=== PATIENT | female | born 2005 | race Caucasian/White ===

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

== ENCOUNTER → 2024-06-02 18:25 | Outpatient (CLI) | payer OTHER, SELFPAY ==
--- NOTE | ~2024-06-02 | XR_ITS ---
EXAMINATION: XR lumbar spine 2-3V DATE: 06/02/2024 19:03 INDICATION: Chronic bilateral low back pain. TECHNIQUE: 2 views of lumbar spine were obtained. COMPARISON: None. FINDINGS: Alignment is normal. Vertebral body heights and intervertebral disc heights are normal. The facet joints are normal. IMPRESSION: 1. Normal lumbar spine. Reviewed, dictated and finalized at location A. IMPRESSION: 1. Normal lumbar spine.
--- NOTE | ~2024-06-02 | XR_ITS ---
EXAMINATION: XR thoracic spine 3V DATE: 06/02/2024 19:02 INDICATION: Chronic mid back pain. TECHNIQUE: 3 views of thoracic spine were obtained. COMPARISON: None. FINDINGS: There is a 9 degrees levocurvature of cervicothoracic spine. Vertebral body heights and int ervertebral disc heights are normal. IMPRESSION: 1. Cervicothoracic levocurvature. Reviewed, dictated and finalized at location A.
--- NOTE | ~2024-06-02 | XR_ITS ---
EXAMINATION: [id number] DATE: 06/02/2024 19:01 INDICATION: Chronic bilateral neck pain. TECHNIQUE: 4 views of cervical spine were obtained. COMPARISON: None. FINDINGS: There is 9 degrees levocurvature of cervicothoracic spine. Vertebral body heights and inter vertebral disc heights are normal. The facet joints are normal. No central canal stenosis or preverte bral soft tissue swelling. There are surgical clips in the neck. IMPRESSION: 1. Cervicothoracic levocurvature. Reviewed, dictated and finalized at location A.
== END ==
PROVIDERS: PCP Emergency Medicine; Visit Provider Emergency Medicine
DX: M54.2 Cervicalgia (principal); M54.6 Pain in thoracic spine; M54.50 Low back pain, unspecified
CPT/HCPCS: 72040; 72072; 72100

== ENCOUNTER 2024-09-11 23:45 | Emergency (ER) | payer OTHER, SELFPAY ==
--- NOTE | ~2024-09-11 | CT_ITS ---
CT ANGIOGRAM NECK AND HEAD History: Headache, family history of AVM. Technique: Axial noncontrast imaging of the brain was performed. Serial spiral axial images through t he head and neck were then obtained during arterial phase IV injection of 100 cc of Omnipaque 350. 3- D postprocessing and MIP images were then reconstructed on the remote workstation. Dose reduction danya hnique was used on this scan by utilizing automated exposure control and iterative reconstruction danya hnique. The dose-length product (DLP) was 1510.98 mGy-cm. CTA neck findings: Bilateral vertebral arteries are patent. Bilateral common carotid, internal carot id, and external carotid arteries are patent. No large vessel occlusion or stenosis. No aneurysm. The proximal right internal carotid artery demonstrates 0% stenosis relative to the normal distal artery lumen diameter. The proximal left internal carotid artery demonstrates 0% stenosis relative to the n ormal distal artery lumen diameter. CTA head findings: Distal vertebral arteries, basilar artery, and posterior cerebral arteries are pat ent. Distal internal carotid arteries, middle cerebral arteries, and anterior cerebral arteries are p atent. No large vessel occlusion or stenosis. No aneurysm. Axial noncontrast images of brain is unremarkable. No acute infarct, intracranial hemorrhage or mass lesion identified. Beltran-white differentiation preserved. No mass effect or midline shift. Ventricles and subarachnoid spaces are normal. Paranasal sinuses and mastoid air cells are clear. Calvarium inta ct. Impression: No significant abnormality seen. Reviewed, dictated and finalized at [facility]. BINDING FITTER AND REPAIRER Impression: No significant abnormality seen.
--- NOTE | ~2024-09-11 | XR_ITS ---
Portable chest x-ray Comparison: 02/11/2023 Clinical History: Seizure Findings: Lungs are clear, without focal consolidation or pleural effusion. Cardiomediastinal silho uette is stable. Bones and soft tissues are unremarkable. Impression: Normal chest. Reviewed, dictated and finalized at [facility]. TIC EXTRUSION OPERATOR Impression: Normal chest.
[2024-09-11 23:50] VITALS: BP 128/88; PULSE 92; PULSE 98; RESP 13; TEMP 36.9; O2SAT 100
--- NOTE | 2024-09-12 00:22 | ECG_ITS ---
Test Date: 2024-09-12 00:53:08 Measurements Intervals [place] Rate: 85 P: 37 MI: 123 QRS: 82 QRSD: 73 T: 54 QT: 376 QTc: 447 Interpretive Statements SINUS RHYTHM NONSPECIFIC T-WAVE ABNORMALITY No previous ECG available for comparison Electronically Signed On 09-12-2024 08:47:11 CHEMISTRY TEACHER by Javier Ledesma M.D.
[2024-09-12] MEDS: SODIUM CHLORIDE 0.9% IV 1,000 ML 999 ML IV CONT (00:41)
[2024-09-12 00:58] LABS: Glucose Point of Care 90 mg/dl (65-105)
[2024-09-12 01:01] LABS: Acetaminophen < 10 ug/mL (10-30); Ethanol < 10 mg/dL (<10); Salicylate < 1.0 mg/dL (2-20)
[2024-09-12 01:02] LABS: Alanine Aminotransferase 17 U/L (6-35); Albumin Level 4.3 g/dL (3.5-5.1); Alkaline Phosphatase 89 U/L (38-126); Anion Gap 7 mmol/L (4-12); Aspartate Amino Transferase 26 U/L (14-36); Basophils Percent Auto 0.6 % (0.2-1.2); Bilirubin,Total 0.3 mg/dL (0.2-1.3); Blood Urea Nitrogen 8 mg/dL (7-17); Calcium 6.8 mg/dL (8.4-10.2); Carbon Dioxide 26 mmol/L (22-30); Chloride 105 mmol/L (98-107); Eosinophils Percent Auto 0.4 % (0-4.4); Estimated CRCL calculation 113 ml/min; Estimated Glomerular Filt Rate > 60; Glucose 107 mg/dL (65-110); Hematocrit 35.5 % (37.0-47.0); Hemoglobin 10.9 g/dL (12.0-15.0); INR 1.1; Immature Granulocyte Absolute 0.03 K/mm3 (0.00-0.031); Immature Granulocyte Percent A 0.4 % (0-0.5); Lymphocytes Absolute Auto 2.82 K/mm3 (0.9-3.2); Mean Corpuscular HGB Conc 30.7 g/dl (32-36); Mean Corpuscular Hemoglobin 22.8 pg (26-34); Mean Corpuscular Volume 74.3 fl (80-100); Mean Platelet Volume 11.4 fl (7.4-10.4); Monocytes Absolute Auto 0.8 K/mm3 (0.1-0.6); Monocytes Percent Auto 10.7 % (2.6-8.5); Neutrophils Absolute Auto 3.5 K/mm3 (1.3-6.7); Neutrophils Percent Auto 48.9 % (45.5-73.1); Platelet Count Result 278 k/mm3 (150-375); Potassium 3.2 mmol/L (3.4-5.0); Prothrombin Time 14.6 Seconds (11.1-14.7); Red Blood Count 4.78 M/mm3 (4.2-5.4); Sodium 138 mmol/L (137-145); White Blood Count 7.2 K/mm3 (4.5-10.0)
[2024-09-12 01:03] LABS: Partial Thromboplastin Time 29.6 Seconds (22.3-36.8)
[2024-09-12 01:05] VITALS: BP 125/82; PULSE 89; RESP 13; O2SAT 100
[2024-09-12 01:13] LABS: Anisocytosis 1+; Hypochromasia 1+; Ovalocytes 1+; Platelet Estimate Adequate (Adequate); Schistocytes None Seen; Troponin I < 0.012 ng/mL (0.000-0.034)
--- NOTE | 2024-09-12 01:22 | ED.AMS ---
HPI - Altered Mental Status General Chief Complaint: Altered Mental Status Stated Complaint: AMS Time Seen by Provider: 09/12/24 00:22 History of Present Illness HPI narrative: 19-year-old female with a past medical history of thyroid cancer status post total thyroidectomy and a family history of cerebral aneurysms presenting to the emergency department today with a chief complaint of shaking in the bilateral extremities and potential seizure-like activity. Patient states that she has a history of anxiety that has been worsening over last few days secondary to new work. She states that she has not been taking her calcium or thyroid medications these last few weeks as she has been too busy at work and forgetting to pick them up at the pharmacy. She does some mild headache but denies any vision changes, nausea, vomiting, chest pain, shortness a breath, fever, chills. Denies any falls or injuries. States that her shaking activity was witnessed by the mom but she was able ambulate to the car and they drove herself here to the emergency department. Sounds like there was no actual or suspected syncopal event or loss of consciousness. Patient denies any substance use. Related Data Home Medications ?Medication ?Instructions ?Recorded ?Confirmed ?Last Taken ?Type levothyroxine 100 mcg tablet 100 mcg PO 01/20/24 01/20/24 Unknown History liothyronine 25 mcg tablet 25 mcg PO 01/20/24 01/20/24 Unknown History Allergies Allergy/AdvReac Type Severity Reaction Status Date / Time No Known Allergies Allergy Verified 01/20/24 14:23 Review of Systems Review of Systems: As reviewed above in HPI [facility] Past Medical History Medical History Anxiety Depression Encounter for surveillance of implantable subdermal contraceptive Thyroid cancer Iron deficiency anemia Bloating Anemia Surgical History Surgical History History of appendectomy H/O thyroidectomy Family History Family History Grandparent COPD (chronic obstructive pulmonary disease) Social History Social History Smoking status: Never smoker Alcohol intake: never Substance use: current Substance use type: marijuana Do You Feel Safe in your Home?: Yes Lack of Transportation: No Lack of Food: Never True Current Housing: I Have Housing Concerned About Future Housing: No Difficulty Paying Gas/Electric Bills: No Difficulty Paying for Meds: Decline to Answer Currently Unemployed: YES Education: Decline to Answer Difficulty w/ Childcare or Family Care: No Living arrangements: with family Occupation/Education: unemployed Gender identity (if verbalized by the patient): Female Spiritual care concerns: No Exam Narrative: GENERAL: [Well-appearing, well-nourished, and in no acute distress.] HEAD: [Normocephalic, atraumatic.] EYES: [PERRLA and EOMI.] ENT: Nares clear, no rhinorrhea or epistaxis. Mucous membranes moist. NECK: Supple. CHEST: [Clear to auscultation. No respiratory distress.] HEART: [Regular rate and rhythm]. No murmur heard. [Normal peripheral pulses.] ABDOMEN: [Soft, nondistended], [nontender], [No rigidity or guarding] EXTREMITIES: Normal range of motion. [No edema.] SKIN: Warm, dry, no rash. NEURO: [No focal deficits]. Alert and oriented [x3.] Fine tremor noted in bilateral upper extremities that is extinguished with intention PSYCH: Anxious appearing Course Vital Signs Vital signs: Vital Signs Temperature 36.9 C 09/11/24 23:50 Pulse Rate 98 09/11/24 23:50 Respiratory Rate 13 09/11/24 23:50 Blood Pressure 128/88 09/11/24 23:50 Pulse Oximetry 100 09/11/24 23:50 Oxygen Delivery Room Air 09/11/24 23:50 Temperature 36.9 C 09/11/24 23:50 Pulse Rate 77 09/12/24 03:53 Respiratory Rate 16 09/12/24 05:27 Blood Pressure 123/71 09/12/24 03:53 Pulse Oximetry 100 09/12/24 03:53 Oxygen Delivery Room Air 09/11/24 23:50 MDM - Altered Mental Status MDM Narrative Medical decision making narrative: 19-year-old female with complex history including thyroid cancer status post thyroidectomy, history of family secondary to ruptured cerebral AVM. Today she presents to the emergency room with chief complaint of shaking activity bilateral upper extremities and some transient mental status changes that she is concerned could be related to a seizure. She has no history of epilepsy or seizures but states that she is concerned about them. She has not been taking her thyroid medication or her calcium medication these last few weeks secondary to stressors at work and forgetting to take her meds or get them filled at the pharmacy. She has a mild headache but otherwise appears well not any acute distress. She is slightly anxious and does have a fine tremor in her arms. No focal findings on her neurological assessment otherwise. Normal symmetric pulses throughout, reassuring vitals without any significant blood pressure elevations, no tachycardia fever hypoxia or tachypnea. Clear breath sounds throughout. Chronic care glucose was normal at 90. Given patient's complex history and family history of cerebral aneurysms I believe a thorough desiccation is warranted at this time. Suspicion is low for true seizure activity given the lack of any postictal state or any true loss of consciousness but will evaluate for any electrolyte derangements, hypocalcemia, thyroid levels, CBC, CMP, EKG, drug screen, CT and CT angiography of the head neck to assess for any kind of aneurysms given the strong family history. No significant leukocytosis or anemia worse than baseline. coags within normal limits. Electrolytes show a calcium of 6.8 in line with her previous low calcium levels and consistent with her patient's story that she has not been taking her calcium supplementation. TSH of 49.4 also indicative of her thyroid dysfunction. She has not been taking her thyroid medications recently either. She was given a dose of 2 g of calcium gluconate and 50 units of levothyroxine which is half her dose p.o. other workup shows negative troponin, negative CTA and CT head imaging without any aneurysms dissections or intracranial pathology. Patient was re-evaluated frequently and had stable vital signs here, no seizure activity witnessed in the emergency department she was re-evaluated multiple times over several hours. Clinically stable without any a concerning features of her hypocalcemia or thyroid dysfunction. Patient's family was present at bedside and they are comfortable with patient's discharge at this time with close outpatient follow-up with her celebrity chef entrepreneur media personality. Encouraged him to get the prescriptions of her medications filled at her pharmacy so she can remain back on her normal medication dosages and if she has any worsening or new concerns she can always get repeat evaluation here in the emergency department. Patient is stable for discharge home at this time. Medical Records Attestation: I reviewed the patient's medical records. Lab Data Attestation: I reviewed the patient's lab results. 09/12/24 00:42 09/12/24 00:42 Labs: Lab Results 09/12/24 09/12/24 09/12/24 Range/Units 00:42 00:55 01:31 WBC 7.2 (4.5-10.0) K/mm3 RBC 4.78 (4.2-5.4) M/mm3 Hgb 10.9 L (12.0-15.0) g/dL Hct 35.5 L (37.0-47.0) % MCV 74.3 L (80-100) fl MCH 22.8 L (26-34) pg MCHC 30.7 L (32-36) g/dl RDW 16.0 H (11.5-14.5) % Plt Count 278 D (150-375) k/mm3 MPV 11.4 H (7.4-10.4) fl Immature Gran % (Auto) 0.4 (0-0.5) % Neut % (Auto) 48.9 (45.5-73.1) % Lymph % (Auto) 39.0 (18.3-44.2) % [place] % (Auto) 10.7 H (2.6-8.5) % Eos % (Auto) 0.4 (0-4.4) % Baso % (Auto) 0.6 (0.2-1.2) % Lymph # (Auto) 2.82 (0.9-3.2) K/mm3 [place] # (Auto) 0.8 H (0.1-0.6) K/mm3 Eos # (Auto) 0.0 (0-0.3) K/mm3 Baso # (Auto) 0.0 (0.0-0.1) K/mm3 Abs Immat Gran (auto) 0.03 (0.00-0.031) K/mm3 Absolute Neuts (auto) 3.5 (1.3-6.7) K/mm3 Absolute Nucleated RBC 0.000 (0.0-0.012) K/mm3 Nucleated RBC % 0.0 (0.0-0.2) % Platelet Estimate Adequate (Adequate) Hypochromasia 1+ Anisocytosis 1+ Ovalocytes 1+ Schistocytes None seen PT 14.6 (11.1-14.7) Seconds INR 1.1 APTT 29.6 (22.3-36.8) Seconds Sodium 138 (137-145) mmol/L Potassium 3.2 L (3.4-5.0) mmol/L Chloride 105 (98-107) mmol/L Carbon Dioxide 26 (22-30) mmol/L Anion Gap 7 (4-12) mmol/L BUN 8 (7-17) mg/dL Creatinine 0.50 L (0.7-1.0) mg/dL Estim Creat Clear Calc 113 ml/min Estimated GFR > 60 (59 - ) Glucose 107 (65-110) mg/dL POC Capillary Glucose 90 (65-105) mg/dl Lactic Acid 1.7 (0.7-2.0) mmol/L Calcium 6.8 L (8.4-10.2) mg/dL Total Bilirubin 0.3 (0.2-1.3) mg/dL AST 26 (14-36) U/L ALT 17 (6-35) U/L Alkaline Phosphatase 89 (38-126) U/L Troponin I < 0.012 (0.000-0.034) ng/mL Total Protein 8.0 (6.3-8.2) g/dL Albumin 4.3 (3.5-5.1) g/dL TSH 49.400 H (0.465-4.680) uIU/mL Urine Color Yellow (Yellow) Urine Appearance Clear (Clear) Urine pH 6.5 (5.0-9.0) Ur Specific [place] 1.025 (1.001-1.035) Urine Protein Trace (Negative) mg/dL Urine Glucose (UA) Negative (Negative) mg/dL Urine Ketones Trace H (Negative) mg/dL Ur Blood (Man) Negative (Negative) Urine Nitrate Negative (Negative) Urine Bilirubin Negative (Negative) Urine Urobilinogen 1.0 (<2.0) mg/dL Add Ur Microanalysis Reviewed Leukocyte Esterase Rfl Negative (Negative) ALYSIA/UL Urine RBC 0-2 (0-2) /hpf Urine WBC 0-5 (0-3) /hpf Ur Squamous Epith Cells Occasional (Few) /hpf Urine Bacteria None seen /hpf Urine Casts 6-10 Hyaline Casts Present (None) /lpf Urine Mucus Present /lpf POC Urine HCG, Qual (Negative) Salicylates < 1.0 L (2-20) mg/dL Urine Opiates Screen Negative (Negative) Urine Methadone Screen Negative (Negative) Acetaminophen < 10 L (10-30) ug/mL Ur Barbiturates Screen Negative (Negative) Ur Phencyclidine Scrn Negative (Negative) Ur Amphetamine Screen Negative (Negative) U Benzodiazepines Scrn Negative (Negative) Urine Cocaine Screen Negative (Negative) U Cannabinoids Screen Positive A (Negative) Ethyl Alcohol < 10 (<10) mg/dL 09/12/24 Range/Units 01:34 WBC (4.5-10.0) K/mm3 RBC (4.2-5.4) M/mm3 Hgb (12.0-15.0) g/dL Hct (37.0-47.0) % MCV (80-100) fl MCH (26-34) pg MCHC (32-36) g/dl RDW (11.5-14.5) % Plt Count (150-375) k/mm3 MPV (7.4-10.4) fl Immature Gran % (Auto) (0-0.5) % Neut % (Auto) (45.5-73.1) % Lymph % (Auto) (18.3-44.2) % [place] % (Auto) (2.6-8.5) % Eos % (Auto) (0-4.4) % Baso % (Auto) (0.2-1.2) % Lymph # (Auto) (0.9-3.2) K/mm3 [place] # (Auto) (0.1-0.6) K/mm3 Eos # (Auto) (0-0.3) K/mm3 Baso # (Auto) (0.0-0.1) K/mm3 Abs Immat Gran (auto) (0.00-0.031) K/mm3 Absolute Neuts (auto) (1.3-6.7) K/mm3 Absolute Nucleated RBC (0.0-0.012) K/mm3 Nucleated RBC % (0.0-0.2) % Platelet Estimate (Adequate) Hypochromasia Anisocytosis Ovalocytes Schistocytes PT (11.1-14.7) Seconds INR APTT (22.3-36.8) Seconds Sodium (137-145) mmol/L Potassium (3.4-5.0) mmol/L Chloride (98-107) mmol/L Carbon Dioxide (22-30) mmol/L Anion Gap (4-12) mmol/L BUN (7-17) mg/dL Creatinine (0.7-1.0) mg/dL Estim Creat Clear Calc ml/min Estimated GFR (59 - ) Glucose (65-110) mg/dL POC Capillary Glucose (65-105) mg/dl Lactic Acid (0.7-2.0) mmol/L Calcium (8.4-10.2) mg/dL Total Bilirubin (0.2-1.3) mg/dL AST (14-36) U/L ALT (6-35) U/L Alkaline Phosphatase (38-126) U/L Troponin I (0.000-0.034) ng/mL Total Protein (6.3-8.2) g/dL Albumin (3.5-5.1) g/dL TSH (0.465-4.680) uIU/mL Urine Color (Yellow) Urine Appearance (Clear) Urine pH (5.0-9.0) Ur Specific [place] (1.001-1.035) Urine Protein (Negative) mg/dL Urine Glucose (UA) (Negative) mg/dL Urine Ketones (Negative) mg/dL Ur Blood (Man) (Negative) Urine Nitrate (Negative) Urine Bilirubin (Negative) Urine Urobilinogen (<2.0) mg/dL Add Ur Microanalysis Leukocyte Esterase Rfl (Negative) ALYSIA/UL Urine RBC (0-2) /hpf Urine WBC (0-3) /hpf Ur Squamous Epith Cells (Few) /hpf Urine Bacteria /hpf Urine Casts Hyaline Casts (None) /lpf Urine Mucus /lpf POC Urine HCG, Qual Negative (Negative) Salicylates (2-20) mg/dL Urine Opiates Screen (Negative) Urine Methadone Screen (Negative) Acetaminophen (10-30) ug/mL Ur Barbiturates Screen (Negative) Ur Phencyclidine Scrn (Negative) Ur Amphetamine Screen (Negative) U Benzodiazepines Scrn (Negative) Urine Cocaine Screen (Negative) U Cannabinoids Screen (Negative) Ethyl Alcohol (<10) mg/dL Imaging Data Attestation: I personally reviewed and interpreted this imaging study as follows: My impression: Impressions Head/Neck CTA 09/12/24 06:27 Impression: No significant abnormality seen. Chest X-Ray 09/12/24 06:31 Impression: Normal chest. Discharge Plan Discharge Clinical Impression: Hypocalcemia, Seizure-like activity, History of thyroidectomy, total, History of thyroid cancer Patient Disposition: Home, Self-Care Condition: Stable Instructions: Antibiotic Form Additional Instructions: You have low calcium levels and need to be restarted on your calcium supplementation medications. Your thyroid likely also needs to be adjusted based on your levels here today. Please call your celebrity chef entrepreneur media personality in the morning to schedule a follow-up appointment to restart your medications as appropriate. You did receive supplementation medication here in the emergency department treat both of these and we need to oyster picker her medications at your pharmacy when available. Follow-up with your doctor and return with any new or worsening concerns at any time. Patient Language: Icelandic Prescriptions: No Action levothyroxine 100 mcg tablet 100 mcg PO liothyronine 25 mcg tablet 25 mcg PO Follow-up/Referrals: John Paul Domínguez MD [Primary Care Provider] - Time of Disposition: 05:09
[2024-09-12 01:36] LABS: BEDSIDEPREGUCG Negative (Negative)
[2024-09-12 01:44] LABS: Lactic Acid Reflex 1.7 mmol/L (0.7-2.0)
[2024-09-12 01:52] LABS: Add Urine Microscopic? YES; Appearance Urine Clear (Clear); Bacteria Urine None Seen /hpf; Bilirubin Urine Negative (Negative); Blood Urine Negative (Negative); Color Urine Yellow (Yellow); Glucose Urine UA Negative (Negative); Hyaline Casts Urine Present /lpf; Ketones Urine Trace mg/dL (Negative); Leukocyte Esterase Ur Negative LEU/UL (Negative); Mucus Urine Present /lpf; Need Manual Microscopic Reviewed; Nitrate Urine Negative (Negative); Protein Urine Trace mg/dL (Negative); RBC Urine 0-2 /hpf (0-2); Specific Grav Ur 1.025 (1.001-1.035); Squamous Epithelial Cell Urine Occasional /hpf (Few); WBC Urine 0-5 /hpf (0-3); pH Urine 6.5 (5.0-9.0)
[2024-09-12 01:55] LABS: Amphetamine Screen Urine Negative (Negative); Barbiturate Screen Urine Negative (Negative); Benzodiazepines Screen Urine Negative (Negative); Cannabinoid Screen Urine Positive (Negative); Cocaine Screen Urine Negative (Negative); Methadone Screen Urine Negative (Negative); Opiate Screen Urine Negative (Negative); Phencyclidine Screen Urine Negative (Negative)
[2024-09-12] MEDS: LEVOTHYROXINE SODIUM INJ 100 MCG/5 ML VIAL 50 MCG IV PUSH (02:02)
[2024-09-12] MEDS: CALCIUM GLUC 2,000 MG/NS 100ML 2,000 MG/100 ML BAG 100 MG IVPB (02:02)
[2024-09-12 03:53] VITALS: BP 123/71; PULSE 77; RESP 17; O2SAT 100
[2024-09-12 05:27] VITALS: RESP 16
--- OUTSIDE RECORDS SUMMARY | 2024-09-16 12:07 | XMS_ITS | Encounter Summary ---
Author Organization [facility] Address [facility] [place] [address] [place] [address] Care Team Providers Care Typewriters Functional Tester Name Role Phone John Paul Domínguez MD Primary Care Provider [phone] Reason for Referral * Imaging (Routine) - Closed Specialty Diagnoses / Procedures Referred By Garcia carrillo Referred To Contact RADIOLOGY Diagnoses ORTEGA (dyspnea on exertion) Other Leanne-Danlos syndromes (HHS/HCC) Procedures USE ECHOCARDIOGRAM Ramesh Dowling MD [facility], [address] [place] [address] Phone: tel: fax: Referral ID Status Reason Start Date Expiration Date Visits Re quested Visits Authorized [id number] Closed 06/17/2024 09/15/2024 1 1 Encounter Details Date Type Department Care Team (Late st Contact Info) Description 05/24/2024 Orders Only [facility] [address] [place], [place] [id number] Ramesh Dowling MD [facility], [address] [place] [address] Social History Tobacco Use Types Packs/Day Years Used Date Smoking Tobacco: Never Passive Smoke Exposure: Never Smokeless Tobacco: Never Alcohol Use Standard Drinks/Week Comments Not Currently 0 (1 standard drink = 0.6 oz pur e alcohol) Comments Unknown Sex and Gender Information Value Date Recorded Sex Assigned at Not on file Legal Sex Female 9:01 AM CDT Gender Identity Not on file Sexual Orientation Not on file documented as of this encounter Plan of Treatment Upcoming Encounters Date Type Department Care Team (Late st Contact Info) Description 01/31/2025 12:45 PM CDT Office Visit [facility] [address] [place] [address] Ramesh Dowling MD [facility] [address] [place] [address] documented as of this encounter Results * USE ECHOCARDIOGRAM (06/17/2024 1:27 PM CDT) Anatomical Region Laterality Modality Cardiac Echocardiogram 06/17/2024 1:00 PM CDT Narrative 06/19/2024 9:05 AM CDT ?Echocardiography Report Pat.Name: ??JULIA BACA ? Pat.ID: ?[id number] ? St.Date: ?? 06/17/2024 ? Refer.: ??[id number] ROSARIO Son ? EWDPROV ?EWDPROV Exam Time: 1:00:00 PM ? Study Type:ECHO WITH CARDIAC DOPPLER COMP Height: ?61 in ? Weight: ?132 lb ? BSA: ? 1.58 m2 ?Age: ??2005,18Y ? Sex: ? F ? BP: ?121/71 ? HR: ?90 bpm ?Sonogrphr: Lazara Gilliam RCS ? Pat. Stat.:Outpatient ? Reason for Study:Dyspnea on exertion, Leanne-Danlos Procedures: 2D, M-mode, Doppler, Color Flow, The study quality is technically good. Race: ?W ? ++++++++++++++++++++++++++++++++++++ SUMMARY: ++++++++++++++++++++++++++++++++++++ The left ventricular size is normal. The left ventricular systolic function is normal. Estimated left ventricular ejection fraction is 65-70%. Left ventricular diastolic function is normal. The right ventricular size is normal. Right ventricular systolic function is normal. Mild mitral regurgitation. Mild tricuspid regurgitation. ++++++++++++++++++++++++++++++++++++ FINDINGS: ++++++++++++++++++++++++++++++++++++ LV: ? The left ventricular size is normal. The left ventricular ?systolic function is normal. Estimated left ventricular ?ejection fraction is 65-70%. There is no left ventricular ?hypertrophy. Left ventricular diastolic function is normal. WM: ? Wall motion appears normal in all segments. RV: ? The right ventricular size is normal. Right ventricular ?systolic function is normal. IVS: ?No evidence of ventricular septal defect. LA: ? The left atrial size is normal. The left atrial volume is ?normal ( less than 34 ml/M2). RA: ? Right atrial size is normal. IAS: ?Atrial septum appears intact. ARCELIA: ? No evidence of pericardial effusion. AO: ? Aorta is normal. PA: ? Estimated right atrial pressure of 3 mmHg. SVn: ?Systemic veins are normal. AV: ? The aortic valve is trileaflet. No evidence of aortic valve ?stenosis. No evidence of aortic valve regurgitation. MV: ? Mild mitral regurgitation. No evidence of mitral stenosis. PV: ? Trace pulmonic regurgitation. No evidence of pulmonic valve ?stenosis. TV: ? Mild tricuspid regurgitation. Right ventricular systolic ?pressure is 16 mmHg. No evidence of tricuspid valve ?stenosis. ++++++++++++++++++++++++++++++++++++ MEASUREMENTS: ++++++++++++++++++++++++++++++++++++ ?DOPPLER LVOT ?? LVOTpkPG ? 4 mmHg ?LVOTmnPG ? 2 mmHg LVOTpkVel ? 95.6 cm/s (70-110) LVOT SV ? 52 ml ?? LVOT TVI ?16.7 cm ? AV Forward Flow AV TVI ?21.3 cm ?AV pkPG ?5 mmHg AV pkVel ? 116 cm/s (100-170) Area (TVI) ?2.46 cm2 ??(3-5)* AV mnPG ?3 mmHg ?Area (Clyde) ?2.59 cm2 ??(3- 5)* MV Forward Flow MV DeTm ?161 msec ?MV E/A ? 1.7 ? MVA P1/2t ? 4.68 cm2 ??(4-6) ?MV pkE ?99.6 cm/s (60-130) MV P1/2t ?47 msec (30-60)+ MV pkA ?57.6 cm/s PV Forward Flow PV pkVel ? 107 cm/s (60-90)+* PV AC ?106 msec PV pkPG ?5 mmHg ? TV Regurg Flow TV pkPG ? 13 mmHg ?TV pkVel ? 179 cm/s (30- 70)* TV Forward Flow TV pkE ?76.6 cm/s ? Lat E' ?? Lat e ? 18.8 cm/s ? Lat E/E' ?? Lat E/e ?5.3 ? Med E' ?? Med e ? 14.1 cm/s ? Med E/E' ?? Med E/e ?7.1 ? Aortic Valve ?? Aortic Valve Ar ??1.56 ?Aortic Valve Ve ??0.82 ? PV Antegrade Flow Acceleration Sl ?? 779 cm/s2 ? Right Atrium ?? Max's Disk ? 20 ? Right Ventricle ?? Right Ventricle ??16.2 cm/s ?2D Left Ventricle ?? LVIDd ? 4.42 cm ?? (3.6-5.2) LV ESV ?13.6 ml ?? LVIDs ? 2.54 cm ?? (2.3-3.9) LV ESV ?18.9 ml ?? LngAxd ?7.36 cm ?LVESV BP ?15.9 ml ?? LngAxd ?7.07 cm ?LV EF ? 70.8 % ?? LV EDV ?46.7 ml ?LV EF ? 59.7 % ?? LV EDV ?46.9 ml ?LV EF BP ?66.7 % ?? LVEDV BP ?47.7 ml ?LV SV ? 33 ml ?? LngAxs ?6.01 cm ?LV SV ? 28 ml ?? LngAxs ?6.02 cm ?LV SV BP ?31.8 ml ?? LVPW ?? LVPWd ?0.611 cm ? Ventricular Septum ?? IVSd ? 0.634 cm ? Left Atrium ?? LA a-p ? 2.7 cm ?? (2.8-3.4)* LA VOLBP ?23.9 ml ?? Aorta ?? Ao Rtd ? 2.6 cm ?? (zsc 0.2) Ao Asc ? 2.4 cm ?? (zsc 0.7)+ LVOT ?? LVOT ? 2 cm ?LVOTArea ?3.14 cm2 Ratios ?? IVS LA Biplane LAVol I BP ?15.1 ml/m2 ? RA Single Plane Right Atrium MO ??17.4 mm ? Right Atrium Sy ??13.1 ml ?? Right Atrium Sy ??34.4 mm ? Right Atrium Sy ?? 8.3 ml/m2 Right Atrium Sy ??7.65 cm2 ? Right Ventricle ?? Right Ventricle ??29.2 mm ? Right Ventricle ?26 mm ?? Major [place] ?55.5 mm ?MMODE TA ?? Tricuspid Annul ?22 mm ? <Electronic Signature> 06/19/2024 09:05 AM Ramesh Dowling M.D. Procedure Note Ramesh Dowling MD - 06/19/2024 Echocardiography Report Pat.Name: JULIA BACA Pat.ID: [id number] St.Date: 06/17/2024 Refer.: [id number] ROSARIO Son EWDPROV EWDPROV Exam Time: 1:00:00 PM Study Type:ECHO WITH CARDIAC DOPPLER COMP Height: 61 in Weight: 132 lb BSA: 1.58 m2 Age: 9 2005,18Y Sex: F BP: 121/71 HR: 90 bpm Sonogrphr: Lazara Gilliam Pat. Stat.:Outpatient Reason for Study:Dyspnea on exertion, Leanne-Danlos Procedures: 2D, M-mode, Doppler, Color Flow, The study quality is technically good. Race: W ++++++++++++++++++++++++++++++++++++ SUMMARY: ++++++++++++++++++++++++++++++++++++ The left ventricular size is normal. The left ventricular systolic function is normal. Estimated left ventricular ejection fraction is 65-70%. Left ventricular diastolic function is normal. The right ventricular size is normal. Right ventricular systolic function is normal. Mild mitral regurgitation. Mild tricuspid regurgitation. ++++++++++++++++++++++++++++++++++++ FINDINGS: ++++++++++++++++++++++++++++++++++++ LV: The left ventricular size is normal. The left ventricular systolic function is normal. Estimated left ventricular ejection fraction is 65-70%. There is no left ventricular hypertrophy. Left ventricular diastolic function is normal. WM: Wall motion appears normal in all segments. RV: The right ventricular size is normal. Right ventricular systolic function is normal. IVS: No evidence of ventricular septal defect. LA: The left atrial size is normal. The left atrial volume is normal ( less than 34 ml/M2). RA: Right atrial size is normal. IAS: Atrial septum appears intact. ARCELIA: No evidence of pericardial effusion. AO: Aorta is normal. PA: Estimated right atrial pressure of 3 mmHg. SVn: Systemic veins are normal. AV: The aortic valve is trileaflet. No evidence of aortic valve stenosis. No evidence of aortic valve regurgitation. MV: Mild mitral regurgitation. No evidence of mitral stenosis. PV: Trace pulmonic regurgitation. No evidence of pulmonic valve stenosis. TV: Mild tricuspid regurgitation. Right ventricular systolic pressure is 16 mmHg. No evidence of tricuspid valve stenosis. ++++++++++++++++++++++++++++++++++++ MEASUREMENTS: ++++++++++++++++++++++++++++++++++++ DOPPLER LVOT LVOTpkPG 4 mmHg LVOTmnPG 2 mmHg LVOTpkVel 95.6 cm/s (70-110) LVOT SV 52 ml LVOT TVI 16.7 cm AV Forward Flow AV TVI 21.3 cm AV pkPG 5 mmHg AV pkVel 116 cm/s (100-170) Area (TVI) 2.46 cm2 (3-5)* AV mnPG 3 mmHg Area (Clyde) 2.59 cm2 (3-5)* MV Forward Flow MV DeTm 161 msec MV E/A 1.7 MVA P1/2t 4.68 cm2 (4-6) MV pkE 99.6 cm/s (60-130) MV P1/2t 47 msec (30-60)+ MV pkA 57.6 cm/s PV Forward Flow PV pkVel 107 cm/s (60-90)+* PV AC 106 msec PV pkPG 5 mmHg TV Regurg Flow TV pkPG 13 mmHg TV pkVel 179 cm/s (30-70)* TV Forward Flow TV pkE 76.6 cm/s Lat E' Lat e 18.8 cm/s Lat E/E' Lat E/e 5.3 Med E' Med e 14.1 cm/s Med E/E' Med E/e 7.1 Aortic Valve Aortic Valve Ar 1.56 Aortic Valve Ve 0.82 PV Antegrade Flow Acceleration Sl 779 cm/s2 Right Atrium Max's Disk 20 Right Ventricle Right Ventricle 16.2 cm/s 2D Left Ventricle LVIDd 4.42 cm (3.6-5.2) LV ESV 13.6 ml LVIDs 2.54 cm (2.3-3.9) LV ESV 18.9 ml LngAxd 7.36 cm LVESV BP 15.9 ml LngAxd 7.07 cm LV EF 70.8 % LV EDV 46.7 ml LV EF 59.7 % LV EDV 46.9 ml LV EF BP 66.7 % LVEDV BP 47.7 ml LV SV 33 ml LngAxs 6.01 cm LV SV 28 ml LngAxs 6.02 cm LV SV BP 31.8 ml LVPW LVPWd 0.611 cm Ventricular Septum IVSd 0.634 cm Left Atrium LA a-p 2.7 cm (2.8-3.4)* LA VOLBP 23.9 ml Aorta Ao Rtd 2.6 cm (zsc 0.2) Ao Asc 2.4 cm (zsc 0.7)+ LVOT LVOT 2 cm LVOTArea 3.14 cm2 Ratios IVS LA Biplane LAVol I BP 15.1 ml/m2 RA Single Plane Right Atrium MO 17.4 mm Right Atrium Sy 13.1 ml Right Atrium Sy 34.4 mm Right Atrium Sy 8.3 ml/m2 Right Atrium Sy 7.65 cm2 Right Ventricle Right Ventricle 29.2 mm Right Ventricle 26 mm Major Norwich 55.5 mm MMODE TA Tricuspid Annul 22 mm <Electronic Signature> 06/19/2024 09:05 AM Ramesh Dowling M.D. Ramesh Dowling MD ECHO Final Res ult documented in this encounter Visit Diagnoses Diagnosis ORTEGA (dyspnea on exertion)- Primary Other dyspnea and respiratory abnormality Other Leanne-Danlos syndromes (HHS/HCC) ORTEGA (dyspnea on exertion) Other dyspnea and respiratory abnormality Other Leanne-Danlos syndromes (HHS/HCC) documented in this encounter Care Teams Typewriters Functional Tester Relationship Specialty Start Date End Date John Paul Domínguez MD [address] [place] [address] PCP - General FAMILY PRACTICE 03/08/24 documented as of this encounter
--- OUTSIDE RECORDS SUMMARY | 2024-09-16 12:07 | XMS_ITS | Encounter Summary ---
Author Organization [facility] Address [address] [place] [address]. [place] [address] [place] [address] Care Team Providers Care General Matcher Name Role Phone John Paul Domínguez MD Primary Care Provider [phone] Encounter Details Date Type Department Care Team (Latest Contact Info) Description 08/02/2024 Travel Social History Tobacco Use Types Packs/Day Years [...] Description 01/31/2025 12:45 PM CDT Office Visit [facility] [address] [place] [address] Ramesh Dowling MD [facility], [address] [place] [address] documented as of this encounter Visit Diagnoses Not on filedocumented in this encounter Care Teams General Matcher Relationship Specialty Start Date End Date John Paul Domínguez MD [address] [place] [phone] PCP - General FAMILY PRACTICE 03/08/24 documented as of this encounter
--- OUTSIDE RECORDS SUMMARY | 2024-09-16 12:07 | XMS_ITS | Encounter Summary ---
Author Organization [facility] Address [address] [place] [address]. [place] [address] [place] [address] Care Team Providers Care Administrative Clerk Name Role Phone John Paul Domínguez MD Primary Care Provider [phone] Reason for Visit * Reason Onset Date Comments Results 06/21/2024 Encounter Details Date Type Department Care Team (Late st Contact Info) Description 06/21/2024 Telephone [facility] [address], [address] [place], [place] [id number] Marisabel Myles FNP [address] [facility] [address] [place] [address] Results Social History Tobacco Use Types Packs/Day Years [...] on file documented as of this encounter Progress Notes * Apurva Resendez RN - 06/21/2024 8:35 AM CDT Patient voiced understanding and had no further questions at this time. Apurva GEORGE * Apurva Resendez RN - 06/21/2024 8:34 AM CDT ----- Message from Marisabel Myles sent at 06/21/2024 8:17 AM CDT ----- Please let her know that the squeezing function of her heart is normal andthere is no chamber dilation. There is mild leakage of mitral and tricuspid valves that should not be causing her any issues at this time. Views of aorta appeared normal typically we would repeat an echo in 3 to 5 years to follow the valves. This can be discussed further and ordered at her follow-up with Dr. Dowling that she should keep unless otherwise needed sooner documented in this encounter Plan of Treatment Upcoming Encounters Date Type Department Care Team (Late st Contact Info) Description 01/31/2025 12:45 PM CDT Office Visit [facility] [address] [place], [place] [phone] Ramesh Dowling MD [facility], [address] [place] [address] documented as of this encounter Visit Diagnoses Not on filedocumented in this encounter Care Teams Administrative Clerk Relationship Specialty Start Date End Date John Paul Domínguez MD [address] [place] [phone] PCP - General FAMILY PRACTICE 03/08/24 documented as of this encounter
--- OUTSIDE RECORDS SUMMARY | 2024-09-16 12:07 | XMS_ITS | Encounter Summary ---
Author Organization [facility] Address [address] [place] [address]. [place] [address] [place] [address] Care Team Providers Care Hardboard Factory Worker Name Role Phone John Paul Domínguez MD Primary Care Provider Encounter Details Date Type Department Care Team (Latest Contact Info) Description 05/24/2024 Travel Social History Tobacco Use Types Packs/Day [...] Description 01/31/2025 12:45 PM CDT Office Visit [facility] [address] [place] [address] Ramesh Dowling MD [facility], [address] [place] [address] documented as of this encounter Visit Diagnoses Not on filedocumented in this encounter Care Teams Hardboard Factory Worker Relationship Specialty Start Date End Date John Paul Domínguez MD [address] [place] [phone] PCP - General FAMILY PRACTICE 03/08/24 documented as of this encounter
--- OUTSIDE RECORDS SUMMARY | 2024-09-16 12:07 | XMS_ITS | Clinical Summary ---
Author Organization [facility] Address [facility] [place] [address] [place] [address] Care Team Providers Care Industrial Relations Officer Name Role Phone John Paul Domínguez MD Primary Care Provider [phone] Allergies Active Allergy Reactions Criticality Noted Date Comments Tape Unknown 03/11/2024 Medications vitamin D2, ergocalciferol, (DRISDOL) 1.25 mg capsule Take 1 capsule (1.25 mg total) by mouth once a week. Active levothyroxine (SYNTHROID) 100 MCG tablet Take 1 tablet (100 mcg total) by mouth daily. 01/15/2024 5 Active liothyronine (CYTOMEL) 25 MCG tablet Take 1 tablet (25 mcg total) by mouth daily. 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 She had agreed but has not been starting the medication. I sent the prescription to the pharmacy and she tells me that she will go ahead and started Papillary thyroid carcinoma ([facility]) Overview (05/24/2024): Last Assessment & Plan: Continue monitoring TG level The patient is scheduled for whole-body thyroid scan with radio oncology in March Iron deficiency anemia due to chronic blood loss 07/18/2022 Encounters Date Type Department Care Team Description 08/02/2024 1:15 PM SCHOOL PLANT CONSULTANT Office Visit [facility] [address] [place] [address] Ramesh Dowling MD Hypotension (2mo) 08/02/2024 Travel 06/21/2024 Telephone [facility], [place] [address] [place] [address] Marisabel Myles FNP Results 06/17/2024 12:30 PM CDT - 06/17/2024 11:59 PM CDT Hospital Encounter [facility] [place] [address] Ramesh Dowling MD Discharge Disposition: Home or Self Care (Routine Discharge) 06/17/2024 Travel from Last 3 Months Family History Medical History Relation Comments Leanne-Danlos syndrome Brother No Known Problems Father Leanne-Danlos syndrome Mother Crohns Disease Sister Leanne-Danlos syndrome Sister Ulcerative Colitis Sister Relation Status Comments Brother Father Mother Sister Social History Tobacco Use Types Packs/Day Years Used Date Smoking Tobacco: Never Passive Smoke Exposure: Never Smokeless Tobacco: Never Tobacco Cessation:Counseling Given: Not Answered Alcohol Use Standard Drinks/Week Comments Not Currently 0 (1 standard drink = 0.6 oz pur e alcohol) Comments Unknown Sex and Gender Information Value Date Recorded Sex Assigned at Not on file Legal Sex Female 9:01 AM CDT Gender Identity Not on file Sexual Orientation Not on file Last Filed Vital Signs Vital Sign Reading Time Taken Comments Blood Pressure 110/82 08/02/2024 1:34 PM SCHOOL PLANT CONSULTANT Pulse 114 08/02/2024 1:34 PM SCHOOL PLANT CONSULTANT Temperature - - Respiratory Rate - - Oxygen Saturation 97% 08/02/2024 1:34 PM SCHOOL PLANT CONSULTANT Inhaled Oxygen Concentration - - Weight 63 kg (139 lb) 08/02/2024 1:34 PM SCHOOL PLANT CONSULTANT Height 154.9 cm (5' 1 ) 08/02/2024 1:34 PM SCHOOL PLANT CONSULTANT Body Mass Index 26.26 08/02/2024 1:34 PM SCHOOL PLANT CONSULTANT Plan of Treatment Upcoming Encounters Date Type Department Care Team (Late st Contact Info) Description 01/31/2025 12:45 PM CDT Office Visit [facility] [address] [place] [address] Ramesh Dowling MD [facility] [address] [place] [address] Health Maintenance Due Date Last Done Comments Annual Physical 2007 Pneumococcal Vaccine: Pediatrics (0 to 5 Years) and At-Risk Patients (6 to 64 Years) (1 of 2 - PCV) 2010 05/22/2006, 02/12/2005, 2004, Additional history exists HPV Vaccines (2 - 2-dose series) 12/17/2016 06/19/2016 Hepatitis C 2022 COVID-19 Vaccine ( season) 2024 Influenza Adult (#1) 2024 06/19/2016, 05/27/20 11 DTaP, Tdap and Td Vaccines (7 - Td or Tdap) 05/06/2026 05/06/2016, 05/25/2010, 05/22/2006, Additional history exists Hepatitis B Vaccines Completed 05/22/2006, 2004, 2004, Additional history exists Meningococcal Vaccine Aged Out 05/06/2016 No vikram elías eligible based on patient's age to complete this topic RSV Immunizations Under 20 Months Aged Out No longer eligible based on patient's age to complete this topic Procedures Procedure Name Priority Date/Time Associated Diagnosis Comments USE ECHOCARDIOGRAM Routine 06/17/2024 1: 27 PM CDT ORTEGA (dyspnea on exertion) Other Leanne-Danlos syndromes (HHS/HCC) from Last 3 Months Results * USE ECHOCARDIOGRAM (06/17/2024 1:27 PM CDT) Anatomical Region Laterality Modality Cardiac Echocardiogram 06/17/2024 1:00 PM CDT Narrative 06/19/2024 9:05 AM CDT ?Echocardiography Report Pat.Name: ??JULIA BACA ? Pat.ID: ?[id number] ? St.Date: ?? 06/17/2024 ? Refer.MD: ??[id number] OCHHEATHER ESCAMILLA O ? EWDPROV ?EWDPROV Exam Time: 1:00:00 PM [...] ? Right Ventricle ?26 mm ?? Major Sharon ?55.5 mm ?MMODE TA ?? Tricuspid Annul ?22 mm ? <Electronic Signature> 06/19/2024 09:05 AM Ramesh Dowling M.D. Procedure Note Ramesh Dowling MD - 06/19/2024 Echocardiography Report Pat.Name: JULIA BACA Pat.ID: [id number] .Date: 06/17/2024 Refer.: [id number] ROSARIO Son EWDPROV EWDPROV Exam Time: 1:00:00 PM Study Type:ECHO WITH CARDIAC DOPPLER COMP Height: 61 in Weight: 132 lb BSA: 1.58 m2 Age: 10 2005,18Y Sex: F BP: 121/71 HR: 90 bpm Sonogrphr: Lazara Gilliam. Stat.:Outpatient Reason for Study:Dyspnea on exertion, Leanne-Danlos [...] 29.2 mm Right Ventricle 26 mm Major Sharon 55.5 mm MMODE TA Tricuspid Annul 22 mm <Electronic Signature> 06/19/2024 09:05 AM Ramesh Dowling M.D. us Ramesh Dowling MD ECHO Final Res ult from Last [address] [place] [place] [address] Care Teams Industrial Relations Officer Relationship Specialty Start Date End Date John Paul Domínguez MD [address] [place] [phone] PCP - General FAMILY PRACTICE 03/08/24
--- OUTSIDE RECORDS SUMMARY | 2024-09-16 12:07 | XMS_ITS | Encounter Summary ---
Author Organization [facility] Address [address] [place] [address]. [place] [address] [place] [address] Care Team Providers Care Instrumental Teacher Name Role Phone Emili Charles MD Primary Care Provider Reason for Visit * Reason Comments Hypotension 2mo Encounter Details Date Type Department Care Team (Late st Contact Info) Description 08/02/2024 1:15 PM DRAW PRESS OPERATOR [facility] Visit [facility] [address] [place] [address] Ramesh Dowling MD [facility], [address] [place], [place] [id number] Hypotension (2mo) Social History Tobacco Use Types Packs/Day Years [...] on file documented as of this encounter Last Filed Vital Signs Vital Sign Reading Time Taken Comments Blood Pressure 110/82 08/02/2024 1:34 PM DRAW PRESS OPERATOR Pulse 114 08/02/2024 1:34 PM DRAW PRESS OPERATOR Temperature - - Respiratory Rate - - Oxygen Saturation 97% 08/02/2024 1:34 PM DRAW PRESS OPERATOR Inhaled Oxygen Concentration - - Weight 63 kg (139 lb) 08/02/2024 1:34 PM DRAW PRESS OPERATOR Height 154.9 cm (5' 1 ) 08/02/2024 1:34 PM DRAW PRESS OPERATOR Body Mass Index 26.26 08/02/2024 1:34 PM DRAW PRESS OPERATOR documented in this encounter Progress Notes * Ramesh Dowling MD - 08/02/2024 1:15 PM CST Reason for Visit: Hypotension (2mo) History of Present Illness: Ms. Baca (goes by [employer]) is a 19 year old female with a PMH significant for papillary thyroid carcinoma status post thyroidectomy 12/2022 and radioactive iodine ablation who and marijuana use who presents for a follow up visit. Her 34 year old sister was also diagnosed with Leanne Danlos syndrome and POTS. She and her sister note dizziness with most activities, rapid heart rates with moving around, numbness and tingling in her legs and face. She has imbalance when she walks in the grocery store, gets short of breath easily. She does not wear compression stockings because she has not found the right size, most have been too narrow for her to wear. She has increased her fluid intake. She had 4-5 bottles of water yesterday. She woke up late today,has only had one today. No chest discomfort. No edema, orthopnea or PND. Recommendations and Plan: POTS: Encouraged her to drink more water, goal >60-80 oz/day. She does not like sports drinks because of concerns about sugar. She likes pickle juice. Encouraged her to look into compression stockings with zippers. Echo 06/17/24 with normal biventricular function and mild valve insufficiency. Dyspnea on exertion: ECG 05/24/24 with normal sinus rhythm. Continue POTS management as above. Echo 06/17/24 with normal biventricular function and mild valve insufficiency. 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 Echo 06/17/24 with normal biventricular function and aortic root. Mild mitral and tricuspid regurgitation on echo 06/17/24, can repeat an echo in 3-5 years. Follow up in 6 months. Medications: Current Outpatient Medications: levothyroxine (SYNTHROID) 100 MCG tablet, Take 1 tablet (100 mcg total) by mouth daily., Disp: , Rfl: liothyronine (CYTOMEL) 25 MCG tablet, Take 1 tablet (25 mcg total) by mouth daily., Disp: , Rfl: vitamin D2, ergocalciferol, (DRISDOL) 1.25 mg capsule, Take 1 capsule (1.25 mg total) by mouth oncea week., Disp: , Rfl: Review of patient's allergies indicates: Allergen Reactions Tape Unknown Past Medical History: Diagnosis Date Anemia, unspecified Migraine Mild intermittent asthma, uncomplicated (HHS/HCC) Rheumatoid arthritis, unspecified (CMS/HCC HHS/HCC) Thyroid cancer (CMS/HCC HHS/HCC) Past Surgical History: Procedure Laterality Date APPENDECTOMY 12/2022 THYROIDECTOMY TOTAL/COMPLETE 12/2022 Social History Tobacco Use Smoking status: Never Passive exposure: Never Smokeless tobacco: Never Vaping Use Vaping status: Never Used Substance Use Topics Alcohol use: Not Currently Drug use: Yes Types: Marijuana Family History Problem Relation Name Age of Onset Leanne-Danlos syndrome Mother No Known Problems Father Leanne-Danlos syndrome Sister Ulcerative Colitis Sister Crohns Disease Sister Leanne-Danlos syndrome Brother Family Status Relation Name Status Mother (Not Specified) Father (Not Specified) Sister (Not Specified) Brother (Not Specified) No partnership data on file Review of Systems Constitutional: Negative for recent unintentional weight gain, recent unintentional weight loss andnew or significant fatigue. HENT: Negative for new or significant hearing loss. Eyes: Negative for blurred vision and double vision. Respiratory: Positive for shortness of breath. Negative for cough and snoring. Cardiovascular: See HPI. Positive for palpitations. Negative for chest pain, orthopnea, leg swelling and PND. Gastrointestinal: Negative for heartburn, nausea, blood in stool and melena. Genitourinary: Negative for dysuria. Musculoskeletal: Negative for myalgias and new or worsening joint stiffness/pain. Skin: Negative for rash. Neurological: Positive for dizziness. Negative for tingling/numbness and focal weakness. Endo/Heme/Allergies: Negative for new or significant bruising/bleeding and polydipsia. Psychiatric/Behavioral: Negative for depression and new or significant memory loss. Vitals: 08/02/24 1334 BP: 110/82 Pulse: (!) 114 Weight: 63 kg (139 lb) Height: 1.549 m (5' 1 ) Body mass index is 26.26 kg/m??. Cardiac Exam Rate/Rhythm: Normal rate and regular rhythm. PMI: PMI is not displaced. Pulses: Carotid pulses are 2+ on the right side and 2+ on the left side. Radial pulses are 2+ on the right side and 2+ on the left side. Dorsalis pedis pulses are 2+ on the right side and 2+ on the left side. Posterior tibial pulses are 2+ on the right side and 2+ on the left side. Heart Sounds: Normal heart sounds. Normal S1 sounds. Normal S2 sounds. No gallop present. No S3. NoS4. Murmurs: No murmur present Negative for edema. Physical Exam Constitutional: No distress. Healthy Appearance. HENT: Oropharynx clear. Eyes: Conjunctivae normal. Neck: Neck supple. No JVD. Abdomen: Abdomen soft. Bowel sounds normal. No tenderness. No mass. Pulmonary: Effort normal. Breath sounds normal. No wheezes. Skin: Warm. No rash. No cyanosis. No clubbing. No xanthoma. Musculoskeletal: No kyphosis. Normal ROM. Neurological: Alert. Oriented x 3. Appropriate mood and affect. Normal motor skills. Normal gait. Comments: Echo 06/17/24 SUMMARY: ++++++++++++++++++++++++++++++++++++ The left ventricular size is normal. The left ventricular systolic function is normal. Estimated left ventricular ejection fraction is 65-70%. Left ventricular diastolic function is normal. The right ventricular size is normal. Right ventricular systolic function is normal. Mild mitral regurgitation. Mild tricuspid regurgitation. Diagnoses/Impression: 1. POTS (postural orthostatic tachycardia syndrome) 2. ORTEGA (dyspnea on exertion) 3. Mild mitral regurgitation 4. Mild tricuspid regurgitation Referring Provider: No ref. provider found PCP: EMILI CHARLES MD PRESS OPERATOR documented in this encounter Plan of Treatment Upcoming Encounters Date Type Department Care Team (Late st Contact Info) Description 01/31/2025 12:45 PM CDT Office Visit [facility] [address] [place] [address] Ramesh Dowling MD [facility]., [address] [place], [place] [phone] documented as of this encounter Visit Diagnoses Diagnosis POTS (postural orthostatic tachycardia syndrome)- Primary Tachycardia, unspecified ORTEGA (dyspnea on exertion) Other dyspnea and respiratory abnormality Mild mitral regurgitation Mitral valve disorders Mild tricuspid regurgitation Diseases of tricuspid valve documented in this encounter Care Teams Instrumental Teacher Relationship Specialty Start Date End Date Emili Charles MD [address] [place] [phone] PCP - General FAMILY PRACTICE 03/08/24 documented as of this encounter
--- OUTSIDE RECORDS SUMMARY | 2024-09-16 12:07 | XMS_ITS | Encounter Summary ---
Author Organization [facility] Address [address] [place] [address]. [place] [address] [place] [address] Care Team Providers Care Lead Oxide Mill Tender Name Role Phone Emili Charles MD Primary Care Provider [phone] Reason for Visit * Reason Comments Hypotension consult Encounter Details Date Type Department Care Team (Late st Contact Info) Description 05/24/2024 1:00 PM CDT Office Visit [facility] [address] [place] [address] Ramesh Ponce MD [facility], [address] [place], [place] [id number] Hypotension (consult) Social History Tobacco Use Types Packs/Day Years [...] Sign Reading Time Taken Comments Blood Pressure - - Pulse - - Temperature - - Respiratory Rate - - Oxygen Saturation 99% 05/24/2024 1:24 PM CDT Inhaled Oxygen Concentration - - Weight 60 kg (132 lb 3.2 oz) 05/24/2024 1:24 PM CDT Height 154.9 cm (5' 1 ) 05/24/2024 1:24 PM CDT Body Mass Index 24.98 05/24/2024 1:24 PM CDT documented in this encounter Progress Notes * Ramesh Ponce MD - 05/24/2024 1:00 PM CDT Reason for Visit: Hypotension (consult) History of Present Illness: Ms. Baca (goes by [employer]) is a 18 year old female with a PMH significant for papillary thyroid carcinoma status post thyroidectomy 12/2022 and radioactive iodine ablation who and marijuana use who presents for an initial visit. Her 34 year old sister recently got diagnosed with Leanne Danlos syndrome and POTS a few months ago. She and her sister note dizziness with most activities, rapid heart rates with moving around, numbness and tingling in her legs and face. She has imbalance when she walks in the grocery store, gets short of breath easily. She drinks water and juices (orange and grape), about 4 of the 12-16 oz cups/day. She does not wearcompression stockings because she has not found the right size, most have been too narrow for her to wear. Recommendations and Plan: POTS: In the office today, she is noted to have a 33-34 point increase in pulse with no change in BP upon standing and sitting. Encouraged her to drink more water, goal >60-80 oz/day. She does notlike sports drinks because of concerns about sugar. She likes pickle juice. Encouraged her to look into compression stockings with zippers. Dyspnea on exertion: ECG 05/24/24 with normal sinus rhythm. Check an echo, continue POTS management as above. 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 Check an echo. Follow up in 2 months. Medications: Current Outpatient Medications: levothyroxine (SYNTHROID) 100 MCG tablet, Take 1 tablet (100 mcg total) by mouth daily., Disp: , Rfl: liothyronine (CYTOMEL) 25 MCG tablet, Take 1 tablet (25 mcg total) by mouth daily., Disp: , Rfl: vitamin D2, ergocalciferol, (DRISDOL) 1.25 mg capsule, Take 1 capsule (1.25 mg total) by mouth oncea week., Disp: , Rfl: Not on File Past Medical History: Diagnosis Date Anemia, unspecified Migraine Mild intermittent asthma, uncomplicated (HHS/HCC) Rheumatoid arthritis, unspecified (CMS/HCC [facility]HS/[facility]) Thyroid cancer ([facility]) Past Surgical History: Procedure Laterality Date APPENDECTOMY 12/2022 THYROIDECTOMY TOTAL/COMPLETE 12/2022 Family History Problem Relation Name Age of [...] joint stiffness/pain. Skin: Negative for rash. Neurological: Negative for tingling/numbness and focal weakness. Endo/Heme/Allergies: Negative for new or significant bruising/bleeding and polydipsia. Psychiatric/Behavioral: Negative for depression and new or significant memory loss. Vitals: 05/24/24 1324 05/24/24 1325 05/24/24 1329 BP - Orthostatic: 118/78 126/81 128/87 Patient Position: Lying Orthostatic Sitting Orthostatic Standing Orthostatic BP Location: Left arm Left arm Left arm Pulse - Orthostatic: 89 123 124 Weight: 60 kg (132 lb 3.2 oz) Height: 1.549 m (5' 1 ) Body mass index is 24.98 kg/m??. Cardiac Exam Rate/Rhythm: Normal rate and [...] affect. Normal motor skills. Normal gait. Comments: Diagnoses/Impression: 1. POTS (postural orthostatic tachycardia syndrome) ELECTROCARDIOGRAM 2. ORTEGA (dyspnea on exertion) 3. Other Leanne-Danlos syndromes (HHS/HCC) Referring Provider: No ref. provider found PCP: EMILI CHARLES MD documented in this encounter Plan of Treatment Upcoming Encounters Date Type Department Care Team (Late st Contact Info) Description 01/31/2025 12:45 PM CDT Office Visit [facility] [address] [address] [place] [address] Ramesh Ponce MD [facility], [address] [place] [address] documented as of this encounter Procedures Procedure Name Priority Date/Time Associated Diagnosis Comments ELECTROCARDIOGRAM (NON MIDMARK ACQUIRED) Routine 05/24/2024 1:32 PM CDT POTS (postural orthostatic tachycardia syndrome) documented in this encounter Results * ELECTROCARDIOGRAM (05/24/2024 1:32 PM CDT) 05/24/2024 1:32 PM CDT Narrative [facility] - 06/02/2024 5:55 AM CDT ? [facility] ? [place], [place] ? Test Date: ?2024-05-24 Pat Name: ? JULIA BACA ? Department: ?? 150 ? Room: ? Gender: ? F ?Tax Compliance Agent: ?? AG : ?2005 ? Requested By: RAMESH OCHIENG Order Number: [id number] ?Reading MD: ?? Ramesh Ochieng ? Measurements Intervals ?[place] ? Rate: ? 87 ? P: ?64 [place]: ? 126 ?QRS: ?85 QRSD: ? 68 ? T: ?65 QT: ? 343 ? QTc: ?415 ? Interpretive Statements SINUS RHYTHM No prior ECG for comparison Procedure Note Ramesh Ponce MD - 06/02/2024 [facility] [place] Test Date: 2024-05-24 Pat Name: JULIA BACA Department: 150 Room: Gender: F Tax Compliance Agent: : 2005 Requested By: RAMESH PONCE Order Number: [id number] Reading MD: Ramesh Ponce Measurements Intervals [place] Rate: 87 P: 64 [place]: 126 QRS: 85 QRSD: 68 T: 65 QT: 343 QTc: 415 Interpretive Statements SINUS RHYTHM No prior ECG for comparison us Rmaesh Ponce MD PROCEDURES-ORDERABLE NO C HARGE Final Result Performing Organization Address City/State/[facility] Co de Phone Number ADA PAIGE documented in this encounter Visit Diagnoses Diagnosis POTS (postural orthostatic tachycardia syndrome)- Primary Tachycardia, unspecified ORTEGA (dyspnea on exertion) Other dyspnea and respiratory abnormality Other Leanne-Danlos syndromes (HHS/HCC) documented in this encounter Care Teams Lead Oxide Mill Tender Relationship Specialty Start Date End Date Emili Charles MD [address] [place] [address] PCP - General FAMILY PRACTICE 03/08/24 documented as of this encounter
--- OUTSIDE RECORDS SUMMARY | 2024-09-16 12:07 | XMS_ITS | Encounter Summary ---
Author Organization [facility] Address [facility]. [place], [place] [address] [place] [address] Care Team Providers Care Tile Edger Name Role Phone John Paul Domígnuez MD Primary Care Provider Reason for Referral * Imaging (Routine) - Closed Specialty Diagnoses / Procedures Referred By Garcia carrillo Referred To Contact RADIOLOGY Diagnoses ORTEGA (dyspnea on exertion) Other Leanne-Danlos syndromes (HHS/HCC) Procedures USE ECHOCARDIOGRAM Ramesh Dowling MD [facility], [address] [place] [address] Phone: tel: fax: Referral ID Status Reason Start Date Expiration Date Visits Re quested Visits Authorized [id number] Closed 06/17/2024 09/15/2024 1 1 Reason for Visit * Imaging (Routine) - Closed Specialty Diagnoses / Procedures Referred By Garcia carrillo Referred To Contact RADIOLOGY Diagnoses ORTEGA (dyspnea on exertion) Other Leanne-Danlos syndromes (HHS/HCC) Procedures USE ECHOCARDIOGRAM Ramesh Dowling MD [facility], [address] [place] [address] Phone: tel: fax: Referral ID Status Reason Start Date Expiration Date Visits Re quested Visits Authorized [id number] Closed 06/17/2024 09/15/2024 1 1 Encounter Details Date Type Department Care Team (Late st Contact Info) Description 06/17/2024 12:30 PM CDT - 06/17/2024 11:59 PM CDT Hospital Encounter [facility] Non Invasive Cardiology [facility] [place] [address] Ramesh Dowling MD [facility] [address] [place] [address] Discharge Disposition: Home or Self Care (Routine Discharge) Social History Tobacco Use Types Packs/Day Years [...] on file documented as of this encounter Medications at Time of Discharge levothyroxine (SYNTHROID) 100 MCG tablet Take 1 tablet (100 mcg total) by mouth daily. 01/15/2024 01/14/2025 liothyronine (CYTOMEL) 25 MCG tablet Take 1 tablet (25 mcg total) by mouth daily. 01/15/2024 01/14/2025 vitamin D2, ergocalciferol, (DRISDOL) 1.25 mg capsule Take 1 capsule (1.25 mg total) by mouth once a week. documented as of this encounter Plan of Treatment Upcoming Encounters Date Type Department Care Team (Late st Contact Info) Description 01/31/2025 12:45 PM CDT Office Visit [facility] [address] [place] [address] Ramesh Dowling MD [facility], [address] [place] [address] documented as of this encounter Procedures Procedure Name Priority Date/Time Associated Diagnosis Comments USE ECHOCARDIOGRAM Routine 06/17/2024 1: 27 PM CDT ORTEGA (dyspnea on exertion) Other Leanne-Danlos syndromes (HHS/HCC) documented in this encounter Results * USE ECHOCARDIOGRAM (06/17/2024 1:27 PM CDT) Anatomical Region Laterality Modality Cardiac Echocardiogram 06/17/2024 1:00 PM CDT Narrative 06/19/2024 9:05 AM CDT ?Echocardiography Report Pat.Name: ??JULIA BACA ? Pat.ID: ?[id number] ? St.Date: ?? 06/17/2024 ? Refer.MD: ??[id number] ROSARIO Son ? EWDPROV ?EWDPROV Exam Time: [...] ? Right Ventricle ?26 mm ?? Major Lawton ?55.5 mm ?MMODE TA ?? Tricuspid Annul ?22 mm ? <Electronic Signature> 06/19/2024 09:05 AM Ramesh Dowling M.D. Procedure Note Ramesh Dowling MD - 06/19/2024 Echocardiography Report Pat.Name: JULIA BACA Pat.ID: [id number] .Date: 06/17/2024 Refer.MD: [id number] ROSARIO Son EWDPROV EWDPROV Exam Time: 1:00:00 [...] 29.2 mm Right Ventricle 26 mm Major Lawton 55.5 mm MMODE TA Tricuspid Annul 22 mm <Electronic Signature> 06/19/2024 09:05 AM Ramesh Dowling M.D. us Ramesh Dowling MD ECHO Final Res ult documented in this encounter Visit Diagnoses Diagnosis ORTEGA (dyspnea on exertion) Other dyspnea and respiratory abnormality Other Leanne-Danlos syndromes (HHS/HCC) documented in this encounter Care Teams Tile Edger Relationship Specialty Start Date End Date John Paul Domínguez MD [address] [place] [address] PCP - General FAMILY PRACTICE 03/08/24 documented as of this encounter
--- OUTSIDE RECORDS SUMMARY | 2024-09-16 12:07 | XMS_ITS | Encounter Summary ---
Author Organization [facility] Address [address] [place] [address]. [place] [address] [place] [address] Care Team Providers Care Women Designer Name Role Phone John Paul Domínguez MD Primary Care Provider [phone] Encounter Details Date Type Department Care Team (Latest Contact Info) Description 06/17/2024 Travel Social History Tobacco Use Types Packs/Day [...] Description 01/31/2025 12:45 PM CDT Office Visit [facility] [address] [facility] [address] [place] [address] Ramesh Dowling MD [facility], [address] [place] [address] documented as of this encounter Visit Diagnoses Not on filedocumented in this encounter Care Teams Women Designer Relationship Specialty Start Date End Date John Paul Domínguez MD [address] [place] [phone] PCP - General FAMILY PRACTICE 03/08/24 documented as of this encounter
--- OUTSIDE RECORDS SUMMARY | 2024-09-16 12:07 | XMS_ITS | Encounter Summary ---
Author Organization [facility] Address [address] [place] [address]. [place], [place] [address] [place] [address] Care Team Providers Care Obstetrics Technician Name Role Phone John Paul Domínguez MD Primary Care Provider [phone] Encounter Details Date Type Department Care Team (Late st Contact Info) Description 02/17/2024 Scan [facility], [address] [place] [address] Scanned, Doc Pccl Social History Tobacco Use Types Packs/Day Years Used Date Smoking Tobacco: Never Assessed Comments Unknown Sex and Gender Information Value Date Recorded Sex Assigned at Not on file Legal Sex Female 9:01 AM CDT Gender Identity Not on file Sexual Orientation Not on file documented as of this encounter Plan of Treatment Upcoming Encounters Date Type Department Care Team (Late st Contact Info) Description 01/31/2025 12:45 PM CDT Office Visit [facility] [address] [place], [place] [phone] Ramesh Dowling MD [facility]., [address] [place] [address] documented as of this encounter Visit Diagnoses Not on filedocumented in this encounter Care Teams Obstetrics Technician Relationship Specialty Start Date End Date John Paul Domínguez MD [address] [place] [phone] PCP - General FAMILY PRACTICE 03/08/24 documented as of this encounter
--- OUTSIDE RECORDS SUMMARY | 2024-09-16 12:08 | XMS_ITS | Referral Summary ---
Author Organization [facility] [address] Address [facility] [place] [address] Care Team Providers Care Eligibility Analyst Name Role Phone John Paul Domínguez MD Primary Care Provider [phone] Joseph Freeman MD Unavailable Wade REDDY MD PhD, Doen Vanegas Unavailable Tao Helm MD PhD Unavailable [phone] Encounters Date Type Department Care Team Description 09/14/2024 Telephone [facility] Specialists of [facility] [id number] [place] [phone] Joseph Freeman MD 09/14/2024 1:45 PM TUTORIAL LABORATORY SUPERVISOR Therapy [facility] [address] [place] [address] Samantha Adrian, PT Neck pain (Primary Dx) 09/10/2024 7:45 AM TUTORIAL LABORATORY SUPERVISOR Therapy [facility] [address] [place] [address] Delores Alcazar, PT Neck pain (Primary Dx); Midline back pain, unspecified back location, unspecified chronicity 09/02/2024 Plan of Care Documentation [facility] [address] [place] [address] 09/02/2024 11:00 AM TUTORIAL LABORATORY SUPERVISOR Therapy [facility] [address] [place] [address] Delores Alcazar, PT Neck pain (Primary Dx); Midline back pain, unspecified back location, unspecified chronicity from Last 3 Months Allergies Active Allergy Reactions Criticality Noted Date Comments Adhesive Unknown 03/11/2024 Latex Hives Medium 09/02/2024 Medications liothyronine (CYTOMEL) 25 mcg tablet Take 1 tablet (25 mcg total) by mouth daily 30 tablet 3 01/15/2024 Active levothyroxine (SYNTHROID) 100 mcg tablet Take 1 tablet (100 mcg total) by mouth daily 90 tablet 2 01/15/2024 Active calcium citrate-vitamin D3 500 mg-12.5 mcg (500 unit) tablet,chewable Take 1 tab twice a day with meals. 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 She had agreed but has not been starting the medication. I sent the prescription to the pharmacy and she tells me that she will go ahead and started Assessment & Plan (12/25/2023 5:03 PM CDT): Seems to continue uncontrolled due to compliance Update TFTs I will call the patient and advise on any changes on the levothyroxine I explained at length to Rubi how until we normalize her TSH we can not attribute her fatigue and other symptoms to other conditions other than the uncontrolled hypothyroidism Will consider the use of L T3 in combination with L T4 Assessment & Plan (04/29/2023 1:27 PM CDT): Update TSH, Free T4 Importance of taking the Levothyroxine, on an empty stomach, 1 h apart from food and other meds was emphasized Will adjust dose of LT4 if indicated 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 Cancer Staging:Clinical:Stage I(cT2, cN0a, cM0, Age at diagnosis: < 55 years) - Unsigned Assessment & Plan (01/15/2024 4:44 PM CDT): Continue monitoring TG level The patient is scheduled for whole-body thyroid scan with radio oncology in March Assessment & Plan (12/25/2023 5:04 PM CDT): Update TG level Goal of treatment is to suppressed TSH with normal free T4 Patient follows with radio Oncology in February for whole-body thyroid scan and probably a 2nd round of radioactive iodine ablation Assessment & Plan (04/29/2023 1:27 PM CDT): Update TG TSH goal is around 0.1 Assessment & Plan (02/04/2023 4:44 PM CDT): pT Category: pT2 pN Category: pN0a Patient a low risk recurrence, without clear indication for radioactive iodine treatment Will check thyroglobulin levels Will discuss / referred to radio oncology. B12 deficiency anemia 07/19/2022 Iron deficiency anemia due to chronic blood loss 07/18/2022 Cough 09/05/2011 Resolved Problems Problem Noted Date Diagnosed Date Resolved Date Thyroid nodule 11/26/2022 02/04/2023 Assessment & Plan (11/26/2022 4:32 PM TUTORIAL LABORATORY SUPERVISOR): With Afirma genomic sequencing, positive for RET Luaren oncogene, with a more than 95% risk of malignancy e.g. papillary thyroid carcinoma I had a lengthy discussion with the patient and her mother, about how is very likely that she has papillary thyroid carcinoma in the next to be thyroidectomy. I tried to explain also to them that after thyroidectomy, depending on results, she might need radioactive iodine ablation. Also she will need to continue on thyroid hormone replacement lifetime. This would need to be monitored regular blood thyroid function tests I explained to them also that I will refer him to ENT surgeon, . 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 Immunizations Name Administration Dates Next Due DTaP 05/22/2006, 5,2004,09/13 DTaP / IPV 05/25/2010 HPV, Quadrivalent 06/19/2016 Hep A, Ped Unspecified 02/18/2006 Hep A, Unspecified 03/16/2009 Hep B / HiB 05/22/2006 Hep B, Adolescent or Pediatric 2004,2003,2004 HiB 2004,2004 IPV 02/12/2005,2004,2004 Influenza LAIV (Nasal) 05/27/2011 Influenza, Quadrivalent, Spl it, Preservative Free, Intradermal 06/19/2016 MMR 03/16/2009,02/18/2006 Meningococcal MCV4P (Menactra) 05/06/2016 Pneumococcal Conjugate 7-Valent 05/22/20 06,02/12/2005,2004,09/13 Tdap 05/06/2016 Varicella 03/16/2009,02/18/2006 Social History Tobacco Use Types Packs/Day Years Used Date Smoking Tobacco: Never Passive Smoke Exposure: Never Smokeless Tobacco: Never Tobacco Cessation:Counseling Given: Not Answered Social Connection and Isolation Panel [NHANES] A nswer Date Recorded In a typical week, how many times do you talk on the phone with family, friends, or neighbors? Once a week 04/21/2024 How often do you get togethe r with friends or relatives? Patient declined 04/21/2024 How often do you attend lutheran or advent serv ices? Patient declined 04/21/2024 Do you belong to any clubs o r organizations such as lutheran groups, unions, fraternal or athletic groups, or school groups? Patient declined 04/21/2024 How often do you attend meet ings of the clubs or organizations you belong to? Not asked 04/21/2024 Are you , , di vorced, , never , or living with a partner? Patient declined 04/21/2024 AUDIT-C Answer Date Recorded Q1: How often do you have a drink containing alcohol? Never 01/20/2023 Q2: How many drinks containi ng alcohol do you have on a typical day when you are drinking? Patient does not drink Q3: How often do you have si x or more drinks on one occasion? Never 01/20/2023 Overall Financial Resource Strain (CARDIA) Answe r Date Recorded How hard is it for you to pa y for the very basics like food, housing, medical care, and heating? Somewhat hard 04/21/2024 PHQ-2 Answer Date Recorded Patient Health Questionnaire-2 Score 4 04/21/2024 [facility] Occupat ional Health - Occupational Stress Questionnaire Answer Date Recorded Do you feel stress - tense, restless, nervous, or anxious, or unable to sleep at night because your mind is troubled all the time - these days? Very much 04/21/2024 Exercise Vital Sign Answer Date Recorde d On average, how many days pe r week do you engage in moderate to strenuous exercise (like a brisk walk)? 3 days 04/21/2024 On average, how many minutes do you engage in exercise at this level? 10 min 04/21/2024 Hunger Vital Sign Answer Date Recorded Within the past 12 months, y ou worried that your food would run out before you got the money to buy more. Patient declined Within the past 12 months, t he food you bought just didn't last and you didn't have money to get more. Patient declined PRAPARE - Transportation Answer Date Re corded In the past 12 months, has l ack of transportation kept you from medical appointments or from getting medications? Patient declined 04/21/2024 In the past 12 months, has l ack of transportation kept you from meetings, work, or from getting things needed for daily living? Patient declined 04/21/2024 Housing Stability Vital Sign Answer Sukh e Recorded In the last 12 months, was t here a time when you were not able to pay the mortgage or rent on time? Patient refused 04/21/20 Number of Times Moved in the Last Year Not on fi le 04/21/2024 Homeless in the Last Year Not on file 2023 Personal Safety Answer Date Recorded Have you ever been in or are you currently in a harmful physical or emotional relationship or is someone making you feel afraid or unsafe? Denies 01/20/2023 Comments No Sex and Gender Information Value Date Recorded Sex Assigned at Not on file Legal Sex Female 3:09 AM TUTORIAL LABORATORY SUPERVISOR Gender Identity Not on file Sexual Orientation Not on file Last Filed Vital Signs Vital Sign Reading Time Taken Comments Blood Pressure 119/81 04/21/2024 3:17 PM CDT Pulse 98 04/21/2024 3:17 PM CDT Temperature 36.9 ??C (98.4 ??F) 04/21/2024 3:17 PM CD T Respiratory Rate 16 12/25/2023 3:31 PM CDT Oxygen Saturation 98% 04/21/2024 3:17 PM CDT Inhaled Oxygen Concentration - - Weight 55.8 kg (123 lb) 04/21/2024 3:17 PM CDT Height 152.4 cm (5') 04/21/2024 3:17 PM CDT Body Mass Index 24.02 04/21/2024 3:17 PM CDT Plan of Treatment Not on file Medical Devices Implanted Type Area Systems Integration Analyst Device Identifier Shelf Expiration Date Model / Serial / Lot [facility] Sls-Clip Ligate Triangular Wire Janae Groove Small [employer] Clip Latex Free A0144-6 - [id number] Implanted:Qty: 2 on 01/20/2023 by Jacob Reyna MD at [facility] N/A: Neck [employer] [id number] 03/28/2027 [id number] / / [id number] [employer] Sls-Clip Ligate Triangular Wire Janae Groove Small Chevron Clip Latex Free U9681-0 - [id number] Implanted:Qty: 1 on 01/20/2023 by Jacob Reyna MD at [facility] N/A: Neck [employer] [id number] 03/28/2027 [id number] / [id number] Insurance Member Subscriber Plan / Payer (Ef fective 2019-Present) Name:Rubi Baca Chrisman Relation to Subscriber:Self Name:Rubi Bacaenix Payer ID:[id number] (NAIC) Type:MEDICAID RISK OTHER Address: [place] [id number] [facility] Advance Directives For more information, please contact: [phone] * Full Code (Latest Code Status on File) Date Activated Date Inactivated Comments 01/20/2023 5:49 PM 01/21/2023 8:14 PM Care Teams Eligibility Analyst Relationship Specialty Start Date End Date John Paul Domínguez MD [address] [place] [address] PCP - General Family Medicine 10/16/22 [place] [address] [address] Consulting Physician Endocrinology Diabetes & Metabolism 03/11/24 De[place] Olver[place] [address] [address] Radiation Oncologist Radiation Oncology 03/11/24 Tao Helm [place] PhD [address] [address] Radiation Oncologist Radiation Oncology 03/11/24
--- OUTSIDE RECORDS SUMMARY | 2024-09-16 12:08 | XMS_ITS ---
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 Past Plans No past plan information found. Radiation Treatments * Plan Last Treated On Elapsed Days Fractions Treated Prescribed Fraction Dose Prescribed Total Dose Thyroid 1 02/13/2023 0 1 30 cGy 30 cGy Reference Point Last Treated On Elapsed Days Session Dose Total Dose Thyroid 1 02/13/2023 0 30 cGy 30 cGy Resolved Problems Problem Noted Date Diagnosed Date Resolved Date Thyroid nodule 11/26/2022 02/04/2023 Assessment & Plan (11/26/2022 4:32 PM BALLAST REGULATOR OPERATOR): With Afirma genomic sequencing, positive for RET Lauren oncogene, with a more than 95% risk [...]
--- OUTSIDE RECORDS SUMMARY | 2024-09-16 12:08 | XMS_ITS | Clinical Summary ---
Author Organization [facility] [address] Address [address] [place] [phone] Care Team Providers Care Breast Splitter Name Role Phone John Paul Domínguez MD Primary Care Provider [phone] Joseph Freeman MD Unavailable Wade REDDY MD PhD, Deon Vanegas Unavailable Tao Helm MD PhD Unavailable Allergies Active Allergy Reactions Criticality Noted Date Comments Adhesive Unknown 03/11/2024 Latex Hives Medium 09/02/2024 Medications liothyronine (CYTOMEL) 25 mcg tablet Take 1 tablet (25 mcg total) by mouth daily 30 tablet 3 01/15/2024 5 Active levothyroxine (SYNTHROID) 100 mcg tablet Take 1 tablet (100 mcg total) by mouth daily 90 tablet 2 01/15/2024 5 Active calcium citrate-vitamin D3 500 mg-12.5 mcg [...] uncontrolled, contributing to the hypocalcemia Restart vitamin-D 79516 IU use weekly 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 Assessment [...] mg twice a day Also restart vitamin-D 46191 IU use weekly Assessment & Plan (12/25/2023 [...] 02/04/2023 Assessment & Plan (11/26/2022 4:32 PM CRADLE SLIDE MAKER): With Afirma genomic sequencing, positive for RET [...] and agreed 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 05/0 05/2023 Encounters Date Type Department Care Team Description 09/14/2024 1:45 PM CRADLE SLIDE MAKER Therapy [facility] [address] [place] [address] Samantha Adrian, PT Neck pain (Primary Dx) 09/14/2024 Telephone [facility] Special[facility] of [place] [id number] [phone] Joseph Freeman MD 09/10/2024 7:45 AM CRADLE SLIDE MAKER Therapy [facility] [address] [place] [address] Delores Alcazar, PT Neck pain (Primary Dx); Midline back pain, unspecified back location, unspecified chronicity 09/02/2024 11:00 AM CRADLE SLIDE MAKER Therapy [facility] [address] [place] [address] Delores Alcazar, PT Neck pain (Primary Dx); Midline back pain, unspecified back location, unspecified chronicity 09/02/2024 Plan of Care Documentation [facility] [address] [place] [phone] from Last 3 Months Immunizations Name Administration Dates Next Due DTaP [...] 7-Valent 05/22/20 06,02/12/2005,2004,09/13 Tdap 05/06/2016 Varicella 03/16/2009,02/18/2006 Surgical History Surgery Date Site/Laterality Comments APPENDECTOMY 01/10/2023 THYROID SURGERY 11/2022 Medical History Medical History Date Comments Anemia Iron deficiency anemia Vitamin B12 deficiency Hypothyroidism 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 Patient declined 04/21/2024 Do you belong to any clubs o r organizations such as hoahaoism groups, unions, fraternal or athletic groups, or [...] Recorded Patient Health Questionnaire-2 Score 4 04/21/2024 [facility] of Occupat ional Health - Occupational Stress [...] on file Legal Sex Female 3:09 AM CRADLE SLIDE MAKER Gender Identity Not on file Sexual Orientation Not on file Obstetrics History Last Filed Vital Signs Vital Sign Reading [...] 04/21/2024 3:17 PM CDT Plan of Treatment Health Maintenance Due Date Last Done Comments Hepatitis C Screening 2004 HPV Vaccines (2 - 2-dose series) 12/17/2016 06/19/2016 Meningococcal B Vaccine (1 of 2 - Patient Seeks Protection) 2020 Regular Well Visit/Exam 18-64 2022 Influenza Vaccine (#1) 2024 06/19/2016, 2010 Depression Screening 04/21/2025 04/21/2024 DTaP/Tdap/Td Vaccine (7 - Td or Tdap) 05/06/2026 05/06/2016, 05/25/2010, 05/22/2006, Additional history exists Pneumococcal vaccine <65 Completed 006, 02/12/2005, 2004, Additional history exists Varicella Vaccines Completed 03/16/2009, 02/18/2006 Meningococcal Vaccine Aged Out 05/06/2016 No vikram elías eligible based on patient's age to complete this topic Medical Devices Implanted Type Area Geography Professor Device Identifier Shelf Expiration Date Model / Serial / Lot [employer] Sls-Clip Ligate Triangular Wire Janae Groove Small [employer] Clip Latex Free E8959-6 - [id number] Implanted:Qty: 2 on 01/20/2023 by Jacob Reyna MD at [facility] N/A: Neck [employer] [id number] 03/28/2027 [id number] / / [id number] [employer] Sls-Clip Ligate Triangular Wire Janae Groove Small [employer]ron Clip Latex Free U4750-2 - [id number] Implanted:Qty: 1 on 01/20/2023 by Jacob Reyna MD at [facility] N/A: Neck [employer] [id number] 03/28/2027 S6615-8 / / [id number] Insurance Advance Directives For more information, please contact: [phone] * Full Code (Latest Code Status on File) Date Activated Date Inactivated Comments 01/20/2023 5:49 PM 01/21/2023 8:14 PM Care Teams Breast Splitter Relationship Specialty Start Date End Date John Paul Domínguez MD [address] [place] [address] PCP - General Family Medicine 10/16/22 [place] [address] [address] Consulting Physician Endocrinology Diabetes & Metabolism 03/11/24 Deon Olvera III[place] PhD [address] [address] Radiation Oncologist Radiation Oncology 03/11/24 Tao Helm [place] PhD [address] [address] Radiation Oncologist Radiation Oncology 03/11/24
--- OUTSIDE RECORDS SUMMARY | 2024-09-16 12:08 | XMS_ITS | Encounter Summary ---
Author Organization [facility] Address [address] [place] [address] Care Team Providers Care Digital Media Specialist Name Role Phone John Paul Domínguez MD Primary Care Provider [phone] Joseph Freeman MD Unavailable Wade REDDY MD PhD, Deon Vanegas Unavailable Tao Helm MD PhD Unavailable [phone] Reason for Visit * Reason Comments PT Treatment * Consultation (Routine) - Authorized Specialty Diagnoses / Procedures Referred By Contac t Referred To Contact Physical Therapy Diagnoses Neck pain Midline back pain, unspecified back location, unspecified chronicity John Paul Domínguez MD [address] [place] [address] [place] [address] Phone: tel: fax: [facility] Physical Therapy [address] [place] [address] Phone: tel: fax: Referral ID Status Reason Start Date Expiration Date Visits Requested Visits Authorized [id number] Authorized Evaluate and Treat 08/11/2024 09/10/2025 99 13 Encounter Details Date Type Department Care Team (Late st Contact Info) Description 09/10/2024 7:45 AM RESEARCH LAB ASSISTANT Therapy [facility] Physical Therapy [address] [place] [address] Delores Alcazar, PT Neck pain (Primary Dx); Midline back pain, unspecified back location, unspecified chronicity Social History Tobacco Use Types Packs/Day Years Used Date Smoking Tobacco: Never Passive Smoke Exposure: Never Smokeless Tobacco: Never Social Connection and Isolation Panel [NHANES] A nswer Date Recorded In a typical week, how many times do you talk on the phone with family, friends, or neighbors? Once a week 04/21/2024 How often do you get togethe r with friends or relatives? Patient declined 04/21/2024 How often do you attend amish or restorationist serv ices? Patient declined 04/21/2024 Do you belong to any clubs o r organizations such as amish groups, unions, fraternal or athletic groups, or [...] Recorded Patient Health Questionnaire-2 Score 4 04/21/2024 [facility] of Occupat ional Health - Occupational Stress [...] on file Legal Sex Female 3:09 AM RESEARCH LAB ASSISTANT Gender Identity Not on file Sexual Orientation Not on file documented as of this encounter Progress Notes * Delores Alcazar, PT - 09/10/2024 7:45 AM CST Physical Therapy Visit PT Daily Treatment Note Rubi Baca 2004 Subjective: Pt states she did not sleep well last night due to being cold. She has not had a chanceto do her HEP due to being really busy. Pain: 1-2/10 upper back Objective: Established treatment plan today following evaluation last visit. Treatment Provided: *LATEX AND ADHESIVE ALLERGIES* UBE - retro only @ L2 x 2 min Wall: V-slides facing wall with small lift off x 10 Standing: B scapular retraction with latex free red tband x 15 B shoulder extension to sides with latex free red tband x 15 B shoulder ER with scapular squeeze with latex free red tband x 15 B shoulder horizontal abduction with latex free yellow tband x 10 Prone: B MT and LT strengthening x 10 each B shoulder extension to sides with 2# x 10 B rhomboid row with 2# x 10 Supine: (manual x 10 min) Chin tuck with PT assist x 10 Cervical isometrics - LF R/L, Rotation R/L, and extension x 7 each STM/MFR to B UT and cervical paraspinal muscles Nu-step @ L5 x 5 min HR at end of session: 85 bpm (due to pt stating she has POTS) HEP: (latex free orange tband) Access Code: [email or web address] URL: [email or web address] Date: 09/02/2024 - Supine Cervical Retraction with Towel - 1-2 x daily - 7 x weekly - 1 sets - 5- 10 reps - 3 secondshold - Scapular Retraction with Resistance - 1-2 x daily - 7 x weekly - 1 sets - 10 reps - 1-2 seconds hold - Shoulder extension with resistance - Neutral - 1-2 x daily - 7 x weekly - 1 sets - 10 reps - 1-2 seconds hold - Standing Shoulder Horizontal Abduction with Resistance - 1-2 x daily - 7 x weekly - 1 sets - 10 reps - 1-2 seconds hold Assessment: Pt tolerates treatment well stating her back is weak but she feels better. She will benefit from continued PT to address ongoing goals. Plan: Continue PT as per plan of care progressing as pt tolerates. Start Time: 801 (pt late) End Time: 834 Delores Alcazar PT ARCH LAB ASSISTANT documented in this encounter Plan of Treatment Not on file documented as of this encounter Visit Diagnoses Diagnosis Neck pain- Primary Cervicalgia Midline back pain, unspecified back location, unspecified chronicity documented in this encounter Care Teams Digital Media Specialist Relationship Specialty Start Date End Date John Paul Domínguez MD [address] [place] [address] PCP - General Family Medicine 10/16/22 [place] [address] [address] [place] [address] Consulting Physician Endocrinology Diabetes & Metabolism 03/11/24 Deon Olvera III[place] PhD [address] [address] [facility] [address] [place] [address] Radiation Oncologist Radiation Oncology 03/11/24 [place] [address] [address] [facility] [address] [place] [address] Radiation Oncologist Radiation Oncology 03/11/24 documented as of this encounter
--- OUTSIDE RECORDS SUMMARY | 2024-09-16 12:09 | XMS_ITS | Encounter Summary ---
Author Organization [facility] Healthcare Address [address] [place] [address] Care Team Providers Care Machine Veneer Repairer Name Role Phone John Paul Domínguez MD Primary Care Provider + [phone] Joseph Freeman MD Unavailable Wade REDDY MD PhD, Deon Vanegas Unavailable Tao Helm MD PhD Unavailable [phone] Encounter Details Date Type Department Care Team (Late st Contact Info) Description 09/02/2024 Plan of Care Documentation [facility] Physical Therapy [address] [place] [address] Social History Tobacco Use Types Packs/Day Years [...] declined 04/21/2024 How often do you attend mu-ism or presybeterian serv ices? Patient declined 04/21/2024 Do you belong to any clubs o r organizations such as mu-ism groups, unions, fraternal or athletic groups, or [...] Recorded Patient Health Questionnaire-2 Score 4 04/21/2024 [facility] [place] of Occupat ional Health - Occupational Stress [...] on file Legal Sex Female 3:09 AM APPLICATION ARCHITECT Gender Identity Not on file Sexual Orientation Not on file documented as of this encounter Plan of Treatment Not on file documented as of this encounter Visit Diagnoses Not on filedocumented in this encounter Care Teams Machine Veneer Repairer Relationship Specialty Start Date End Date John Paul Domínguez MD [address] [place] [address] PCP - General Family Medicine 10/16/22 [place] [address] [address] [place] [address] Consulting Physician Endocrinology Diabetes & Metabolism 03/11/24 Deon Olvera III[place] PhD [address] [address] [place] [address] Radiation Oncologist Radiation Oncology 03/11/24 Tao Helm [place] PhD [address] [address] Radiation Oncologist Radiation Oncology 03/11/24 documented as of this encounter
--- OUTSIDE RECORDS SUMMARY | 2024-09-16 12:09 | XMS_ITS | Encounter Summary ---
Author Organization [facility] Healthcare Address [address] [place] [address] Care Team Providers Care Clerk Of Scales Name Role Phone John Paul Domínguez MD Primary Care Provider [phone] Encounter Details Date Type Department Care Team (Late st Contact Info) Description 12/05/2023 Telephone [facility] Advanced Medicine Radiation Oncology [address] [place] [address] Samantha Li RN Social History Tobacco Use Types Packs/Day Years Used Date Smoking Tobacco: Never Smokeless Tobacco: Never AUDIT-C Answer Date Recorded Q1: How often do you have a drink containing alcohol? Never 01/20/2023 Q2: How many drinks containi ng alcohol do you have on a typical day when you are drinking? Patient does not drink Q3: How often do you have si x or more drinks on one occasion? Never 01/20/2023 Personal Safety Answer Date Recorded Have you ever been in or are you currently in a harmful physical or emotional relationship or is someone making you feel afraid or unsafe? 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 Asked for a return call back. L DIE PRINTER documented in this encounter Plan of Treatment Not on file documented as of this encounter Visit Diagnoses Not on filedocumented in this encounter Care Teams Clerk Of Scales Relationship Specialty Start Date End Date John Paul Domínguez MD [address] [place] [address] PCP - General Family Medicine 10/16/22 documented as of this encounter
--- OUTSIDE RECORDS SUMMARY | 2024-09-16 12:09 | XMS_ITS | Encounter Summary ---
Author Organization [facility] Healthcare Address [address] [place] [address] Care Team Providers Care Institutional Aide Name Role Phone John Paul Domínguez MD Primary Care Provider + [phone] Reason for Visit * Reason Onset Date Comments Med Refill 07/16/2023 Encounter Details Date Type Department Care Team (Late st Contact Info) Description 07/16/2023 Telephone [facility] [id number] [place] [phone] [place] Freeman [place] [id number] [place] [address] Med Refill Social History Tobacco Use Types Packs/Day Years [...] on file Legal Sex Female 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 Requestor: Patient [phone] Rx(s): levothyroxine (SYNTHROID) 100 mcg tablet Sig: Take 1 tablet (100 mcg total) by mouth daily Out of Rx(s): yes day rx: Pharmacy/#:[facility] [phone] documented in this encounter Plan of Treatment Not on file documented as of this encounter Visit Diagnoses Not on filedocumented in this encounter Care Teams Institutional Aide Relationship Specialty Start Date End Date John Paul Domínguez MD [address] [place] [address] PCP - General Family Medicine 10/16/22 documented as of this encounter
--- OUTSIDE RECORDS SUMMARY | 2024-09-16 12:09 | XMS_ITS | Encounter Summary ---
Author Organization [facility] Healthcare Address [address] [place] [address] Care Team Providers Care Poker Room Manager Name Role Phone John Paul Domínguez MD Primary Care Provider + [phone] Reason for Visit * Reason Onset Date Comments Appointment 12/09/2023 12/16/23 Encounter Details Date Type Department Care Team (Late st Contact Info) Description 12/09/2023 Telephone [facility] Diabetes and Endocrinology [address] [place] [phone] Cynthia Schilling, [place] [address] [address] Appointment (12/16/23) Social History Tobacco Use Types Packs/Day Years [...] on file 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 Freeman on 12/25/23 at 3:15pm * Telephone Encounter - Joseph Freeman MD - 12/09/2023 5:02 PM CDT Okay to overbook with another thyroid patient * Telephone Encounter - Tess Frazier MA - 12/09/2023 3:11 PM CDT Cynthia will be out of the office in the afternoon on 12/16/23. Pt informed her appt with Cynthia on 12/16/23 at 2pm will need to be rescheduled. Cynthia's next available appt is in March. Pt informed and asked that a message be sent to Dr. Freeman asking if she can be worked in with him. Please advise documented in this encounter Plan of Treatment Not on file documented as of this encounter Visit Diagnoses Not on filedocumented in this encounter Care Teams Poker Room Manager Relationship Specialty Start Date End Date John Paul Domínguez MD [facility] [place] [address] PCP - General Family Medicine 10/16/22 documented as of this encounter
--- OUTSIDE RECORDS SUMMARY | 2024-09-16 12:09 | XMS_ITS | Encounter Summary ---
Author Organization [facility] Healthcare Address [address] [place] [address] Care Team Providers Care Dredge Pumper Name Role Phone John Paul Domínguez MD Primary Care Provider + [phone] Joseph Freeman MD Unavailable Wade REDDY MD PhD, Deon Vanegas Unavailable Tao Helm MD PhD Unavailable [phone] Reason for Visit * Reason Onset Date Comments Test Results 03/15/2024 Encounter Details Date Type Department Care Team (Late st Contact Info) Description 03/15/[address] [facility] Advanced Medicine Radiation Oncology [address] [place] [address] Renetta Ding PA [address] 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 She expressed her understanding of the results and plan. She was encouraged to call our office or reach out via [employer] if she has any questions. 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 The patient received adjuvant radioiodine therapy 02/14/2023, 30 mCi. COMPARISON: Ultrasound 12/23/2022 FINDINGS: A 5.3-mCi diagnostic dose of I-131 sodium iodide was administered orally on 03/09/2023 by the staff of the Division of Nuclear Medicine. Images of the head, neck, trunk, and proximal extremities were obtained 2 days later. There is expected I-131 activity in the salivary glands, stomach, colon, and urinary bladder. Interval decrease in focal uptake is in the midline neck, consistent with residual thyroid tissue within the thyroidectomy bed.. Impression: Interval decrease in persistent focal uptake in the midline neck, consistent with residual radioiodine avid thyroid tissue. No evidence of radioiodine avid distant metastatic disease. Dictated by: Kishore Padilla MD, Ph.D The radiology attending physician has personally reviewed this study, and had reviewed and/or edited this written report and agrees with it. documented in this encounter Plan of Treatment Not on file documented as of this encounter Visit Diagnoses Not on filedocumented in this encounter Care Teams Dredge Pumper Relationship Specialty Start Date End Date John Paul Domínguez MD [address] [place] [address] PCP - General Family Medicine 10/16/22 [place] [address] [address] Consulting Physician Endocrinology Diabetes & Metabolism 03/11/24 Deon Olvera III[place] PhD [address] [address] Radiation Oncologist Radiation Oncology 03/11/24 Tao Helm [place] PhD [address] [address] Radiation Oncologist Radiation Oncology 03/11/24 documented as of this encounter
--- OUTSIDE RECORDS SUMMARY | 2024-09-16 12:09 | XMS_ITS | Encounter Summary ---
Author Organization 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 Gender Identity Not on file Sexual Orientation Not on file documented as of this encounter Plan of Treatment Not on file documented as of this encounter Procedures Procedure Name Priority Date/Time Associated Diagnosis Comments PARATHYROID HORMONE-INTACT Routine 12/22/2023 10:59 AM CDT TSH+FREE T4 Routine 12/22/2023 10:59 AM CDT VITAMIN D 25 HYDROXY Routine 12/22/2023 10:59 AM CDT MAGNESIUM Routine 12/22/2023 10:59 AM CDT FOLATE Routine 12/22/2023 10:59 AM CDT VITAMIN B12 Routine 12/22/2023 10:59 AM CDT RENAL FUNCTION PANEL Routine 12/22/2023 10:59 AM CDT CALCIUM, IONIZED Routine 11/23/2023 10:5 9 AM SOLIDWORKS DESIGNER documented in this encounter Results * Parathyroid Hormone-Intact (12/22/2023 10:59 AM CDT) Blood 12/22/2023 10:5 9 AM CDT Impressions [facility] - 12/28/2023 4:29 PM CDT Result: 23 (16-77) us Historical Provider LAB BLOOD ORDERABLES Edit ed Result - Final [facility] * (ABNORMAL) Renal function panel (12/22/2023 10:59 AM CDT) SCRIBED Calcium 4.4(A) 4.7 - 5.5 mg/dl [facility] SCRIBED Phosphorus 4.5 2.7 - 5.0 mg/dl [facility] SCRIBED Albumin 4.8 3.6 - 5.1 g/dl [facility] SCRIBED Glucose 85 65 - 139 mg/dl [facility] SCRIBED Creatinine 0.47(A) 0.50 - 0.96 mg/dl [facility] SCRIBED Sodium 138 135 - 146 mmol/L [facility] SCRIBED Potassium 4.2 3.8 - 5.1 mmol/L [facility] SCRIBED Chloride 102 98 - 110 mmol/L [facility] SCRIBED Carbon Dioxide 23 20 - 32 mmol/L [facility] SCRIBED eGFR in NonAfrican Cuban 141 >=60 - NA [facility] Blood 12/22/2023 10:5 9 AM CDT Historical Provider MD LAB BLOOD ORDERABLES Edit ed Result - Final [facility] * Magnesium (12/22/2023 10:59 AM CDT) SCRIBED Magnesium 2.1 1.5 - 2.5 mg/dl [facility] Blood 12/22/2023 10:5 9 AM CDT Historical Provider MD LAB BLOOD ORDERABLES Edit ed Result - Final Performing Organization Address City/[facility]/ZIP Co de Phone Number [facility] * TSH+Free T4 (12/22/2023 10:59 AM CDT) Scribed TSH 2.53 0.50 - 4.30 mcU/mL [facility] Blood 12/22/2023 10:5 9 AM CDT Historical Provider MD LAB BLOOD ORDERABLES Edit ed Result - Final Performing Organization Address [facility]/ZIP Co de Phone Number [facility] * Vitamin B12 (12/22/2023 10:59 AM CDT) SCRIBED Vitamin B12 289 200 - 1,100 [facility] Blood 12/22/2023 10:5 9 AM CDT Historical Provider MD LAB BLOOD ORDERABLES Edit ed Result - Final [facility] * Folate (12/22/2023 10:59 AM CDT) SCRIBED Folate 14.2 >5.4 - NA Units [facility] Blood 12/22/2023 10:5 9 AM CDT Historical Provider MD LAB BLOOD ORDERABLES Edit ed Result - Final Performing Organization Address [facility] de Phone Number [facility] * (ABNORMAL) Vitamin D 25 hydroxy (12/22/2023 10:59 AM CDT) SCRIBED 25-OH Vitamin D 18(A) 30 - 100 ng/mL [facility] Blood 12/22/2023 10:5 9 AM CDT Historical Provider MD LAB BLOOD ORDERABLES Edit ed Result - Final Performing Organization Address [facility] de Phone Number [facility] * (ABNORMAL) Calcium, ionized (11/23/2023 10:59 AM SOLIDWORKS DESIGNER) Blood 11/23/2023 10:5 9 AM SOLIDWORKS DESIGNER Impressions [facility] - 12/28/2023 4:29 PM CDT Result: 4.4 (4.7-5.5) Historical Provider MD LAB BLOOD ORDERABLES Edit ed Result - Final Performing Organization Address [facility] de Phone Number [facility] documented in this encounter Visit Diagnoses Not on filedocumented in this encounter Care Teams Business Analyst Project Manager Relationship Specialty Start Date End Date John Paul Domínguez MD [address] [place] [address] PCP - General Family Medicine 10/16/22 documented as of this encounter
--- OUTSIDE RECORDS SUMMARY | 2024-09-16 12:09 | XMS_ITS | Encounter Summary ---
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 I said that the options are to increase the levothyroxine from 100 to 112 mcg daily or to add Cytomel to the levothyroxine Subtle male is another thyroid hormone and she will take 5 mcg twice a day along with the levothyroxine I told the patient to call back and leave a message to let me know what she would like to do. I would recommend adding the Cytomel documented in this encounter Plan of Treatment Not on file documented as of this encounter Visit Diagnoses Not on filedocumented in this encounter Care Teams Hand Rug Braider Relationship Specialty Start Date End Date John Paul Domínguez MD [address] [place] [address] PCP - General Family Medicine 10/16/22 documented as of this encounter
--- OUTSIDE RECORDS SUMMARY | 2024-09-16 12:09 | XMS_ITS | Encounter Summary ---
Author Organization [facility] Healthcare Address [address] [place] [address] Care Team Providers Care Fast Foods Worker Name Role Phone John Paul Domínguez MD Primary Care Provider + [phone] Reason for Visit * Reason Comments Thyroid Problem Encounter Details Date Type Department Care Team (Latest Contact Info) Description 12/25/2023 3:15 PM CDT Office Visit [facility] Medical Group Diabetes and Endocrinology [address] [place] [phone] [place] [address] [facility] [address], [place] [address] Postsurgical hypoparathyroidism (HCC) (Primary Dx); Postsurgical hypothyroidism; Papillary thyroid carcinoma (HCC) Social History Tobacco Use Types Packs/Day Years Used Date Smoking Tobacco: Never Smokeless Tobacco: Never Tobacco Cessation:Counseling Given: Not Answered AUDIT-C Answer Date Recorded Q1: How often [...] on file 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 Gender Identity Not on file Sexual Orientation Not on file documented as of this encounter Last Filed Vital Signs Vital Sign Reading Time Taken Comments Blood Pressure 120/70 12/25/2023 3:31 PM CDT Pulse 79 12/25/2023 3:31 PM CDT Temperature - - Respiratory Rate 16 12/25/2023 3:31 PM CDT Oxygen Saturation - - Inhaled Oxygen Concentration - - Weight 54.2 kg (119 lb 6.4 oz) 12/25/2023 3:31 P M CDT Height 152.4 cm (5') 12/25/2023 3:31 PM CDT Body Mass Index 23.32 12/25/2023 3:31 PM CDT documented in this encounter Patient Instructions * Patient Instructions* Joseph Freeman MD - 12/25/2023 3:15 PM CDT Look at the Levothyroxine documented in this encounter Progress Notes * Joseph Freeman MD - 12/25/2023 3:15 PM CDT Images from the original note were not included. Subjective/Objective Patient ID: Rubi Baca is a 18 y.o. female. HPI Patient comes for postsurgical hypothyroidism follow up . The patient is currently on Levothyroxine, 100 mcg daily S/p total thyroidectomy 01/20/2023 Pathology report as follows: Synoptic Diagnosis: Report name: THYROID GLAND SPECIMEN Procedure: Total thyroidectomy TUMOR Tumor Focality: Unifocal Tumor Characteristics Tumor Site: Left lobe Tumor Size: Greatest Dimension (Centimeters) - 2.5 cm Histologic Type: Papillary carcinoma, classic (usual, conventional) Angioinvasion (vascular invasion): Not identified Lymphatic Invasion: Not identified Extrathyroidal Extension: Not identified Margin Status: Carcinoma present at margin Margin(s) Involved by Carcinoma: Inked thyroid surface, at least 1 mm area with tumor. REGIONAL LYMPH NODES Regional Lymph Node Status: All regional lymph nodes negative for tumor Number of Lymph Nodes Examined: 4 Yovanny Level(s) Examined: Surface lymph nodes from right lobectomy in specimen C. PATHOLOGIC STAGE CLASSIFICATION (pTNM, AJCC 8th Edition) Reporting of pT, pN, and (when applicable) pM categories is based on information available to the pathologist at the time the report is issued. As per the AJCC (Chapter 1, 8th Ed.) it is the managingphysician's responsibility to establish the final pathologic stage based upon all pertinent information, including but potentially not limited to this pathology report. pT Category: pT2 pN Category: pN0a CAP VERSION: Thyroid 4.3.0.0 ACEVES ablation on 02/14/2023 A 30-mCi therapeutic dose of I-131 sodium iodide was administered orally on 02/14/2023 by the staff of the Department of Radiation Oncology. Images of the head, neck, trunk, and proximal extremities were obtained 4 days later. The patient stays , takes the medication regularly, on an empty stomach She says she feels extremely tired , weak, fatigued. Lab Results Component Value Date TSH 53.80 (H) 04/29/2023 TSH 70.30 (H) 03/28/2023 TSH 205.00 (H) 02/04/2023 FREET4 0.83 (L) 04/29/2023 FREET4 0.88 (L) 03/28/2023 FREET4 0.18 (L) 02/04/2023 Lab Results Component Value Date THYROGLB <0.1 04/29/2023 THYROGLB <0.1 02/04/2023 Lab Results Component Value Date THGAB 1.9 (H) 04/29/2023 THGAB 7.9 (H) 02/04/2023 REVIEW OF SYSTEMS Constitutional: Excessive fatigue HENT: Negative for trouble swallowing and voice change. Eyes: Negative for visual disturbance. Respiratory: Negative for apnea, cough and chest tightness. Cardiovascular: Negative for chest pain, palpitations and leg swelling. Gastrointestinal: Negative for constipation, diarrhea a. Endocrine: Negative for cold intolerance, heat intolerance, sweats Musculoskeletal: Negative for myalgias. Psychiatric/Behavioral: Negative for sleep disturbance, anxiety , depression PHYSICAL EXAMS Constitutional: Appearance: She is well-developed. Eyes: Conjunctiva/sclera: Conjunctivae normal. . Neck: Thyroid: No thyromegaly. Trachea: No tracheal deviation. Cardiovascular: Rate and Rhythm: Normal rate and regular rhythm. Musculoskeletal: General: No deformity. Normal range of motion. Cervical back: Normal range of motion and neck supple. Skin: General: Skin is warm. Neurological: Mental Status: She is alert and oriented to person, place, and time. Motor: Motor function is intact. Coordination: Coordination normal. Deep Tendon Reflexes: Reflexes are normal and symmetric. Psychiatric: Behavior: Behavior normal. ASSESSMENT AND PLAN Diagnoses and all orders for this visit: Postsurgical hypoparathyroidism (HCC) (E89.2) (Primary) Assessment & Plan: Should be resolved Update PTH and calcium serum level Orders: - Comprehensive metabolic panel; Future - PTH; Future - Thyroglobulin, tumor marker, serum; Future Postsurgical hypothyroidism (E89.0) Assessment & Plan: Seems to continue uncontrolled due to compliance Update TFTs I will call the patient and advise on any changes on the levothyroxine I explained at length to Rubi how until we normalize her TSH we can not attribute her fatigue and other symptoms to other conditions other than the uncontrolled hypothyroidism Will consider the use of L T3 in combination with L T4 Orders: - TSH; Future - T4, free; Future Papillary thyroid carcinoma (HCC) (C73) Assessment & Plan: Update TG level Goal of treatment is to suppressed TSH with normal free T4 Patient follows with radio Oncology in February for whole-body thyroid scan and probably a 2nd round ofradioactive iodine ablation Joseph Freeman MD documented in this encounter Miscellaneous Notes * Assessment & Plan Note - Joseph Freeman MD - 12/25/2023 5:03 PM CDTAssociated Problem(s): Postsurgical hypoparathyroidism (HCC) Should be resolved Update PTH and calcium serum level * Assessment & Plan Note - Joseph Freeman MD - 12/25/2023 5:03 PM CDTAssociated Problem(s): Papillary thyroid carcinoma (HCC) Update TG level Goal of treatment is to suppressed TSH with normal free T4 Patient follows with radio Oncology in February for whole-body thyroid scan and probably a 2nd round ofradioactive iodine ablation * Assessment & Plan Note - Joseph Freeman MD - 12/25/2023 5:03 PM CDTAssociated Problem(s): Postsurgical hypothyroidism Seems to continue uncontrolled due to compliance Update TFTs I will call the patient and advise on any changes on the levothyroxine I explained at length to Rubi how until we normalize her TSH we can not attribute her fatigue and other symptoms to other conditions other than the uncontrolled hypothyroidism Will consider the use of L T3 in combination with L T4 documented in this encounter Plan of Treatment Not on file documented as of this encounter Results * T4, free (12/25/2023 4:19 PM CDT) Free T4 1.14 0.90 - 1.70 ng/dL Blood 12/25/2023 4:19 PM CDT 12/26/2023 1:53 AM CDT us Joseph Fremean MD LAB BLOOD ORDERABLES Final Resul t [facility] [address] [address] Department [place] [address] * Thyroglobulin, tumor marker, serum (12/25/2023 4:19 PM CDT) Thyroglobulin <0.1 ng/mL [facility] Comment: REFERENCE VALUE Athyrotic <0.1 Intact Thyroid <=33 Anti-thyroglobulin <1.8 <1.8 IUnits/m L [facility] Thyroglobulin interp See Footnote [facility] Comment: Thyroglobulin (Tg) levels must be interpreted in the context of TSH levels, serial Tg measurements and radioiodine ablation status. Tg levels <0.1 ng/mL in athyrotic individuals on suppressive therapy indicate a minimal risk (<1-2%) of clinically detectable recurrent papillary/follicular thyroid cancer. ADDITIONAL INFORMATION PLEASE NOTE: The given cutoff of <1.8 IU/mL is for the detection of potential thyroglobulin antibody (TgAb) interference in thyroglobulin immunoassays. Thyroglobulin flagging is based on athyrotic reference values. A thyroglobulin antibody (TgAb) reference cutoff of <4.0 IU/mL may be more suitable for the evaluation of autoimmune thyroiditis. The thyroglobulin and thyroglobulin antibody testing methods are immunoenzymatic assays manufactured by [employer]. and performed on the SimplificareI 800. Values obtained from different assay methods or kits may be different and cannot be used interchangeably. The results cannot be interpreted as absolute evidence for the presence or absence of malignant disease. Test Performed by: [place] [address] Hydrogenation Operator: Ho Mays M.D. Ph.D.; CLIA# [id number] Blood 12/25/2023 4:19 PM CDT 12/26/2023 1:53 AM CDT us Joseph Freeman MD LAB BLOOD ORDERABLES Final Resul t Performing Organization Address [facility] [place] [address] [place] [address] [place] [facility] * TSH (12/25/2023 4:19 PM CDT) Thyroid Stimulating Hormone 2.99 0.30 - 4.20 mcIUnit/mL Blood 12/25/2023 4:19 PM CDT 12/26/2023 1:53 AM CDT us Joseph Freeman MD LAB BLOOD ORDERABLES Final Resul t Performing Organization Address [facility] [place] [address] [address] [place] [address] * PTH (12/25/2023 4:19 PM CDT) PTH 24 15 - 65 pg/mL [facility] Blood 12/25/2023 4:19 PM CDT 12/26/2023 3:55 AM CDT us Joseph Freeman MD LAB BLOOD ORDERABLES Edited Resu lt - Final [facility] [address] [address] Department [place] [address] * (ABNORMAL) Comprehensive metabolic panel (12/25/2023 4:19 PM CDT) Sodium 138 135 - 145 mmol/L Potassium, pl 4.2 3.3 - 4.9 mmol/L [facility] Chloride 101 97 - 110 mmol/L [facility] CO2 24 22 - 32 mmol/L [facility] Anion gap 13 2 - 15 mmol/L [facility] BUN 9 6 - 25 mg/dL [facility] Creatinine 0.55(L) 0.60 - 1.10 mg/dL [facility] Glucose 85 70 - 199 mg/dL [facility] Comment: Interpretive Data Fasting glucose >/= 126 mg/dl is diagnostic for diabetes. ?? Fasting is defined as no caloric intake for at least 8 hours. Fasting glucose between 100 mg/dl to 125 mg/dl is diagnostic of prediabetes. In a patient with classic symptoms of hyperglycemia or hyperglycemic crisis, a random glucose >/= 200 mg/dl is diagnostic for diabetes. In the absence of unequivocal hyperglycemia, results should be confirmed by repeat testing. The classification and Diagnosis of Diabetes Diabetes Care 2021; 46: S19-S40. Current interpretive data was last revised 2022. Calcium 8.2(L) 8.5 - 10.3 mg/dL [facility] Bilirubin, total 0.2 0.1 - 1.2 mg/dL [facility] Protein, pl 8.0 6.5 - 8.5 g/dL [facility] Albumin 4.2 3.5 - 5.0 g/dL [facility] Alk phos 86 70 - 260 Units/L [facility] ALT 10 7 - 45 Units/L [facility] AST 39 10 - 45 Units/L [facility] Blood 12/25/2023 4:19 PM CDT 12/26/2023 1:53 AM CDT us Joseph Freeman MD LAB BLOOD ORDERABLES Final Resul t [facility] [address] [address] Department [place] [address] documented in this encounter Visit Diagnoses Diagnosis Postsurgical hypoparathyroidism (HCC)- Primary Postsurgical hypothyroidism Papillary thyroid carcinoma (HCC) documented in this encounter Discontinued Medications Medication Sig Discontinue Reason Start Date End Da te calcium carbonate (OS-MATTHEW) 1,250 mg (500 mg elemental) tablet Take 1 tablet (1,250 mg total) by mouth every 8 (eight) hours Other 01/21/2023 12/25/2023 cyanocobalamin (Vitamin B-12) 1,000 mcg tablet Take 1 tablet (1,000 mcg total) by mouth daily Other 11/15/2022 12/25/2023 folic acid (FOLVITE) 1 mg tablet Take 1 tablet (1,000 mcg total) by mouth daily 11/08/2022 12/25/2023 documented as of this encounter Care Teams Fast Foods Worker Relationship Specialty Start Date End Date John Paul Domínguez MD [address] [place] [address] PCP - General Family Medicine 10/16/22 documented as of this encounter
--- OUTSIDE RECORDS SUMMARY | 2024-09-16 12:09 | XMS_ITS | Encounter Summary ---
Author Organization [facility] Healthcare Address [address] [place] [address] Care Team Providers Care Inspector Air Carrier Name Role Phone John Paul Domínguez MD Primary Care Provider [phone] Reason for Referral * Diagnostic Imaging (Routine) - Closed Specialty Diagnoses / Procedures Referred By Contac t Referred To Contact Diagnoses Thyroid cancer (HCC) Procedures NM Thyroid Cancer Mets Whole Body Imaging Deon Olvera III, MD PhD [address] 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 No evidence of radioiodine avid distant metastatic disease. Dictated by: Kishore Padilla MD, Ph.D The radiology attending physician has personally reviewed this study, and had reviewed and/or edited this written report and agrees with it. Electronically signed by: MD Karson Willis 03/11/2024 3:40 PM CDT EXAMINATION: ??WHOLE-BODY I-131 IMAGING DATE OF STUDY: 03/09/2024 ?? HISTORY: ??18-year-old female with papillary thyroid carcinoma status post total thyroidectomy 02/04/2023, positive margins. The patient received adjuvant radioiodine therapy 02/14/2023, 30 mCi. COMPARISON: Ultrasound 12/23/2022 FINDINGS: ??A 5.3-mCi diagnostic dose of I-131 sodium iodide was administered orally on 03/09/2023 by the staff of the Division of Nuclear Medicine. Images of the head, neck, trunk, and proximal extremities were obtained 2 days later. There is expected I-131 activity in the salivary glands, stomach, colon, and urinary bladder. ?? Interval decrease in focal uptake is in the midline neck, consistent with residual thyroid tissue within the thyroidectomy bed.. Procedure Note Kamran Bob MD - 03/11/2024 EXAMINATION: WHOLE-BODY I-131 IMAGING DATE OF STUDY: [...] residual thyroid tissue within the thyroidectomy bed.. IMPRESSION: Interval decrease in persistent focal uptake in the midline neck, consistent with residual radioiodine avid thyroid tissue. No evidence of radioiodine avid distant metastatic disease. Dictated by: Kishore Padilla MD, Ph.D The radiology attending physician has personally reviewed this study, and had reviewed and/or edited this written report and agrees with it. Electronically signed by: Kamran Bob MD Deon Olvera III, MD PhD IMG NM PROCEDU RES Final Result documented in this encounter Visit Diagnoses Diagnosis Thyroid cancer (HCC)- Primary Malignant neoplasm of thyroid gland Thyroid cancer (HCC) Malignant neoplasm of thyroid gland documented in this encounter Care Teams Inspector Air Carrier Relationship Specialty Start Date End Date John Paul Domínguez MD [address] [place] [address] PCP - General Family Medicine 10/16/22 documented as of this encounter
--- OUTSIDE RECORDS SUMMARY | 2024-09-16 12:09 | XMS_ITS | Encounter Summary ---
Author Organization [facility] Healthcare Address [address] [place] [address] Care Team Providers Care Security Solutions Engineer Name Role Phone John Paul Domínguez MD Primary Care Provider + [phone] Joseph Freeman MD Unavailable Wade REDDY MD PhD, Deon Vanegas Unavailable Tao Helm MD PhD Unavailable [phone] Reason for Visit * Reason Comments Follow-up Encounter Details Date Type Department Care Team (Late st Contact Info) Description 03/11/2024 1:00 PM CDT Office Visit [facility] Advanced Medicine Radiation Oncology [address] [facility] [place] [address] Renetta Ding PA [address] 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 Gender Identity Not on file Sexual Orientation Not on file documented as of this encounter Last Filed Vital Signs Vital Sign Reading Time Taken Comments Blood Pressure - - Pulse - - Temperature - - Respiratory Rate - - Oxygen Saturation - - Inhaled Oxygen Concentration - - Weight 57.1 kg (125 lb 12.8 oz) 03/11/2024 1:33 PM CDT Height 152.4 cm (5') 03/11/2024 1:33 PM CDT Body Mass Index 24.57 03/11/2024 1:33 PM CDT documented in this encounter Ordered Prescriptions Prescription Sig Dispense Quantity Refills Last Filled Start Date End Date ergocalciferol (VITAMIN D) 50,000 unit capsule Take 1 capsule (50,000 Units total) by mouth once a week 12 capsule 2 03/11/2024 documented in this encounter Plan of Treatment Not on file documented as of this encounter Results * (ABNORMAL) TSH (03/11/2024 2:32 PM CDT) Thyroid Stimulating Hormone 249.00(H) 0.30 - 4.20 mcIUnit/m L Blood 03/11/2024 2:32 PM CDT 03/11/2024 2:54 PM CDT Renetta MAXWELL LAB BLOOD ORDERABLES Fi nal Result Performing Organization Address City/State/[facility] Co de Phone Number [facility] Department [place] [address] documented in this encounter Visit Diagnoses Diagnosis Papillary thyroid carcinoma (HCC)- Primary Radiotherapy follow-up examination documented in this encounter Discontinued Medications Medication Sig Discontinue Reason Start Date End Da te ergocalciferol (VITAMIN D) 50,000 unit capsule Take 1 capsule (50,000 Units total) by mouth once a week Therapy completed 02/02/2024 03/11/2024 documented as of this encounter Care Teams Security Solutions Engineer Relationship Specialty Start Date End Date John Paul Domínguez MD [address] [place] [address] PCP - General Family Medicine 10/16/22 [place] [address] [address] [facility] [address] [place] [address] Consulting Physician Endocrinology Diabetes & Metabolism 03/11/24 Deon Olver[place] [address] [address] [facility] [address] [place] [address] Radiation Oncologist Radiation Oncology 03/11/24 [place] Hel[place] PhD [address] [address] [facility] [address] [place] [address] Radiation Oncologist Radiation Oncology 03/11/24 documented as of this encounter
--- OUTSIDE RECORDS SUMMARY | 2024-09-16 12:09 | XMS_ITS | Encounter Summary ---
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 180 tablet 2 01/15/2024 levothyroxine (SYNTHROID) 100 mcg tablet Take 1 tablet (100 mcg total) by mouth daily 90 tablet 2 01/15/2024 01/14/2025 liothyronine (CYTOMEL) 25 mcg tablet Take 1 tablet (25 mcg total) by mouth daily 30 tablet 3 01/15/2024 01/14/2025 ergocalciferol (VITAMIN D) 50,000 unit capsule Take 1 capsule (50,000 Units total) by mouth once a week 12 capsule 2 02/02/2024 03/11/2024 documented as of this encounter Discharge Disposition Disposition Code Departure Means Destination Discharge to home or self care documented in this encounter Miscellaneous Notes * Result Encounter Note - Joseph Freeman MD - 03/08/2024 11:59 PM CDT I called the patient. She has resumed her levothyroxine and liothyronine. She said that she is feeling fine documented in this encounter Plan of Treatment Not on file documented as of this encounter Procedures Procedure Name Priority Date/Time Associated Diagnosis Comments TSH Routine 03/08/2024 9:41 AM CDT Postsurgical hypothyroidism T4, FREE Routine 03/08/2024 9:41 AM CDT Postsurgical hypothyroidism documented in this encounter Results * (ABNORMAL) T4, free (03/08/2024 9:41 AM CDT) Free T4 0.16(L) 0.90 - 1.70 ng/dL Blood 03/08/2024 9:41 AM CDT 03/08/2024 3:58 PM CDT Narrative [facility] - 03/08/2024 4:59 PM CDT To be done in 2 months us Joseph Freeman MD LAB BLOOD ORDERABLES Final Resul t [facility] [address] [place] [address] * (ABNORMAL) TSH (03/08/2024 9:41 AM CDT) Thyroid Stimulating Hormone 244.00(H) 0.30 - 4.20 mcIUnit/m L Blood 03/08/2024 9:41 AM CDT 03/08/2024 3:58 PM CDT Narrative [facility] - 03/08/2024 4:59 PM CDT To be done in 2 months us Joseph Freeman MD LAB BLOOD ORDERABLES Final [facility]ul t [facility] [address] [address] Department of Laboratories [place] [id number] documented in this encounter Visit Diagnoses Diagnosis Postsurgical hypothyroidism documented in this encounter Care Teams Drawing Tracer Relationship Specialty Start Date End Date John Paul Domníguez MD [address] [place] [address] PCP - General Family Medicine 10/16/22 documented as of this encounter
--- OUTSIDE RECORDS SUMMARY | 2024-09-16 12:09 | XMS_ITS | Encounter Summary ---
Author Organization [facility] Healthcare Address [address] [place] [address] Care Team Providers Care Cloth Picker Name Role Phone John Paul Domínguez MD Primary Care Provider [phone] Joseph Freeman MD Unavailable Wade REDDY MD PhD, Deon Vanegas Unavailable Tao Helm MD PhD Unavailable [phone] Reason for Visit * Diagnostic Imaging (Routine) - Closed Specialty Diagnoses / Procedures Referred By Contac t Referred To Contact Diagnoses Thyroid cancer (HCC) Procedures NM Thyroid Cancer Mets Whole Body Imaging Deon Olvera III, MD PhD [address] [place], [place] [id number] [place] [address] Phone: tel: fax: [address] [phone] Referral ID Status Reason Start Date Expiration Date Visits Re quested Visits Authorized [id number] Closed 12/11/2023 01/09/2025 2 2 Encounter Details Date Type Department Care Team (Latest Contact Info) Description 03/11/2024 10:00 AM CDT - 03/11/2024 11:59 PM CDT Hospital Encounter [facility] [address] [place] [id number] Discharge Disposition: Discharge to home or self [...] on file 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 180 tablet 2 01/15/2024 ergocalciferol (VITAMIN D) 50,000 unit capsule Take 1 capsule (50,000 Units total) by mouth once a week 12 capsule 2 03/11/2024 levothyroxine (SYNTHROID) 100 mcg tablet Take 1 tablet (100 mcg total) by mouth daily 90 tablet 2 01/15/2024 01/14/2025 liothyronine (CYTOMEL) 25 mcg tablet Take 1 tablet (25 mcg total) by mouth daily 30 tablet 3 01/15/2024 01/14/2025 documented as of this encounter Discharge Disposition Disposition Code Departure Means Destination Discharge to home or self care documented in this encounter Plan of Treatment Not on file documented as of this encounter Procedures Procedure Name Priority Date/Time Associated Diagnosis Comments NM THYROID CANCER METS WHOLE BODY IMAGING Schedule Routine, Read Routine (OP Routine) 03/11/2024 12:06 PM CDT Thyroid cancer (HCC) documented in this encounter Results * NM Thyroid Cancer [...] it. Electronically signed by: Kamran Bob MD Narrative 03/11/2024 3:40 PM CDT EXAMINATION: ??WHOLE-BODY I-131 [...] Result documented in this encounter Visit Diagnoses Not on filedocumented in this encounter Care Teams Cloth Picker Relationship Specialty Start Date End Date John Paul Domínguez MD [address] [place] [address] PCP - General Family Medicine 10/16/22 [place] [id number] [id number] Consulting Physician Endocrinology Diabetes & Metabolism 03/11/24 Deon Olvera III[place] PhD [address] [address] Radiation Oncologist Radiation Oncology 03/11/24 Tao Helm MD PhD [address] [id number] Radiation Oncologist Radiation Oncology 03/11/24 documented as of this encounter
--- OUTSIDE RECORDS SUMMARY | 2024-09-16 12:09 | XMS_ITS | Encounter Summary ---
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
--- OUTSIDE RECORDS SUMMARY | 2024-09-16 12:09 | XMS_ITS | Encounter Summary ---
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 Gender Identity Not on file Sexual Orientation [...] Procedure Name Priority Date/Time Associated Diagnosis Comments HCG, BLOOD, QUANTITATIVE Routine 02/17/2024 7:10 PM CDT Thyroid cancer (HCC) THYROGLOBULIN ANTIBODIES Routine 02/17/2024 3:54 PM CDT Thyroid cancer (HCC) THYROGLOBULIN, TUMOR MARKER, SERUM Routine 02/17/2024 3:54 PM CDT Thyroid cancer (HCC) TSH Routine 02/17/2024 3:54 PM CDT Thyroid cancer (HCC) T4, FREE Routine 02/17/2024 3:54 PM CDT Thyroid cancer (HCC) documented in this encounter Results * hCG, blood, quantitative (02/17/2024 7:10 PM CDT) hCG, quant <0.1 0.0 - 5.0 IUnits/L Comment: Interpretive Data Male: < 5 IU/L Non- premenopausal Female: <5 IU/L The Tariq hCG Beta Quant assay procedure was used. Results from different manufacturers or methods may not be comparable. ??Serial testing should be performed using the same method. Interpretive Data was last revised on 2023 Blood 02/17/2024 7:10 PM CDT 02/17/2024 9:38 PM CDT Deon Olvera III, MD PhD LAB BLOOD ANTONIO TENORIO Final Result Performing Organization Address City/[facility] Co de Phone Number CHRIS NELSON [address] [address] [email or web address] [address] * T4, free (02/17/2024 3:54 PM CDT) Pathologist [facility] Free T4 1.28 0.90 - 1.70 ng/dL Blood 02/17/2024 3:54 PM CDT 02/17/2024 7:10 PM CDT Deon Olvera III, MD PhD LAB BLOOD ANTONIO TENORIO Final Result Performing Organization Address [facility] de Phone Number CHRIS NELSON [address] [address] [facility] [place] [address] * Thyroglobulin antibodies (02/17/2024 3:54 PM CDT) Pathologist [facility] Anti-thyroglobulin <1.8 <4.0 IUnits/mL [facility] Comment: ADDITIONAL INFORMATION PLEASE NOTE: ??The given thyroglobulin antibody (TgAb) reference cutoff of <4.0 IU/mL is for the evaluation of autoimmune thyroiditis. A cutoff of <1.8 IU/mL may be more suitable for the detection of potential thyroglobulin antibody (TgAb) interference in thyroglobulin immunoassays. The thyroglobulin antibody testing method is an immunoenzymatic assay manufactured by [employer] and performed on the [employer] DXI 800. Values obtained from different assay methods or kits may be different and cannot be used interchangeably. The results cannot be interpreted as absolute evidence for the presence or absence of malignant disease. Test Performed by: [address] [address] Repairer Veneer Sheet: Ho Mays M.D. Ph.D.; CLIA# [id number] Blood 02/17/2024 3:54 PM CDT 02/17/2024 7:10 PM CDT Deon Olvera III, MD PhD LAB BLOOD ANTONIO TENORIOJULIO Final Result CHRIS [address] [address] Department [place] [address] [facility] * Thyroglobulin, tumor marker, serum (02/17/2024 3:54 PM CDT) Thyroglobulin <0.1 ng/mL [facility] Comment: REFERENCE VALUE Athyrotic <0.1 Intact Thyroid <=33 Anti-thyroglobulin <1.8 <1.8 IUnits/m L CHRIS Thyroglobulin interp See Footnote CHRIS Comment: Thyroglobulin (Tg) levels must be interpreted [...] testing methods are immunoenzymatic assays manufactured by [employer] and performed on the [employer] DXI 800. Values obtained from different assay methods or kits may be different and cannot be used interchangeably. The results cannot be interpreted as absolute evidence for the presence or absence of malignant disease. Test Performed by: [facility] nanoMR [facility] ePatient[employer]inder [address] [place] [address] Repairer Veneer Sheet: Ho Mays M.D. Ph.D.; CLIA# [id number] Blood 02/17/2024 3:54 PM CDT 02/17/2024 7:10 PM CDT Deon Olvera III, MD PhD LAB BLOOD ORDE RABLES Final Result Performing Organization Address City/[facility]/ZIP Co de Phone Number CHRIS NELSON [address] [address] [place] [address] [place] [facility] Lab * (ABNORMAL) TSH (02/17/2024 3:54 PM CDT) Thyroid Stimulating Hormone 0.11(L) 0.30 - 4.20 mcIUnit/mL Blood 02/17/2024 3:54 PM CDT 02/17/2024 7:10 PM CDT Deon Olvera III, MD PhD LAB BLOOD ORDE RABLES Final Result Performing Organization Address City/[facility] Co de Phone Number CHRIS NELSON [address] [address] [email or web address] [address] documented in this encounter Visit Diagnoses Diagnosis Thyroid cancer (HCC) Malignant neoplasm of thyroid gland documented in this encounter Care Teams Accounting Auditor Relationship Specialty Start Date End Date John Paul Domínguez MD [address] [place] [address] PCP - General Family Medicine 10/16/22 documented as of this encounter
--- OUTSIDE RECORDS SUMMARY | 2024-09-16 12:09 | XMS_ITS | Encounter Summary ---
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
--- OUTSIDE RECORDS SUMMARY | 2024-09-16 12:09 | XMS_ITS | Encounter Summary ---
Author Organization [facility] Address [address] [place] [address] Phone Care Team Providers Care Dental Services Director Name Role Phone John Paul Domínguez MD Primary Care Provider [phone] Joseph Freeman MD Unavailable Wade REDDY MD PhD, Deon Vanegas Unavailable Tao Helm MD PhD Unavailable [phone] Reason for Visit * Consultation (Routine) - Authorized Specialty Diagnoses / Procedures Referred By Garcia carrillo Referred To Contact Rheumatology Diagnoses Raised antibody titer John Paul Domínguez MD [address] [place] [address] Phone: tel: fax: [facility] (All Locations) Referral ID Status Reason Start Date Expiration Date Visits Requested Visits Authorized [id number] Authorized Specialty Services Required 12/29/2023 02/19/2025 12 12 Encounter Details Date Type Department Care Team (Late st Contact Info) Description 04/21/2024 3:00 PM CDT Office Visit [facility] Rheumatology [address] [facility] [address] [place] [id number] Jose Mccoy, RN [address] [facility] [address] [place] [address] STEVE positive (Primary Dx); Raised antibody titer Social History Tobacco Use Types Packs/Day Years [...] declined 04/21/2024 How often do you attend gnosticism or pentecostalism serv ices? 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 Gender Identity Not on file Sexual Orientation Not on file documented as of this encounter Last Filed Vital Signs Vital Sign Reading Time Taken Comments Blood Pressure 119/81 04/21/2024 3:17 PM CDT Pulse 98 04/21/2024 3:17 PM CDT Temperature 36.9 ??C (98.4 ??F) 04/21/2024 3:17 PM CD T Respiratory Rate - - Oxygen Saturation 98% 04/21/2024 3:17 PM CDT Inhaled Oxygen Concentration - - Weight 55.8 kg (123 lb) 04/21/2024 3:17 PM CDT Height 152.4 cm (5') 04/21/2024 3:17 PM CDT Body Mass Index 24.02 04/21/2024 3:17 PM CDT documented in this encounter Patient Instructions * Patient Instructions* Jose Mccoy NP - 04/21/2024 3:00 PM CDT Please complete your blood tests at [facility] at: [address] [place], [place] [address] You will not need to make an appointment. For your hypermobility of joints here are recommendations for patients with hypermobility/EDS: Participate in a physical therapy program for strengthening and stabilization of joints; use prescribed braces, splints, or taping as needed for added stability. Warn massage therapists against deep tissue massage, which may cause muscle damage. Do not push through joint discomfort for sport or work. Soak for 10 minutes in a hot bath in the morning to reduce muscle stiffness and before bed to relaxmuscles and improve sleep. Seek a heated pool for swimming. Minimize running, stair climbing, step aerobics, and stretching yoga to protect hips, knees, and ankles. Take sandra chi or qigong lessons for balance, body control, and posture and to stabilize joints by building supportive muscle. Choose thick, flexibly soled, low-heeled shoes with arch support; tie-up boots give support for unstable ankles. For those with TMJ pain: Do not chew gum, hard rolls, or ice, or bite into hard fruit to help prevent temporomandibular joint (TMJ) pain disorder. Take breaks during dental work to close your mouth, ask for a plastic bite- block, and remind the dentist that your healing may be delayed and bleeding may be greater than expected. For those with concern for POTS: To manage postural orthostatic tachycardia syndrome (POTS), drink sufficient amount of liquids eachday with a bit of salt and arise slowly from bed or chairs. Consider compression knee socks Try to prevent falls and osuna; fractures, wounds, cuts, and bruises may take longer to heal and may scar poorly. General Recommendations: Opioids and local anesthetics tend to be less effective in Leanne-Danlos syndrome. Use side-sleeping, body pillows, and super-dense foam mattress pads to improve restful sleep. Use meditation with deep breathing exercises to help to maintain lung capacity and reduce anxiety associated with painful joints. Note that a positive attitude of prevention can improve global functioning and reduce stress. documented in this encounter Progress Notes * Jose Mccoy NP - 04/21/2024 3:00 PM CDT Images from the original note were not included. HISTORY OF PRESENT ILLNESS: Rubi Baca is a 18 y.o. 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 Joint pain since middle school, neck, shoulder, knee, wrists, fingers, ankles with use. Referred for positive STEVE. Prior workup: STEVE 1:80 Cardiolipin/LAC antibodies negative Reports no swelling, warmth or stiffness in joints in mornings. Reports no photosensitivity, rashes, oral/nasal sores, foamy/frothy urine, no skin tightening, shortness of breath or undue fatigue, atleast none different than she experienced surrounding her thyroid cancer circumstances. Family history of brain anneurysm in father. Review of Systems: (-) Weight Loss, (-) Fatigue, (-) Fever, (-) Hair Loss, (-) Headache, (-) Scalp Tenderness, (-) Jaw Claudication, (-) h/o Scleritis/Episcleritis, (-) h/o Iritis/Uveitis, (- ) Oral/Nasal Ulcers, (-) Epistaxis, (-) Dry Eyes, (-) Dry Mouth, (-) Rash, (-) Photosensitivity, (-), Skin Ulcers, (-) Purpura/Petechiae, (-) Skin Tightening, (-) Pleurisy, (-) Pericarditis/Pericardial effusion, (-) Enthesitis, (-) Dactylitis, (-) Back Pain, (-) Raynaud's, (-) DVT/PE (-) Joint pain, (-) Gross Hematuria, (-) Asthma, (-) Sinusitis, (-) URI, (-) Hemoptysis, (-) Peripheral neuropathy, (-) [place] exposure. ROS per HPI, all other systems negative. OBJECTIVE: Vitals: BP 119/81 Pulse 98 Temp 36.9 ??C (98.4 ??F) (Temporal) Ht 152.4 cm (5') Wt 55.8 kg (123 lb) SpO2 98% BMI 24.02 kg/m?? General: Well developed, sitting, in no acute distress HEENT : Sclera anicteric PERRL, no oral or nasal ulcers, adequate saliva pooling noted in oral cavity CV: RRR, no murmurs appreciated Pulm: CTAB Abdomen: not tender, not distended, +BS Neuro : AOx3, strength 5/5 throughout , no focal deficits Skin : No rashes or lesions Extremities: 2+ peripheral pulses bilaterally, no edema Musculoskeletal exam Shoulders: Inspection reveals no deformities or swellings. Palpation reveals no warmth or tenderness. FROM Elbows: Inspection reveals no visible deformities, swellings, or erythema upon inspection. No warmth or tenderness upon palpation. FROM Wrists/Hands: Inspection and palpation show no, deformities, swelling, erythema or tenderness. FROM. Certified Optician strength is 5/5. Hips: No deformities, warmth, erythema or swellings noted on inspection. Palpation reveals no warmth or tenderness. FROM. Knees/Ankles/Feet: Inspection and palpation show no abnormalities, deformities, or tenderness. FROM. Gait: Normal gait. No difficulty getting up from a seated position. INVESTIGATIONS: Lab Results Component Value Date WBC 6.4 04/29/2023 HGB 13.4 04/29/2023 HCT 42.7 04/29/2023 MCV 90.5 04/29/2023 LABPLAT 191 04/29/2023 Chemistry Lab Results Component Value Date SODIUM 138 12/25/2023 POTASSIUM 4.2 12/25/2023 CHLORIDE 101 12/25/2023 CO2 24 12/25/2023 ANIONGAP 13 12/25/2023 BUNSER 9 12/25/2023 CREATININE 0.55 (L) 12/25/2023 GLUCOSE 85 12/25/2023 CALCIUM 8.2 (L) 12/25/2023 BILITOT 0.2 12/25/2023 ALBUMIN 4.2 12/25/2023 GFRNAA 135 12/25/2023 ALKPHOS 86 12/25/2023 AST 39 12/25/2023 ALT 10 12/25/2023 PHOS 4.6 (H) 01/31/2023 Lab Results Component Value Date TSH 249.00 (H) 03/11/2024 ASSESSMENT AND PLAN: [age] year old female with papillary thyroid carcinoma: pT2N0 PTC s/p total thyroidectomy and adjuvant radioiodine therapy, faint uptake on whole body scan. Presents for evaluation of STEVE 1:80 and nonspecific, chronic intermittent joint pain neck, shoulder, knee, wrists, fingers, ankles (since middle school). No swelling, prolonged stiffness, Raynauds, photosensitivity, oral/nasal sores to suggest RA or lupus. However, given hx of [place] as autoimmune (though TOP low titer of 15) she may still carry predisposition to autoimmunity. Given recent cancer history and radiation treatment, we discussed radiographs are needed to investigate further. She will be in [place] entire next month and will obtain after returning. Today, we will obtain inflammatory arthritis serologies and inflammatory markers. No synovitis on exam. It is possible her pains are related to underlying malignancy or radiation (this can sometimes cause AVN, will have to investigate with radiographs) however she does note some intermittent joint pains that preceded malignancy so I would like to thoroughly rule out any inflammatory component. I will check her RF, CCP, GUCCI (today) and radiographs of hands, wrists, ankles, and feet, (when shereturns) to look for any specific autoantibodies. A positive STEVE reading alone does not indicate an autoimmune disease. The prevalence of ANAs in healthy individuals is about 3 - 15%. The production of these autoantibodies is strongly age-dependent,and even some other conditions or medications can cause a positive STEVE. More importantly, this patient does not appear to have overt symptoms consistent with a systemic connective tissue disease however her atypical presentation, history of autoimmune thyroid, complaintsof joint pain and young age do warrant further workup. Development of a positive STEVE can occasionally precede development of clinical manifestations. Should workup be negative but a change in symptoms or exam develop going forward, I will be happy to reassess. 1. Raised antibody titer 2. Joint Pain 3. Hx of Thyroid cancer Orders Placed This Encounter Procedures XR Hand Bilateral 3 or More Views of Each XR Wrist Bilateral 3 or More Views XR Foot Bilateral 3 or More Views of Each GUCCI ab eval w/reflex CRP (acute phase) Erythrocyte sedimentation rate Cyclic citrul peptide antibody, IgG Rheumatoid factor Follow up after workup. - Impression and recommendations/plan discussed with patient in person; all questions answered. - I reconciled the patient's medication list and prepared and supplied any needed refills. - I have reviewed oncology's note from 03/11/24, 01/15/24 imaging interpretations as well as the pastmedical, surgical family, and social history sections - all of which required 15 minutes, 30 minutes of face to face time with patient and 15 minutes of clinical documentation (total encounter time 60 min. [facility] Division of Rheumatology For patients or family members viewing this note through [employer] programs: Our clinical notes serve as a communication tool between healthcare providers and may contain technical language, terminology and abbreviations that is difficult to interpret without advanced medicaltraining. Any laboratory or imagining findings are carefully considered within the context of the overall rheumatologic clinical presentation. If you have questions, your healthcare team will be happy to assist and provide any necessary clarifications. Cosigned by Kelsey Lyles MD at 06/07/2024 10:54 AM CDT documented in this encounter Plan of Treatment Scheduled Orders Name Type Priority Associated Diagnoses Order Schedule GUCCI ab eval w/reflex Lab Routine STEVE positive Expected: 04/21/2024, Expires: 04/21/2025 CRP (acute phase) Lab Routine STEVE positive Expected: 04/24/2024, Expires: 04/21/2025 Erythrocyte sedimentation rate Lab Routine STEVE positive Expected: 04/21/2024, Expires: 04/21/2025 Cyclic citrul peptide antibody, IgG Lab Routine STEVE positive Expected: 04/21/2024, Expires: 04/21/2025 Rheumatoid factor Lab Routine STEVE positive Expected: 04/21/2024, Expires: 04/21/2025 XR Hand Bilateral 3 or More Views of Each Imaging Schedule Routine, Read Routine (OP Routine) STEVE positive Expected: 06/06/2024, Expires: 06/06/2025 XR Wrist Bilateral 3 or More Views Imaging Schedule Routine, Read Routine (OP Routine) STEVE positive Expected: 06/06/2024, Expires: 06/06/2025 XR Foot Bilateral 3 or More Views of Each Imaging Schedule Routine, Read Routine (OP Routine) STEVE positive Expected: 06/06/2024, Expires: 06/06/2025 documented as of this encounter Visit Diagnoses Diagnosis STEVE positive- Primary Raised antibody titer Other and unspecified nonspecific immunological findings documented in this encounter Orders Outpatient Referral Count Last Ordered Date Fir st Ordered Date AMB REFERRAL TO RHEUMATOLOGY 04/21/2024 documented in this encounter Care Teams Dental Services Director Relationship Specialty Start Date End Date John Paul Domínguez MD [address] [place] [address] PCP - General Family Medicine 10/16/22 [place] [address] [address] Consulting Physician Endocrinology Diabetes & Metabolism 03/11/24 Deon Olvera III, [place] PhD [address] [address] Radiation Oncologist Radiation Oncology 03/11/24 Tao Helm [place] PhD [address] [address] Radiation Oncologist Radiation Oncology 03/11/24 documented as of this encounter
--- OUTSIDE RECORDS SUMMARY | 2024-09-16 12:09 | XMS_ITS | Encounter Summary ---
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
--- OUTSIDE RECORDS SUMMARY | 2024-09-16 12:09 | XMS_ITS | Encounter Summary ---
Author Organization [facility] Healthcare Address [address] [place] [address] Care Team Providers Care Labor Trainer Name Role Phone John Paul Domínguez MD Primary Care Provider [phone] Reason for Visit * Reason Onset Date Comments returned mail 02/25/2024 Encounter Details Date Type Department Care Team (Late st Contact Info) Description 02/25/2024 Telephone [facility] [id number] [place] [phone] [place] [id number] [place] [phone] returned mail Social History Tobacco Use Types Packs/Day Years [...] on file 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 documented in this encounter Plan of Treatment Not on file documented as of this encounter Visit Diagnoses Not on filedocumented in this encounter Care Teams Labor Trainer Relationship Specialty Start Date End Date John Paul Domínguez MD [address] [place] [address] PCP - General Family Medicine 10/16/22 documented as of this encounter
--- OUTSIDE RECORDS SUMMARY | 2024-09-16 12:09 | XMS_ITS | Encounter Summary ---
Author Organization [facility] Healthcare Address [address] [place] [address] Care Team Providers Care Wellness Assistant Name Role Phone John Paul Domínguez MD Primary Care Provider [phone] Encounter Details Date Type Department Care Team (Late st Contact Info) Description 12/25/2023 4:15 PM CDT Lab [facility] Outpatient Lab at [address] [phone] Iron deficiency anemia due to chronic blood loss (Primary Dx); Postsurgical hypoparathyroidism (HCC); Postsurgical hypothyroidism Social History Tobacco Use Types Packs/Day Years [...] on file 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 Gender Identity Not on file Sexual Orientation Not on file documented as of this encounter Plan of Treatment Not on file documented as of this encounter Visit Diagnoses Diagnosis Iron deficiency anemia due to chronic blood loss- Primary Iron deficiency anemia secondary to blood loss (chronic) Postsurgical hypoparathyroidism (HCC) Postsurgical hypothyroidism documented in this encounter Care Teams Wellness Assistant Relationship Specialty Start Date End Date John Paul Domínguez MD [address] [facility] [place] [address] PCP - General Family Medicine 10/16/22 documented as of this encounter
--- OUTSIDE RECORDS SUMMARY | 2024-09-16 12:09 | XMS_ITS | Encounter Summary ---
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 Gender Identity Not on file Sexual Orientation Not on file documented as of this encounter Medications at Time of Discharge levothyroxine (SYNTHROID) 100 mcg tablet Take 1 tablet (100 mcg total) by mouth daily 30 tablet 6 07/17/2023 12/31/2023 documented as of this encounter Discharge Disposition Disposition Code Departure Means Destination Discharge to home or self care documented in this encounter Plan of Treatment Not on file documented as of this encounter Procedures Procedure Name Priority Date/Time Associated Diagnosis Comments EGFR Routine 12/25/2023 4:19 PM CDT Postsurgical hypoparathyroidism (HCC) THYROGLOBULIN, TUMOR MARKER, SERUM Routine 12/25/2023 4:19 PM CDT Postsurgical hypoparathyroidism (HCC) TSH Routine 12/25/2023 4:19 PM CDT Postsurgical hypothyroidism T4, FREE Routine 12/25/2023 4:19 PM CDT Postsurgical hypothyroidism PTH Routine 12/25/2023 4:19 PM CDT Postsurgical hypoparathyroidism (HCC) COMPREHENSIVE METABOLIC PANEL Routine 12/25/2023 4:19 PM CDT Postsurgical hypoparathyroidism (HCC) documented in this encounter Results * eGFR (12/25/2023 4:19 PM CDT) eGFR 135 mL/min/1. 73 m2 Comment: Interpretive Data Reference Interval Normal ?>/= 90 mL/min/1.73m2 Mildly decreased* ? 60 - 89 mL/min/1.73m2 Mildly to moderately decreased ?45 - 59 mL/min/1.73m2 Moderately to severely decreased ??30 - 44 mL/min/1.73m2 Severely decreased ?15 - 29 mL/min/1.73m2 Kidney Failure ?< 15 ??mL/min/1.73m2 *Relative to young adult level Estimated glomerular filtration rate is determined by the 2020 CKD-EPI equation recommended by the National Kidney Foundation (A Unifying Approach to GFR Estimation: Recommendations of the NKF-ASK Task Force on Reassessing the Inclusion of Race in Diagnosing Kidney Disease, JASN 2020). The CKD-EPI equation should not be used for patients with unstable renal function and has not been validated in children and those over 70. Current interpretive data was last reviewed 2021. Blood 12/25/2023 4:19 PM CDT 12/26/2023 1:53 AM CDT us Joseph Freeman MD LAB BLOOD ORDERABLES Final Resul t Performing Organization Address City/[facility]/ZIP Co de Phone Number CHRIS NELSON [address] [place] [address] * T4, free (12/25/2023 4:19 PM CDT) Free T4 1.14 0.90 - 1.70 ng/dL Blood 12/25/2023 4:19 PM CDT 12/26/2023 1:53 AM CDT us Joseph Freeman MD LAB BLOOD ORDERABLES Final Resul t Performing Organization Address [facility] Co de Phone Number CHRIS [address] [place] [address] * Thyroglobulin, tumor marker, serum (12/25/2023 4:19 PM CDT) Thyroglobulin <0.1 ng/mL [facility] Comment: REFERENCE VALUE Athyrotic <0.1 [...] testing methods are immunoenzymatic assays manufactured by [employer]. and performed on the [employer] DXI 800. Values obtained from different assay methods or kits may be different and cannot be used interchangeably. The results cannot be interpreted as absolute evidence for the presence or absence of malignant disease. Test Performed by: [place] [address] Handle Turner: Ho Mays M.D. Ph.D.; CLIA# [id number] Blood 12/25/2023 4:19 PM CDT 12/26/2023 1:53 AM CDT us Joseph Freeman MD LAB BLOOD ORDERABLES Final Resul t Performing Organization Address [facility] Co de Phone Number CHRIS NELSON [phone] Department [place] [address] [facility] * TSH (12/25/2023 4:19 PM CDT) Thyroid Stimulating Hormone 2.99 0.30 - 4.20 mcIUnit/mL Blood 12/25/2023 4:19 PM CDT 12/26/2023 1:53 AM CDT us Joseph Freeman MD LAB BLOOD ORDERABLES Final Resul t Performing Organization Address [facility] Co de Phone Number CHRIS NELSON [phone] [address] Department [place] [address] * PTH (12/25/2023 4:19 PM CDT) PTH 24 15 - 65 pg/mL [facility] Blood 12/25/2023 4:19 PM CDT 12/26/2023 3:55 AM CDT us Joseph Freeman MD LAB BLOOD ORDERABLES Edited Resu lt - Final CHRIS NELSON [address] [address] Department [place] [address] * (ABNORMAL) Comprehensive metabolic panel (12/25/2023 4:19 PM CDT) Sodium 138 135 - 145 mmol/L Potassium, pl 4.2 3.3 - 4.9 mmol/L [facility] Chloride 101 97 - 110 mmol/L [facility] CH CO2 24 22 - 32 mmol/L [facility] CH Anion gap 13 2 - 15 mmol/L [facility] BUN 9 6 - 25 mg/dL [facility] Creatinine 0.55(L) 0.60 - 1.10 mg/dL [facility] Glucose 85 70 - 199 mg/dL [facility] Comment: Interpretive Data Fasting glucose >/= 126 [...] Calcium 8.2(L) 8.5 - 10.3 mg/dL [facility] Bilirubin, total 0.2 0.1 - 1.2 mg/dL [facility] Protein, pl 8.0 6.5 - 8.5 g/dL [facility] Albumin 4.2 3.5 - 5.0 g/dL [facility] CH Alk phos 86 70 - 260 Units/L [facility] CH ALT 10 7 - 45 Units/L [facility] CH AST 39 10 - 45 Units/L [facility] CH Blood 12/25/2023 4:1 9 PM CDT 12/26/2023 1:53 AM CDT us Joseph Freeman MD LAB BLOOD ORDERABLES Final Resul t CHRIS [id number] Department [place] [address] documented in this encounter Visit Diagnoses Diagnosis Postsurgical hypoparathyroidism (HCC) Postsurgical hypothyroidism documented in this encounter Care Teams Ammonia Still Operator Relationship Specialty Start Date End Date John Paul Domínguez MD [address] [place] [address] PCP - General Family Medicine 10/16/22 documented as of this encounter
--- OUTSIDE RECORDS SUMMARY | 2024-09-16 12:09 | XMS_ITS | Encounter Summary ---
Author Organization [facility] Medical Group Address [address] [place] [address] Care Team Providers Care Dental Nurse Name Role Phone John Paul Domínguez MD Primary Care Provider + [phone] Reason for Visit * Reason Onset Date Comments Test Results 05/02/2023 Labs Encounter Details Date Type Department Care Team (Late st Contact Info) Description 05/02/2023 Telephone 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 Dueñas message. Pt voiced understanding * Telephone Encounter - Tess Frazier MA - 05/02/2023 1:05 PM CDT ----- Message from Joseph Freeman MD sent at 05/02/2023 12:58 PM CDT ----- Please let the patient know that her thyroid levels are low. Increase the levothyroxine from 88 to 100 mcg daily. I have sent prescription. Calcium actually is normal documented in this encounter Plan of Treatment Not on file documented as of this encounter Visit Diagnoses Not on filedocumented in this encounter Care Teams Dental Nurse Relationship Specialty Start Date End Date John Paul Domínguez MD [address] [place] [address] PCP - General Family Medicine 10/16/22 documented as of this encounter
--- OUTSIDE RECORDS SUMMARY | 2024-09-16 12:09 | XMS_ITS | Encounter Summary ---
Author Organization [facility] Healthcare Address [address] [place] [address] Care Team Providers Care Pressroom Worker Name Role Phone John Paul Domínguez MD Primary Care Provider + [phone] Reason for Referral * Diagnostic Imaging (Routine) - Closed Specialty Diagnoses / Procedures Referred By Contac t Referred To Contact Diagnoses Thyroid cancer (HCC) Procedures NM Thyroid Cancer [facility] Deon Olvera III, MD PhD [address] [address] Phone: tel: fax: [address] [phone] Referral ID Status Reason Start Date Expiration Date Visits Re quested Visits Authorized [id number] Closed 12/11/2023 01/09/2025 2 2 Reason for Visit * Diagnostic Imaging (Routine) - Closed Specialty Diagnoses / Procedures Referred By Contac t Referred To Contact Diagnoses Thyroid cancer (HCC) Procedures NM Thyroid Cancer [facility] Deon Olvera III, MD PhD [address] [address] Phone: tel: fax: [address] [phone] Referral ID Status Reason Start Date Expiration Date Visits Re quested Visits Authorized [id number] Closed 12/11/2023 01/09/2025 2 2 Encounter Details Date Type Department Care Team (Latest Contact Info) Description 03/09/2024 2:20 PM CDT - 03/09/2024 11:59 PM CDT Hospital Encounter [facility] Radiology [address] [place] [address] Thyroid cancer (HCC) Discharge Disposition: Discharge to [...] on file 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 Gender Identity Not on file Sexual Orientation [...] 03/11/2024 12:06 PM CDT Thyroid cancer (HCC) POCT HCG, URINE Routine 03/09/2024 3:07 PM CDT documented in this encounter Results * NM [...] PhD IMG NM PROCEDU RES Final Result * POCT hCG, urine (03/09/2024 3:07 PM CDT) HCG, ur, POC Negative Negative Lot Number [id number] QC Backgroud Clear Acceptable QC Control Line Acceptable Urine 03/09/2024 3:07 PM CDT Candido Alexandra MD POINT OF CARE TEST ORDERABL ES Final Result documented in this encounter Visit Diagnoses Diagnosis Thyroid cancer (HCC) Malignant neoplasm of thyroid gland documented in this encounter Administered Medications Inactive Administered Medications - up to 3 most recent administrations Medication Order MAR Action Action Date Dose Rate Site i-131 palmira diagnostic capsule 5 millicurie 5 millicurie, oral, Once in imaging, radiopharmaceutical, Starting on Fri03/09/24 at 1502, For 1 dose Given 03/09/2024 3:19 PM CDT 5.3 millicuries documented in this encounter Orders Medications Ordered That Jordan ht Not Have Been Administered Count Last Ordered Date First Ordered Date bisacodyl EC (DULCOLAX EC) tablet 10 mg 1 0 03/09/2024 i-131 palmira diagnostic capsule 5 millicurie 1 03/09/2024 documented in this encounter Care Teams Pressroom Worker Relationship Specialty Start Date End Date John Paul Domínguez MD [address] [place] [address] PCP - General Family Medicine 10/16/22 documented as of this encounter
--- OUTSIDE RECORDS SUMMARY | 2024-09-16 12:09 | XMS_ITS | Encounter Summary ---
Author Organization [facility] Healthcare Address [address] [place] [address] Care Team Providers Care Advanced Manufacturing Associate Name Role Phone John Paul Domínguez MD Primary Care Provider + [phone] Reason for Visit * Reason Onset Date Comments Abnormal Labs 01/14/2024 Encounter Details Date Type Department Care Team (Late st Contact Info) Description 01/14/2024 Telephone [facility] [address] [place] [phone] Joseph Freeman [place] [id number] [place] [address] Abnormal Labs Social History Tobacco Use Types Packs/Day Years [...] on file 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 Domínguez's office and entered in pt's chart. * Telephone Encounter - Tess Frazier MA - 01/14/2024 12:03 PM CDT Romae w/ Kala at Dr. Domínguez's office. She contacted the office requesting an appt for the pt due to arecent elevated calcium level on the pt's labs ordered by Dr. Domínguez. Pt was scheduled w/ Dr. Freeman in the [place] office tomorrow, 01/15/24 at 3:15pm. Kala also requested Dr. Freeman's office notes for the pt. She stated their office has not received any for the pt since she started seeing Dr. Freeman. Dr. Freeman's notes sent. Kala provided with our office fax number. documented in this encounter Plan of Treatment Not on file documented as of this encounter Visit Diagnoses Not on filedocumented in this encounter Care Teams Advanced Manufacturing Associate Relationship Specialty Start Date End Date John Paul Domínguez MD [address] [place] [address] PCP - General Family Medicine 10/16/22 documented as of this encounter
--- OUTSIDE RECORDS SUMMARY | 2024-09-16 12:09 | XMS_ITS | Encounter Summary ---
Author Organization [facility] Healthcare Address [address] [place] [address] Care Team Providers Care Competency Evaluated Nurse Aide Name Role Phone John Paul Domínguez MD Primary Care Provider + [phone] Joseph Freeman MD Unavailable Wade REDDY MD PhD, Deon Vanegas Unavailable Tao Helm MD PhD Unavailable [phone] Encounter Details Date Type Department Care Team (Late st Contact Info) Description 03/11/2024 2:55 PM CDT Lab [facility] Advanced Medicine [facility] Advanced Medicine ([facility]) [address] [place] [phone] Papillary thyroid carcinoma (HCC) Social History Tobacco [...] on file 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 Gender Identity Not on file Sexual Orientation Not on file documented as of this encounter Plan of Treatment Not on file documented as of this encounter Procedures Procedure Name Priority Date/Time Associated Diagnosis Comments REFLEX THYROGLOBULIN, TUMOR MARKER, IA, S Routine 03/11/2024 2:32 PM CDT THYROGLOBULIN REFLEX TO MS OR [place] Routine 03/11/2024 2:32 PM CDT Papillary thyroid carcinoma (HCC) TSH Routine 03/11/2024 2:32 PM CDT Papillary thyroid carcinoma (HCC) documented in this encounter Results * Reflex thyroglobulin, tumor marker, IA, S (03/11/2024 2:32 PM CDT) Thyroglobulin, Tumor Marker <0.1 ng/mL [facility] Comment: REFERENCE VALUE Athyrotic <0.1 Intact Thyroid <=33 Thyroglobulin interp See Footnote [facility] Comment: Thyroglobulin (Tg) levels must be interpreted [...] testing methods are immunoenzymatic assays manufactured by [employer] and performed on the [employer] DXI 800. Values obtained from different assay methods or kits may be different and cannot be used interchangeably. The results cannot be interpreted as absolute evidence for the presence or absence of malignant disease. Test Performed by: [place] [id number] Medical Claims Analyst: Amanda Shanks Ph.D.; CLIA# [id number] Blood 03/11/2024 2:32 PM CDT 03/11/2024 4:03 PM CDT Renetta [facility] LAB BLOOD ORDERABLES Fi nal Result Performing Organization Address [facility] Co de Phone Number [facility] Department [place] [place] [address] [facility] * (ABNORMAL) TSH (03/11/2024 2:32 PM CDT) Thyroid Stimulating Hormone 249.00(H) 0.30 - 4.20 mcIUnit/m L Blood 03/11/2024 2:32 PM CDT 03/11/2024 2:54 PM CDT Ren[facility] LAB BLOOD ORDERABLES Fi nal Result Performing Organization Address [facility] Co de Phone Number [facility] [place] [place] [address] * Thyroglobulin reflex to [place] or IA (03/11/2024 2:32 PM CDT) Anti-thyroglobulin <1.8 <1.8 IUnits/mL [facility] Comment: Thyroglobulin Antibody < 1.8 IU/mL. Thyroglobulin performed by Immunoassay to follow. Test Performed by: [address] [address] Medical Claims Analyst: Amanda Shanks Ph.D.; CLIA# [id number] Blood 03/11/2024 2:32 PM CDT 03/11/2024 4:03 PM CDT Renetta MAXWE[facility] LAB BLOOD ORDERABLES Fi nal Result [facility] Department [place] [address] [facility] documented in this encounter Visit Diagnoses Diagnosis Papillary thyroid carcinoma (HCC) documented in this encounter Care Teams Competency Evaluated Nurse Aide Relationship Specialty Start Date End Date John Paul Domínguez MD [address] [place] [address] PCP - General Family Medicine 10/16/22 [place] [address] [address] Consulting Physician Endocrinology Diabetes & Metabolism 03/11/24 Deon Olver[place] PhD [address] [address] Radiation Oncologist Radiation Oncology 03/11/24 Tao Helm MD PhD [address] [address] Radiation Oncologist Radiation Oncology 03/11/24 documented as of this encounter
--- OUTSIDE RECORDS SUMMARY | 2024-09-16 12:09 | XMS_ITS | Encounter Summary ---
Author Organization [facility] Healthcare Address [address] [place] [address] Care Team Providers Care Chemical Equipment Controller Name Role Phone John Paul Domínguez MD Primary Care Provider + [phone] Joseph Freeman MD Unavailable Wade REDDY MD PhD, Deon Vanegas Unavailable Tao Helm MD PhD Unavailable [phone] Encounter Details Date Type Department Care Team (Late st Contact Info) Description 03/11/2024 Orders Only [facility] Advanced Medicine Radiation Oncology [address] [facility] [place] [address] Kishore Yanez, RN Papillary thyroid carcinoma (HCC) (Primary Dx) Social [...] on file 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 Thyroglobulin performed by Immunoassay to follow. Test Performed by: [facility] [address] [place] [address] Supervisor Instant Potato Processing: Amanda Shanks Ph.D.; CLIA# [id number] Blood 03/11/2024 2:32 PM CDT 03/11/2024 4:03 PM CDT us Renetta [facility] LAB BLOOD ORDERABLES nal Result [facility] One [facility] Department [place] [address] [facility] Lab documented in this encounter Visit Diagnoses Diagnosis Papillary thyroid carcinoma (HCC)- Primary documented in this encounter Care Teams Chemical Equipment Controller Relationship Specialty Start Date End Date John Paul Domínguez MD [address] [place] [address] PCP - General Family Medicine 10/16/22 [place] [address] [address] [place] [address] Consulting Physician Endocrinology Diabetes & Metabolism 03/11/24 Deon Olvera III[place] PhD [address] [address] Radiation Oncologist Radiation Oncology 03/11/24 Tao Helm [place] PhD [address] [address] Radiation Oncologist Radiation Oncology 03/11/24 documented as of this encounter
--- OUTSIDE RECORDS SUMMARY | 2024-09-16 12:09 | XMS_ITS | Encounter Summary ---
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
--- OUTSIDE RECORDS SUMMARY | 2024-09-16 12:09 | XMS_ITS | Encounter Summary ---
Author Organization [facility] Healthcare Address [address] [place] [address] Care Team Providers Care Mill House Supervisor Name Role Phone John Paul Domínguez MD Primary Care Provider + [phone] Reason for Visit * Reason Comments Thyroid Problem Encounter Details Date Type Department Care Team (Latest Contact Info) Description 01/15/2024 3:15 PM CDT Office Visit [facility] Medical Group Diabetes and Endocrinology [address] [place] [phone] [place] [address] [facility] [address], [place] [address] Papillary thyroid carcinoma (HCC) (Primary Dx); Postsurgical hypothyroidism; Postsurgical hypoparathyroidism (HCC); Vitamin D deficiency Social History Tobacco Use Types Packs/Day Years [...] on file 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 Gender Identity Not on file Sexual Orientation Not on file documented as of this encounter Last Filed Vital Signs Vital Sign Reading Time Taken Comments Blood Pressure 110/70 01/15/2024 3:12 PM CDT Pulse 95 01/15/2024 3:12 PM CDT Temperature - - Respiratory Rate - - Oxygen Saturation - - Inhaled Oxygen Concentration - - Weight 55.7 kg (122 lb 14.4 oz) 01/15/2024 3:12 PM CDT Height 152.4 cm (5') 01/15/2024 3:12 PM CDT Body Mass Index 24 01/15/2024 3:12 PM CDT documented in this encounter Patient Instructions * Patient Instructions* Joseph Freeman MD - 01/15/2024 3:15 PM CDT Take Levothyroxine 100 mcg daily Start Cytomel 25 mcg daily , in the morning Take Ergocalciferol, 50,000 international units weekly Take Calcium twice a day documented in this encounter Ordered Prescriptions Prescription Sig Dispense Quantity Refills Last Filled Start Date End Date calcium citrate-vitamin D3 500 mg-12.5 mcg (500 unit) tablet,chewable Take 1 tab twice a day with meals. 180 tablet 2 01/15/2024 levothyroxine (SYNTHROID) 100 mcg tablet Take 1 tablet (100 mcg total) by mouth daily 90 tablet 2 01/15/2024 5 liothyronine (CYTOMEL) 25 mcg tablet Take 1 tablet (25 mcg total) by mouth daily 30 tablet 3 01/15/2024 5 ergocalciferol (VITAMIN D) 50,000 unit capsule Take 1 capsule (50,000 Units total) by mouth once a week 12 capsule 2 01/15/2024 4 documented in this encounter Progress Notes * Joseph Freeman MD - 01/15/2024 3:15 PM CDT Images from the original note were not included. Subjective/Objective Patient ID: Rubi Baca is a 18 y.o. female. HPI Patient comes for surgical hypothyroidism follow up . Papillary thyroid carcinoma, status post thyroidectomy and radioactive iodine ablation. The patient had blood test done by his primary care doctor that showed mildly low serum calcium The patient has been advised on taking calcium vitamin-D but she has not doing it She denies any paresthesia The patient is currently on LT4 replacement therapy with , The patient stays , takes the medication regularly, on an empty stomach Lab Results Component Value Date TSH 2.99 12/25/2023 TSH 53.80 (H) 04/29/2023 TSH 70.30 (H) 03/28/2023 FREET4 1.14 12/25/2023 FREET4 0.83 (L) 04/29/2023 FREET4 0.88 (L) 03/28/2023 ASSESSMENT AND PLAN Diagnoses and all orders for this visit: Papillary thyroid carcinoma (HCC) (C73) (Primary) Assessment & Plan: Continue monitoring TG level The patient is scheduled for whole-body thyroid scan with radio oncology in March Postsurgical hypothyroidism (E89.0) Assessment & Plan: We discussed again the option of adding L T3 especially to see if they help with her symptoms EG tiredness fatigue. She had agreed but has not been starting the medication. I sent the prescription to the pharmacy and she tells me that she will go ahead and started Postsurgical hypoparathyroidism (HCC) (E89.2) Assessment & Plan: Relatively mild, asymptomatic. Emphasized to the patient the need to take calcium and her vitamin-D I advised her and send a prescription for calcium citrate to take 500 mg twice a day Also restart vitamin-D 13107 IU use weekly Vitamin D deficiency (E55.9) Assessment & Plan: Chronic, uncontrolled, contributing to the hypocalcemia Restart vitamin-D 45162 IU use weekly Other orders - liothyronine (CYTOMEL) 25 mcg tablet; Take 1 tablet (25 mcg total) by mouth daily - levothyroxine (SYNTHROID) 100 mcg tablet; Take 1 tablet (100 mcg total) by mouth daily - ergocalciferol (VITAMIN D) 50,000 unit capsule; Take 1 capsule (50,000 Units total) by mouth oncea week - calcium citrate-vitamin D3 500 mg-12.5 mcg (500 unit) tablet,chewable; Take 1 tab twice a day with meals. Joseph Freeman MD documented in this encounter Miscellaneous Notes * Assessment & Plan Note - Joseph Freeman MD - 01/15/2024 4:44 PM CDTAssociated Problem(s): Papillary thyroid carcinoma (HCC) Continue monitoring TG level The patient is scheduled for whole-body thyroid scan with radio oncology in March * Assessment & Plan Note - Joseph Freeman MD - 01/15/2024 4:43 PM CDTAssociated Problem(s): Vitamin D deficiency Chronic, uncontrolled, contributing to the hypocalcemia Restart vitamin-D 21309 IU use weekly * Assessment & Plan Note - Joseph Freeman MD - 01/15/2024 4:43 PM CDTAssociated Problem(s): Postsurgical hypoparathyroidism (HCC) Relatively mild, asymptomatic. Emphasized to the patient the need to take calcium and her vitamin-D I advised her and send a prescription for calcium citrate to take 500 mg twice a day Also restart vitamin-D 82291 IU use weekly * Assessment & Plan Note - Joseph Freeman MD - 01/15/2024 4:42 PM CDTAssociated Problem(s): Postsurgical hypothyroidism We discussed again the option of adding L T3 especially to see if they help with her symptoms EG tiredness fatigue. She had agreed but has not been starting the medication. I sent the prescription to the pharmacy and she tells me that she will go ahead and started documented in this encounter Plan of Treatment Not on file documented as of this encounter Visit Diagnoses Diagnosis Papillary thyroid carcinoma (HCC)- Primary Postsurgical hypothyroidism Postsurgical hypoparathyroidism (HCC) Vitamin D deficiency documented in this encounter Discontinued Medications Medication Sig Discontinue Reason Start Date End Da te liothyronine (CYTOMEL) 25 mcg tablet Take 1 tablet (25 mcg total) by mouth daily Reorder 12/31/2023 01/15/2024 levothyroxine (SYNTHROID) 100 mcg tablet Take 1 tablet (100 mcg total) by mouth daily Reorder 12/31/2023 01/15/2024 ergocalciferol (VITAMIN D) 50,000 unit capsule Reorder 01/13/2024 documented as of this encounter Historical Medications * This list may reflect changes made after this encounter. Medication Sig Dispense Quantity Refills Last Filled Start D ate End Date ergocalciferol (VITAMIN D) 50,000 unit capsule 01/13/2024 01/15/2024 added in this encounter Care Teams Mill House Supervisor Relationship Specialty Start Date End Date John Paul Domínguez MD [address] [place] [address] PCP - General Family Medicine 10/16/22 documented as of this encounter
--- OUTSIDE RECORDS SUMMARY | 2024-09-16 12:09 | XMS_ITS | Encounter Summary ---
Author Organization [facility] Healthcare Address [address] [place] [address] Care Team Providers Care Type Rolling Machine Operator Name Role Phone John Paul Domínguez MD Primary Care Provider + [phone] Reason for Visit * Reason Onset Date Comments PCP Callback Request - Patient 12/25/2023 Encounter Details Date Type Department Care Team (Late st Contact Info) Description 12/25/2023 Telephone [facility] Medical Group Diabetes and Endocrinology [address] [place] [phone] [place] [address] [address] PCP Callback Request - Patient Social History Tobacco Use Types Packs/Day Years [...] on file 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 Check out instruction were to scheduled follow up in 4 months There are no available appts in [place] office till 04/2024 and this would be with CONTRACT PROGRAMMER Patient dose not want to see the CONTRACT PROGRAMMER and dose not want to go to [place] office Your next established patient appt in [place] is 07/20/24 Please advise documented in this encounter Plan of Treatment Not on file documented as of this encounter Visit Diagnoses Not on filedocumented in this encounter Care Teams Type Rolling Machine Operator Relationship Specialty Start Date End Date John Paul Domínguez MD [address] [place] [address] PCP - General Family Medicine 10/16/22 documented as of this encounter
--- OUTSIDE RECORDS SUMMARY | 2024-09-16 12:09 | XMS_ITS | Encounter Summary ---
Author Organization [facility] Healthcare Address [address] [place] [address] Care Team Providers Care Mechanical Adjuster Name Role Phone John Paul Domínguez MD Primary Care Provider + [phone] Encounter Details Date Type Department Care Team (Late st Contact Info) Description 12/11/2023 Orders Only [facility] Advanced Medicine Radiation Oncology [address] 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 Gender Identity Not on file Sexual Orientation Not on file documented as of this encounter Miscellaneous Notes * Addendum Note - Kat Clarke - 12/11/2023 10:30 AM CDTAddended by: KAT CLARKE on: 02/17/2024 03:54 PM Modules accepted: Orders documented in this encounter Plan of Treatment Scheduled Orders Name Type Priority Associated Diagnoses Orde r Schedule Thyroglobulin antibodies Lab Routine Thyroid cancer (HCC) Expected: 03/08/2024, Expires: 12/10/2024 Thyroglobulin, tumor marker, serum Lab Routine Thyroid cancer (HCC) Expected: 03/08/2024, Expires: 12/10/2024 documented as of this encounter Results * hCG, blood, quantitative (02/17/2024 7:10 PM CDT) hCG, quant <0.1 0.0 - 5.0 IUnits/L Comment: Interpretive Data Male: < 5 IU/L Non- premenopausal Female: <5 IU/L The [employer] hCG Beta Quant assay procedure was used. Results from different manufacturers or methods may not be comparable. ??Serial testing should be performed using the same method. Interpretive Data was last revised on 2023 Blood 02/17/2024 7:10 PM CDT 02/17/2024 9:38 PM CDT Deon Olvera III, MD PhD LAB BLOOD ANTONIO TENORIO Final Result Performing Organization Address [facility] Co de Phone Number CHRIS LESLIE [address] [address] [employer] [place] [address] * (ABNORMAL) TSH (02/17/2024 3:54 PM CDT) Pathologist [facility] Thyroid Stimulating Hormone 0.11(L) 0.30 - 4.20 mcIUnit/mL Blood 02/17/2024 3:54 PM CDT 02/17/2024 7:10 PM CDT Deon Olvera III, MD PhD LAB BLOOD ANTONIO TENORIO Final Result Performing Organization Address City/[facility] [place] [address] [address] Department of [employer] [place] [address] * Thyroglobulin, tumor marker, serum (02/17/2024 3:54 PM CDT) Pathologist [facility] Thyroglobulin <0.1 ng/mL [facility] Lab Comment: REFERENCE VALUE Athyrotic <0.1 [...] testing methods are immunoenzymatic assays manufactured by [employer] and performed on the mLED DXI 800. Values obtained from different assay methods or kits may be different and cannot be used interchangeably. The results cannot be interpreted as absolute evidence for the presence or absence of malignant disease. Test Performed by: [facility] [place] [id number] [place] [address] Steaming Cabinet Tender: Ho Mays M.D. Ph.D.; CLIA# [id number] Blood 02/17/2024 3:54 PM CDT 02/17/2024 7:10 PM CDT Deon Olvera III, MD PhD LAB BLOOD [place] [id number] [address] Department [place] [address] [facility] * Thyroglobulin antibodies (02/17/2024 3:54 PM CDT) Anti-thyroglobulin <1.8 <4.0 IUnits/mL [facility] Lab Comment: ADDITIONAL INFORMATION PLEASE NOTE: ??The given thyroglobulin antibody (TgAb) reference cutoff of <4.0 IU/mL is for the evaluation of autoimmune thyroiditis. A cutoff of <1.8 IU/mL may be more suitable for the detection of potential thyroglobulin antibody (TgAb) interference in thyroglobulin immunoassays. The thyroglobulin antibody testing method is an immunoenzymatic assay manufactured by [employer] and performed on the mLED DXI 800. Values obtained from different assay methods or kits may be different and cannot be used interchangeably. The results cannot be interpreted as absolute evidence for the presence or absence of malignant disease. Test Performed by: [place] [address] Steaming Cabinet Tender: Ho Mays M.D. Ph.D.; CLIA# [id number] Blood 02/17/2024 3:54 PM CDT 02/17/2024 7:10 PM CDT Deon Olvera III, MD PhD LAB BLOOD [place] [address] [address] Department [place] [address] [facility] * T4, free (02/17/2024 3:54 PM CDT) Free T4 1.28 0.90 - 1.70 ng/dL Blood 02/17/2024 3:54 PM CDT 02/17/2024 7:10 PM CDT us Deon Olvera III, MD PhD LAB BLOOD ANTONIO TENORIO Final Result CHRIS [address] [address] Department [place] [address] documented in this encounter Visit Diagnoses Diagnosis Thyroid cancer (HCC)- Primary Malignant neoplasm of thyroid gland documented in this encounter Care Teams Mechanical Adjuster Relationship Specialty Start Date End Date John Paul Domínguez MD [facility] [place] [address] PCP - General Family Medicine 10/16/22 documented as of this encounter
--- OUTSIDE RECORDS SUMMARY | 2024-09-16 12:09 | XMS_ITS | Encounter Summary ---
Author Organization [facility] Healthcare Address [address] [place] [address] Care Team Providers Care Field Captain Name Role Phone John Paul Domínguez MD Primary Care Provider [phone] Joseph Freeman MD Unavailable Wade REDDY MD PhD, Deon Vanegas Unavailable Tao Helm MD PhD Unavailable [phone] Reason for Visit * Reason Comments PT Initial Eval * Consultation (Routine) - Authorized Specialty Diagnoses / Procedures Referred By Contac t Referred To Contact Physical Therapy Diagnoses Neck pain Midline back pain, unspecified back location, unspecified chronicity John Paul Domínguez MD [address] [place] [address] [place] [address] Phone: tel: fax: [facility] [address] [place] [address] Phone: tel: fax: Referral ID Status Reason Start Date Expiration Date Visits Requested Visits Authorized [id number] Authorized Evaluate and Treat 08/11/2024 09/10/2025 99 13 Encounter Details Date Type Department Care Team (Late st Contact Info) Description 09/02/2024 11:00 AM DOCUMENTATION BILLING CLERK Therapy [facility] [address] [place] [id number] Delores Alcazar, PT Neck pain (Primary Dx); [...] declined 04/21/2024 How often do you attend yazidi or confucianism serv ices? 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 female John Paul Domínguez MD [address] [place] [address] ICD-10-CM 1. Neck pain M54.2 Ambulatory referral order to Physical Therapy - 2. Midline back pain, unspecified back location, unspecified chronicity M54.89 Ambulatory referral order to Physical Therapy - Subjective: History of Present Condition Description of onset: Pt presents to PT with c/o pain in neck and mid back. She states she has had problems for awhile with the worst pain being the past 4 years. She denies any injury. She states the pain is all over including her neck, shoulders, upper back, mid back, and lower back. She states the pain affects her sleep at times. She c/o weakness and numbness every day but states this is due to other health conditions. Pt completes NDI scoring 52% impairment. 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 ROM: Cervical AROM: Flexion = 55 deg Extension = 52 deg Lateral Flexion R = 52 deg Lateral Flexion L = 42 deg Rotation R = 90 deg Rotation L = 74 deg B UE AROM = normal throughout STRENGTH: B UE'S = 4+/5 - 5/5 throughout with pt c/o popping in her shoulders when holding arms outin front DEEP NECK FLEXORS = 4/5 SCM R = 4/5 SCM L = 4/5 Scapular strength: B Middle trap = 4-/5 B Lower trap = 3-/5 B Rhomboids = 4/5 PALPATION: Pt is moderately tender with palpation to lower C-spine and upper T- spine area. Minimal/moderate muscle tightness noted along upper back muscles. Moderate muscle tightness noted along cervical paraspinals. Hypermobility noted throughout C-spine with PA and lateral glides. SPECIAL TESTS: Cervical Distraction - increases discomfort in neck and upper back Treatment Provided: HEP instruction: (latex free orange tband) Access Code: [email or web address] URL: [email or web address] Date: 09/02/2024 - Supine Cervical Retraction with [...] - 10 reps - 1-2 seconds hold TREATMENT IDEAS: *LATEX AND ADHESIVE ALLERGIES* UBE - retro only Wall: V-slides facing wall with small lift off Standing: B scapular retraction with latex free tband B shoulder extension to sides with latex free tband B shoulder ER with scapular squeeze with latex free tband B shoulder horizontal abduction with latex free tband Prone at corner of mat: B MT and LT strengthening B shoulder extension to sides B rhomboid row Supine: (manual) Chin tuck with PT assist Cervical isometrics - LF R/L, Rotation R/L, and extension Other manual PT - STM to B UT and cervical paraspinal muscles - prn Modalities - prn Assessment/Plan: Pt presents to PT with c/o neck and upper back pain associated with hypermobility in her C-spine and decreased cervical and scapular strength. Assessment Impairments: activity tolerance, abnormal muscle tone, lacks appropriate home exercise program, impaired physical strength, pain with function Assessment details: Pt will benefit from PT to address impairments. Prognosis: good Prognosis details: Pt is pleasant and motivated. Goals STG 1:: (see LTG's) LTG 1:: Pt to be independent and compliant with progressive HEP by D/C. Goal status: New LTG 2:: Pt to improve strength of deep neck flexors and B SCM = 4+/5 for improved cervical stability with all daily activities to decrease pain complaints throughout the day by D/C. Goal status: New LTG 3:: Pt to improve strength of B Middle trap = 4/5, B Lower trap = 3+/5, and B Rhomboids = 4+/5 for improved scapular stability with all daily activities to decrease pain complaints throughout theday by D/C. Goal status: New LTG 4:: Pt to have decreased muscle tightness and tenderness along cervical and upper back regions for decreased c/o pain throughout day by D/C. Goal status: New LTG 5:: Pt to score 40% or less impairment on NDI indicating decreased pain with functional activity level by D/C Goal status: New Plan Start time: 1108 End time: 1149 Therapy options: will be seen for skilled therapy services Planned modality interventions: cryotherapy, ultrasound, interferential current, thermotherapy (hydrocollator packs) (prn) Planned therapy interventions: manual therapy, strengthening, home exercise program, soft tissue mobilization Frequency: 1 x/week (pt requests 1x/week due to her job) Duration in visits: 12 visits Discussed with: patient Delores Alcazar PT In order to comply with payor and regulatory requirements, the plan of care as stated in this letter must be approved by the referring practitioner. Please sign and return to indicate approval of treatment plan. Our fax number is [phone] I certify that the plan of care as stated in this letter is appropriate and medically necessary Elizabteh Lopezwendy Baca, 2005 Physician Signature: Date: Time: MENTATION BILLING CLERK documented in this encounter Plan of Treatment Not on file documented as of this encounter Visit Diagnoses Diagnosis Neck pain- Primary Cervicalgia Midline back pain, unspecified back location, unspecified chronicity documented in this encounter Orders Outpatient Referral Count Last Ordered Date Fir st Ordered Date AMB REFERRAL ORDER TO PHYSICAL THERAPY 1 documented in this encounter Care Teams Field Captain Relationship Specialty Start Date End Date John Paul Domínguez MD [address] [place] [address] PCP - General Family Medicine 10/16/22 [place] [address] [place] [address] Consulting Physician Endocrinology Diabetes & Metabolism 03/11/24 Deon Olver[place] PhD [id number] [address] Radiation Oncologist Radiation Oncology 03/11/24 Tao Helm MD PhD [address] [address] Radiation Oncologist Radiation Oncology 03/11/24 documented as of this encounter
--- OUTSIDE RECORDS SUMMARY | 2024-09-16 12:10 | XMS_ITS | Encounter Summary ---
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
--- OUTSIDE RECORDS SUMMARY | 2024-09-16 12:10 | XMS_ITS | Encounter Summary ---
Author Organization [facility] Healthcare Address [address] [place] [address] Care Team Providers Care Processing Archivist Name Role Phone John Paul Domínguez MD Primary Care Provider [phone] Reason for Visit * Reason Comments Consult * Consultation (Urgent) - Closed Specialty Diagnoses / Procedures Referred By Contac t Referred To Contact Radiation Oncology Diagnoses Papillary thyroid carcinoma ([place]) [place] [address] [facility] [address] [place] [address] Phone: tel: fax: Brunilda Peters MD [address] [facility] [address] [place] [address] Phone: tel: fax: Referral ID Status Reason Start Date Expiration Date V isits Requested Visits Authorized [id number] Closed Specialty Services Required 02/06/2023 03/07/2024 1 1 Encounter Details Date Type Department Care Team (Late st Contact Info) Description 02/13/2023 11:00 AM CDT Consult [facility] Radiation Oncology [address] [facility] [address] Beverly Hdez MD [address] [place] [address] Papillary thyroid carcinoma (HCC) Social History Tobacco [...] on file Legal 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 Gender Identity Not on file Sexual Orientation Not on file documented as of this encounter Last Filed Vital Signs Vital Sign Reading Time Taken Comments Blood Pressure 114/74 02/13/2023 11:34 AM CDT Pulse 88 02/13/2023 11:34 AM CDT Temperature 36.8 ??C (98.2 ??F) 02/13/2023 1 1:34 AM CDT Respiratory Rate - - Oxygen Saturation - - Inhaled Oxygen Concentration - - Weight 52.1 kg (114 lb 14.4 oz) 023 11:34 AM CDT Height 152.4 cm (5') 02/13/2023 11:34 AM CDT Body Mass Index 22.44 02/13/2023 11:34 AM CDT Body Mass Index Percentile 61.53% 02/13 11:34 AM CDT Growth Chart: [facility] (Girls, 2- 20 Years) documented in this encounter Ordered Prescriptions Prescription Sig Dispense Quantity Refills Last Filled Start Date End Date levothyroxine (SYNTHROID) 88 mcg tabletIndications:Pa pillary thyroid carcinoma (HCC) Take 1 tablet (88 mcg total) by mouth daily before breakfast 30 tablet 11 02/13/2023 3 ondansetron ODT (ZOFRAN-ODT) 8 mg disintegrating tabletIndications:Pa pillary thyroid carcinoma (HCC) Take 1 tablet (8 mg total) by mouth every 8 (eight) hours as needed for nausea 20 tablet 02/13/2023 3 documented in this encounter Consult Notes * Mane Plasencia MD PhD - 02/13/2023 11:00 AM CDT PATIENT NAME: Rubi Baca DATE OF : 2005 DATE OF SERVICE: 02/13/23 Radiation Oncology Consult Note IDENTIFYING DATA: Rubi Baca is a 17 y.o. 17-year-old female with newly diagnosed, pathologic T2 N0 papillary thyroid carcinoma status post total thyroidectomy on 02/04/2023 with 2.5 cm tumor, surgicalmargins positive, negative LVSI, negative angio invasion, negative extrathyroidal extension. ONCOLOGIC HISTORY: Patient initially noted a left-sided neck nodule late last year. She underwent thyroid ultrasound and FNA biopsy of 2 dominant left thyroid nodules on 08/30/2022. Molecular analysis of the cytology showed high risk for malignancy. Ultrasound completed 12/23/2022 showed for TR 3 nodules with increased flow within the thyroid suggestive of thyroiditis. She ultimately underwent total thyroidectomy on 01/24/[address] Reyna. Pathology showed papillary thyroid carcinoma (classic type) within the left thyroid lobe measuring 2.5 cm, angioinvasion negative, LVSI negative, ET E negative, margin withcarcinoma present, 0/4 lymph nodes involved, pT2 N0. Most recent labs on 02/04/2023 show undetectable thyroglobulin, TSH 205, thyroglobulin antibody 7.9. SUBJECTIVE: Today, she presents for consultation. She reports feeling overall well and is without overt complaint. She states that she is healed well from surgery. She denies neck mass/nodularity, dysphagia, odynophagia, hoarseness, neck pain. 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 Patient has had an implant. OB History No obstetric history on file. PAST SURGICAL HISTORY Past Surgical History: Procedure Laterality Date APPENDECTOMY 01/10/2023 CURRENT MEDICATIONS Current Outpatient Medications: calcitRIOL (ROCALTROL) 0.5 mcg capsule, Take 1 capsule (0.5 mcg total) by mouth 2 (two) times a day, Disp: , Rfl: calcium carbonate (OS-MATTHEW) 1,250 mg (500 mg elemental) tablet, Take 1 tablet (1,250 mg total) by mouth every 8 (eight) hours, Disp: 90 tablet, Rfl: 0 cyanocobalamin (Vitamin B-12) 1,000 mcg tablet, Take 1 tablet (1,000 mcg total) by mouth daily, Disp: , Rfl: folic acid (FOLVITE) 1 mg tablet, Take 1 tablet (1,000 mcg total) by mouth daily, Disp: , Rfl: levothyroxine (SYNTHROID) 88 mcg tablet, Take 1 tablet (88 mcg total) by mouth daily before breakfast, Disp: 30 tablet, Rfl: 11 liothyronine (CYTOMEL) 5 mcg tablet, Take 2 tablets (10 mcg total) by mouth daily, Disp: 30 tablet,Rfl: 0 ondansetron ODT (ZOFRAN-ODT) 8 mg disintegrating tablet, Take 1 tablet (8 mg total) by mouth every 8 (eight) hours as needed for nausea, Disp: 20 tablet, Rfl: 0 ALLERGIES No Known Allergies SOCIAL HISTORY Social History Tobacco Use Smoking status: Never Smokeless tobacco: Never Substance and Sexual Activity Drug use: Not Currently Sexual activity: None Alcohol Use: Not At Risk (01/20/2023) AUDIT-C Frequency of Alcohol Consumption: Never Average Number of Drinks: Patient does not drink Frequency of Binge Drinking: Never FAMILY HISTORY Family History Problem Relation Age of Onset Vitamin D deficiency Mother Iron deficiency Mother REVIEW OF SYSTEMS: Negative unless stated otherwise above. PHYSICAL EXAMINATION: BP 114/74 (BP Location: Right arm, Patient Position: Sitting) Pulse 88 Temp 36.8 ??C (98.2 ??F) Ht 152.4 cm (5') Wt 52.1 kg (114 lb 14.4 oz) BMI 22.44 kg/m?? Pain Score and Location 02/13/23 1134 PainSc: 0-No pain General: Well-developed, well-nourished in no acute distress. HEENT: NC/AT, PER, no ptosis or conjunctival injection, moist mucous membranes, well healing thyroidectomy incision without erythema or discharge, no neck masses or LAD. Chest: Normal work of breathing, no accessory muscle use Heart: Regular rate and rhythm Abdomen: Soft, non-tender, non-distended Extremities: No cyanosis, clubbing, or edema Neurologic: AOx4; CN II-XII grossly intact, grossly non-focal, moves all extremities spontaneously,station and gait intact Skin: No rashes or bruising. LABORATORY REVIEW: Per HPI PATHOLOGY REVIEW: Per HPI IMAGING REVIEW: We personally reviewed the patient's pertinent imaging and findings are noted abovein the HPI. IMPRESSION: Rubi Baca is a 17 y.o. 17-year-old female with newly diagnosed, pathologic T2 N0 papillary thyroid carcinoma status post total thyroidectomy on 02/04/2023 with 2.5 cm tumor, surgical margins positive, negative LVSI, negative angio invasion, negative extrathyroidal extension. RECOMMENDATIONS: 1. At this time we recommend the patient undergo adjuvant radioactive iodine treatment following their thyroidectomy. We discussed at length the benefit and rationale behind radioactive iodine ablation. We also discussed the precautions the patient should take over the next 48 hours including keeping an arm's length distance from all people and avoiding children and small animals, and the importance of good bathroom hygiene. 2. We discussed the possible acute reactions that may include pain in the salivary glands, loss of taste, dry mouth, tearing of the eyes, sore throat, and hoarseness. Temporary lowering of white blood cell count which may predispose to infection. We also reviewed the possible late reactions which include the possibility of causing cancer in the future and permanent lowering of blood counts. The patient verbalized understanding of all the precautions and possible reactions and wished to proceed.Informed consent was obtained. 3. We will plan to treat the patient with 30 mCi of radioactive iodine. They will have a post treatment scan next week. 4. We will have the patient return for repeat lab work and a withdrawal total body scan, in 1 year or sooner, pending TBS results. We appreciate the opportunity to care for this mutual patient. RAD ONC PAIN PLAN: The patient is not currently having any pain that requires changes in pain management. Mane Plasencia MD, PhD Radiation Oncology Resident 02/13/2023 5:06 PM Cosigned by Beverly Hdez MD at 02/26/2023 12:35 PM CDT Associated attestation - Beverly Hdez MD - 02/26/2023 12:35 PM CDT Rubi Baca was evaluated with the resident, Dr. Plasencia. I personally reviewed the patient's chart and interpreted surgical pathology from 01/20/23. I performed the relevant history and exam, and generated the treatment plan as documented above. I spent a total of 45 minutes on 02/13/2023 which was spent in reviewing outside records and reports, obtaining a history, performing an exam, and counseling the patient regarding her condition, treatment plan and coordination of care.This includes time spent prior to the visit and after the visit in direct care of the patient. This time does not include time spent in any separately reportable serv ices. Beverly Hdez MD 02/13/2023 documented in this encounter Nursing Notes * Courtney Crockett RN - 02/13/2023 11:00 AM CDT Pt here for Consult and ACEVES treatment accompanied by her mom. Pt educated on 48hr isolation precautions and possible side effects. Pt will start Levothyroxine 88mcg tomorrow. She will be followed by Dolores Ferris. Pt will have labs drawn in 6 weeks. Lab req given. Pt will return for Post Therapy Scan on. Pt/mom verb understanding of all info and questions answered. documented in this encounter Plan of Treatment Not on file documented as of this encounter Visit Diagnoses Diagnosis Papillary thyroid carcinoma (HCC) documented in this encounter Orders Outpatient Referral Count Last Ordered Date Fir st Ordered Date AMB REFERRAL TO RADIATION ONCOLOGY 1 2022 documented in this encounter Care Teams Processing Archivist Relationship Specialty Start Date End Date John Paul Domínguez MD [address] [place] [address] PCP - General Family Medicine 10/16/22 documented as of this encounter
--- OUTSIDE RECORDS SUMMARY | 2024-09-16 12:10 | XMS_ITS | Encounter Summary ---
Author Organization 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 I also informedher that Dr. Reyna said her parathyroid hormone is recovering slowly, we are on the right track. Patient agreed and was happy with the news and stated that they will come up to get the lab test done next week. documented in this encounter Plan of Treatment Not on file documented as of this encounter Visit Diagnoses Not on filedocumented in this encounter Care Teams Glass Glazier Relationship Specialty Start Date End Date John Paul Domínguez MD [address] [place] [address] PCP - General Family Medicine 10/16/22 documented as of this encounter
--- OUTSIDE RECORDS SUMMARY | 2024-09-16 12:10 | XMS_ITS | Encounter Summary ---
Author Organization [facility] Address [address] [place] [address] Phone Care Team Providers Care Sawmill Moulder Operator Name Role Phone John Paul Domínguez MD Primary Care Provider [phone] Encounter Details Date Type Department Care Team (Late st Contact Info) Description 02/12/2023 Orders Only [facility]) - [facility] ENT [address] [facility] Medical Office [address] [place] [address] Jacob Reyna MD Papillary thyroid carcinoma (HCC) (Primary Dx) Social [...] on file 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
--- OUTSIDE RECORDS SUMMARY | 2024-09-16 12:10 | XMS_ITS | Encounter Summary ---
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 Female 3:09 AM FLAGMAN Gender Identity Not on file Sexual Orientation Not on file documented as of this encounter Plan of Treatment Not on file documented as of this encounter Procedures Procedure Name Priority Date/Time Associated Diagnosis Comments RAD ONC ARIA SESSION SUMMARY 02/13/2023 2:38 PM CDT documented in this encounter Results * RAD ONC ARIA SESSION SUMMARY (02/13/2023 2:38 PM CDT) Course Name Thyroid 1 ARIA Course Plan Date 02/12/2023 3:54 PM ARIA Elapsed Days 0 ARIA Course Intent Unknown ARIA Treatment Start Date 02/13/2023 ARIA Treatment Site Thyroid 1 ARIA Dose Given To Date (cGy) 30 ARIA Session Dosage Given (cGy) 30 ARIA Plan ID Thyroid 1 ARIA Fractions Treated 1 ARIA Prescribed Dose Per Fraction (cGy) 30 ARIA Prescribed Total Dose (cGy) 30 ARIA 02/13/2023 2:38 PM CDT us Not In File Miscellaneous RADIATION ONCOLOGY ORD ERABLES Final Result ARIA documented in this encounter Visit Diagnoses Not on filedocumented in this encounter Care Teams Emr Specialist Relationship Specialty Start Date End Date John Paul Domínguez MD [address] [place] [address] PCP - General Family Medicine 10/16/22 documented as of this encounter
--- OUTSIDE RECORDS SUMMARY | 2024-09-16 12:10 | XMS_ITS | Encounter Summary ---
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 Gender Identity Not on file Sexual Orientation Not on file documented as of this encounter Medications at Time of Discharge calcium carbonate (OS-MATTHEW) 1,250 mg (500 mg elemental) tablet Take 1 tablet (1,250 mg total) by mouth every 8 (eight) hours 90 tablet 01/21/2023 4 cyanocobalamin (Vitamin B-12) 1,000 mcg tablet Take 1 tablet (1,000 mcg total) by mouth daily 11/15/2022 4 folic acid (FOLVITE) 1 mg tablet Take 1 tablet (1,000 mcg total) by mouth daily 11/08/2022 4 levothyroxine (SYNTHROID) 88 mcg tabletIndication s:Papillary thyroid carcinoma (HCC) Take 1 tablet (88 mcg total) by mouth daily before breakfast 30 tablet 11 02/13/2023 3 documented as of this encounter Discharge Disposition Disposition Code Departure Means Destination Discharge to home or self care documented in this encounter Plan of Treatment Not on file documented as of this encounter Procedures Procedure Name Priority Date/Time Associated Diagnosis Comments THYROGLOBULIN, TUMOR MARKER, SERUM Routine 04/29/2023 2:45 PM CDT Papillary thyroid carcinoma (HCC) EGFR Routine 04/29/2023 10:39 AM CDT Postsurgical hypoparathyroidism (HCC) DIFFERENTIAL AUTO Routine 04/29/2023 10: 39 AM CDT Postsurgical hypoparathyroidism (HCC) IRON PROFILE W/ IBC Routine 04/29/2023 1 0:39 AM CDT Postsurgical hypoparathyroidism (HCC) CBC WITH AUTO DIFFERENTIAL Routine 04/29/2023 10:39 AM CDT Postsurgical hypoparathyroidism (HCC) TSH Routine 04/29/2023 10:39 AM CDT Postsurgical hypothyroidism T4, FREE Routine 04/29/2023 10:39 AM CDT Postsurgical hypothyroidism PTH Routine 04/29/2023 10:39 AM CDT Postsurgical hypoparathyroidism (HCC) FOLATE Routine 04/29/2023 10:39 AM CDT Postsurgical hypoparathyroidism (HCC) VITAMIN B12 Routine 04/29/2023 10:39 AM CDT Postsurgical hypoparathyroidism (HCC) COMPREHENSIVE METABOLIC PANEL Routine 04/29/2023 10:39 AM CDT Postsurgical hypoparathyroidism (HCC) documented in this encounter Results * (ABNORMAL) Thyroglobulin, tumor marker, serum (04/29/2023 2:45 PM CDT) Thyroglobulin <0.1 ng/mL [facility]IS Comment: REFERENCE VALUE Athyrotic <0.1 Intact Thyroid <=33 Anti-thyroglobulin 1.9(H) <1.8 IUnits/m L [facility] Thyroglobulin interp See Footnote [facility]IS Comment: Quantitation of thyroglobulin may be unreliable due to the presence of anti-thyroglobulin antibodies. Thyroglobulin (Tg) levels must be interpreted in [...] testing methods are immunoenzymatic assays manufactured by [employer] and performed on the navabiI 800. Values obtained from different assay methods or kits may be different and cannot be used interchangeably. The results cannot be interpreted as absolute evidence for the presence or absence of malignant disease. Test Performed by: [facility] [address] [place] [address] Stockroom Worker: Ho Mays M.D. Ph.D.; CLIA# [id number] Blood 04/29/2023 2:45 PM CDT 04/29/2023 5:38 PM CDT us Joseph Freeman MD LAB BLOOD ORDERABLES Final Resul t [facility] [address] [place] [address] * eGFR (04/29/2023 10:39 AM CDT) eGFR 137 mL/min/1. 73 m2 [facility] NELSON Comment: Interpretive Data Reference Interval Normal ?>/= [...] interpretive data was last reviewed 2021. Blood 04/29/2023 10:3 9 AM CDT 04/29/2023 6:50 PM CDT us Joseph Freeman MD LAB BLOOD ORDERABLES Final Resul t [facility]IS [address] [place] [address] * Differential, auto (04/29/2023 10:39 AM CDT) Neutrophil abs 3.9 1.7 - 6.5 K/cumm [facility] Imm gran abs 0.0 0.0 - 0.1 K/cumm [facility] Lymphocyte abs 1.8 0.8 - 3.3 K/cumm [facility] Monocyte abs 0.6 0.2 - 0.8 K/cumm [facility] Eosinophil abs 0.1 0.0 - 0.5 K/cumm [facility] Basophil abs 0.0 0.0 - 0.1 K/cumm [facility] Neutrophil pct 60.9 % [facility] Comment: Interpretive Data Percent cell count reference ranges are not reported, since discordance with absolute values may lead to misinterpretation of CBC data. Current Interpretive Data was last revised on 2018. Imm gran pct 0.2 % [facility] Comment: Interpretive Data Percent cell count reference ranges are not reported, since discordance with absolute values may lead to misinterpretation of CBC data. Current Interpretive Data was last revised on 2018. Lymphocyte pct 29.0 % [facility] Comment: Interpretive Data Percent cell count reference ranges are not reported, since discordance with absolute values may lead to misinterpretation of CBC data. Current Interpretive Data was last revised on 2018. Monocyte pct 8.8 % [facility] Comment: Interpretive Data Percent cell count reference ranges are not reported, since discordance with absolute values may lead to misinterpretation of CBC data. Current Interpretive Data was last revised on 2018. Eosinophil pct 0.8 % [facility] Comment: Interpretive Data Percent cell count reference ranges are not reported, since discordance with absolute values may lead to misinterpretation of CBC data. Current Interpretive Data was last revised on 2018. Basophil pct 0.3 % [facility] Comment: Interpretive Data Percent cell count reference ranges are not reported, since discordance with absolute values may lead to misinterpretation of CBC data. Current Interpretive Data was last revised on 2018. Blood 04/29/2023 10:3 9 AM CDT 04/29/2023 6:50 PM CDT Joseph Freeman MD LAB BLOOD ORDERABLES Final Resul t Performing Organization Address City/[facility] Co de Phone Number ANTONYFADIA [address] [place] [address] * (ABNORMAL) TSH (04/29/2023 10:39 AM CDT) Thyroid Stimulating Hormone 53.80(H) 0.30 - 4.20 mcIUnit/mL [facility] Blood 04/29/2023 10:3 9 AM CDT 04/29/2023 6:50 PM CDT Joseph Freeman MD LAB BLOOD ORDERABLES Final Resul t Performing Organization Address [facility] de Phone Number CHRIS [address] [place] [address] * (ABNORMAL) T4, free (04/29/2023 10:39 AM CDT) Free T4 0.83(L) 0.90 - 1.70 ng/dL [facility] Blood 04/29/2023 10:3 9 AM CDT 04/29/2023 6:50 PM CDT Joseph Freeman MD LAB BLOOD ORDERABLES Final Resul t Performing Organization Address [facility] Co de Phone Number ANTONYFADIA [address] [facility] [place] [address] * Comprehensive metabolic panel (04/29/2023 10:39 AM CDT) Sodium 141 135 - 145 mmol/L [facility] Potassium, pl 4.3 3.3 - 4.9 mmol/L [facility] Chloride 103 97 - 110 mmol/L [facility] CO2 24 22 - 32 mmol/L [facility] Anion gap 14 2 - 15 mmol/L [facility] BUN 12 6 - 25 mg/dL [facility] Creatinine 0.54 0.40 - 1.00 mg/dL [facility] Glucose 83 70 - 199 mg/dL [facility] Comment: [...] classification and Diagnosis of Diabetes Diabetes Care 202; 46: S19-S40. Current interpretive data was last revised 2022. Calcium 8.6 8.5 - 10.3 mg/dL [facility] Bilirubin, total 0.3 0.1 - 1.2 mg/dL [facility] Protein, pl 8.1 6.5 - 8.5 g/dL [facility] Albumin 4.7 3.5 - 5.0 g/dL [facility] Alk phos 82 70 - 260 Units/L [facility] ALT 10 7 - 45 Units/L [facility] AST 22 10 - 45 Units/L [facility] Blood 04/29/2023 10:3 9 AM CDT 04/29/2023 6:50 PM CDT Joseph Freeman MD LAB BLOOD ORDERABLES Final Resul t [facility] [address] [place] [address] * PTH (04/29/2023 10:39 AM CDT) PTH 24 15 - 65 pg/mL [facility] Blood 04/29/2023 10:3 9 AM CDT 04/29/2023 6:50 PM CDT Joseph Freeman MD LAB BLOOD ORDERABLES Final Resul t Performing Organization Address City/[facility]/ZIP Co de Phone Number CHRIS [address] [place] [address] * (ABNORMAL) CBC with auto differential (04/29/2023 10:39 AM CDT) WBC 6.4 3.8 - 9.9 K/cumm [facility] Hgb 13.4 11.9 - 15.5 g/dL [facility] Hct 42.7 35.6 - 45.5 % [facility] Plt 191 150 - 400 K/cumm [facility] CH MPV 12.1 9.1 - 12.3 fL [facility] RBC 4.72 3.90 - 5.20 M/cumm [facility] CH MCV 90.5 81.3 - 96.4 fL [facility] CH MCH 28.4 27.1 - 33.3 pg [facility] CH MCHC 31.4(L) 32.3 - 35.7 g/dL [facility] CH RDW CV 13.2 11.1 - 14.9 % [facility] CH RDW SD 43.5 35.7 - 48.1 fL [facility] NRBC abs 0.00 0.00 - 0.01 K/cumm [facility] Blood 04/29/2023 10:3 9 AM CDT 04/29/2023 6:50 PM CDT Joseph Freeman MD LAB BLOOD ORDERABLES Final Resul t Performing Organization Address City/[facility]/ZIP Co de Phone Number CHRIS NELSON [address] [place] [address] * Vitamin B12 (04/29/2023 10:39 AM CDT) Vitamin B12 731 230 - 1,250 pg/mL [facility] Blood 04/29/2023 10:3 9 AM CDT 04/29/2023 6:50 PM CDT Joseph Freeman MD LAB BLOOD ORDERABLES Final Resul t [facility]RIS NELSON [address] [place] [address] * Folate (04/29/2023 10:39 AM CDT) Folic acid 18.3 >=5.0 ng/mL [facility] Comment:Hemolysis present. R esults may be affected. Blood 04/29/2023 10:3 9 AM CDT 04/29/2023 6:50 PM CDT Joseph Freeman MD LAB BLOOD ORDERABLES Final Resul t Performing Organization Address [facility] de Phone Number CHRIS NELSON [address] [place] [address] * (ABNORMAL) Iron profile w/ IBC (04/29/2023 10:39 AM CDT) Iron 57 35 - 145 mcg/dl [facility] TIBC 364 250 - 400 mcg/dL [facility] Transferrin saturation 16(L) 20 - 50 % [facility] Blood 04/29/2023 10:3 9 AM CDT 04/29/2023 6:50 PM CDT us Joseph Freeman MD LAB BLOOD ORDERABLES Final Resul t Performing Organization Address [facility] de Phone Number CHRIS NELSON [address] [place] [address] documented in this encounter Visit Diagnoses Diagnosis Papillary thyroid carcinoma (HCC) Postsurgical hypoparathyroidism (HCC) Postsurgical hypothyroidism documented in this encounter Care Teams Conceptor Relationship Specialty Start Date End Date John Paul Domínguez MD [address] [place] [address] PCP - General Family Medicine 10/16/22 documented as of this encounter
--- OUTSIDE RECORDS SUMMARY | 2024-09-16 12:10 | XMS_ITS | Encounter Summary ---
Author Organization [facility] Healthcare Address [address] [place] [address] Care Team Providers Care Superintendent Colliery Name Role Phone John Paul Domínguez MD Primary Care Provider + [phone] Reason for Referral * Diagnostic Imaging (Routine) - Closed Specialty Diagnoses / Procedures Referred By Contac t Referred To Contact Diagnoses Thyroid cancer (HCC) Procedures NM Thyroid Cancer Mets Whole Body Imaging Mikayla Castellon PA [address] [address] Phone: tel: fax: [address] [phone] Referral ID Status Reason Start Date Expiration Date Visits Re quested Visits Authorized [id number] Closed 02/10/2023 03/11/2024 2 2 Reason for Visit * Diagnostic Imaging (Routine) - Closed Specialty Diagnoses / Procedures Referred By Contac t Referred To Contact Diagnoses Thyroid cancer (HCC) Procedures NM Thyroid Cancer Mets Whole Body Imaging Mikayla Castellon PA [address] [address] Phone: tel: fax: [address] [phone] Referral ID Status Reason Start Date Expiration Date Visits Re quested Visits Authorized [id number] Closed 02/10/2023 03/11/2024 2 2 Encounter Details Date Type Department Care Team (Latest Contact Info) Description 02/18/2023 7:00 AM CDT - 02/18/2023 11:59 PM CDT Hospital Encounter [facility] [address] [place] [address] Thyroid cancer (HCC) Discharge Disposition: Discharge to [...] on file 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 Gender Identity Not on file Sexual Orientation Not on file documented as of this encounter Medications at Time of Discharge calcitRIOL (ROCALTROL) 0.5 mcg capsule Take 1 capsule (0.5 mcg total) by mouth 2 (two) times a day 01/22/2023 3 calcium carbonate (OS-MATTHEW) 1,250 mg (500 mg elemental) tablet Take 1 tablet (1,250 mg total) by mouth every 8 (eight) hours 90 tablet 01/21/2023 4 cyanocobalamin (Vitamin B-12) 1,000 mcg tablet Take 1 tablet (1,000 mcg total) by mouth daily 11/15/2022 4 folic acid (FOLVITE) 1 mg tablet Take 1 tablet (1,000 mcg total) by mouth daily 11/08/2022 4 levothyroxine (SYNTHROID) 88 mcg tabletIndications:Fidel colbert thyroid carcinoma (HCC) Take 1 tablet (88 mcg total) by mouth daily before breakfast 30 tablet 11 02/13/2023 3 liothyronine (CYTOMEL) 5 mcg tablet Take 2 tablets (10 mcg total) by mouth daily 30 tablet 02/06/2023 3 ondansetron ODT (ZOFRAN-ODT) 8 mg disintegrating tabletIndications:Pa pillary thyroid carcinoma (HCC) Take 1 tablet (8 mg total) by mouth every 8 (eight) hours as needed for nausea 20 tablet 02/13/2023 3 documented as of this encounter Discharge Disposition Disposition Code Departure Means Destination Discharge to home or self care documented in this encounter Plan of Treatment Not on file documented as of this encounter Procedures Procedure Name Priority Date/Time Associated Diagnosis Comments NM THYROID CANCER METS WHOLE BODY IMAGING Schedule Routine, Read Routine (OP Routine) 02/18/2023 8:36 AM CDT Thyroid cancer (HCC) documented in this encounter Results * NM Thyroid Cancer Mets Whole Body Imaging (02/18/2023 8:36 AM CDT) Anatomical Region Laterality Modality Head and Neck N/A Nuclear Medicine 02/18/2023 9:42 AM CDT Impressions 02/18/2023 9:45 AM CDT Intense uptake in the neck consistent with residual thyroid tissue. No evidence of distant metastatic disease. Dictated by: Guilherme Aguilar MD The radiology attending physician has personally reviewed this study, and had reviewed and/or edited this written report and agrees with it. Electronically signed by: DO Karson Michael 02/18/2023 9:45 AM CDT EXAMINATION: ??WHOLE-BODY I-131 IMAGING DATE OF STUDY: 02/18/2023 ?? HISTORY: ??17-year-old female with papillary thyroid carcinoma status post total thyroidectomy 02/04/2023, positive margins. The patient received adjuvant radioiodine therapy 02/14/2023, 30 mCi. Post therapy scan. ?? COMPARISON: Ultrasound 12/23/2022 FINDINGS: ??A 30-mCi therapeutic dose of I-131 sodium iodide was administered orally on 02/14/2023 by the staff of the Department of Radiation Oncology. ??Images of the head, neck, trunk, and proximal extremities were obtained 4 days later. There is expected I-131 activity in the salivary glands, stomach, colon, and urinary bladder. Intense uptake is noted in the neck consistent with residual thyroid tissue. Procedure Note Carroll Linares DO - 02/18/2023 EXAMINATION: WHOLE-BODY I-131 IMAGING DATE OF STUDY: 02/18/2023 HISTORY: 17-year-old female with papillary thyroid carcinoma status post total thyroidectomy 02/04/2023, positive margins. The patient received adjuvant radioiodine therapy 02/14/2023, 30 mCi. Post therapy scan. COMPARISON: Ultrasound 12/23/2022 FINDINGS: A 30-mCi therapeutic dose of I-131 sodium iodide was administered orally on 02/14/2023 by the staff of the Department of Radiation Oncology. Images of the head, neck, trunk, and proximal extremities were obtained 4 days later. There is expected I-131 activity in the salivary glands, stomach, colon, and urinary bladder. Intense uptake is noted in the neck consistent with residual thyroid tissue. IMPRESSION: Intense uptake in the neck consistent with residual thyroid tissue. No evidence of distant metastatic disease. Dictated by: Guilherme Aguilar MD The radiology attending physician has personally reviewed this study, and had reviewed and/or edited this written report and agrees with it. Electronically signed by: Carroll Linares DO Mikayla [facility] NM PROCEDURES Final Res ult documented in this encounter Visit Diagnoses Diagnosis Thyroid cancer (HCC) Malignant neoplasm of thyroid gland documented in this encounter Care Teams Superintendent Colliery Relationship Specialty Start Date End Date John Paul Domínguez MD [address] [place] [address] PCP - General Family Medicine 10/16/22 documented as of this encounter
--- OUTSIDE RECORDS SUMMARY | 2024-09-16 12:10 | XMS_ITS | Encounter Summary ---
Author Organization [facility] Address [address] [place] [address] Care Team Providers Care Cage/Vault Supervisor Name Role Phone John Paul Domínguez MD Primary Care Provider + [phone] Reason for Referral * Consultation (Urgent) - Closed Specialty Diagnoses / Procedures Referred By Contac t Referred To Contact Radiation Oncology Diagnoses Papillary thyroid carcinoma ([place]) [place] [address] [facility] [address] [place] [address] Phone: tel: fax: Brunilda Almanzar MD [facility] [address] [place] [address] Phone: tel: fax: Referral ID Status Reason Start Date Expiration Date V isits Requested Visits Authorized [id number] Closed Specialty Services Required 02/06/2023 03/07/2024 1 1 Question Answer Please select the performing region: [facility] [[id number]] Please select the performing department: [facility] [[id number]] Is this referral for Breast Health Multi-Disciplinary Clinic? No To provider: BRUNILDA ALMANZAR [[id number]] # of visits: 1 Does the patient have a diagnosis of a Head and Neck cancer? 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 Gender Identity Not on file Sexual Orientation Not on file documented as of this encounter Ordered Prescriptions Prescription Sig Dispense Quantity Refills Last Filled Start Date End Date liothyronine (CYTOMEL) 5 mcg tablet Take 2 tablets (10 mcg total) by mouth daily 30 tablet 02/06/2023 3 documented in this encounter Plan of Treatment Scheduled Referrals Name Type Priority Associated Diagnoses Order Schedule Ambulatory referral to Radiation Oncology Outpatient Referral Urgent Papillary thyroid carcinoma (HCC) Expected: 02/20/2023 (Approximate), Expires: 02/07/2024 documented as of this encounter Visit Diagnoses Diagnosis Papillary thyroid carcinoma (HCC)- Primary documented in this encounter Care Teams Cage/Vault Supervisor Relationship Specialty Start Date End Date John Paul Domínguez MD [address] [place] [address] PCP - General Family Medicine 10/16/22 documented as of this encounter
--- OUTSIDE RECORDS SUMMARY | 2024-09-16 12:10 | XMS_ITS | Encounter Summary ---
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 73 m2 [facility] NELSON Comment: Interpretive [...] of Race in Diagnosing Kidney Disease, JASN 202). The CKD-EPI equation should not be used for patients with unstable renal function and has not been validated in children and those over 70. Current interpretive data was last reviewed 2021. Blood 02/07/2023 2:44 PM CDT 02/07/2023 3:26 PM CDT us Jacob Reyna MD LAB BLOOD ORDERABLES Final Resu lt [facility] NELSON [address] Department [place] [address] * (ABNORMAL) PTH (02/07/2023 2:44 PM CDT) PTH 10(L) 15 - 65 pg/mL [facility] Blood 02/07/2023 2:44 PM CDT 02/07/2023 2:50 PM CDT Jacob Reyna MD LAB [place]LO[place] [address] [address] Department [place] [address] * Basic metabolic panel (02/07/2023 2:44 PM CDT) Sodium 137 135 - 145 mmol/L [facility] Potassium, pl 4.3 3.3 - 4.9 mmol/L [facility] Chloride 101 97 - 110 mmol/L [facility] CO2 26 22 - 32 mmol/L [facility] Anion gap 10 2 - 15 mmol/L [facility] BUN 18 8 - 25 mg/dL [facility] Creatinine 0.75 0.40 - 1.00 mg/dL [facility] Glucose 87 70 - 199 mg/dL [facility] Comment: [...] interpretive data was last revised 2022. Calcium 9.2 8.5 - 10.3 mg/dL [facility] Blood 02/07/2023 2:44 PM CDT 02/07/2023 2:50 PM CDT Jacob Reyna MD LAB [place] [address] [address] Department [place] [address] documented in this encounter Visit Diagnoses Diagnosis Thyroid nodule Nontoxic uninodular goiter documented in this encounter Care Teams Mexican Food Maker Hand Relationship Specialty Start Date End Date John Paul Domínguez MD [address] [place] [address] PCP - General Family Medicine 10/16/22 documented as of this encounter
--- OUTSIDE RECORDS SUMMARY | 2024-09-16 12:10 | XMS_ITS | Encounter Summary ---
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 Discussed that we would recommend follow-up in 1 year with laboratories and withdrawal scan. Patient expressed understanding and agreement with this plan. NM Thyroid Cancer Mets Whole Body Imaging [...] the neck consistent with residual thyroid tissue. Impression: Intense uptake in the neck consistent with residual thyroid tissue. No evidence of distant metastatic disease. Dictated by: Guilherme Aguilar MD The radiology attending physician has personally reviewed this study, and had reviewed and/or edited this written report and agrees with it. Electronically signed by: DO Mane Michael MD, PhD Radiation Oncology Resident 02/21/2023 11:48 AM documented in this encounter Plan of Treatment Not on file documented as of this encounter Visit Diagnoses Not on filedocumented in this encounter Care Teams Yard Rigger Relationship Specialty Start Date End Date John Paul Domínguez MD [address] [place] [address] PCP - General Family Medicine 10/16/22 documented as of this encounter
--- OUTSIDE RECORDS SUMMARY | 2024-09-16 12:10 | XMS_ITS | Encounter Summary ---
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 No answer. Left voicemail. documented in this encounter Plan of Treatment Not on file documented as of this encounter Visit Diagnoses Not on filedocumented in this encounter Care Teams Hunting Guide Relationship Specialty Start Date End Date John Paul Domínguez MD [address] [place] [address] PCP - General Family Medicine 10/16/22 documented as of this encounter
--- OUTSIDE RECORDS SUMMARY | 2024-09-16 12:10 | XMS_ITS | Encounter Summary ---
Author Organization [facility] Address [address] [place] [address] Phone Care Team Providers Care Systems Operator Name Role Phone John Paul Domínguez MD Primary Care Provider [phone] Reason for Visit * Reason Comments Post-op * Consultation (Routine) - Closed Specialty Diagnoses / Procedures Referred By Garcia carrillo Referred To Contact Otolaryngology Diagnoses Thyroid nodule [place] [id number] [place] [address] [address], [place] [address] Phone: tel: fax: Jacob Reyna MD Referral ID Status Reason Start Date Expiration Date V isits Requested Visits Authorized [id number] Closed Specialty Services Required 11/26/2022 12/26/2023 12 12 Encounter Details Date Type Department Care Team (Late st Contact Info) Description 01/31/2023 11:00 AM CDT Office Visit [facility]) - [facility] ENT [address] [facility] [address] [place] [address] Jacob Reyna MD Papillary thyroid [...] file 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 female who presents for follow up after total thyroidectomyfor papillary thyroid carcinoma last week. Doing well, voice strong. Past Medical History: Diagnosis Date Anemia Hypothyroidism Iron deficiency anemia Vitamin B12 deficiency Patient Active Problem List Diagnosis Cough B12 deficiency anemia Iron deficiency anemia due to chronic blood loss Thyroid nodule Mulugeta's thyroiditis Papillary thyroid carcinoma (HCC) Past Surgical History: Procedure Laterality Date APPENDECTOMY 01/10/2023 Social History Tobacco Use Smoking status: Never Smokeless tobacco: Never Substance and Sexual Activity Drug use: Not Currently Sexual activity: Not on file Alcohol Use: Not At Risk (01/20/2023) AUDIT-C Frequency of Alcohol Consumption: Never Average Number of Drinks: Patient does not drink Frequency of Binge Drinking: Never Family History Problem Relation Age of Onset Vitamin D deficiency Mother Iron deficiency Mother No Known Allergies (Not in a hospital admission) Records Surg path: Synoptic Diagnosis: Report name: THYROID GLAND SPECIMEN [...] pN Category: pN0a CAP VERSION: Thyroid 4.3.0.0 Last PTH 9, Ca 9 Objective Physical Exam: There were no vitals filed for this visit. General: No apparent distress, well-nourished Head and Face: Normocephalic, atraumatic. Skin: No cutaneous lesions of the face or neck. Neck: Soft, flat, well healing scar Cardiovascular: Extremities are warm and well perfused. No cyanosis. Pulmonary: Normal quiet breathing on room air. No respiratory distress, stridor, or wheeze. Neurologic: Alert and oriented, face symmetric Assessment /Plan Assessment and Plan: 17 y.o. 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 Discussed with the patient to hold off on Synthroid until Dr. Freeman discusses postoperative radioactive iodine scanning with the patient. Will recheck BMP and PTH today, adjust Ca regimen accordingly. The note in its entirety has been confirmed by me, the attending physician. Parts of the note were initially recorded by my staff. Jacob Reyna M.D. Revenue Integrity Analyst Department of Otolaryngology-Head and Neck Surgery [facility] phone: E-mail: [email or web address] 01/31/2023 * Joseph Freeman MD - 01/31/2023 11:00 AM CDT Would you please call this pt and schedule her for tomorrow or , ok to overbook with another thyroid pt, documented in this encounter Plan of Treatment Not on file documented as of this encounter Visit Diagnoses Diagnosis Papillary thyroid carcinoma (HCC)- Primary documented in this encounter Care Teams Systems Operator Relationship Specialty Start Date End Date John Paul Domínguez MD [address] [place] [address] PCP - General Family Medicine 10/16/22 documented as of this encounter
--- OUTSIDE RECORDS SUMMARY | 2024-09-16 12:10 | XMS_ITS | Encounter Summary ---
Author Organization [facility] Healthcare Address [address] [place] [address] Care Team Providers Care French Edge Operator Name Role Phone John Paul Domínguez MD Primary Care Provider + [phone] Reason for Visit * Radiation Therapy (Routine) - Closed Specialty Diagnoses / Procedures Referred By Garcia t Referred To Contact Radiation Oncology Diagnoses Papillary thyroid carcinoma (HCC) Beverly Hdez MD [address] [facility] [place] [address] Phone: tel: fax: [facility] Advanced Medicine Radiation Oncology [address] [place] [address] Phone: tel: fax: Referral ID Status Reason Start Date Expiration Date Visits Re quested Visits Authorized [id number] Closed 02/12/2023 03/13/2024 99 99 Encounter Details Date Type Department Care Team (Late st Contact Info) Description 02/13/2023 12:30 PM CDT Treatment [facility] Advanced Medicine Radiation Oncology [facility] [place] [address] Beverly Hdez MD [address] [facility] [place] [address] Social History Tobacco Use Types Packs/Day Years [...] on file 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 Special oral and written instructions were given to the patient regarding minimizing the radiation dose to others. The 30 mCi I-131 was administered to the patient in the I-131 administration room. Isupervised the administration of the I-131. documented in this encounter Plan of Treatment Not on file documented as of this encounter Visit Diagnoses Not on filedocumented in this encounter Care Teams French Edge Operator Relationship Specialty Start Date End Date John Paul Domínguez MD [address] [place] [address] PCP - General Family Medicine 10/16/22 documented as of this encounter
--- OUTSIDE RECORDS SUMMARY | 2024-09-16 12:10 | XMS_ITS | Encounter Summary ---
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 Attempted to call patient at [phone] to discuss. Purpose of call: Review how and when patient is taking her levothyroxine and if patient is taking with calcium supplements. Discuss possibility of increasing levothyroxine to 100 mcg oral per day. Remind patient to follow up with automotive drivability technician at April appointment. Unable to leave voice mail due to mail box being full. Will attempt call at a later time. Sent patient message via My Chart to return my call. 0930: Left voice message for mother Olivia Grimes for patient to call me back. documented in this encounter Plan of Treatment Not on file documented as of this encounter Visit Diagnoses Not on filedocumented in this encounter Care Teams Master Automotive Technician Relationship Specialty Start Date End Date John Paul Domínguez MD [address] [place] [address] PCP - General Family Medicine 10/16/22 documented as of this encounter
--- OUTSIDE RECORDS SUMMARY | 2024-09-16 12:10 | XMS_ITS | Encounter Summary ---
Author Organization [facility] Medical Group Address [address] [place] [address] Care Team Providers Care Condominium Property Manager Name Role Phone John Paul Domínguez MD Primary Care Provider + [phone] Encounter Details Date Type Department Care Team (Late st Contact Info) Description 02/06/2023 Telephone [facility] Medical Group Diabetes and Endocrinology [address] [place] [phone] [place] [address] [facility] [address] [place], [place] [id number] Social History Tobacco Use Types Packs/Day Years [...] on file 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 Gender Identity Not on file Sexual Orientation Not on file documented as of this encounter Miscellaneous Notes * Telephone Encounter - Joseph Freeman MD - 02/06/2023 12:48 PM CDT I called and talked to ifeoma , since the other phones do not work I explained to her , that we need to start the pt on Cytomel , 10 mcg daily, she is being referred to radio oncology in evaluation for APRYL ablation, She voiced very clear undertanding I sent referral to radioncology, via Epic to Dr Rula Peters ; I also sent a message, email and epicchat documented in this encounter Plan of Treatment Not on file documented as of this encounter Visit Diagnoses Not on filedocumented in this encounter Care Teams Condominium Property Manager Relationship Specialty Start Date End Date John Paul Domínguez MD [address] [place] [address] PCP - General Family Medicine 10/16/22 documented as of this encounter
--- OUTSIDE RECORDS SUMMARY | 2024-09-16 12:10 | XMS_ITS | Encounter Summary ---
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 73 m2 [facility] Comment: Interpretive [...] interpretive data was last reviewed 2021. Blood 01/31/2023 11:2 5 AM CDT 01/31/2023 12:05 PM CDT us Jacob Reyna MD LAB BLOOD ORDERABLES Final Resu lt [facility] [address] Department [place] [address] * (ABNORMAL) Renal function panel (01/31/2023 11:25 AM CDT) Sodium 140 135 - 145 mmol/L [facility] Potassium, pl 4.0 3.3 - 4.9 mmol/L [facility] Chloride 101 97 - 110 mmol/L [facility] CO2 27 22 - 32 mmol/L [facility] Anion gap 12 2 - 15 mmol/L [facility] BUN 4(L) 8 - 25 mg/dL [facility] Creatinine 0.60 0.40 - 1.00 mg/dL [facility] Glucose 85 70 - [...] interpretive data was last revised 2022. Calcium 9.0 8.5 - 10.3 mg/dL [facility] Phosphorus, pl 4.6(H) 2.3 - 4.5 mg/dL [facility] Albumin 4.2 3.5 - 5.0 g/dL [facility] Blood (Blood, Venous) 01/31/2023 11:25 AM CDT 01/31/2023 12:05 PM CDT us Jacob Reyna MD LAB BLOOD ORDERABLES Final Resu lt [facility] [address] [place] [address] * (ABNORMAL) PTH (01/31/2023 3:26 AM CDT) PTH 10(L) 15 - 65 pg/mL [facility] Blood 01/31/2023 3:26 AM CDT 01/31/2023 11:29 AM CDT us Jacob Reyna MD LAB BLOOD ORDERABLES Final Resu lt [facility] [address] Department [place] [address] documented in this encounter Visit Diagnoses Diagnosis Papillary thyroid carcinoma (HCC) Thyroid cancer (HCC) Malignant neoplasm of thyroid gland documented in this encounter Care Teams Surgical Oncologist Relationship Specialty Start Date End Date John Paul Domínguez MD [address] [place] [address] PCP - General Family Medicine 10/16/22 documented as of this encounter
--- OUTSIDE RECORDS SUMMARY | 2024-09-16 12:10 | XMS_ITS | Encounter Summary ---
Author Organization [facility] Medical Group Address [address] 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 Gender Identity Not on file Sexual Orientation Not on file documented as of this encounter Plan of Treatment Not on file documented as of this encounter Procedures Procedure Name Priority Date/Time Associated Diagnosis Comments IRON AND TIBC Routine 03/13/2023 10:30 AM CDT CBC WITH AUTO DIFFERENTIAL Routine 03/13/2023 10:30 AM CDT FERRITIN Routine 03/13/2023 10:30 AM CDT COMPREHENSIVE METABOLIC PANEL Routine 03/13/2023 10:30 AM CDT documented in this encounter Results * Iron and TIBC (03/13/2023 10:30 AM CDT) 03/13/2023 10:3 0 AM CDT Impressions EXTERNAL LAB - 03/14/2023 8:07 AM CDT TIBC: 346 (250-450) UIBC: 262 (131-425) Iron, Serum: 84 (27-159) Iron Saturation: 24 (15-55) Historical Provider MD LAB BLOOD ORDERABLES Edit ed Result - Final Performing Organization Address City/[facility] Co de Phone Number EXTERNAL LAB * Ferritin (03/13/2023 10:30 AM CDT) SCRIBED Ferritin 24 15 - 77 ng/mL EXTERNAL LAB Blood 03/13/2023 10:3 0 AM CDT us Historical Provider MD LAB BLOOD ORDERABLES Edit ed Result - Final Performing Organization Address City/[facility]/ZIP Co de Phone Number EXTERNAL LAB * (ABNORMAL) Comprehensive metabolic panel (03/13/2023 10:30 AM CDT) SCRIBED Sodium 139 136 - 145 mmol/L EXTERNAL LAB SCRIBED Potassium 4.2 3.5 - 5.1 mmol/L EXTERNAL LAB SCRIBED Chloride 4.2 3.5 - 5.1 mmol/L EXTERNAL LAB SCRIBED Anion Gap 14.2 7.0 - 15.0 mmol/L EXTERNAL LAB SCRIBED Urea Nitrogen (BUN) 10 7 - 25 mg/dl EXTERNAL LAB SCRIBED Creatinine 0.6 0.6 - 1.2 mg/dl EXTERNAL LAB SCRIBED Glucose 83 70 - 105 mg/dl EXTERNAL LAB SCRIBED Calcium 7.7(A) 8.6 - 10.3 mg/dl EXTERNAL LAB SCRIBED Bilirubin 0.4 0.3 - 1.0 mg/dl EXTERNAL LAB SCRIBED Plasma Protein 7.3 6.4 - 8.9 g/dl EXTERNAL LAB SCRIBED Albumin 4.4 3.5 - 5.7 g/dl EXTERNAL LAB SCRIBED Alkaline Phosphatase 66 34 - 104 Units/L EXTERNAL LAB SCRIBED Alanine Transaminase (ALT) 10 7 - 52 Units/L EXTERNAL LAB SCRIBED Aspartate Transaminase (AST) 14 13 - 39 Units/L EXTERNAL LAB SCRIBED eGFR in NonAfrican [place] 133 >60 - NA EXTERNAL LAB Blood 03/13/2023 10:3 0 AM CDT us Historical Provider LAB BLOOD ORDERABLES Edit ed Result - Final EXTERNAL LAB * (ABNORMAL) CBC with auto differential (03/13/2023 10:30 AM CDT) SCRIBED WBC 5.7 4.0 - 10.0 k/cumm EXTERNAL LAB SCRIBED Hemoglobin 13.0 11.2 - 15.7 g/dL EXTERNAL LAB SCRIBED Hematocrit 39.8 34.1 - 44.9 % EXTERNAL LAB SCRIBED MCH 29.1 25.6 - 32.2 pg EXTERNAL LAB SCRIBED MCHC 32.7 32.2 - 36.5 g/dL EXTERNAL LAB SCRIBED RDW 13.0 11.6 - 14.4 g/dl EXTERNAL LAB SCRIBED Platelets 149(A) 163 - 369 k/cumm EXTERNAL LAB SCRIBED MPV 10.9 9.4 - 12.4 fL EXTERNAL LAB SCRIBED Lymphocytes 33.3 19.0 - 40.0 % EXTERNAL LAB SCRIBED Monocytes 9.6 4.1 - 12.1 % EXTERNAL LAB SCRIBED Neutrophils 55.3 36.0 - 66.0 % EXTERNAL LAB SCRIBED Eosinophils 1.1 0.0 - 3.5 % EXTERNAL LAB SCRIBED Basophils 0.5 0.0 - 1.0 % EXTERNAL LAB SCRIBED Lymphocytes Abs 1.9 0.8 - 4.0 k/cumm EXTERNAL LAB SCRIBED Monocytes Abs 0.6 0.2 - 1.2 k/cumm EXTERNAL LAB SCRIBED Neutrophils Abs 3.2 1.4 - 6.6 k/cumm EXTERNAL LAB SCRIBED Eosinophils Abs 0.1 0.0 - 0.4 k/cumm EXTERNAL LAB SCRIBED Basophils Abs 0.0 0.0 - 0.1 k/cumm EXTERNAL LAB Blood 03/13/2023 10:3 0 AM CDT us Historical Provider LAB BLOOD ORDERABLES Edit ed Result - Final EXTERNAL LAB documented in this encounter Visit Diagnoses Not on filedocumented in this encounter Care Teams Pasting Inspector Relationship Specialty Start Date End Date John Paul Domínguez MD [facility] [place] [address] PCP - General Family Medicine 10/16/22 documented as of this encounter
--- OUTSIDE RECORDS SUMMARY | 2024-09-16 12:10 | XMS_ITS | Encounter Summary ---
Author Organization [facility] Address [address] [place] [address] Phone Care Team Providers Care Lighting Director Name Role Phone John Paul Domínguez MD Primary Care Provider [phone] Encounter Details Date Type Department Care Team (Late st Contact Info) Description 01/31/2023 Orders Only 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
--- OUTSIDE RECORDS SUMMARY | 2024-09-16 12:10 | XMS_ITS | Encounter Summary ---
Author Organization [facility] Address [address] [place] [address] Care Team Providers Care Ship'S Master Name Role Phone John Pual Domínguez MD Primary Care Provider + [phone] Reason for Visit * Reason Comments Hypothyroidism Encounter Details Date Type Department Care Team (Latest Contact Info) Description 04/29/2023 12:30 PM CDT Office Visit [facility] Diabetes and Endocrinology [address] [place] [phone] [place] [address] 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 documented in this encounter Progress Notes * Joseph Freeman MD - 04/29/2023 12:30 PM CDT Subjective/Objective Patient ID: Rubi Baca is a 17 y.o. female. Chief Complaint Hypothyroidism HPI S/p total thyroidectomy 01/20/2023 Pathology report as [...] tissue. No evidence of distant metastatic disease. Component Latest Ref Rng 11/26/2022 02/04/2023 03/28/2023 Free T4 0.90 - 1.70 ng/dL 1.00 0.18 (L) 0.88 (L) Component Latest Ref Rng 11/26/2022 02/04/2023 03/28/2023 TSH 0.30 - 4.20 mcIUnit/mL 24.00 (H) 205.00 (H) 70.30 (H) Currently on Levothyroxine 88 mcg daily, does not skip any day, takes it when she wakes up , [id number] am ; waits 45 min before eating. She is also taking Calcium, 2 tab pm and 2 tab a few hours later. She is complaining if numbness and tingling in her legs, she says she would not able to walk and then it gets better a few min later, also some perioral parestesia, randomly, some times around her hands , and she could not move her finger for a few minutes. Hx of anemia, following up with deputy director of nursing. Review of Systems Constitutional: Negative for activity change and fatigue. HENT: Negative for congestion, hearing loss, trouble swallowing and voice change. Eyes: Negative for redness and visual disturbance. Respiratory: Negative for apnea, cough and chest tightness. Cardiovascular: Negative for chest pain, palpitations and leg swelling. Gastrointestinal: Negative for abdominal distention, abdominal pain, constipation, diarrhea and nausea. Endocrine: Negative for cold intolerance, heat intolerance, polydipsia, polyphagia and polyuria. Genitourinary: Negative for difficulty urinating, frequency and urgency. Musculoskeletal: Negative for arthralgias, back pain, gait problem and neck pain. Skin: Negative for color change. Allergic/Immunologic: Negative for food allergies. Neurological: Positive for numbness. Negative for dizziness, tremors, syncope, weakness, light-headedness and headaches. Hematological: Negative for adenopathy. Psychiatric/Behavioral: Negative for sleep disturbance. The patient is not nervous/anxious. Physical Exam Constitutional: Appearance: She is well-developed. HENT: Head: Normocephalic and atraumatic. Eyes: Conjunctiva/sclera: Conjunctivae normal. Pupils: Pupils are equal, round, and reactive to light. Neck: Trachea: Trachea and phonation normal. Comments: Well healed scar in the surgical area Cardiovascular: Rate and Rhythm: Normal rate and regular rhythm. Heart sounds: Normal heart sounds. No murmur heard. Pulmonary: Effort: Pulmonary effort is normal. Breath sounds: Normal breath sounds. Abdominal: General: There is no distension. Palpations: Abdomen is soft. Musculoskeletal: General: Normal range of motion. Skin: General: Skin is warm. Neurological: Mental Status: She is alert and oriented to person, place, and time. Motor: Motor function is intact. Psychiatric: Behavior: Behavior normal. Assessment/Plan Diagnoses and all orders for this visit: Postsurgical hypothyroidism (E89.0) (Primary) Assessment & Plan: Update TSH, Free T4 Importance of taking the Levothyroxine, on an empty stomach, 1 h apart from food and other meds wasemphasized Will adjust dose of LT4 if indicated Orders: - TSH; Future - T4, free; Future Papillary thyroid carcinoma (HCC) (C73) Assessment & Plan: Update TG TSH goal is around 0.1 Orders: - Thyroglobulin, tumor marker, serum; Future Postsurgical hypoparathyroidism (HCC) (E89.2) Assessment & Plan: Update PTH, serum Ca If hypocalcemia and low TPH, will restart Rocaltrol Orders: - Comprehensive metabolic panel; Future - Vitamin D 25 hydroxy; Future - PTH; Future - CBC with auto differential; Future - Vitamin B12; Future - Folate; Future - Iron profile w/ IBC; Future documented in this encounter Miscellaneous Notes * Assessment & Plan Note - Joseph Freeman MD - 04/29/2023 1:28 PM CDTAssociated Problem(s): Postsurgical hypoparathyroidism (HCC) Update PTH, serum Ca If hypocalcemia and low TPH, will restart Rocaltrol * Assessment & Plan Note - Joseph Freeman MD - 04/29/2023 1:27 PM CDTAssociated Problem(s): Papillary thyroid carcinoma (HCC) Update TG TSH goal is around 0.1 * Assessment & Plan Note - Joseph Freeman MD - 04/29/2023 1:27 PM CDTAssociated Problem(s): Postsurgical hypothyroidism Update TSH, Free T4 Importance of taking the Levothyroxine, on an empty stomach, 1 h apart from food and other meds wasemphasized Will adjust dose of LT4 if indicated documented in this encounter Plan of Treatment Not on file documented as of this encounter Results * (ABNORMAL) Thyroglobulin, tumor [...] testing methods are immunoenzymatic assays manufactured by [employer]. and performed on the [employer] DXI 800. Values obtained from different assay methods or kits may be different and cannot be used interchangeably. The results cannot be interpreted as absolute evidence for the presence or absence of malignant disease. Test Performed by: [place] [id number] Chemical Research Engineer: Ho Mays M.D. Ph.D.; CLIA# [id number] Blood 04/29/2023 2:45 PM CDT 04/29/2023 5:38 PM CDT us Joseph Freeman MD LAB BLOOD ORDERABLES Final Resul t Performing Organization Address City/[facility] Co de Phone Number CHRIS LESLIE [address] [place] [address] * (ABNORMAL) Iron profile w/ IBC (04/29/2023 10:39 AM CDT) Iron 57 35 - 145 mcg/dl [facility] TIBC 364 250 - 400 mcg/dL [facility] Transferrin saturation 16(L) 20 - 50 % [facility] Blood 04/29/2023 10:3 9 AM CDT 04/29/2023 6:50 PM CDT us Joseph Freeman MD LAB BLOOD ORDERABLES Final Resul t Performing Organization Address City/[facility]/ZIP Co de Phone Number CHRIS LESLIE [address] [employer] [place], [place] [id number] * Folate (04/29/2023 10:39 AM CDT) Pathologist [facility] Folic acid 18.3 >=5.0 ng/mL [facility] Comment:Hemolysis present. R esults may be affected. Blood 04/29/2023 10:3 9 AM CDT 04/29/2023 6:50 PM CDT Joseph Freeman MD LAB BLOOD ORDERABLES Final Resul t Performing Organization Address City/[facility] Co de Phone Number CHRIS [address] [address] [employer] [place] [employer] [place] [address] * Vitamin B12 (04/29/2023 10:39 AM CDT) Pathologist [facility] Vitamin B12 731 230 - 1,250 pg/mL [facility] Blood 04/29/2023 10:3 9 AM CDT 04/29/2023 6:50 PM CDT Joseph Freeman MD LAB BLOOD ORDERABLES Final Resul t Performing Organization Address [facility] de Phone Number CHRIS NELSON [address] [address] Department [place] [employer] [address] * (ABNORMAL) CBC with auto differential (04/29/2023 10:39 AM CDT) [facility] WBC 6.4 3.8 - 9.9 K/cumm [facility] Hgb 13.4 11.9 - 15.5 g/dL [facility] Hct 42.7 35.6 - 45.5 % [facility] Plt 191 150 - 400 K/cumm [facility] MPV 12.1 9.1 - 12.3 fL [facility] RBC 4.72 3.90 - 5.20 M/cumm [facility] MCV 90.5 81.3 - 96.4 fL [facility] MCH 28.4 27.1 - 33.3 pg [facility] MCHC 31.4(L) 32.3 - 35.7 g/dL [facility] RDW CV 13.2 11.1 - 14.9 % [facility] RDW SD 43.5 35.7 - 48.1 fL [facility] NRBC abs 0.00 0.00 - 0.01 K/cumm [facility] Blood 04/29/2023 10:3 9 AM CDT 04/29/2023 6:50 PM CDT us Joseph Freeman MD LAB BLOOD ORDERABLES Final Resul t Performing Organization Address [facility] de Phone Number [facility] [address] [address] [facility] [place] [address] * PTH (04/29/2023 10:39 AM CDT) PTH 24 15 - 65 pg/mL [facility] Blood 04/29/2023 10:3 9 AM CDT 04/29/2023 6:50 PM CDT us Joseph Freeman MD LAB BLOOD ORDERABLES Final Resul t Performing Organization Address [facility] Phone Number [facility] [address] [facility] [place] [address] * Comprehensive metabolic panel (04/29/2023 10:39 AM CDT) Sodium 141 135 - 145 mmol/L [facility] Potassium, pl 4.3 3.3 - 4.9 mmol/L [facility] Chloride 103 97 - 110 mmol/L [facility] CO2 24 22 - 32 mmol/L [facility] Anion gap 14 2 - 15 mmol/L [facility] BUN 12 6 - 25 mg/dL [facility] Creatinine 0.54 0.40 - 1.00 mg/dL [facility] Glucose 83 70 - 199 mg/dL [facility] Comment: Interpretive Data Fasting glucose >/= 126 [...] ORDERABLES Final Resul t Performing Organization Address [facility] Co de Phone Number CHRIS LESLIE [address] [address] Department [place] [address] * (ABNORMAL) T4, free (04/29/2023 10:39 AM CDT) Free T4 0.83(L) 0.90 - 1.70 ng/dL [facility] Blood 04/29/2023 10:3 9 AM CDT 04/29/2023 6:50 PM CDT us Joseph Freeman MD LAB BLOOD ORDERABLES Final Resul t Performing Organization Address [facility] de Phone Number CHRIS LESLIE [address] [address] Department [place] [address] * (ABNORMAL) TSH (04/29/2023 10:39 AM CDT) Thyroid Stimulating Hormone 53.80(H) 0.30 - 4.20 mcIUnit/mL [facility] Blood 04/29/2023 10:3 9 AM CDT 04/29/2023 6:50 PM CDT us Joseph Freeman MD LAB BLOOD ORDERABLES Final Resul t Performing Organization Address [facility] Co de Phone Number CHRIS [address] [address] Department [place] [address] documented in this encounter Visit Diagnoses Diagnosis Postsurgical hypothyroidism- Primary Papillary thyroid carcinoma (HCC) Postsurgical hypoparathyroidism (HCC) documented in this encounter Discontinued Medications Medication Sig Discontinue Reason Start Date End Da te liothyronine (CYTOMEL) 5 mcg tablet Take 2 tablets (10 mcg total) by mouth daily Therapy completed 02/06/2023 04/29/2023 ondansetron ODT (ZOFRAN-ODT) 8 mg disintegrating tabletIndications:Papillar y thyroid carcinoma (HCC) Take 1 tablet (8 mg total) by mouth every 8 (eight) hours as needed for nausea Therapy completed 02/13/2023 04/29/2023 calcitRIOL (ROCALTROL) 0.5 mcg capsule Take 1 capsule (0.5 mcg total) by mouth 2 (two) times a day Therapy completed 01/22/2023 04/29/2023 documented as of this encounter Care Teams Ship'S Master Relationship Specialty Start Date End Date John Paul Domínguez MD [address] [place] [address] PCP - General Family Medicine 10/16/22 documented as of this encounter
--- OUTSIDE RECORDS SUMMARY | 2024-09-16 12:10 | XMS_ITS | Encounter Summary ---
Author Organization [facility] Address [address] [place] [address] Care Team Providers Care Control Center Operator Name Role Phone John Paul Domínguez MD Primary Care Provider + [phone] Reason for Visit * Reason Comments Thyroid nodule Encounter Details Date Type Department Care Team (Latest Contact Info) Description 02/04/2023 3:00 PM CDT Office Visit [facility] Diabetes and Endocrinology [address] [place] [phone] [place] [address] [facility] [address], [place] [address] Papillary thyroid carcinoma (HCC) (Primary Dx); Postsurgical hypothyroidism; Postsurgical hypoparathyroidism (HCC) Social History Tobacco Use [...] on file 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 Gender Identity Not on file Sexual Orientation Not on file documented as of this encounter Last Filed Vital Signs Vital Sign Reading Time Taken Comments Blood Pressure 109/76 02/04/2023 3:10 PM CDT Pulse 94 02/04/2023 3:10 PM CDT Temperature - - Respiratory Rate 16 02/04/2023 3:10 PM CDT Oxygen Saturation - - Inhaled Oxygen Concentration - - Weight 51.5 kg (113 lb 8 oz) 02/04/2023 3:10 PM CDT Height 152.4 cm (5') 02/04/2023 3:10 PM CDT Body Mass Index 22.17 02/04/2023 3:10 PM CDT Body Mass Index Percentile 58.73% 02/04/2023 3:1 0 PM CDT Growth Chart: [facility] [place]Girls, 2- 20 Years) documented in this encounter Progress Notes * Joseph Freeman MD - 02/04/2023 3:00 PM CDT Subjective/Objective Patient ID: Rubi Baca is a 17 y.o. female. Chief Complaint Thyroid nodule HPI S/p total thyroidectomy 01/20 Pathology report as follows: Synoptic Diagnosis: Report [...] pN Category: pN0a CAP VERSION: Thyroid 4.3.0.0 The patient has been off of her levothyroxine since before surgery. She was having significant hypocalcemia and needed trip to the emergency room. She is now on calcium supplements, taking 1500 of calcium in the morning and a 1000 in the afternoon. She is also on Rocaltrol 0.25 mcg The patient is feeling fine, without any specific complaints mg twice a day Review of Systems Constitutional: Negative for activity [...] change. Allergic/Immunologic: Negative for food allergies. Neurological: Negative for dizziness, tremors, syncope, weakness, light- headedness and headaches. Hematological: Negative for adenopathy. Psychiatric/Behavioral: Negative for sleep disturbance. The patient is not nervous/anxious. Physical Exam Constitutional: Appearance: She is well-developed. HENT: Head: Normocephalic and atraumatic. Eyes: Conjunctiva/sclera: Conjunctivae normal. Pupils: Pupils are equal, round, and reactive to light. Neck: Thyroid: No thyroid mass. Trachea: Trachea and phonation normal. Comments: Very well-healed surgical scar, with some scab Cardiovascular: Rate and Rhythm: Normal rate and regular rhythm. Heart sounds: Normal heart sounds. No murmur heard. Pulmonary: Effort: Pulmonary effort is normal. Breath sounds: Normal breath sounds. Abdominal: General: There is no distension. Palpations: Abdomen is soft. Musculoskeletal: General: Normal range of motion. Lymphadenopathy: Cervical: No cervical adenopathy. Skin: General: Skin is warm. Neurological: Mental Status: She is alert and oriented to person, place, and time. Motor: Motor function is intact. Psychiatric: Behavior: Behavior normal. Assessment/Plan Diagnoses and all orders for this visit: Papillary thyroid carcinoma (HCC) (C73) (Primary) Assessment & Plan: pT Category: pT2 pN Category: pN0a Patient a low risk recurrence, without clear indication for radioactive iodine treatment Will check thyroglobulin levels Will discuss / referred to radio oncology. Orders: - Thyroglobulin, tumor marker, serum; Future Postsurgical hypothyroidism (E89.0) - T4, free; Future - TSH; Future Postsurgical hypoparathyroidism (HCC) (E89.2) Assessment & Plan: Update PTH and calcium level Will taper down calcium and Rocaltrol as indicate Orders: - PTH; Future - Basic metabolic panel; Future documented in this encounter Miscellaneous Notes * Assessment & Plan Note - Joseph Freeman MD - 02/04/2023 4:41 PM CDTAssociated Problem(s): Postsurgical hypoparathyroidism (HCC) Update PTH and calcium level Will taper down calcium and Rocaltrol as indicate * Assessment & Plan Note - Joseph Freeman MD - 02/04/2023 4:39 PM CDTAssociated Problem(s): Papillary thyroid carcinoma (HCC) pT Category: pT2 pN Category: pN0a Patient a low risk recurrence, without clear indication for radioactive iodine treatment Will check thyroglobulin levels Will discuss / referred to radio oncology. documented in this encounter Plan of Treatment Not on file documented as of this encounter Results * (ABNORMAL) TSH (02/04/2023 4:01 PM CDT) Thyroid Stimulating Hormone 205.00(H) 0.30 - 4.20 mcIUnit/m L [facility] Blood 02/04/2023 4:01 PM CDT 02/04/2023 7:01 PM CDT us Joseph Freemna MD LAB BLOOD ORDERABLES Final Resul t [facility] [address] [facility] [place] [address] * (ABNORMAL) T4, free (02/04/2023 4:01 PM CDT) Free T4 0.18(L) 0.90 - 1.70 ng/dL [facility] Blood 02/04/2023 4:01 PM CDT 02/04/2023 7:01 PM CDT us Joseph Freeman MD LAB BLOOD ORDERABLES Final Resul t Performing Organization Address [facility] de Phone Number [facility] [address] [address] Department [place] [address] * (ABNORMAL) Thyroglobulin, tumor marker, serum (02/04/2023 4:01 PM CDT) Thyroglobulin <0.1 ng/mL [facility] Comment: REFERENCE VALUE Athyrotic <0.1 Intact Thyroid <=33 Anti-thyroglobulin 7.9(H) <1.8 IUnits/m L [facility] Thyroglobulin interp See Footnote [facility] Comment: Quantitation of thyroglobulin may be unreliable due to the presence of anti-thyroglobulin antibodies. Thyroglobulin (Tg) levels must be interpreted in the context of TSH levels, serial Tg measurements and radioiodine ablation status. Tg levels <0.1 ng/mL in athyrotic individuals on suppressive therapy indicate a minimal risk (<1-2%) of clinically detectable recurrent papillary/follicular thyroid cancer. ADDITIONAL INFORMATION PLEASE NOTE: A thyroglobulin antibody (TgAb) reference cutoff of <4.0 IU/mL may be more suitable for the evaluation of autoimmune thyroiditis. Thyroglobulin flagging is based on athyrotic reference values. The thyroglobulin and thyroglobulin antibody testing methods are immunoenzymatic assays manufactured by [employer] and performed on the [employer] DXI 800. Values obtained from different assay methods or kits may be different and cannot be used interchangeably. The results cannot be interpreted as absolute evidence for the presence or absence of malignant disease. Test Performed by: [facility] [address] [place] [address] Finish Mender: Ho Mays M.D. Ph.D.; CLIA# [id number] Blood 02/04/2023 4:01 PM CDT 02/04/2023 7:01 PM CDT us Joseph Freeman MD LAB BLOOD ORDERABLES Final Resul t [facility] [address] [address] Department [place] [address] * (ABNORMAL) Basic metabolic panel (02/04/2023 4:01 PM CDT) Sodium 137 135 - 145 mmol/L [facility] Potassium, pl 4.8 3.3 - 4.9 mmol/L [facility] Chloride 99 97 - 110 mmol/L [facility] CO2 28 22 - 32 mmol/L [facility] Anion gap 10 2 - 15 mmol/L [facility] BUN 5(L) 8 - 25 mg/dL [facility] Creatinine 0.63 0.40 - 1.00 mg/dL [facility] Glucose 84 70 - 199 mg/dL [facility] Comment: Interpretive Data Fasting glucose >/= [...] 8.5 - 10.3 mg/dL [facility] Blood 02/04/2023 4:01 PM CDT 02/04/2023 7:01 PM CDT us Joseph Freeman MD LAB BLOOD ORDERABLES Final Resul t Performing Organization Address City/[facility]/ZIP Co de Phone Number [facility] [address] [address] [place] [address] * (ABNORMAL) PTH (02/04/2023 4:01 PM CDT) PTH 13(L) 15 - 65 pg/mL [facility] Blood 02/04/2023 4:01 PM CDT 02/04/2023 7:01 PM CDT us Joseph Freeman MD LAB BLOOD ORDERABLES Final Resul t Performing Organization Address [facility] de Phone Number CHRIS NELSON [address] [address] [place] [address] documented in this encounter Visit Diagnoses Diagnosis Papillary thyroid carcinoma (HCC)- Primary Postsurgical hypothyroidism Postsurgical hypoparathyroidism (HCC) documented in this encounter Discontinued Medications Medication Sig Discontinue Reason Start Date End Da te calcitRIOL (ROCALTROL) 0.25 mcg capsule Take 1 capsule (0.25 mcg total) by mouth 2 (two) times a day 01/21/2023 02/04/2023 oxyCODONE (ROXICODONE) 5 mg immediate release tabletIndications:Pain Take 1 tablet (5 mg total) by mouth every 4 (four) hours as needed for pain (for pain not controlled by tylenol or ibuprofen) Therapy completed 01/21/2023 02/04/2023 documented as of this encounter Historical Medications * This list may reflect changes made after this encounter. calcitRIOL (ROCALTROL) 0.5 mcg capsule Take 1 capsule (0.5 mcg total) by mouth 2 (two) times a day 01/22/2023 04/29/2023 added in this encounter Care Teams Control Center Operator Relationship Specialty Start Date End Date John Paul Domínguez MD [address] [place] [address] PCP - General Family Medicine 10/16/22 documented as of this encounter
--- OUTSIDE RECORDS SUMMARY | 2024-09-16 12:10 | XMS_ITS | Encounter Summary ---
Author Organization [facility] Address [address] [place] [address] Care Team Providers Care Machining Manager Name Role Phone John Paul Domínguez MD Primary Care Provider + [phone] Encounter Details Date Type Department Care Team (Late st Contact Info) Description 03/28/2023 2:45 PM CDT Lab [facility] Advanced Medicine 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 Gender Identity Not on file Sexual Orientation Not on file documented as of this encounter Plan of Treatment Not on file documented as of this encounter Procedures Procedure Name Priority Date/Time Associated Diagnosis Comments TSH Routine 03/28/2023 2:30 PM CDT T4, FREE Routine 03/28/2023 2:30 PM CDT documented in this encounter Results * (ABNORMAL) T4, free (03/28/2023 2:30 PM CDT) Free T4 0.88(L) 0.90 - 1.70 ng/dL [facility] Blood 03/28/2023 2:30 PM CDT 03/28/2023 2:57 PM CDT Brunilda Peters MD LAB BLOOD ORDERABLES Gifty l Result [facility] [place] [address] * (ABNORMAL) TSH (03/28/2023 2:30 PM CDT) Thyroid Stimulating Hormone 70.30(H) 0.30 - 4.20 mcIUnit/mL [facility] Blood 03/28/2023 2:30 PM CDT 03/28/2023 2:57 PM CDT Brunilda Peters MD LAB BLOOD ORDERABLES Gifty l Result [facility] Department [place] [address] documented in this encounter Visit Diagnoses Not on filedocumented in this encounter Care Teams Machining Manager Relationship Specialty Start Date End Date John Paul Domínguez MD [address] [place] [address] PCP - General Family Medicine 10/16/22 documented as of this encounter
--- OUTSIDE RECORDS SUMMARY | 2024-09-16 12:10 | XMS_ITS | Encounter Summary ---
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 Gender Identity Not on file Sexual Orientation Not on file documented as of this encounter Medications at Time of Discharge calcitRIOL (ROCALTROL) 0.5 mcg capsule Take 1 capsule (0.5 mcg total) by mouth 2 (two) times a day 01/22/2023 04/29/2023 calcium carbonate (OS-MATTHEW) 1,250 mg (500 mg elemental) tablet Take 1 tablet (1,250 mg total) by mouth every 8 (eight) hours 90 tablet 01/21/2023 12/25/2023 cyanocobalamin (Vitamin B-12) 1,000 mcg tablet Take 1 tablet (1,000 mcg total) by mouth daily 11/15/2022 12/25/2023 folic acid (FOLVITE) 1 mg tablet Take 1 tablet (1,000 mcg total) by mouth daily 11/08/2022 12/25/2023 documented as of this encounter Discharge Disposition Disposition Code Departure Means Destination Discharge to home or self care documented in this encounter Plan of Treatment Not on file documented as of this encounter Procedures Procedure Name Priority Date/Time Associated Diagnosis Comments EGFR Routine 02/04/2023 4:01 PM CDT Postsurgical hypoparathyroidism (HCC) THYROGLOBULIN, TUMOR MARKER, SERUM Routine 02/04/2023 4:01 PM CDT Papillary thyroid carcinoma (HCC) TSH Routine 02/04/2023 4:01 PM CDT Postsurgical hypothyroidism T4, FREE Routine 02/04/2023 4:01 PM CDT Postsurgical hypothyroidism PTH Routine 02/04/2023 4:01 PM CDT Postsurgical hypoparathyroidism (HCC) BASIC METABOLIC PANEL Routine 02/04/2023 4:01 PM CDT Postsurgical hypoparathyroidism (HCC) documented in this encounter Results * eGFR (02/04/2023 4:01 PM CDT) eGFR 132 mL/min/1. 73 m2 [facility] Comment: Interpretive [...] interpretive data was last reviewed 2021. Blood 02/04/2023 4:01 PM CDT 02/04/2023 7:01 PM CDT Joseph Freeman MD LAB BLOOD ORDERABLES Final Resul t Performing Organization Address [facility] de Phone Number [facility] [address] [place] [address] * (ABNORMAL) PTH (02/04/2023 4:01 PM CDT) PTH 13(L) 15 - 65 pg/mL [facility] Blood 02/04/2023 4:01 PM CDT 02/04/2023 7:01 PM CDT us Joseph Freeman MD LAB BLOOD ORDERABLES Final Resul t Performing Organization Address [facility] de Phone Number [facility] [address] Department [place] [address] * (ABNORMAL) Basic metabolic panel (02/04/2023 4:01 PM CDT) Sodium 137 135 - 145 mmol/L [facility] Potassium, pl 4.8 3.3 - 4.9 mmol/L [facility] Chloride 99 97 - 110 mmol/L [facility] CO2 28 22 - 32 mmol/L [facility] Anion gap 10 2 - 15 mmol/L [facility] BUN 5(L) 8 - 25 mg/dL [facility] Creatinine 0.63 0.40 - 1.00 mg/dL [facility] Glucose 84 70 - 199 mg/dL [facility] Comment: Interpretive Data Fasting glucose >/= 126 [...] 2022. Calcium 9.2 8.5 - 10.3 mg/dL [facility] Blood 02/04/2023 4:01 PM CDT 02/04/2023 7:01 PM CDT us Joseph Freeman MD LAB BLOOD ORDERABLES Final Resul t [facility] [address] Department [place] [address] * (ABNORMAL) Thyroglobulin, tumor marker, serum (02/04/2023 4:01 PM CDT) Pathologist [facility] Thyroglobulin <0.1 ng/mL [facility] Comment: REFERENCE VALUE Athyrotic <0.1 Intact Thyroid <=33 Anti-thyroglobulin 7.9(H) <1.8 IUnits/m L [facility] Thyroglobulin interp See Footnote [facility] Comment: Quantitation of thyroglobulin may be unreliable [...] testing methods are immunoenzymatic assays manufactured by [employer] and performed on the Cinelan DXI 800. Values obtained from different assay methods or kits may be different and cannot be used interchangeably. The results cannot be interpreted as absolute evidence for the presence or absence of malignant disease. Test Performed by: [place] [address] Electronic Equipment Set Up Operator: Ho Mays M.D. Ph.D.; IA# [id number] Blood 02/04/2023 4:01 PM CDT 02/04/2023 7:01 PM CDT us Joseph Freeman MD LAB BLOOD ORDERABLES Final Resul t [facility] [address] Department [place] [address] * (ABNORMAL) T4, free (02/04/2023 4:01 PM CDT) Free T4 0.18(L) 0.90 - 1.70 ng/dL [facility] Blood 02/04/2023 4:01 PM CDT 02/04/2023 7:01 PM CDT us Joseph Freeman MD LAB BLOOD ORDERABLES Final Resul t Performing Organization Address City/[facility]/ZIP Co de Phone Number [facility] [address] [place] [address] * (ABNORMAL) TSH (02/04/2023 4:01 PM CDT) Thyroid Stimulating Hormone 205.00(H) 0.30 - 4.20 mcIUnit/m L [facility] Blood 02/04/2023 4:01 PM CDT 02/04/2023 7:01 PM CDT us Joseph Freeman MD LAB BLOOD ORDERABLES Final Resul t Performing Organization Address [facility] de Phone Number [facility] [address] [place] [address] documented in this encounter Visit Diagnoses Diagnosis Postsurgical hypothyroidism Papillary thyroid carcinoma (HCC) Postsurgical hypoparathyroidism (HCC) documented in this encounter Care Teams Big Data Solutions Architect Relationship Specialty Start Date End Date John Paul Domínguez MD [address] [place] [address] PCP - General Family Medicine 10/16/22 documented as of this encounter
--- OUTSIDE RECORDS SUMMARY | 2024-09-16 12:10 | XMS_ITS | Encounter Summary ---
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
--- OUTSIDE RECORDS SUMMARY | 2024-09-16 12:10 | XMS_ITS | Encounter Summary ---
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 73 m2 CHRIS [...] interpretive data was last reviewed 2021. Blood 01/24/2023 2:29 PM CDT 01/24/2023 4:38 PM CDT us Jacob Reyna MD LAB BLOOD ORDERABLES Final Resu lt [facility] [address] [place] [address] * (ABNORMAL) PTH (01/24/2023 2:29 PM CDT) PTH 9(L) 15 - 65 pg/mL [facility] Blood 01/24/2023 2:29 PM CDT 01/24/2023 4:38 PM CDT Jacob Reyna MD LAB BLOOD ORDERABLES Final Resu lt [facility] [address] [place] [address] * Basic metabolic panel (01/24/2023 2:29 PM CDT) Sodium 138 135 - 145 mmol/L [facility] Potassium, pl 4.1 3.3 - 4.9 mmol/L [facility] Chloride 99 97 - 110 mmol/L [facility] CO2 27 22 - 32 mmol/L [facility] Anion gap 12 2 - 15 mmol/L [facility] BUN 11 8 - 25 mg/dL [facility] Creatinine 0.54 0.40 - 1.00 mg/dL [facility] Glucose 95 70 - 199 mg/dL [facility] Comment: Interpretive Data Fasting [...] 2022. Calcium 9.0 8.5 - 10.3 mg/dL [facility] Blood 01/24/2023 2:29 PM CDT 01/24/2023 4:38 PM CDT us Jacob Reyna MD LAB BLOOD ORDERABLES Final Resu lt [facility] [address] [place] [place] [address] documented in this encounter Visit Diagnoses Diagnosis Thyroid nodule Nontoxic uninodular goiter documented in this encounter Care Teams Farm Equipment Engine Mechanic Relationship Specialty Start Date End Date John Paul Domínguez MD [address] [place] [address] PCP - General Family Medicine 10/16/22 documented as of this encounter
--- OUTSIDE RECORDS SUMMARY | 2024-09-16 12:10 | XMS_ITS | Encounter Summary ---
Author Organization [facility] Medical Group Address [address] [facility] [address] [place] [address] Care Team Providers Care Straw Hat Brim Cutter Operator Name Role Phone John Paul Domínguez MD Primary Care Provider + [phone] Reason for Visit * Reason Onset Date Comments Appointment Request 02/03/2023 Encounter Details Date Type Department Care Team (Late st Contact Info) Description 02/03/2023 Telephone [facility] [id number] [place] [address] [place] [id number] [place] [address] [address], [place] [address] Appointment Request Social History Tobacco Use Types Packs/Day Years [...] on file 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 Fibre Cement Moulder: Joseph Freeman MD (Physician) Would you please call this pt and schedule her for tomorrow or , ok to overbook with another thyroid pt, CALLED PATIENT LMOM TO RETURN CALL FOR APPOINTMENT documented in this encounter Plan of Treatment Not on file documented as of this encounter Visit Diagnoses Not on filedocumented in this encounter Care Teams Straw Hat Brim Cutter Operator Relationship Specialty Start Date End Date John Paul Domínguez MD [address] [place] [address] PCP - General Family Medicine 10/16/22 documented as of this encounter
--- OUTSIDE RECORDS SUMMARY | 2024-09-16 12:10 | XMS_ITS | Encounter Summary ---
Author Organization [facility] Address [address] [place] [address] Phone Care Team Providers Care Air Traffic Control Supervisor Name Role Phone John Paul Domínguez MD Primary Care Provider + [phone] Encounter Details Date Type Department Care Team (Late st Contact Info) Description 01/31/2023 Orders Only [facility]) - [facility] ENT [address] 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 Reyna wants Rubi to follow up with another lab test in 1 week. documented in this encounter Miscellaneous Notes * Addendum Note - Abby Rose, CLT - 01/31/2023 1:31 PM CDTAddended by: ABBY ROSE on: 02/07/2023 02:44 PM Modules accepted: Orders * Addendum Note - Abby Rose, CLT - 01/31/2023 1:31 PM CDTAddended by: ABBY ROSE on: 02/07/2023 02:44 PM Modules accepted: Orders documented in this encounter Plan of Treatment Not on file documented as of this encounter Results * Basic metabolic panel (02/07/2023 2:44 PM [...] MD LAB BLOOD ORDERABLES Final Resu lt Performing Organization Address City/[facility]/ZIP Co de Phone Number [facility] NELSON [address] [place] [address] * (ABNORMAL) PTH (02/07/2023 2:44 PM CDT) PTH 10(L) 15 - 65 pg/mL [facility] Blood 02/07/2023 2:44 PM CDT 02/07/2023 2:50 PM CDT Jacob Reyna MD LAB BLOOD ORDERABLES Final Resu lt Performing Organization Address [facility] Co de Phone Number [facility] NEL[facility] [address] [facility] [address] documented in this encounter Visit Diagnoses Diagnosis Thyroid nodule- Primary Nontoxic uninodular goiter documented in this encounter Care Teams Air Traffic Control Supervisor Relationship Specialty Start Date End Date John Paul Domínguez MD [address] [place] [address] PCP - General Family Medicine 10/16/22 documented as of this encounter
--- OUTSIDE RECORDS SUMMARY | 2024-09-16 12:10 | XMS_ITS | Encounter Summary ---
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 73 m2 [facility] NELSON [...] interpretive data was last reviewed 2021. Blood 01/27/2023 12:4 2 PM CDT 01/27/2023 5:39 PM CDT us Jacob Reyna MD LAB BLOOD ORDERABLES Final Resu lt [facility] LESLIE [address] Department [place] [address] * (ABNORMAL) PTH (01/27/2023 12:42 PM CDT) PTH 9(L) 15 - 65 pg/mL [facility] Blood 01/27/2023 12:4 2 PM CDT 01/27/2023 5:23 PM CDT Jacob Reyna MD LAB BLOOD ORDERABLES Final Resu lt [facility] [address] [place] [address] * Basic metabolic panel (01/27/2023 12:42 PM CDT) Sodium 137 135 - 145 mmol/L [facility] Potassium, pl 4.1 3.3 - 4.9 mmol/L [facility] Chloride 98 97 - 110 mmol/[facility] CO2 25 22 - 32 mmol/L [facility] Anion gap 14 2 - 15 mmol/L [facility] BUN 15 8 - 25 mg/dL [facility] Creatinine 0.63 0.40 - 1.00 mg/dL [facility] Glucose 105 70 - 199 mg/dL [facility] Comment: Interpretive Data Fasting glucose [...] 2022. Calcium 9.2 8.5 - 10.3 mg/dL [facility] Blood 01/27/2023 12:4 2 PM CDT 01/27/2023 5:23 PM CDT Jacob Reyna MD LAB BLOOD ORDERABLES Final Resu lt [facility] [address] [place] [address] documented in this encounter Visit Diagnoses Diagnosis Thyroid nodule Nontoxic uninodular goiter documented in this encounter Care Teams White Kid Buffer Relationship Specialty Start Date End Date John Paul Domínguez MD [address] [place] [address] PCP - General Family Medicine 10/16/22 documented as of this encounter
--- OUTSIDE RECORDS SUMMARY | 2024-09-16 12:10 | XMS_ITS | Encounter Summary ---
Author Organization [facility] Healthcare Address [address] [place] [address] Care Team Providers Care Assembler Dry Cell And Battery Name Role Phone John Paul Domínguez MD Primary Care Provider + [phone] Reason for Referral * Diagnostic Imaging (Routine) - Closed Specialty Diagnoses / Procedures Referred By Garcia t Referred To Contact Diagnoses Thyroid cancer (HCC) Procedures NM Thyroid Cancer Mets Whole Body Imaging Mikayla Castlelon PA [address] [facility] [address] [place] [address] Phone: tel: fax: [address] [address] Referral ID Status Reason Start Date Expiration Date Visits Re quested Visits Authorized [id number] Closed 02/10/2023 03/11/2024 2 2 Encounter Details Date Type Department Care Team (Late st Contact Info) Description 02/10/2023 Orders Only [facility] Advanced Medicine Radiation Oncology [address] [facility] Advanced Medicine [facility] [place] [address] Mikayla Castellon PA [address] [facility] [address] [place] [address] Thyroid cancer (HCC) (Primary Dx) Social History [...] file 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 Explained need for TSH>30 and CXR. Current TSH >200. Lab/CXR order faxed to [facility]. Pt to have done tomorrow. Explained 48hr isolation precautions and possible side effects. Explained need for post treatment body scan. Pt has issues with plumbing at home regarding double flushing toilet. She will speak with her mom/ friends to find an alternate place to stay. No able to stay with grandmother as 5 people live there. This [place] will attempt to call pt's mother, Olivia Grimes [phone] after 3pm today as mom works nights. Pt verb understanding and questions answered. documented in this encounter [...] of thyroid gland documented in this encounter Orders Lab Orders Without Results Count Last Ordered D ate First Ordered Date HCG, BLOOD, QUANTITATIVE 1 02/10/2023 documented in this encounter Care Teams Assembler Dry Cell And Battery Relationship Specialty Start Date End Date John Paul Domínguez MD [address] [place] [address] PCP - General Family Medicine 10/16/22 documented as of this encounter
--- OUTSIDE RECORDS SUMMARY | 2024-09-16 12:11 | XMS_ITS | Encounter Summary ---
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 She has taken 2 doses of the calcitriol since discharge. She was given IV calcium and symptoms are resolving. I discussed thiswith the attending surgeon. She will get a total of 2mg IV calcium, then her outpt regimen will be changed to 0.5 mcg calcitriol BID and 2500 mg calcium carbonate TID, and she will follow up for a lab draw in apprx 2-3 days. If symptomatic she will need to consume extra calcium PO and return to [facility] ED. documented in this encounter Plan of Treatment Not on file documented as of this encounter Visit Diagnoses Not on filedocumented in this encounter Care Teams Integration Lead Relationship Specialty Start Date End Date John Paul Domínguez MD [address] [address] PCP - General Family Medicine 10/16/22 documented as of this encounter
--- OUTSIDE RECORDS SUMMARY | 2024-09-16 12:11 | XMS_ITS | Encounter Summary ---
Author Organization [facility] Address [address] [facility] [address] [place] [address] Care Team Providers Care Quill Machine Operator Name Role Phone John Paul Domínguez MD Primary Care Provider + [phone] Reason for Visit * Reason Onset Date Comments Follow-up 12/30/2022 Encounter Details Date Type Department Care Team (Late st Contact Info) Description 12/30/2022 [facility]phone [facility] Specialists [facility] [address] [facility] [address], [place] [address] [place] [address] [facility] [place] [place] [address], [place] [address] Follow-up Social History Tobacco Use Types Packs/Day Years Used Date Smoking Tobacco: Never AUDIT-C Answer Date Recorded Frequency of Alcohol Consumption Not on file 11/26/2022 Q2: How many drinks containi ng alcohol do you have on a typical day when you are drinking? 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 Reyna and she is scheduled for surgery. Patient will reschedule after surgery documented in this encounter Plan of Treatment Not on file documented as of this encounter Visit Diagnoses Not on filedocumented in this encounter Care Teams Quill Machine Operator Relationship Specialty Start Date End Date John Paul Domínguez MD [address] [place] [address] PCP - General Family Medicine 10/16/22 documented as of this encounter
--- OUTSIDE RECORDS SUMMARY | 2024-09-16 12:11 | XMS_ITS | Encounter Summary ---
Author Organization [facility] Address [address] [place] [address] Phone Care Team Providers Care Machine Cementer Name Role Phone John Paul Domínguez MD Primary Care Provider Joseph Freeman MD Unavailable Wade REDDY MD PhD, Deon Vanegas Unavailable Tao Helm MD PhD Unavailable [phone] Encounter Details Date Type Department Care Team (Late st Contact Info) Description 01/10/2023 Telephone [place] [facility] ([facility]) - [facility] ENT 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 Gender Identity Not on file Sexual Orientation Not on file documented as of this encounter Plan of Treatment Not on file documented as of this encounter Visit Diagnoses Not on filedocumented in this encounter Care Teams Machine Cementer Relationship Specialty Start Date End Date John Paul Domínguez MD [address] [place] [address] PCP - General Family Medicine 10/16/22 [place] [id number] [id number] Consulting Physician Endocrinology Diabetes & Metabolism 03/11/24 Deon Olvera III, [place] PhD [address] [id number] Radiation Oncologist Radiation Oncology 03/11/24 Tao Helm MD PhD [address] [phone] Radiation Oncologist Radiation Oncology 03/11/24 documented as of this encounter
--- OUTSIDE RECORDS SUMMARY | 2024-09-16 12:11 | XMS_ITS | Encounter Summary ---
Author Organization [facility] Address [address] [place] [address] Care Team Providers Care Key Filer Name Role Phone John Paul Domínguez MD Primary Care Provider [phone] Reason for Referral * Consultation (Routine) - Closed Specialty Diagnoses / Procedures Referred By Conteliezer t Referred To Contact Otolaryngology Diagnoses [place] [address] [address] [facility] [address] [place] [address] Phone: tel: fax: Gurjit Reyna MD Referral ID Status Reason Start Date Expiration Date V isits Requested Visits Authorized [id number] Closed Specialty Services Required 11/26/2022 12/26/2023 12 12 Question Answer Please select the performing region: [facility] (All Locations) [[id number]] To provider: GURJIT REYNA [[id number]] # of visits: 1 Comments Patient with left lower lobe nodule with Afirma molecular sequencing positive for RET / PTC SION TOLL WIRE CHIEF Reason for Visit * Reason Comments Thyroid nodule Encounter Details Date Type Department Care Team (Late st Contact Info) Description 11/26/2022 1:30 PM DIVISION TOLL WIRE CHIEF Office Visit [facility] Diabetes and Endocrinology [address] [place] [phone] [place] [address] [place] [address] Thyroid nodule (Primary Dx); Mulugeta's thyroiditis Social History Tobacco Use Types Packs/Day Years [...] on file Legal Sex Female 3:09 AM DIVISION TOLL 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 Gender Identity Not on file Sexual Orientation Not on file documented as of this encounter Last Filed Vital Signs Vital Sign Reading Time Taken Comments Blood Pressure 108/72 11/26/2022 1:38 PM DIVISION TOLL WIRE CHIEF Pulse 90 11/26/2022 1:38 PM DIVISION TOLL WIRE CHIEF Temperature - - Respiratory Rate - - Oxygen Saturation - - Inhaled Oxygen Concentration - - Weight 50.8 kg (112 lb) 11/26/2022 1:38 PM DIVISION TOLL WIRE CHIEF Height 152.4 cm (5') 11/26/2022 1:38 PM DIVISION TOLL WIRE CHIEF Body Mass Index 21.87 11/26/2022 1:38 PM DIVISION TOLL WIRE CHIEF Body Mass Index Percentile 55.99% 11/26/2022 1:3 8 PM DIVISION TOLL WIRE CHIEF Growth Chart: CDC (Girls, 2- 20 Years) documented in this encounter Progress Notes * Joseph Freeman MD - 11/26/2022 1:30 PM CST Images from the original note were not included. Subjective/Objective Patient ID: Rubi Baca is a 17 y.o. female. Chief Complaint Thyroid nodule HPI Consult requested by Dr Domínguez Ms. Baca comes with her mother. She was noticed to have a left thyroid nodule on physical examination. She had a thyroid ultrasound and then an FNA biopsy of 2 dominant left thyroid nodules The results of the biopsy in the lower lobe was read as [place] 4, very likely [place] 5. Molecular analysis done with Afirma was positive for RET /PTC 1, RET /PTC 3, which gives risk of malignancyof more than 95%. 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 She denies any specific complaints although is very hard to get any history from her. Again she comes with her mother. There is no significant amount of changes in weight recently. The patient denies any dysphagia or changes to her voice. There is no history of external beam radiation to the neck I looked at Ms. Lofton's thyroid under ultrasound. The thyroid gland is mildly enlarged, very in homogeneous with sonographic appearance of Mulugeta's. There is a dominant left lower lobe nodule, mildly hyperechoic, with multiple gross calcifications. Review of Systems Constitutional: Negative for activity [...] Physical Exam Constitutional: Appearance: She is well-developed. Comments: Young girl, in no acute distress, does not look chronically or acutely ill. Very quiet HENT: Head: Normocephalic and atraumatic. Eyes: Conjunctiva/sclera: Conjunctivae normal. Pupils: Pupils are equal, round, and reactive to light. Neck: Thyroid: No thyroid mass or thyromegaly. Trachea: Trachea and phonation normal. 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 This includes time spent prior to the visit and after the visit in direct care of the patient. This time does not include time spent in any separately reportable services. SION TOLL WIRE CHIEF documented in this encounter Miscellaneous Notes * Assessment & Plan Note - Joseph Freeman MD - 11/26/2022 4:26 PM CSTAssociated Problem(s): Thyroid nodule (Resolved 02/04/2023) With Afirma genomic sequencing, positive for RET [...] . They seem to understand and agreed SION TOLL WIRE CHIEF documented in this encounter Plan of Treatment Scheduled Referrals Name Type Priority Associated Diagnoses Order Schedule Ambulatory referral to ENT Outpatient Referral Routine Thyroid nodule Expected: 12/10/2022 (Approximate), Expires: 11/26/2023 documented as of this encounter Results * (ABNORMAL) TSH (11/26/2022 2:47 PM DIVISION TOLL WIRE CHIEF) Thyroid Stimulating Hormone 24.00(H) 0.30 - 4.20 mcIUnit/mL [facility] Blood 11/26/2022 2:47 PM DIVISION TOLL WIRE CHIEF 11/26/2022 6:06 PM DIVISION TOLL WIRE CHIEF Result [facility] Joseph Freeman MD LAB BLOOD ORDERABLES Final Resul t Performing Organization Address City/[facility]/ZIP Co de Phone Number [facility] [address] [place] [address] * (ABNORMAL) Thyroid peroxidase antibody (TPO) (11/26/2022 2:47 PM DIVISION TOLL WIRE CHIEF) Anti Thyroid Peroxidase 196(H) <=34 units/mL [facility] Comment: ATPO Interpretive Data Results may be up to 28% higher in patients receiving Itraconazole. Current interpretive data was last revised 2020. Testing performed by: [facility], [address], [place] [address] Blood 11/26/2022 2:47 PM DIVISION TOLL WIRE CHIEF 11/27/2022 9:58 AM DIVISION TOLL WIRE CHIEF Result [facility] Joseph Freeman MD LAB BLOOD ORDERABLES Final Resul t [facility] [address] [place] [address] * T4, free (11/26/2022 2:47 PM DIVISION TOLL WIRE CHIEF) Free T4 1.00 0.90 - 1.70 ng/dL [facility] Blood 11/26/2022 2:47 PM DIVISION TOLL WIRE CHIEF 11/26/2022 6:06 PM DIVISION TOLL WIRE CHIEF Result [facility] Joseph Freeman MD LAB BLOOD ORDERABLES Final Resul t [facility] [address] [address] of Laboratories [place] [phone] documented in this encounter Visit Diagnoses Diagnosis Thyroid nodule- Primary Nontoxic uninodular goiter Mulugeta's thyroiditis Chronic lymphocytic thyroiditis documented in this encounter Historical Medications * This list may reflect changes made after this encounter. cyanocobalamin (Vitamin B-12) 1,000 mcg/mL injection Inject into the muscle as instructed 3 levothyroxine (SYNTHROID) 50 mcg tablet Take 50 mcg by mouth daily 09/25/2022 3 folic acid (FOLVITE) 1 mg tablet Take 1 tablet (1,000 mcg total) by mouth daily 11/08/2022 4 cyanocobalamin (Vitamin B-12) 1,000 mcg tablet Take 1 tablet (1,000 mcg total) by mouth daily 11/15/2022 4 added in this encounter Care Teams Key Filer Relationship Specialty Start Date End Date John Paul Domínguez MD [address] [place] [address] PCP - General Family Medicine 10/16/22 documented as of this encounter
--- OUTSIDE RECORDS SUMMARY | 2024-09-16 12:11 | XMS_ITS | Encounter Summary ---
Author Organization [facility] Address [address] [place] [address] Care Team Providers Care Turning Lathe Tender Name Role Phone John Paul Domínguez MD Primary Care Provider [phone] Encounter Details Date Type Department Care Team (Late st Contact Info) Description 12/26/[address] 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
--- OUTSIDE RECORDS SUMMARY | 2024-09-16 12:11 | XMS_ITS | Encounter Summary ---
Author Organization [facility] Address [address] [place] [address] Phone Care Team Providers Care Slag Expander Name Role Phone John Paul Domínguez MD Primary Care Provider [phone] Encounter Details Date Type Department Care Team (Late st Contact Info) Description 01/23/2023 Orders Only [facility]) - [facility] ENT [address] [facility] [address] [address] [facility] [address] [place] [address] Jacob Reyna MD Thyroid nodule (Primary Dx) Social History Tobacco [...] on file 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 documented in this encounter Miscellaneous Notes * Addendum Note - Beata Caraballo CLT - 01/23/2023 8:27 AM CDTAddended by: BEATA CARABALLO on: 01/27/2023 12:35 PM Modules accepted: Orders * Addendum Note - Beata Caraballo CLT - 01/23/2023 8:27 AM CDTAddended by: BEATA CARABALLO on: 01/27/2023 12:35 PM Modules accepted: Orders documented in this encounter Plan of Treatment Not on file documented as of this encounter Results * Basic metabolic panel (01/27/2023 12:42 PM CDT) Sodium 137 135 - 145 mmol/L [facility] Potassium, pl 4.1 3.3 - 4.9 mmol/L [facility] Chloride 98 97 - 110 mmol/L [facility] CO2 25 22 - 32 mmol/L [facility] Anion gap 14 2 - 15 mmol/L [facility] BUN 15 8 - 25 mg/dL [facility] Creatinine 0.63 0.40 - 1.00 mg/dL [facility] Glucose 105 70 - 199 mg/dL [facility] Comment: [...] 8.5 - 10.3 mg/dL [facility] Blood 01/27/2023 12:4 2 PM CDT 01/27/2023 5:23 PM CDT Jacob Reyna MD LAB BLOOD ORDERABLES Final Resu lt Performing Organization Address City/[facility]/ZIP Co de Phone Number [facility] [phone] [address] [facility] [employer] [place], [place] [id number] * (ABNORMAL) PTH (01/27/2023 12:42 PM CDT) PTH 9(L) 15 - 65 pg/mL [facility] Blood 01/27/2023 12:4 2 PM CDT 01/27/2023 5:23 PM CDT Jacob Reyna MD LAB BLOOD ORDERABLES Final Resu lt Performing Organization Address [facility] Co de Phone Number [facility] [address] [address] [facility] [place] [address] documented in this encounter Visit Diagnoses Diagnosis Thyroid nodule- Primary Nontoxic uninodular goiter documented in this encounter Care Teams Slag Expander Relationship Specialty Start Date End Date John Paul Domínguez MD [address] [place] [address] PCP - General Family Medicine 10/16/22 documented as of this encounter
--- OUTSIDE RECORDS SUMMARY | 2024-09-16 12:11 | XMS_ITS | Encounter Summary ---
Author Organization [facility] Healthcare Address [address] [place] [address] Care Team Providers Care Kennel Aide Name Role Phone John Paul Domínguez MD Primary Care Provider [phone] Reason for Visit * Auth/Cert (Routine) Specialty Diagnoses / Procedures Referred By Garcia t Referred To Contact Diagnoses Thyroid nodule Thyroid nodule [E04.1] Procedures WA THYROIDECTOMY TOTAL/COMPLETE THYROIDECTOMY/ 150 min Referral ID Status Reason Start Date Expiration Date Visits Re quested Visits Authorized [id number] 1 1 Encounter Details Date Type Department Care Team (Late st Contact Info) Description 01/20/2023 9:30 AM CDT - 01/20/2023 12:00 PM CDT Surgery [facility] Operating Room [address] [place] [address] Jacob Reyna MD TOTAL THYROIDECTOMY WITH CONTINUOUS LARYNGEAL NERVE MONITORING Surgery Details Date/Time Status Location OR Service Patient Class Case Class Case Type Trauma Case? 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 Gender Identity Not on file Sexual Orientation Not on file documented as of this encounter Last Filed Vital Signs Vital Sign Reading Time Taken Comments Blood Pressure - - Pulse - - Temperature 36.5 ??C (97.7 ??F) 01/20/2023 8:15 AM CD T Respiratory Rate - - Oxygen Saturation - - Inhaled Oxygen Concentration - - Weight - - Height - - Body Mass Index - - documented in this encounter Discharge Instructions * Discharge Instructions* Osiris Álvarez MD - 01/20/2023 1:20 PM CDT ENT Post Operative Discharge Instructions Procedure: Total thyroidectomy If you have any of the following concerning signs for low calcium, please take 2 pills of calcium carbonate or take 4 TUMS right away and go immediately to the EMERGENCY ROOM. Numbness or tingling around your lips or fingertips Extreme fatigue Depression Hallucinations Muscle cramps, spasms, or twitching Numbness and tingling in the arms, legs, hands, or feet Seizures Irregular heartbeat When to call your doctor: You have a fever of more than 101.5. You have redness or swelling around your incision. The pain in your incision starts hurting very badly. Your incision starts draining. You notice a foul odor from surgical area. You have pus, bleeding, or drainage around your incision site. Your incision is opening. You notice a foul odor. You have persistent nausea and/or vomiting, You feel dizzy or like you may pass out. You have a hard time breathing. You have any questions or concerns. Diet: Regular Diet Activity: DO NOT LIFT ANYTHING HEAVIER THAN A GALLON OF MILK UNTIL YOUR POSTOPERATIVE VISIT. Light activity for the next 24 hours. Resume normal activity afterwards as tolerated. You may feel tired and run down after surgery. It is normal to sleep more or take more naps. Light activity is okbut avoid heavy house work, yard work or strenuous exercise. Short walks are encouraged. Activitiescan be slowly increased as tolerated. Do not drive, operative heavy machinery, or make important legal decisions for the next 24 hours orwhile taking narcotic pain medication. Driving privileges are left up to the discretion of your physician and will be discussed further at your follow up appointment. You cannot drive while taking narcotic pain medication. Showering You may shower normally, allowing the water to wash gently over the suture line, but do not scrub the sutures or incisions. It is fine for soap to wash over the incisions, but it must be rinsed off. You may use a mild shampoo to wash your hair (baby shampoo is fine). If your wound gets wet, lightlydab it dry. DO NOT submerge yourself in any water that will cover the incision (bathtub, hot tub, swimming pool, pools, lakes, johnson, oceans), unless specifically cleared by your doctor. Wound Care: Absorbable sutures. They will dissolve over the next few weeks. You may apply bacitracin, polymixin, or neosporin antibiotic ointment three times a day over your incision for 3 days. Then you may apply vaseline ointment to your incisions three times daily until follow up. Keep your incision clean. If any crusting forms on suture line, clean gently with Q-tip dipped in a 50:50 mixture of peroxideand water and apply vaseline twice a day. Call for increased problems including increased pain, redness or swelling. Keep the wound covered when in a place where the wound might get dirty. Do not scrub, rub, or pick at the incision. Please take extra care to avoid sun exposure until the wounds are healed and then protect the incision sites with sunscreen (about 6 weeks after your surgery) as sun exposure can interfere with the healing process. Sun exposure retards healing and causes discoloration of the scar that may never disappear. DO NOT swim (pool, martin, ocean, river, or hot tub, etc.) until the wound has completely healed and you have been seen by your surgeon. This can cause infection. Do not smoke tobacco Smoking has been proven to interfere with the normal wound healing. Smoking will dramatically reduce the success rate of your surgery. Your primary care doctor can prescribe a patch to help you stop smoking if you would like. Medications: - Pain: You may have been prescribed Acetaminophen (Tylenol) or you may buy it at any pharmacy or drugstore. You should take Acetaminophen (Tylenol) 650mg every 6 hours for pain. Taking this in addition to your narcotic pain medication will provide greater pain relief. Do not exceed 3g (3000mg) of Tylenol in a 24h period. You have been prescribed oxycodone or another narcotic medication to help with your pain. You should only use this pain medication to help with pain that is not adequately controlled by tylenol. You should not drive while taking narcotic pain medication. Narcotic pain medication can make you constipated; take a stool softener as needed. - Calcium Regimen: Calcium Carbonate 1250mg Every 8 hours and Calcitriol 0.25mcg Twice a Day - Levothyroxine Regimen: You should STOP your synthroid until it is determined whether you will need radioactive iodine treatment. This is normally dependent on the final pathology, and will be discussed at your post-operative visit. - Stool Softener: Take stool softener ([id number] or prescription) while taking narcotic medication to prevent constipation. Laxatives not recommended. Follow up Labs: If you were given prescriptions for labs please get them either the morning of yourappointment or the day before so your doctor has them at the time of your appointment. YOU CAN GET YOUR LABS DRAWN AT ANY [facility] OR AT ANY OTHER LAB USING THE PAPER ORDERS THAT WERE GIVEN TO YOU. Pathology: Final Pathology will take 7-10 days to result. This should be discussed with you at your scheduled follow up appointment. If for some reason it is not and you have not received a call from the officeto tell you your final pathology within 2 weeks of discharge, please contact the surgeon's nurse atthe number listed below or contact the main office line at [phone]. Follow up: You should follow up in Jacob Rea MD's clinic as scheduled below. Future Appointments Date Time Provider Department Center 01/31/2023 11:00 AM Jacob Reyna MD [facility] Phone numbers Office Number: Urgent Concerns After hours or Weekends: Call and ask for the ENT resident senior oracle applications developer. Questions: If you have any concerns or questions, or develop worrisome symptoms such as worsening pain or swelling, bleeding, fever, or vomiting, call your doctor. documented in this encounter Medications at Time of Discharge calcitRIOL (ROCALTROL) 0.25 mcg capsule Take 1 capsule (0.25 mcg total) by mouth 2 (two) times a day 45 capsule 1 01/21/2023 3 calcium carbonate (OS-MATTHEW) 1,250 mg (500 mg elemental) tablet Take 1 tablet (1,250 mg total) by mouth every 8 (eight) hours 90 tablet 01/21/2023 4 cyanocobalamin (Vitamin B-12) 1,000 mcg tablet Take 1 tablet (1,000 mcg total) by mouth daily 11/15/2022 4 folic acid (FOLVITE) 1 mg tablet Take 1 tablet (1,000 mcg total) by mouth daily 11/08/2022 4 oxyCODONE (ROXICODONE) 5 mg immediate release tabletIndication s:Pain Take 1 tablet (5 mg total) by mouth every 4 (four) hours as needed for pain (for pain not controlled by tylenol or ibuprofen) 20 tablet 01/21/2023 3 documented as of this encounter Ordered Prescriptions Prescription Sig Dispense Quantity Refills Last Filled Start Date End Date oxyCODONE (ROXICODONE) 5 mg immediate release tabletIndications: Pain Take 1 tablet (5 mg total) by mouth every 4 (four) hours as needed for pain (for pain not controlled by tylenol or ibuprofen) 20 tablet 01/21/2023 3 calcium carbonate (OS-MATTHEW) 1,250 mg (500 mg elemental) tablet Take 1 tablet (1,250 mg total) by mouth every 8 (eight) hours 90 tablet 01/21/2023 4 calcitRIOL (ROCALTROL) 0.25 mcg capsule Take 1 capsule (0.25 mcg total) by mouth 2 (two) times a day 45 capsule 1 01/21/2023 3 documented in this encounter Discharge Disposition Disposition Code Departure Means Destination Comment s Discharge to home or self care documented in this encounter H&P Notes * Last, Osiris Fletcher MD - 01/20/2023 9:19 AM CDT General H&P Subjective Patient is a 17 y.o. female with chief complaint of papillary thyroid cancer . HPI: 17 yo F with biopsy-proven PTC. Presents today for thyroidectomy. No changes since last seen. Past Medical History: Diagnosis Date Anemia Hypothyroidism Iron deficiency anemia Vitamin B12 deficiency Past Surgical History: Procedure Laterality Date APPENDECTOMY 01/10/2023 Medications Prior to Admission Medication Sig Dispense Refill Last Dose cyanocobalamin (Vitamin B-12) 1,000 mcg tablet Take 1 tablet (1,000 mcg total) by mouth daily Past Month folic acid (FOLVITE) 1 mg tablet Take 1 tablet (1,000 mcg total) by mouth daily Past Month levothyroxine (SYNTHROID) 50 mcg tablet Take 7 tablets all together once a week, on the same day ofthe week, 1 hour apart from food or any other medications 30 tablet 3 Past Month No Known Allergies Social History Tobacco Use Smoking status: Never Smokeless tobacco: Never Substance and Sexual Activity Drug use: Not Currently Sexual activity: None Alcohol Use: Not At Risk (01/20/2023) AUDIT-C Frequency of Alcohol Consumption: Never Average Number of Drinks: Patient does not drink Frequency of Binge Drinking: Never Family History Problem Relation Age of Onset Vitamin D deficiency Mother Iron deficiency Mother Review of Systems Objective Vitals: Arrival Vitals [01/20/23 0815] Temp 36.5 ??C (97.7 ??F) Pulse Resp BP SpO2 Temp src Oral Heart Rate Source Patient Position BP Location FiO2 (%) 24hr Min/Max: Temp Min: 36.5 ??C (97.7 ??F) Max: 36.5 ??C (97.7 ??F) Most Recent : Vitals: 01/20/23 0815 Temp: 36.5 ??C (97.7 ??F) No intake/output data recorded. No intake/output data recorded. Physical Exam General: No apparent distress, well-nourished Head and Face: Normocephalic, atraumatic. Skin: No cutaneous lesions of the face or neck. Ears: Normal set, no drainage Nose: Dorsum is midline. No drainage or discharge. No bleeding. Neck: Soft, flat, left thyroid nodule Cardiovascular: Extremities are warm and well perfused. No cyanosis. Pulmonary: Normal quiet breathing on room air. No respiratory distress, stridor, or wheeze. Neurologic: Alert and oriented, face symmetric Lab/Radiology/Diagnostic Review: FNA path reviewed Assessment Principal Problem: Thyroid nodule Plan 17 yo F w PTC. Plan for total thyroidectomy. Cosigned by Jacob Reyna MD at 01/20/2023 9:31 AM CDT documented in this encounter Nursing Notes * Karlene Chiu RN - 01/21/2023 4:10 PM CDT Patient discharged to home this afternoon with mother at bedside. [facility] brought patient's prescriptions to bedside. Patient educated on new medications and hypocalcemia. Patient aware she has an appointment with Dr Reyna on 01/31. Patient given pain medication before discharge but patient's mother is driving her home. IV removed. Patient taken down to main entrance via wheelchair. documented in this encounter Miscellaneous Notes * Plan of Care - Karlene Chiu RN - 01/21/2023 4:07 PM CDT Goals: Clinical Goals for the Shift: pain control, safety, discharge home Summary: Pt states some post-op pain, pt given scheduled Tylenol and ibuprofen and prn oxycodone. Pt rounded on hourly and reminded to use call light to promote safety. Pt discharged to home this afternoon Problem: Health Behavior: Goal: Understanding of discharge needs will improve Outcome: Completed Problem: Lack of Knowledge: Goal: Ability to state ways to decrease the risk of falls will improve Outcome: Completed Problem: Safety: Goal: Will remain free from falls Outcome: Completed Goal: Will remain free from injury from falls Outcome: Completed Goal: Will remain free from falls and injury in home environment Outcome: Completed * Anesthesia Post-op Follow-up Note - Sam Rolon AA - 01/21/2023 8:05 AM CDT Patient: Rubi Baca Procedure(s): TOTAL THYROIDECTOMY WITH CONTINUOUS LARYNGEAL NERVE MONITORING Patient location: [facility] Surgical Floor Last vitals: Vitals: 01/21/23 0725 BP: 125/89 Pulse: 83 Resp: 18 Temp: 36.8 ??C (98.2 ??F) SpO2: 100% Level of consciousness: awake, alert, and oriented Post-anesthesia pain: adequate analgesia Anesthetic complications: no Pain well managed, patient hd some nausea treated and since resolved, patient eating and drinking without issue, patient has sore throat and had some lower chest discomfort this AM that has resolved,patient on 2 L/min nasal canula O2. * Plan of Care - Sandrita Tolentino RN - 01/20/2023 11:21 PM CDT Goals: Clinical Goals for the Shift: pain management, v/s Summary: Problem: Health Behavior: Goal: Understanding of discharge needs will improve Outcome: Progressing Problem: Lack of Knowledge: Goal: Ability to state ways to decrease the risk of falls will improve Outcome: Progressing Problem: Safety: Goal: Will remain free from falls Outcome: Progressing Goal: Will remain free from injury from falls Outcome: Progressing Goal: Will remain free from falls and injury in home environment Outcome: Progressing * Plan of Care - Jennifer Demarco - 01/20/2023 6:31 PM CDT Received from PACU, stable VS, pain 3-10, wound @ neck wound glue & open to air, a little nauseous but given zofran before transport to room, not in respiratory distress,oriented to room and environment Problem: Safety: Goal: Will remain free from falls Outcome: Progressing Problem: Skin Integrity: Goal: Complications related to the disease process, condition or treatment will be avoided or minimized Outcome: Progressing Problem: Lack of Knowledge: Goal: Ability to develop a pain control plan will improve Outcome: Progressing Problem: Sensory: Goal: Pain level will decrease Outcome: Progressing * Op Note - Jacob Reyna MD - 01/20/2023 9:30 AM CDT Thyroid Lobectomy Procedure Note Procedures: * TOTAL THYROIDECTOMY WITH CONTINUOUS LARYNGEAL NERVE MONITORING *Parathyroid reimplantation Indications: This patient presents with a palpable nodule on the left side of the neck. Fine needleaspiration cytology revealed findings consistent with a papillary carcinoma. The patient now presents for a total thyroidectomy. Pre-op Diagnosis * Thyroid nodule [E04.1] *Papillary Thyroid Carcinoma Post-op Diagnosis: Same Surgeon: Jacob Reyna MD Assistants: Osiris Álvarez MD Anesthesia: General endotracheal anesthesia Procedure Details The patient was seen in the Holding Room. The risks, benefits, complications, treatment options, and expected outcomes were discussed with the patient. The possibilities of reaction to medication, pulmonary aspiration, perforation of viscus, bleeding, recurrent infection, finding a normal thyroid, recurrently laryngeal nerve damage, the need for additional procedures, failure to diagnose a condition, and creating a complication requiring transfusion or operation were discussed with the patient.The patient concurred with the proposed plan, giving informed consent. The site of surgery properlynoted/marked. The patient was taken to Operating Room [facility] OPERATING ROOM 1, identified as Rubi Baca and staff verified the following Procedure(s) (LRB): TOTAL THYROIDECTOMY WITH CONTINUOUS LARYNGEAL NERVE MONITORING (N/A). A Time Out was held and the above information confirmed. The patient was placed supine after induction of a general anesthetic. The neck was extended and prepped and draped in standard fashion. A 4 cm transverse cervical incision was created above the sternal notch within a natural skin fold. The strap muscles were identified and divided at the midline. Sharp dissection was used to mobilize the left thyroid lobe in a medial direction. Dissection continued posteriorly to expose the tracheoesophageal groove and carotid artery. The recurrent laryngeal nerve was identified and preserved. The thyroid lobe was mobilized further and the superior and inferior pole vessels were divided with the harmonic scalpel. The middle thyroid vein was divided with the harmonic scalpel. Small vessels were likewise divided. The gland was rotated in a medial directionand taken off the trachea using the harmonic scalpel. The isthmus was divided with the harmonic scalpel and the left thyroid lobe was thus removed. We then proceeded with the right hemithyroidectomy. Sharp dissection was used to mobilize the rightthyroid lobe in a medial direction. Dissection continued posteriorly to expose the tracheoesophageal groove and carotid artery. The recurrent laryngeal nerve was identified and preserved. The thyroid lobe was mobilized further and the superior and inferior pole vessels were divided with the harmonic scalpel. The middle thyroid vein was divided with the harmonic scalpel. Small vessels were likewise divided. The gland was rotated in a medial direction and taken off the trachea using the harmonicscalpel. The isthmus was divided with the harmonic scalpel and the right thyroid lobe was thus removed. The right and left thyroid lobes were sent for pathology. Meticulous hemostasis was obtained. The bilateral central necks were palpated thoroughly to examine for any lymph node metastases. None were encountered. The bilateral recurrent laryngeal nerves were noted to be intact and stimulating well. The left superior and inferior parathyroid glands appeared healthy and viable. The right inferior parathyroid gland appeared healthy and viable. The right superior parathyroid gland appeared dusky - it was thus removed with a portion sent for frozen pathology. Upon confirmation of parathyroid tissuefrom the pathologist, the parathyroid gland was minced, mixed with saline, and injected into the right deltoid muscle with an 18 gauge needle. Avitene was administered into the bilateral wound beds. The strap muscles were loosely closed with 3-0 vicryl. The wound was then closed with 3-0 vicryl for deep tissue and 4-0 monocryl subcuticular for the superficial skin. Instrument, sponge, and needle counts were correct prior to closure and at the conclusion of the case. Findings: The bilateral recurrent laryngeal nerves were identified, left in their anatomic positions, and stimulating well. Parathyroid tissue was identified and preserved with a viable blood supply except for the right superior parathyroid gland, which was reimplanted into the right deltoid muscle. Multiple thyroid nodules with a dominant left inferior thyroid nodule Estimated Blood Loss: Minimal Drains: None Specimens: ID Type Source Tests Collected by Time Destination A : LEFT Thyroid Lobe Tissue Thyroid, Resection, Partial/Total SURGICAL PATHOLOGY Jacob Reyna MD 01/20/2023 1120 B : RIGHT Superior Parathyroid Candidate Tissue Parathyroid Gland SURGICAL PATHOLOGY Jacob Reyna MD 01/20/2023 1148 C : RIGHT Thyroid Lobe Tissue Thyroid, Resection, Partial/Total SURGICAL PATHOLOGY Jacob Reyna MD 01/20/2023 1203 Implants: Implant Name Type Inv. Item Serial No. Signals Collection Technician Lot No. LRB No. Used Action [employer] SLS-CLIP LIGATE TRIANGULAR WIRE JANAE GROOVE SMALL CHEVRON CLIP LATEX FREE [id number] - [id number] [employer] Sls-clip Ligate Triangular Wire Janae Groove Small Chevron Clip Latex Free [id number] [employer] [id number] N/A 3 Implanted Complications: None; patient tolerated the procedure well. Disposition: PACU - hemodynamically stable. Condition: stable Attending Attestation: I was present and scrubbed for the entire procedure. Jacob Reyna MD * Pre-Procedure Instructions - Soniya Mcelroy, DORIS - 01/09/2023 12:25 PM CDT We are pleased that you and your doctor have chosen [facility] for your surgery. We hope that the following information will help make your visit a pleasant one. Surgery Date: 01/20/2023 arrive at 0730am [facility] (look for sign reading ???[facility] - [facility]ERY CENTER?? ) [address] [place] [address] Before your surgery: Notify your doctor of ANY change in your health such as a cold, sore throat, fever, infection or a change in the problem for which you are having your surgery. Follow any instructions given to you by your doctor or surgeon. If your Surgeon did not provide you with CHG/Hibiclens soap: It maybe picked up at the Surgery Center Friday through Friday between the hours of 6 AM and 2 PM. Tell the person at the desk that you came to excelsior picker your soap for your surgery. Or you may purchase it from a pharmacy (it is over the counter). Check with your doctor if you need to STOP taking: Aspirin (ordered by your doctor) Plavix Coumadin (Warfarin) Eliquis Brilinta Xarelto Effient (PRASUGREL) One week before surgery STOP taking: All herbal/vitamin supplements Aspirin (not ordered by your doctor) Aleve, Advil, Motrin, Ibuprofen, Excedrin, Naproxen, Meloxicam, Diclofenac (oral & topical) Relafen, Celebrex, Ketorolac (Toradol) or other similar medications (Tylenol is okay unless it is not recommended by your physician). Fish Oil/[place] 3, Co Q 10, Cod Liver Oil, or other similar products. 24 hours before your surgery: No smoking, vaping, alcohol, Marijuana, or recreational drug use. Hydrate yourself (water) - if no restrictions. Night before your surgery: DO NOT eat or drink anything after midnight including candy, mints, gum, chewable antacids, and cough drops. Follow surgeon's instructions for anti-bacterial shower night before and morning of surgery. Shower Instructions: Clean your hair using normal shampoo and/or conditioner products. Using your own normal soap and one washcloth, wash your face. Move away from the shower stream. Using a second freshly washed washcloth and the CHG/Hibiclens soap, thoroughly wash from neck down (avoid face, hair, open wounds, and genital area). Use enough soap to thoroughly cover your body. You may need help if some areas cannot easily be reached, such as your back. Wash with the CHG/Hibiclens soap for 2-3 minutes then Rinse thoroughly and dry with a clean towel (use a different freshly washed towel for each shower). Do not use lotions, powders, creams, Vaseline, or hair products after either shower. Dress in clean, freshly washed pajamas or clothing. Do not shave below the neck on the night before or day of surgery The night before surgery sleep on clean linen Do Not let pets sleep with you Day of surgery: Do NOT swallow any water when you brush your teeth. Repeat your shower. No smoking, vaping, alcohol, or recreational drug use. ONLY take these pills with a sip of water. Pre-Surgery Instructions: Medication Instructions IF PATIENT USES A VERO LIFT, SEND PATIENT ON A CLEAN VERO PAD Wear comfortable clothes that will not be tight over the area of your surgery Do not wear jewelry, body piercing's, makeup, hairpins, false eye lashes, or contact lenses. Do Not Glue Dentures or Partials In If you have an implantable device with a remote, bring the remote with you on the day of surgery. Leave all valuables and jewelry (including all body piercing jewelry) at home. If you use a CPAP machine, please bring it with you to wear after your surgery. Please bring your photo ID, insurance cards, and medication list (including all [id number] medications) with you. Prescriptions can be filled onsite prior to discharge. Please have your co-pay available. Check in at the Registration Desk. You may have 2 visitors daily (visitor must be over the age of 18). After your Outpatient Surgery: You must have a responsible adult to drive you home, you will not be allowed to drive or take a cabhome. We recommend you have someone stay with you for 24 hours after your surgery. What to bring if you are spending the night with us: Bring toiletry items such as: robe, slippers, toothbrush, toothpaste, brush or comb. Bring contact lens, hearing aids, glass cases and denture container if you use any of these items. The hospital will provide you with a gown. Questions or concerns: If you have any questions or concerns regarding your procedure, or to cancel your surgery/procedure- contact your surgeon as soon as possible. If you have questions regarding your Pre-Admission Screen/Testing, please call at . documented in this encounter Plan of Treatment Not on file documented as of this encounter Procedures Procedure Name Priority Date/Time Associated Diagnosis Comments ECG 12-LEAD STAT 01/21/2023 7:19 AM CDT EGFR Timed 01/21/2023 5:50 AM CDT BASIC METABOLIC PANEL Timed 01/21/2023 5:50 AM CDT SURGICAL PATHOLOGY Routine 01/20/2023 3: 13 PM CDT Thyroid nodule EGFR Routine 01/20/2023 1:07 PM CDT PTH Routine 01/20/2023 1:07 PM CDT RENAL FUNCTION PANEL Routine 01/20/2023 1:07 PM CDT THYROIDECTOMY 01/20/2023 9:49 AM CDT Thyroid nodule POCT HCG, URINE Routine 01/20/2023 8:20 AM CDT documented in this encounter Results * (ABNORMAL) Renal function panel (01/31/2023 11:25 [...] 2022. Calcium 9.0 8.5 - 10.3 mg/dL [facility] Phosphorus, pl 4.6(H) 2.3 - 4.5 mg/dL [facility] Albumin 4.2 3.5 - 5.0 g/dL [facility] Blood (Blood, Venous) 01/31/2023 11:25 AM CDT 01/31/2023 12:05 PM CDT Jacob Reyna MD LAB BLOOD ORDERABLES Final Resu lt Performing Organization Address City/[facility]/ZIP Co de Phone Number [facility] [id number] [place] [address] * ECG 12 lead (01/21/2023 7:19 AM CDT) 01/21/2023 7:19 AM CDT Narrative [facility] - 01/21/2023 8:04 AM CDT Vent Rate: 71 bpm RR Interval: 835 msec [place] Interval: 124 msec QRS Duration: 78 msec QT Interval: 369 msec QTC Interval: 392 msec P-R-T [place]: 68 - 86 - 69 degrees SINUS RHYTHM WITH SINUS ARRHYTHMIA NORMAL ECG Electronically Signed By: Milo Glover MD Jacob Reyna MD ECG ORDERABLES Final Result Performing Organization Address [facility]/ZIP Co de Phone Number [facility] [employer] [facility] * eGFR (01/21/2023 5:50 AM CDT) eGFR 135 mL/min/1. 73 m2 [facility] Comment: Interpretive Data Reference Interval Normal ?>/= [...] interpretive data was last reviewed 2021. Blood 01/21/2023 5:50 AM CDT 01/21/2023 6:02 AM CDT us Jacob Reyna MD LAB BLOOD ORDERABLES Final Resu lt [facility] [address] [place] [address] * (ABNORMAL) Basic metabolic panel (01/21/2023 5:50 AM CDT) Sodium 136 135 - 145 mmol/L [facility] Potassium, pl 3.6 3.3 - 4.9 mmol/L [facility] Chloride 101 97 - 110 mmol/L [facility] CO2 24 22 - 32 mmol/L [facility] Anion gap 11 2 - 15 mmol/L [facility] BUN 12 8 - 25 mg/dL [facility] Creatinine 0.57 0.40 - 1.00 mg/dL [facility] Glucose 94 70 - 199 mg/dL [facility] Comment: Interpretive [...] interpretive data was last revised 2022. Calcium 7.9(L) 8.5 - 10.3 mg/dL [facility] Blood 01/21/2023 5:50 AM CDT 01/21/2023 6:02 AM CDT us Jacob Reyna MD LAB BLOOD ORDERABLES Final Resu lt [facility] [address] Department [place] [address] * Surgical pathology (01/20/2023 3:13 PM CDT) Tissue (Thyroid, Resection, Partial/Total) 01/20/2023 11:20 AM CDT Tissue (Parathyroid Gland) 01/20/2023 11:48 AM CDT Tissue (Thyroid, Resection, Partial/Total) 01/20/2023 12:03 PM CDT Narrative PATHOLOGY [facility] - 01/22/2023 4:14 PM CDT EPIC results best viewed via link to PDF [facility] Department of Pathology [address] [place] [id number] Note to Patients: This report may contain a detailed description of human tissue sent by a health care provider to the laboratory for pathologic evaluation. The content of this report is essential for diagnosis and may provide important critical findings. This information may be unfamiliar to patients to review without a medical professional present. It is advised that the patient review this report in the presence of a health care provider who can answer questions and explain the details. Final Report Patient Name: ??RUBI BACA Address: ??[address], ??[place], [place] ??[address] Gender: ??F : ??2005 (Age: 17) Service: ??Surgery [facility] #: ??[id number] Patient Type: ??[facility] EP OP in bed Accession # ?[id number] Taken: ??01/20/2023 Received: ??01/20/2023 Accessioned: ??01/20/2023 Reported: ??01/22/2023 Physician(s):Rodri Springer M.D. Diagnosis: A. ??Thyroid lobe, left, lobectomy: ? - Papillary thyroid carcinoma, classic type (see synoptic report, description and comment). ? - Focal surface margin involved by tumor (see description and comment). ? - Uninvolved thyroid with lymphocytic thyroiditis and nodular hyperplasia. B. ??Parathyroid tissue, right superior, excisional biopsy: ? - Benign parathyroid tissue, negative for malignancy. C. ??Thyroid, right lobe, completion lobectomy: ? - Follicular adenoma (see comment and description). ? 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 ? - Focal benign parathyroid tissue and 4 reactive lymph nodes present, each negative for metastatic carcinoma (0/4). Diagnosis Comment: Intradepartmental consultation with Dr. Domo Zimmerman is in agreement with the assessment of malignancy, focal surface involvement by tumor in specimen A and the finding of follicular adenoma in specimen C. Synoptic Diagnosis: Report name: ??THYROID GLAND SPECIMEN ? Procedure: ??Total thyroidectomy TUMOR ? Tumor Focality: ??Unifocal ? Tumor Characteristics ? Tumor Site: ??Left lobe ? Tumor Size: ??Greatest Dimension (Centimeters) - 2.5 cm ? Histologic Type: ??Papillary carcinoma, classic (usual, conventional) ? Angioinvasion (vascular invasion): ??Not identified ? Lymphatic Invasion: ??Not identified ? Extrathyroidal Extension: ??Not identified ? Margin Status: ??Carcinoma present at margin ? Margin(s) Involved by Carcinoma: ??Inked thyroid surface, at least 1 mm area with tumor. REGIONAL LYMPH NODES ? Regional Lymph Node Status: ??All regional lymph nodes negative for tumor ? Number of Lymph Nodes Examined: ??4 ? Yovanny Level(s) Examined: ??Surface lymph nodes from right lobectomy in specimen C. PATHOLOGIC STAGE CLASSIFICATION (pTNM, AJCC 8th Edition) ? Reporting of pT, pN, and (when applicable) pM categories is based on information available to the pathologist at the time the report is issued. As per the AJCC (Chapter 1, 8th Ed.) it is the managing physician's responsibility to establish the final pathologic stage based upon all pertinent information, including but potentially not limited to this pathology report. ? pT Category: ??pT2 ? pN Category: ??pN0a ? CAP VERSION: Thyroid 4.3.0.0 Dirk Mayfield M.D. Report Electronically Reviewed and Signed Out By ??Dirk Mayfield M.D. ??01/22/2023 16:14:33 Specimen(s) Received: A: Left Thyroid Lobe B: Right Superior Parathyroid Candidate C: Right Thyroid Lobe Intraoperative Diagnosis: Frozen Section Pathology Consultation: Single de la o/red fragment ??0.3 greater dimension. Staple removed. FS Dx: Parathyroid tissue Dirk Mayfield M.D. Microscopic Description: A. Microscopic examination left thyroid lobe reveals papillary thyroid carcinoma the classical type, having papillary architecture with fibrovascular cores and characteristic nuclear features of papillary thyroid carcinoma. ??A focal at least 1 mm area of inked surface involvement by tumor is seen within block A2. ??The uninvolved thyroid has lymphocytic thyroiditis with scattered reactive germinal center formation and areas of nodular hyperplasia. B. Microscopic examination of the right superior parathyroid candidate tissue reveals benign and uniform parathyroid tissue along with attached fibroadipose tissue. ??Permanent sections confirm the frozen section diagnosis, and examination is negative for malignancy. C. Microscopic examination of the right thyroid lobe completion lobectomy reveals lymphocytic thyroiditis with areas of abundant mature lymphocytic inflammation with reactive germinal center formation. ??There are areas of reactive Hurthle cell change, with some mildly atypical follicular cells having increased granular cytoplasm. ??Examination is negative for diagnostic features of papillary thyroid carcinoma. ??There is also nodular hyperplasia. ??The nodule in block C1 is composed of a circumscribed and encapsulated follicular lesion having a macro and microfollicular structures. ??Findings seen with this nodule are compatible with a benign follicular adenoma. ??Focal benign surface parathyroid tissue is seen along with 4 reactive lymph nodes, which are each negative for metastatic carcinoma.. Clinical History: Thyroid Nodule Procedure: Total thyroidectomy with continuous laryngeal nerve monitoring Gross Description: The specimen is submitted in three formalin containers labeled RUBI BACA . A. ??The first container is labeled left thyroid lobe . ??It is an 8 g thyroid lobectomy specimen that measures 4.8 x 3.2 x 2.5 cm. ??The external surface is intact and smooth. ??No parathyroid is seen. ??The cut surfaces show a thyroid nodule measuring 2.5 cm surrounded by pink-de la o thyroid parenchyma. ??All in A1-A6 B. ??The second container is labeled right superior parathyroid candidate . ??Received fresh for frozen is a 0.3 cm piece of dark red tissue. ??Entire specimen is submitted for frozen section evaluation with the tissue embedded in cassette B. C. ??The third container is labeled right thyroid lobe . ??It is a thyroid lobectomy specimen that weighs 7 g and measures 4.5 x 3 x 1.8 cm. ??Several shawn are on the otherwise smooth surface. ??The cut surfaces have a dense pale de la o appearance with 1 de la o glistening nodule measuring 1 cm. ??Entirely submitted: ??Nodule C1, remaining tissue C3-C6 T.Mike Swanson R.N., P.A. REPORT IMAGES AND SCANNED DOCUMENTS, IF INCLUDED, ONLY VIEWABLE IN PDF VERSION OF REPORT The performance characteristics of some immunohistochemical stains, fluorescence in-situ hybridization tests and immunophenotyping by flow cytometry cited in this report (if any) were determined by the Surgical Pathology Department at [facility] as part of an ongoing quality improvement engineer program and in compliance with federally mandated regulations drawn from the Clinical Laboratory Improvement Act of 1988 (CLIA '88). ??Some of these tests rely on the use of analyte specific reagents and are subject to specific labeling requirements by the US Food and Drug Administration. ??Such diagnostic tests may only be performed in a facility that is certified by the Department of Health and Human Services as a high complexity laboratory under CLIA '88. The FDA has determined that such clearance or approval is not necessary. ??This test is used for clinical purposes. ??It should not be regarded as investigational or for research. ??Nevertheless, federal rules concerning the medical use of analyte specific reagents require that the following disclaimer be attached to the report: This test was developed and its performance characteristics determined by the Surgical Pathology Department [facility]. ??It has not been cleared or approved by the U. S. Food and Drug Administration. Note for decalcified specimens: This assay has not been validated on decalcified tissues. Results should be interpreted with caution given the possibility of false negativity on decalcified specimens us Jacob Reyna MD LAB PATHOLOGY ORDERABLES Final Result PATHOLOGY [address] [place] [address] * eGFR (01/20/2023 1:07 PM CDT) eGFR 140 mL/min/1. 73 m2 [facility] NELSON Comment: Interpretive [...] interpretive data was last reviewed 2021. Blood 01/20/2023 1:07 PM CDT 01/20/2023 1:34 PM CDT Jacob Reyna MD LAB BLOOD ORDERABLES Final Resu lt Performing Organization Address [facility] Co de Phone Number [facility] [address] [place] [address] * (ABNORMAL) PTH (01/20/2023 1:07 PM CDT) PTH 8(L) 15 - 65 pg/mL [facility] Blood 01/20/2023 1:07 PM CDT 01/20/2023 1:20 PM CDT Jacob Reyna MD LAB BLOOD ORDERABLES Final Resu lt Performing Organization Address [facility] de Phone Number [facility] [address] [place] [address] * Renal function panel (01/20/2023 1:07 PM CDT) Sodium 137 135 - 145 mmol/L [facility] Potassium, pl 3.4 3.3 - 4.9 mmol/L [facility] Chloride 102 97 - 110 mmol/L [facility] CO2 24 22 - 32 mmol/L [facility] Anion gap 11 2 - 15 mmol/L [facility] BUN 10 8 - 25 mg/dL [facility] Creatinine 0.49 0.40 - 1.00 mg/dL [facility] Glucose 109 70 - 199 mg/dL [facility] Comment: Interpretive Data Fasting glucose >/= [...] 8.6 8.5 - 10.3 mg/dL [facility] Phosphorus, pl 2.9 2.3 - 4.5 mg/dL [facility] Albumin 3.9 3.5 - 5.0 g/dL [facility] Blood 01/20/2023 1:07 PM CDT 01/20/2023 1:20 PM CDT Jacob Reyna MD LAB BLOOD ORDERABLES Final Resu lt [facility] [address] [place] [address] * POCT hCG, urine (01/20/2023 8:20 AM CDT) HCG, ur, POC Negative Lot Number [id number] QC Backgroud Clear Acceptable QC Control Line Acceptable Urine 01/20/2023 8:20 AM CDT Gilles Tyler MD POINT OF CARE TEST ORDERABLES Fi nal Result documented in this encounter Visit Diagnoses Diagnosis Thyroid nodule- Primary Nontoxic uninodular goiter Thyroid nodule Nontoxic uninodular goiter Papillary thyroid carcinoma (HCC) Thyroid nodule Nontoxic uninodular goiter documented in this encounter Admitting Diagnoses Diagnosis Thyroid nodule Nontoxic uninodular goiter Papillary thyroid carcinoma (HCC) documented in this encounter Administered Medications Inactive Administered Medications - up to 3 most recent administrations Medication Order MAR Action Action Date Dose Rate Site acetaminophen (TYLENOL) 500 mg tablet - ADS Override Pull Starting on Fri01/20/23 at 0800, For 1 dose, Created by emy override acetaminophen (TYLENOL) tablet 1,000 mg 1,000 mg (20.2 mg/kg), oral, Every 6 hours scheduled, First dose on Fri01/20/23 at 1830, Indications: PainIndications:Pain Given 01/21/2023 12:39 PM CDT 1,000 mg Given 01/21/2023 5:30 AM CDT 1,000 mg Given 01/20/2023 10:40 PM CDT 1,000 mg acetaminophen (TYLENOL) tablet 500 mg 500 mg (10.1 mg/kg), oral, Once, On Fri01/20/23 at 0830, For 1 dose, Pre-Op, Indications: Pre-Emptive AnalgesiaIndications:Pre-Emp tive Analgesia Given 01/20/2023 8:15 AM CDT 500 mg bacitracin 500 unit/gram ointment packet As needed, Starting on Fri01/20/23 at 1234, Intra-Op Given 01/20/2023 12:34 PM CDT 1 Application Surgical Site calcitRIOL (ROCALTROL) capsule 0.25 mcg 0.25 mcg, oral, 2 times daily, First dose (after last modification) on Fri01/21/23 at 0900, Phase I & Post-op Floor Given 01/21/2023 8:33 AM CDT 0.25 mcg calcium carbonate (OS-MATTHEW) tablet 1,250 mg 1,250 mg (25.3 mg/kg = 500 mg of elemental calcium), oral, Every 8 hours scheduled, First dose on Fri01/20/23 at 2200, Phase I & Post-op Floor Given 01/21/2023 3:36 PM CDT 1,250 mg Given 01/21/2023 5:30 AM CDT 1,250 mg Given 01/20/2023 9:01 PM CDT 1,250 mg celecoxib (CeleBREX) 100 mg capsule - ADS Override Pull Starting on Fri01/20/23 at 0801, For 1 dose, Created by cabinet override celecoxib (CeleBREX) capsule 100 mg 100 mg (2.02 mg/kg), oral, Once, On Fri01/20/23 at 0830, For 1 dose, Pre-Op, Indications: Pre-Emptive PainIndications:Pre-Emptive Pain Given 01/20/2023 8:16 AM CDT 100 mg enoxaparin (LOVENOX) syringe 30 mg 30 mg (0.606 mg/kg), subcutaneous, Daily (for enoxaparin), First dose on Fri01/20/23 at 2100, Indications: Deep Vein Thrombosis PreventionIndications:Deep Vein Thrombosis Prevention Given 01/20/2023 9:01 PM CDT 30 mg Left Lower Abdomen HYDROmorphone (DILAUDID) 1 mg/mL injection - ADS Override Pull Starting on Fri01/20/23 at 1409, For 1 dose, Created by cabinet override HYDROmorphone (DILAUDID) injection 0.2 mg 0.2 mg (0.05200 mg/kg), intravenous, Administer over 2 Minutes, Every 10 min PRN, 1st line for pain, Starting on Fri01/20/23 at 1300, Phase I, Notify Anesthesiologist if total PACU dose reaches 2 mg and pain score 5/10 or more., Indications: PainIndications:Pain Given 01/20/2023 5:18 PM CDT 0.2 mg Given 01/20/2023 5:03 PM CDT 0.2 mg Given 01/20/2023 4:01 PM CDT 0.2 mg ibuprofen (ADVIL,MOTRIN) tablet 600 mg 600 mg (12.1 mg/kg), oral, Every 6 hours scheduled, First dose on Fri01/20/23 at 1830 Given 01/21/2023 12:3 9 PM CDT 600 mg Given 01/21/2023 5:30 AM CDT 600 mg Given 01/20/2023 10:40 PM CDT 600 mg lidocaine-EPINEPHrine (XYLOCAINE with EPI) 1 %-1:100,000 injection As needed, Starting on Fri01/20/23 at 1004, Intra-Op, Indications: Administration of Local AnesthesiaIndications:Administratio n of Local Anesthesia Given 01/20/2023 10:04 AM CDT 4 mL Surgical Site ondansetron (ZOFRAN) 4 mg/2 mL injection - ADS Override Pull Starting on Fri01/20/23 at 1720, For 1 dose, Created by cabinet override ondansetron (ZOFRAN) injection 4 mg 4 mg (0.0808 mg/kg), intravenous, Administer over 2 Minutes, Once as needed, nausea, vomiting, Starting on Fri01/20/23 at 1300, For 1 dose, Phase I Given 01/20/2023 5:21 PM CDT 4 mg ondansetron (ZOFRAN) injection 4 mg 4 mg (0.0808 mg/kg), intravenous, Administer over 2 Minutes, Every 6 hours PRN, nausea, vomiting, if not tolerating PO, Starting on Fri01/20/23 at 1749, Indications: Nausea and VomitingIndications:Nausea and Vomiting ondansetron ODT (ZOFRAN-ODT) disintegrating tablet 4 mg 4 mg (0.0808 mg/kg), oral, Every 6 hours PRN, nausea, vomiting, Starting on Fri01/20/23 at 1749, Indications: Nausea and VomitingIndications:Nausea and Vomiting oxyCODONE (ROXICODONE) tablet 5 mg 5 mg (0.101 mg/kg), oral, Every 4 hours PRN, 2nd line for pain, Starting on Fri01/20/23 at 1749, May administer 1 hour after 1st line agent for uncontrolled or increasing pain. , Indications: PainIndications:Pain Given 01/21/2023 3:36 PM CDT 5 mg Given 01/21/2023 5:33 AM CDT 5 mg Given 01/20/2023 9:01 PM CDT 5 mg sodium chloride 0.9% irrigation As needed, Starting on Fri01/20/23 at 1000, Intra-Op Given 01/20/2023 10:00 AM CDT 1,000 mL Surgical Site documented in this encounter Discontinued Medications Medication Sig Discontinue Reason Start Date End Da te cyanocobalamin (Vitamin B-12) 1,000 mcg/mL injection Inject into the muscle as instructed Other 01/09/2023 levothyroxine (SYNTHROID) 50 mcg tablet Take 7 tablets all together once a week, on the same day of the week, 1 hour apart from food or any other medications Stop Taking at Discharge 11/28/2022 01/21/2023 documented as of this encounter Active and Recently Administered Medications Times are shown in CDT. Scheduled Medication Order 01/19/2023 01/20/2023 01/21/2023 acetaminophen (TYLENOL) tablet 1,000 mg 1,000 mg (20.2 mg/kg), oral, Every 6 hours scheduled, First dose on Fri01/20/23 at 1830, Indications: Pain 1807 (Given - Provider: Jennifer Demarco)2240 (Given - Provider: Sandrita Tolentino, DORIS) 0530 (Given - Provider: Sandrita Tolentino RN)1239 (Given - Provider: Karlene Chiu RN) acetaminophen (TYLENOL) tablet 500 mg (COMPLETED) 500 mg (10.1 mg/kg), oral, Once, On Fri01/20/23 at 0830, For 1 dose, Pre-Op, Indications: Pre-Emptive Analgesia 0815 (Given - Provider: Lola Marquez, DORIS) calcitRIOL (ROCALTROL) capsule 0.25 mcg 0.25 mcg, oral, 2 times daily, First dose (after last modification) on Fri01/21/23 at 0900, Phase I & Post-op Floor 0833 (Given - Provid er: Karlene Chiu RN) calcium carbonate (OS-MATTHEW) tablet 1,250 mg 1,250 mg (25.3 mg/kg = 500 mg of elemental calcium), oral, Every 8 hours scheduled, First dose on Fri01/20/23 at 2200, Phase I & Post-op Floor 2101 (Given - Provider: Sandrita Tolenitno RN) 0530 (Given - Provider: Sandrita Tolentino RN)1536 (Given - Provider: Karlene Chiu RN) ceFAZolin (ANCEF) 1 gram/10 mL in sterile water (premix) 2,000 mg (COMPLETED) 2,000 mg (40.4 mg/kg), intravenous, at 400 mL/hr, Administer over 3 Minutes, Once, On Fri01/20/23 at 1030, For 1 dose, Pre-Op, Indications: Prophylaxis, Surgical 1004 (Given - Provider: Sagrario Tiwari CRNA) celecoxib (CeleBREX) capsule 100 mg (COMPLETED) 100 mg (2.02 mg/kg), oral, Once, On Fri01/20/23 at 0830, For 1 dose, Pre-Op, Indications: Pre-Emptive Pain 0816 (Given - Provider: Lola Marquez, DORIS) enoxaparin (LOVENOX) syringe 30 mg 30 mg (0.606 mg/kg), subcutaneous, Daily (for enoxaparin), First dose on Fri01/20/23 at 2100, Indications: Deep Vein Thrombosis Prevention 210 (Given - Provider: Sandrita Tolentino RN) ibuprofen (ADVIL,MOTRIN) tablet 600 mg 600 mg (12.1 mg/kg), oral, Every 6 hours scheduled, First dose on Fri01/20/23 at 1830 1807 (Given - Provider: Jennifer Demarco)2240 (Given - Provider: Sandrita Tolentino, DORIS) 0530 (Given - Provider: Sandrita Tolentino, DORIS)1239 (Given - Provider: Karlene Chiu RN) Continuous Medication Order 01/19/2023 01/20/2023 01/21/2023 Lactated Ringer's (LR) infusion (CANCELED) 30 mL/hr, intravenous, Continuous, Starting on Fri01/20/23 at 0830, Pre-Op 0949 (New Bag - Provider: Sagrario Tiwari CRNA)1056 (New Bag - Provider: Sagrario Tiwari CRNA)1215 (Anesthesia Volume Adjustment - Provider: Sagrario Tiwari CRNA)1749 (Stopped - Provider: Jennifer Demarco) PRN Medication Order 01/19/2023 01/20/2023 01/21/2023 bacitracin 500 unit/gram ointment packet (CANCELED) As needed, Starting on Fri01/20/23 at 1234, Intra-Op 1234 (Given - Provider: Osiris Álvarez MD) HYDROmorphone (DILAUDID) injection 0.2 mg (CANCELED) 0.2 mg (0.70527 mg/kg), intravenous, Administer over 2 Minutes, Every 10 min PRN, 1st line for pain, Starting on Fri01/20/23 at 1300, Phase I, Notify Anesthesiologist if total PACU dose reaches 2 mg and pain score 5/10 or more., Indications: Pain 1411 (Given - Provider: Tigist Lee, DORIS)1446 (Given - Provider: Tigist Lee RN)1601 (Given - Provider: Tigist Lee RN)1703 (Given - Provider: Tigist Lee, DORIS)1718 (Given - Provider: Tigist Lee, DORIS) lidocaine-EPINEPHrine (XYLOCAINE with EPI) 1 %-1:100,000 injection (CANCELED) As needed, Starting on Fri01/20/23 at 1004, Intra-Op, Indications: Administration of Local Anesthesia 1004 (Given - Provider: Jacob Reyna MD) ondansetron (ZOFRAN) injection 4 mg (COMPLETED) 4 mg (0.0808 mg/kg), intravenous, Administer over 2 Minutes, Once as needed, nausea, vomiting, Starting on Fri01/20/23 at 1300, For 1 dose, Phase I 172 (Given - Provider: Tigist Lee RN) ondansetron (ZOFRAN) injection 4 mg(Linked Group 1) 4 mg (0.0808 mg/kg), intravenous, Administer over 2 Minutes, Every 6 hours PRN, nausea, vomiting, if not tolerating PO, Starting on Fri01/20/23 at 1749, Indications: Nausea and Vomiting ondansetron ODT (ZOFRAN-ODT) disintegrating tablet 4 mg(Linked Group 1) 4 mg (0.0808 mg/kg), oral, Every 6 hours PRN, nausea, vomiting, Starting on Fri01/20/23 at 1749, Indications: Nausea and Vomiting oxyCODONE (ROXICODONE) tablet 5 mg 5 mg (0.101 mg/kg), oral, Every 4 hours PRN, 2nd line for pain, Starting on Fri01/20/23 at 1749, May administer 1 hour after 1st line agent for uncontrolled or increasing pain. , Indications: Pain 210 (Given - Provider: Sandrita Tolentino RN) 0532 (Not Given - Provider: Sandrita Tolentino RN - Reason: Other - Comment: duplicate)0533 (Given - Provider: Sandrita Tolentino RN)1536 (Given - Provider: Karlene Chiu RN) sodium chloride 0.9% irrigation (CANCELED) As needed, Starting on Fri01/20/23 at 1000, Intra-Op 1000 (Given - Provider: Jacob Reyna MD - Comment: Placed in basin on sterile field) Linked Groups Order Group 1: ondansetron ODT (ZOFRAN-ODT) disintegrating tablet 4 mgJump to med 4 mg (0.0808 mg/kg), oral, Every 6 hours PRN, nausea, vomiting, Starting on Fri01/20/23 at 1749, Indications: Nausea and Vomiting Or ondansetron (ZOFRAN) injection 4 mgJump to med 4 mg (0.0808 mg/kg), intravenous, Administer over 2 Minutes, Every 6 hours PRN, nausea, vomiting, if not tolerating PO, Starting on Fri01/20/23 at 1749, Indications: Nausea and Vomiting documented in this encounter Orders Medications Ordered That Jordan ht Not Have Been Administered Count Last Ordered Date First Ordered Date calcitRIOL (ROCALTROL) capsule 0.25 mcg 1 0 01/21/2023 bacitracin-polymyxin B (POLY SPORIN) 500-10,000 unit/gram ointment tube 1 01/20/2023 ceFAZolin (ANCEF) 1 gram/10 mL in sterile water (premix) - ADS Override Pull 1 01/20/2023 ceFAZolin (ANCEF) 1 gram/10 mL in sterile water (premix) 2,000 mg 1 01/20/2023 Lactated Ringer's (LR) infusion 1 3 Lactated Ringer's (LR) infus ion - ADS Override Pull 1 01/20/2023 naloxone (NARCAN) 0.4 mg/mL injection 0.04-0.4 mg 1 01/20/2023 ondansetron (ZOFRAN) injection 4 mg 1 01/20 ondansetron ODT (ZOFRAN-ODT) disintegrating tablet 4 mg 1 01/20/2023 sodium chloride 0.9% flush 0.5-20 mL 2 12/29 Admission Count Last Ordered Date First Orde red Date INITIATE OUTPATIENT IN A BED 1 01/21/2023 ADMIT TO INPATIENT 1 01/20/2023 Discharge Count Last Ordered Date First Orde red Date DISCHARGE PATIENT 1 01/21/2023 documented in this encounter Care Teams Kennel Aide Relationship Specialty Start Date End Date John Paul Domínguez MD [address] [place] [address] PCP - General Family Medicine 10/16/22 documented as of this encounter
--- OUTSIDE RECORDS SUMMARY | 2024-09-16 12:11 | XMS_ITS | Encounter Summary ---
Author Organization [facility] Healthcare Address [address] [place] [address] Care Team Providers Care Signal Helper Name Role Phone John Paul Domínguez MD Primary Care Provider [phone] Encounter Details Date Type Department Care Team (Latest Contact Info) Description 11/26/2022 2:47 PM NURSING UNIT COORDINATOR - 11/26/2022 11:59 PM NURSING UNIT COORDINATOR Hospital Encounter [address] [address] Mulugeta's thyroiditis Discharge Disposition: Discharge to home or self care Social History Tobacco Use Types Packs/Day Years Used Date Smoking Tobacco: Never AUDIT-C Answer Date Recorded Frequency of Alcohol Consumption Not on file 11/26/2022 Q2: How many drinks containi ng alcohol do you have on a typical day when you are drinking? Patient does not drink 3 Frequency of Binge Drinking Not on file 10/31 Comments Unknown Sex and Gender Information Value Date Recorded Sex Assigned at Not on file Legal Sex Female 3:09 AM NURSING UNIT COORDINATOR Gender Identity Not on file Sexual Orientation Not on file documented as of this encounter Medications at Time of Discharge cyanocobalamin (Vitamin B-12) 1,000 mcg tablet Take 1 tablet (1,000 mcg total) by mouth daily 11/15/2022 4 cyanocobalamin (Vitamin B-12) 1,000 mcg/mL injection Inject into the muscle as instructed 3 folic acid (FOLVITE) 1 mg tablet Take 1 tablet (1,000 mcg total) by mouth daily 11/08/2022 4 levothyroxine (SYNTHROID) 50 mcg tablet Take 50 mcg by mouth daily 09/25/2022 3 documented as of this encounter Discharge Disposition Disposition Code Departure Means Destination Discharge to home or self care documented in this encounter Plan of Treatment Not on file documented as of this encounter Procedures Procedure Name Priority Date/Time Associated Diagnosis Comments THYROID PEROXIDASE ANTIBODY Routine 11/26/2022 2:47 PM NURSING UNIT COORDINATOR Mulugeta's thyroiditis TSH Routine 11/26/2022 2:47 PM NURSING UNIT COORDINATOR Mulugeta's thyroiditis T4, FREE Routine 11/26/2022 2:47 PM NURSING UNIT COORDINATOR Mulugeta's thyroiditis documented in this encounter Results * T4, free (11/26/2022 2:47 PM NURSING UNIT COORDINATOR) Free T4 1.00 0.90 - 1.70 ng/dL [facility] Blood 11/26/2022 2:47 PM NURSING UNIT COORDINATOR 11/26/2022 6:06 PM NURSING UNIT COORDINATOR us Joseph Freeman MD LAB BLOOD ORDERABLES Final Resul t [facility] NELSON [address] Department of Laboratories [place], [place] [id number] * (ABNORMAL) Thyroid peroxidase antibody (TPO) (11/26/2022 2:47 PM NURSING UNIT COORDINATOR) Anti Thyroid Peroxidase 196(H) <=34 units/mL [facility] NLESON Comment: ATPO Interpretive Data Results may be up to 28% higher in patients receiving Itraconazole. Current interpretive data was last revised 2020. Testing performed by: [facility], [address] [facility], [place]., [address] Blood 11/26/2022 2:47 PM NURSING UNIT COORDINATOR 11/27/2022 9:58 AM NURSING UNIT COORDINATOR us Joseph Freeman MD LAB BLOOD ORDERABLES Final Resul t Performing Organization Address City/[facility]/ZIP Co de Phone Number [facility] NELSON [address] [employer] [place], [place] [phone] * (ABNORMAL) TSH (11/26/2022 2:47 PM NURSING UNIT COORDINATOR) Thyroid Stimulating Hormone 24.00(H) 0.30 - 4.20 mcIUnit/mL [facility] NELSON Blood 11/26/2022 2:47 PM NURSING UNIT COORDINATOR 11/26/2022 6:06 PM NURSING UNIT COORDINATOR Joseph Freeman MD LAB BLOOD ORDERABLES Final Resul t Performing Organization Address [facility] Co de Phone Number [facility] NELSON [address] [address] [place] [address] documented in this encounter Visit Diagnoses Diagnosis Mulugeta's thyroiditis Chronic lymphocytic thyroiditis documented in this encounter Care Teams Signal Helper Relationship Specialty Start Date End Date John Paul Domínguez MD [address] [place] [address] PCP - General Family Medicine 10/16/22 documented as of this encounter
--- OUTSIDE RECORDS SUMMARY | 2024-09-16 12:11 | XMS_ITS | Encounter Summary ---
Author Organization [facility] Address [address] [place] [address] Phone Care Team Providers Care Rag Sorter And Cutter Name Role Phone John Paul Domínguez MD Primary Care Provider [phone] Reason for Referral * Diagnostic Imaging (Routine) - Closed Specialty Diagnoses / Procedures Referred By Gracia carrillo Referred To Contact Diagnoses Thyroid cancer (HCC) Procedures US Thyroid Jacob Reyna MD [address] [address] Referral ID Status Reason Start Date Expiration Date Visits Re quested Visits Authorized [id number] Closed 12/11/2022 01/10/2024 1 1 Reason for Visit * Reason Comments Thyroid Cancer * Consultation (Routine) - Closed Specialty Diagnoses / Procedures Referred By Garcia carrillo Referred To Contact Otolaryngology Diagnoses Thyroid [place]ule [place] [id number] [place] [address] [address] [place] [address] Phone: tel: fax: Jacob Reyna MD Referral ID Status Reason Start Date Expiration Date V isits Requested Visits Authorized [id number] Closed Specialty Services Required 11/26/2022 12/26/2023 12 12 Encounter Details Date Type Department Care Team (Late st Contact Info) Description 12/11/2022 10:00 AM CDT Office Visit [facility]) - [facility] ENT [address] [facility] Medical Office Building [address] [place] [address] Jacob Reyna MD Thyroid cancer (CMS/HCC) (HCC) (Primary Dx); Thyroid nodule Social History Tobacco Use Types Packs/Day Years Used Date Smoking Tobacco: Never Tobacco Cessation:Counseling Given: Not Answered AUDIT-C Answer Date Recorded Frequency of Alcohol Consumption Not on file 11/26/2022 Q2: How many drinks containi ng alcohol do you have on a typical day when you are drinking? 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 Gender Identity Not on file Sexual Orientation Not on file documented as of this encounter Last Filed Vital Signs Vital Sign Reading Time Taken Comments Blood Pressure 122/83 12/11/2022 9:58 AM CDT Pulse 94 12/11/2022 9:58 AM CDT Temperature - - Respiratory Rate - - Oxygen Saturation - - Inhaled Oxygen Concentration - - Weight 49.5 kg (109 lb 3.2 oz) 12/11/2022 9:58 A M CDT Height 152.4 cm (5') 12/11/2022 9:58 AM CDT Body Mass Index 21.33 12/11/2022 9:58 AM CDT Body Mass Index Percentile 49.25% 12/11/2022 9:5 8 AM CDT Growth Chart: [facility] (Girls, 2- 20 Years) documented in this encounter Progress Notes * Jacob Reyna MD - 12/11/2022 10:00 AM CDT I had the pleasure of seeing Rubi in consultation for thyroid cancer. Please see my documentation below for details. Otolaryngology - Head & Neck Surgery Clinic New Patient Subjective Rubi Baca is a 17 y.o. female who presents with papillary thyroid cancer. Has a palpable left thyroid nodule. Biopsied, underwent genetic testing which demonstrated multiple mutations with 95% likelihood of PTC. No family history of thyroid cancer, no radiation history, otherwise healthy. 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 Past Medical History: Diagnosis Date Anemia Iron deficiency anemia Vitamin B12 deficiency Patient Active Problem List Diagnosis Cough B12 deficiency anemia Iron deficiency anemia due to chronic blood loss Thyroid nodule Mulugeta's thyroiditis Past Surgical History: Procedure Laterality Date NO PAST SURGERIES Social History Tobacco Use Smoking status: Never Smokeless tobacco: None Substance and Sexual Activity Drug use: Never Sexual activity: None Alcohol Use: Unknown Frequency of Alcohol Consumption: Not on file Average Number of Drinks: Patient does not drink Frequency of Binge Drinking: Not on file Family History Problem Relation Age of Onset Vitamin D deficiency Mother Iron deficiency Mother No Known Allergies (Not in a hospital admission) Review of Systems A complete past medical history, family history, social history, and 10 system review of systems was completed by the patient on the Patient History Form and reviewed with the patient during the visit on 12/11/2022. All review of systems not otherwise marked on the form are negative. The Patient History Form can be found in the electronic medical record as a scanned document. Records FNA path reviewed, see HPI Objective Physical Exam: Vitals: 12/11/22 0958 BP: 122/83 BP Location: Right arm Patient Position: Sitting Pulse: 94 Weight: 49.5 kg (109 lb 3.2 oz) Height: 152.4 cm (5') General: No apparent distress, well-nourished Head and [...] wheeze. Neurologic: Alert and oriented, face symmetric Flexible Laryngoscopy Informed consent for flexible laryngoscopy was provided. 5mL of topical oxymetazoline and 50mg of 4% topical lidocaine were used as a decongestant and anesthetic, respectively. The flexible fiberoptic nasopharyngoscope was used to examine the nasal cavity bilaterally, the nasopharynx, the oropharynx, larynx and the hypopharynx. Fiberoptic exam demonstrated clear nasal mucosa, patent Eustachian tubes bilaterally, no prominent adenoid pad, symmetric pharyngeal mucosa without masses or lesions, clear vallecula bilaterally, no evidence of laryngeal masses or lesions. The true vocal cords abduct and adduct symmetrically with good glottic closure. Overall patent airway. The patient tolerated the procedure well. Assessment /Plan Assessment and Plan: 17 y.o. year old female with left 2cm thyroid nodule 95% likelihood of papillary thyroid carcinoma. Given her age, Mulugeta's, and that she is already on thyroid hormone replacement, recommended total thyroidectomy. Will order ultrasound of central and lateral necks to assess for lymphadenopathy. Plan on OR in late December per patient request which I think is reasonable. We discussed the risks, benefits, and alternatives for total thyroidectomy. The risks include, but are not limited to, pain, scar, bleeding, hypocalcemia (possibly requiring life-long calcium supplementation), recurrent laryngeal nerve injury (temporary or permanent), need for thyroid hormone supplementation, and need for general anesthesia. Will admit overnight. The note in its entirety has been confirmed by me, the attending physician. Parts of the note were initially recorded by my staff. Jacob Reyna M.D. Civil Drafting Technician Department of Otolaryngology-Head and Neck Surgery [facility] Clinic phone: E-mail: [email or web address] 12/11/2022 documented in this encounter Plan of Treatment Not on file documented as of this encounter Results * US Thyroid (12/23/2022 2:21 PM CDT) Anatomical Region Laterality Modality Head and Neck N/A Ultrasound 12/23/2022 2:29 PM CDT Impressions 12/23/2022 2:29 PM CDT 1. ??Increased flow in the thyroid suggestive of thyroiditis. 2. ??Multiple TR 3 nodules. ??Suggest follow-up imaging in 12 months. Electronically signed by: Dionisio Mujica II, D.O. Narrative 12/23/2022 2:29 PM CDT EXAM: THYROID ULTRASOUND DATE: 12/23/2022 10:00 AM CLINICAL HISTORY: Thyroid cancer TECHNIQUE: Multiple ultrasonographic images of the thyroid gland were obtained by the technologist and submitted for review. COMPARISON: No prior study is available for comparison. FINDINGS: Right thyroid lobe: ?? 5.1 x 1.4 x 1.7 cm Left thyroid lobe: ? 5.4 x 1.9 x 1.7 cm Isthmus: ? 0.4 cm The thyroid is heterogeneous in appearance. ??Increased flow is demonstrated within the thyroid, which may represent thyroiditis. The following thyroid nodules are demonstrated: Right 0.8 x 0.6 x 0.7 cm TR3 nodule. Left 2.3 x 1.3 x 2.3 cm TR3 nodule. Left 1.0 x 0.5 x 1.0 cm TR 3 nodule. Left 1.5 x 0.9 x 1.2 cm TR 3 nodule. Procedure Note Dionisio Mujica II, DO - 12/23/2022 EXAM: THYROID ULTRASOUND DATE: 12/23/2022 10:00 AM CLINICAL HISTORY: Thyroid cancer TECHNIQUE: Multiple ultrasonographic images of the thyroid gland were obtained by the technologist and submitted for review. COMPARISON: No prior study is available for comparison. FINDINGS: Right thyroid lobe: 5.1 x 1.4 x 1.7 cm Left thyroid lobe: 5.4 x 1.9 x 1.7 cm Isthmus: 0.4 cm The thyroid is heterogeneous in appearance. Increased flow is demonstrated within the thyroid, which may represent thyroiditis. The following thyroid nodules are demonstrated: Right 0.8 x 0.6 x 0.7 cm TR3 nodule. Left 2.3 x 1.3 x 2.3 cm TR3 nodule. Left 1.0 x 0.5 x 1.0 cm TR 3 nodule. Left 1.5 x 0.9 x 1.2 cm TR 3 nodule. IMPRESSION: 1. Increased flow in the thyroid suggestive of thyroiditis. 2. Multiple TR 3 nodules. Suggest follow-up imaging in 12 months. Electronically signed by: Dionisio Mujica II, D.O. us Jacob Reyna MD [facility] US PROCEDURES Final Result documented in this encounter Visit Diagnoses Diagnosis Thyroid cancer (HCC)- Primary Malignant neoplasm of thyroid gland Thyroid nodule Nontoxic uninodular goiter Thyroid cancer (HCC) Malignant neoplasm of thyroid gland documented in this encounter Orders Outpatient Referral Count Last Ordered Date Fir st Ordered Date AMB REFERRAL TO ENT 1 12/11/2022 documented in this encounter Care Teams Rag Sorter And Cutter Relationship Specialty Start Date End Date John Paul Domínguez MD [address] [place] [address] PCP - General Family Medicine 10/16/22 documented as of this encounter
--- OUTSIDE RECORDS SUMMARY | 2024-09-16 12:11 | XMS_ITS | Encounter Summary ---
Author Organization [facility] Healthcare Address [address] [place] [address] Care Team Providers Care Is Technician Name Role Phone John Paul Domínguez MD Primary Care Provider [phone] Reason for Referral * Diagnostic Imaging (Routine) - Closed Specialty Diagnoses / Procedures Referred By Contac t Referred To Contact Diagnoses Thyroid cancer (HCC) Procedures Thyroid Jacob Reyna MD [address] [address] Referral ID Status Reason Start Date Expiration Date Visits Re quested Visits Authorized [id number] Closed 12/11/2022 01/10/2024 1 1 Reason for Visit * Diagnostic Imaging (Routine) - Closed Specialty Diagnoses / Procedures Referred By Contac t Referred To Contact Diagnoses Thyroid cancer (HCC) Procedures Thyroid Jacob Reyna MD [address] [address] Referral ID Status Reason Start Date Expiration Date Visits Re quested Visits Authorized [id number] Closed 12/11/2022 01/10/2024 1 1 Encounter Details Date Type Department Care Team (Latest Contact Info) Description 12/23/2022 10:00 AM CDT - 12/23/2022 11:59 PM CDT Hospital Encounter [address] [address] Thyroid cancer (CMS/HCC) (HCC) Discharge Disposition: Discharge to home or [...] on file 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 Gender Identity Not on file Sexual [...] 4 levothyroxine (SYNTHROID) 50 mcg tablet Take 7 tablets all together once a week, on the same day of the week, 1 hour apart from food or any other medications 30 tablet 3 11/28/2022 3 oxyCODONE (ROXICODONE) 5 mg immediate release tabletIndication s:Pain Take 1 tablet (5 mg total) by mouth every 4 (four) hours as needed for pain (for pain not controlled by tylenol or ibuprofen) 20 tablet 01/21/2023 3 documented as of this encounter Discharge Disposition Disposition Code Departure Means Destination Discharge to home or self care documented in this encounter Plan of Treatment Not on file documented as of this encounter Procedures Procedure Name Priority Date/Time Associated Diagnosis Comments US THYROID Schedule Routine, Read Routine (OP Routine) 12/23/2022 2:21 PM CDT Thyroid cancer (CMS/HCC) (HCC) documented in this encounter Results * US Thyroid (12/23/2022 [...] Mujica II, D.O. us Jacob Reyna MD IMG US PROCEDURES Final Result documented in this encounter Visit Diagnoses Diagnosis Thyroid cancer (HCC) Malignant neoplasm of thyroid gland documented in this encounter Care Teams Is Technician Relationship Specialty Start Date End Date John Paul Domínguez MD [address] [facility] [place] [address] PCP - General Family Medicine 10/16/22 documented as of this encounter
--- OUTSIDE RECORDS SUMMARY | 2024-09-16 12:11 | XMS_ITS | Encounter Summary ---
Author Organization [facility] Address [address] [facility] [address] [place] [address] Care Team Providers Care Instrument Mechanic Name Role Phone John Paul Domínguez MD Primary Care Provider Encounter Details Date Type Department Care Team (Late st Contact Info) Description 11/26/2022 4:45 PM BIOMETRICS ANALYST Lab [facility] Outpatient Lab at [address] [address] Mulugeta's thyroiditis Social History Tobacco Use Types [...] on file Legal Sex Female 3:09 AM BIOMETRICS ANALYST Gender Identity Not on file Sexual Orientation Not on file documented as of this encounter Plan of Treatment Not on file documented as of this encounter Visit Diagnoses Diagnosis Mulugeta's thyroiditis Chronic lymphocytic thyroiditis documented in this encounter Care Teams Instrument Mechanic Relationship Specialty Start Date End Date John Paul Domínguez MD [address] [place] [address] PCP - General Family Medicine 10/16/22 documented as of this encounter
--- OUTSIDE RECORDS SUMMARY | 2024-09-16 12:11 | XMS_ITS | Encounter Summary ---
Author Organization [facility] Address [address] [facility] [address] [place] [address] Care Team Providers Care Lang Interpreter Name Role Phone John Paul Domínguez MD Primary Care Provider [phone] Reason for Visit * Reason Onset Date Comments New Patient Packet Mailed 10/17/2022 Encounter Details Date Type Department Care Team (Late st Contact Info) Description 10/17/2022 Telephone [facility] Special[facility] [address] [facility] [address], [place] [address] Joseph Freeman MD [id number] [place] [address] [address], [place] [address] New Patient Packet Mailed Social History Tobacco Use Types Packs/Day Years Used Date Smoking Tobacco: Never Assessed Comments Unknown Sex and Gender Information Value Date Recorded Sex Assigned at Not on file Legal Sex Female 3:09 AM DREDGE DECKHAND Gender Identity Not on file Sexual Orientation Not on file documented as of this encounter Miscellaneous Notes * Telephone Encounter - Deepak Steward - 10/17/2022 4:37 PM CST mailed police booking officer pkt to the address on file GE DECKHAND documented in this encounter Plan of Treatment Not on file documented as of this encounter Visit Diagnoses Not on filedocumented in this encounter Care Teams Lang Interpreter Relationship Specialty Start Date End Date John Pual Domínguez MD [address] [place] [address] PCP - General Family Medicine 10/16/22 documented as of this encounter
--- OUTSIDE RECORDS SUMMARY | 2024-09-16 12:11 | XMS_ITS | Encounter Summary ---
Author Organization [facility] Address [address] [place] [address] Phone Care Team Providers Care Supervisor Tumblers Name Role Phone John Paul Domínguez MD Primary Care Provider [phone] Encounter Details Date Type Department Care Team (Late st Contact Info) Description 01/23/2023 Orders Only [facility]) - [facility] ENT [address] 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 Reyna requested lab work to be done for low levels. documented in this encounter Miscellaneous Notes * Addendum Note - Beata Caraballo CLT - 01/23/2023 7:33 AM CDTAddended by: BEATA CARABALLO on: 01/24/2023 02:28 PM Modules accepted: Orders documented in this encounter Plan of Treatment Not on file documented as of this encounter Results * Basic metabolic panel (01/24/2023 2:29 PM CDT) Sodium 138 135 - 145 mmol/L [facility] Potassium, pl 4.1 3.3 - 4.9 mmol/L [facility] Chloride 99 97 - 110 mmol/L [facility] CO2 27 22 - 32 mmol/L [facility] Anion gap 12 2 - 15 mmol/L [facility] BUN 11 8 - 25 mg/dL [facility] Creatinine 0.54 0.40 - 1.00 mg/dL [facility] Glucose 95 70 - 199 mg/dL [facility] Comment: [...] 9.0 8.5 - 10.3 mg/dL [facility] Blood 01/24/2023 2:29 PM CDT 01/24/2023 4:38 PM CDT Jacob Reyna MD LAB BLOOD ORDERABLES Final Resu lt [facility] NELSON [address] [place] [address] * (ABNORMAL) PTH (01/24/2023 2:29 PM CDT) PTH 9(L) 15 - 65 pg/mL [facility] Blood 01/24/2023 2:29 PM CDT 01/24/2023 4:38 PM CDT us Jacob Reyna MD LAB BLOOD ORDERABLES Final Resu lt Performing Organization Address [facility] Co de Phone Number CHRIS NELSON [address] [address] [place] [address] documented in this encounter Visit Diagnoses Diagnosis Thyroid nodule- Primary Nontoxic uninodular goiter documented in this encounter Care Teams Supervisor Tumblers Relationship Specialty Start Date End Date John Paul Domínguez MD [facility] [place] [address] PCP - General Family Medicine 10/16/22 documented as of this encounter
--- OUTSIDE RECORDS SUMMARY | 2024-09-16 12:11 | XMS_ITS | Encounter Summary ---
Author Organization [facility] Healthcare Address [address] [place] [address] Care Team Providers Care Conservation Worker Name Role Phone John Paul Domínguez MD Primary Care Provider + [phone] Reason for Visit * Auth/Cert (Routine) Specialty Diagnoses / Procedures Referred By Garcia t Referred To Contact Diagnoses Thyroid nodule Thyroid nodule [E04.1] Procedures [place] THYROIDECTOMY TOTAL/COMPLETE THYROIDECTOMY/ 150 min Referral ID Status Reason Start Date Expiration Date Visits Re quested Visits Authorized [id number] 1 1 Encounter Details Date Type Department Care Team (Latest Contact Info) Description 01/20/2023 7:46 AM CDT - 01/21/2023 4:10 PM CDT Hospital Encounter [facility] [id number] [place] [id number] Jacob Reyna MD Papillary thyroid carcinoma (CMS/HCC) (HCC) (Primary Dx); Thyroid nodule Discharge Disposition: Discharge to home or self [...] on file 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 Gender Identity Not on file Sexual Orientation Not on file documented as of this encounter Last Filed Vital Signs Vital Sign Reading Time Taken Comments Blood Pressure 125/89 01/21/2023 7:25 AM CDT Pulse 83 01/21/2023 7:25 AM CDT Temperature 36.8 ??C (98.2 ??F) 01/21/2023 7:25 AM CD T Respiratory Rate 18 01/21/2023 7:25 AM CDT Oxygen Saturation 100% 01/21/2023 7:25 AM CDT Inhaled Oxygen Concentration - - Weight 52.2 kg (115 lb) 01/20/2023 5:50 PM CDT Height 152.4 cm (5') 01/20/2023 5:50 PM CDT Body Mass Index 22.46 01/20/2023 5:50 PM CDT Body Mass Index Percentile 61.94% 01/20/2023 5:5 0 PM CDT Growth Chart: [facility] (Girls, 2- 20 Years) documented in this encounter Discharge Instructions * Discharge Instructions* Last, Osiris Fletcher MD - 01/20/2023 1:20 PM CDT ENT [...] visit. - Stool Softener: Take stool softener (Fnwi-fxd-rnemldi or prescription) while taking narcotic medication to prevent constipation. Laxatives not recommended. Follow up Labs: If you were given prescriptions for labs please get them either the morning of yourappointment or the day before so your doctor has them at the time of your appointment. YOU CAN GET YOUR LABS DRAWN AT ANY [facility] OR AT ANY OTHER LAB [...] or contact the main office line at [phone]. Follow up: You should follow up in Jacob Rea MD's clinic as scheduled below. Future Appointments Date Time Provider Department Center 01/31/2023 11:00 AM Jacob Reyna MD [facility] Phone numbers Office Number: Urgent Concerns After hours or Weekends: Call and ask for the ENT resident plumbing contractor. Questions: If you have any concerns or [...] home this afternoon with mother at bedside. [facility] brought patient's prescriptions to bedside. [...] WITH CONTINUOUS LARYNGEAL NERVE MONITORING Patient location: [facility] Surgical Floor Last vitals: Vitals: 01/21/23 0725 [...] The patient was taken to Operating Room OPERATING ROOM 1, identified as Rubichavez Baca and staff verified the following Procedure(s) [...] laryngeal nerve was identified and preserved. The thyroidlobe was mobilized further and the superior and inferior pole vessels were divided with the harmonic scalpel. The middle thyroid vein was divided with the harmonic scalpel. Small vessels were likewise divided. The gland was rotated in a medial direction and taken off the trachea using the harmonic [...] Implant Name Type Inv. Item Serial No. Fabrication Manager Lot No. LRB No. Used Action [employer] SLS-CLIP LIGATE TRIANGULAR WIRE JANAE GROOVE SMALL CHEVRON CLIP LATEX FREE [id number] - [id number] [employer] Sls-clip Ligate Triangular Wire Janae Groove Small Chevron Clip Latex Free [id number] [employer] [id number] N/A 3 Implanted Complications: None; patient tolerated the procedure well. Disposition: PACU - hemodynamically stable. Condition: stable Attending Attestation: I was present and scrubbed for the entire procedure. Jacob Reyna MD * Pre-Procedure Instructions - Soniya Mcelroy RN - 01/09/2023 12:25 PM CDT We are pleased that you and your doctor have chosen [facility] for your surgery. We hope that the following information will help make your visit a pleasant one. Surgery Date: 01/20/2023 arrive at 0730am [facility] Surgery [facility] (look for sign reading ???EMERGENCY - SURGERY CENTER?? ) [address] [place] [address] Before your surgery: Notify your doctor of [...] at the desk that you came to sweet pickled fruit maker your soap for your surgery. Or you [...] is not recommended by your physician). Fish Oil/[place] 3, Co Q 10, Cod Liver Oil, [...] insurance cards, and medication list (including all luqi-kka-ttgdrwn medications) with you. Prescriptions can be filled [...] 2022. Calcium 9.0 8.5 - 10.3 mg/dL [facility] Phosphorus, pl 4.6(H) 2.3 - 4.5 mg/dL [facility] Albumin 4.2 3.5 - 5.0 g/dL [facility] Blood (Blood, Venous) 01/31/2023 11:25 AM CDT 01/31/2023 12:05 PM CDT Jacob Reyna MD LAB BLOOD ORDERABLES Final Resu lt Performing Organization Address [facility] de Phone Number [facility] [address] Department [place] [address] * ECG 12 lead (01/21/2023 7:19 AM CDT) 01/21/2023 7:19 AM CDT Narrative [facility] - 01/21/2023 8:04 AM CDT Vent Rate: 71 bpm RR Interval: 835 msec [place] Interval: 124 msec QRS Duration: 78 msec QT Interval: 369 msec QTC Interval: 392 msec P-R-T Vian: 68 - 86 - 69 degrees SINUS RHYTHM WITH SINUS ARRHYTHMIA NORMAL ECG Electronically Signed By: Milo Glover MD Jacob Reyna MD ECG ORDERABLES Final Result Performing Organization Address [facility] de Phone Number [facility] * eGFR (01/21/2023 5:50 AM CDT) eGFR [...] MD LAB BLOOD ORDERABLES Final Resu lt [facility] [address] Department [place] [address] * (ABNORMAL) Basic metabolic panel (01/21/2023 5:50 AM CDT) Sodium 136 135 - 145 mmol/L [facility] Potassium, pl 3.6 3.3 - 4.9 mmol/L [facility] Chloride 101 97 - 110 mmol/L [facility] CO2 24 22 - 32 mmol/L [facility] Anion gap 11 2 - 15 mmol/L [facility] BUN 12 8 - 25 mg/dL [facility] Creatinine 0.57 0.40 - 1.00 mg/dL [facility] Glucose 94 70 - 199 mg/dL [facility] Comment: [...] Calcium 7.9(L) 8.5 - 10.3 mg/dL [facility] Blood 01/21/2023 5:50 AM CDT 01/21/2023 6:02 AM CDT us Jacob Reyna MD LAB BLOOD ORDERABLES Final Resu lt [facility] [id number] [place] [address] Department [place] [address] * Surgical pathology (01/20/2023 3:13 PM CDT) Tissue (Thyroid, Resection, Partial/Total) 01/20/2023 11:20 AM CDT Tissue (Parathyroid Gland) 01/20/2023 11:48 AM CDT Tissue (Thyroid, Resection, Partial/Total) 01/20/2023 12:03 PM CDT Narrative PATHOLOGY CH - 01/22/2023 4:14 PM CDT EPIC results best viewed via link to PDF [facility] Department of Pathology [address] [place] [address] Note to Patients: This report may [...] Report Patient Name: ??RUBI BACA Address: ??[address], ??[place], [place] [address] Gender: ??F : ??2005 (Age: 17) Service: ??Surgery Location: [facility] #: ??[id number] Patient Type: ??CH EP OP in bed Accession # [id number] Taken: ??01/20/2023 Received: ??01/20/2023 Accessioned: ??01/20/2023 Reported: [...] ??Entirely submitted: ??Nodule C1, remaining tissue C3-C6 T.iMke Swanson R.N., P.A. REPORT IMAGES AND SCANNED DOCUMENTS, IF INCLUDED, ONLY VIEWABLE IN PDF VERSION OF REPORT The performance characteristics of some immunohistochemical stains, fluorescence in-situ hybridization tests and immunophenotyping by flow cytometry cited in this report (if any) were determined by the Surgical Pathology Department at [facility] as part of an ongoing aircraft quality control inspector program and in compliance with federally mandated [...] characteristics determined by the Surgical Pathology Department [facility]. ??It has not been cleared or approved by the U. S. Food and Drug Administration. Note for decalcified specimens: This assay has not been validated on decalcified tissues. Results should be interpreted with caution given the possibility of false negativity on decalcified specimens us Jacob Reyna MD LAB PATHOLOGY ORDERABLES Final Result PATHOLOGY [address] [place] [address] * eGFR (01/20/2023 1:07 PM CDT) eGFR [...] ORDERABLES Final Resu lt Performing Organization Address City/[facility]/ZIP Co de Phone Number [facility] [address] [email or web address] [address] * (ABNORMAL) PTH (01/20/2023 1:07 PM CDT) PTH 8(L) 15 - 65 pg/mL [facility] Blood 01/20/2023 1:07 PM CDT 01/20/2023 1:20 PM CDT Jacob Reyna MD LAB BLOOD ORDERABLES Final Resu lt Performing Organization Address [facility] Co de Phone Number [facility] [address] [email or web address] [address] * Renal function panel (01/20/2023 1:07 PM CDT) Sodium 137 135 - 145 mmol/L [facility] Potassium, pl 3.4 3.3 - 4.9 mmol/L [facility] Chloride 102 97 - 110 mmol/L [facility] CO2 24 22 - 32 mmol/L [facility] Anion gap 11 2 - 15 mmol/L [facility] BUN 10 8 - 25 mg/dL [facility] Creatinine 0.49 0.40 - 1.00 mg/dL [facility] Glucose 109 70 - 199 mg/dL [facility] Comment: [...] 2022. Calcium 8.6 8.5 - 10.3 mg/dL [facility] Phosphorus, pl 2.9 2.3 - 4.5 mg/dL [facility] Albumin 3.9 3.5 - 5.0 g/dL [facility] Blood 01/20/2023 1:07 PM CDT 01/20/2023 1:20 PM CDT Jacob Reyna MD LAB BLOOD ORDERABLES Final Resu lt [facility] [address] Department [place] [address] * POCT hCG, urine (01/20/2023 8:20 AM CDT) HCG, ur, POC Negative Lot Number [id number] QC Backgroud Clear Acceptable QC Control Line Acceptable Urine 01/20/2023 8:20 AM CDT Gilles Tyler MD POINT OF CARE TEST ORDERABLES Fi nal Result documented in this encounter Visit Diagnoses Diagnosis Thyroid nodule- Primary Nontoxic uninodular goiter Thyroid nodule Nontoxic uninodular goiter Papillary thyroid carcinoma (HCC) Papillary thyroid carcinoma (HCC) documented in this encounter Admitting Diagnoses Diagnosis Thyroid nodule Nontoxic uninodular goiter Papillary thyroid carcinoma (HCC) documented in this encounter Administered Medications Inactive Administered Medications - up to 3 most recent administrations Medication Order MAR Action Action Date Dose Rate Site acetaminophen (TYLENOL) 500 mg tablet - ADS Override Pull Starting on Fri01/20/23 at 0800, For 1 dose, Created by cabinet override acetaminophen (TYLENOL) tablet 1,000 mg 1,000 [...] 0830, For 1 dose, Pre-Op, Indications: Pre-Emptive AnalgesiaIndications:Pre-Emptive Analgesia Given 01/20/2023 8:15 AM CDT 5 00 mg calcitRIOL (ROCALTROL) capsule 0.25 mcg 0.25 mcg, [...] at 1409, For 1 dose, Created by emy override HYDROmorphone (DILAUDID) injection 0.2 mg 0.2 mg (0.48350 mg/kg), intravenous, Administer over 2 Minutes, Every [...] Given 01/20/2023 10:40 PM CDT 600 mg ondansetron (ZOFRAN) 4 mg/2 mL injection - ADS Override Pull Starting on Fri01/20/23 at 1720, For 1 dose, Created by emy override ondansetron (ZOFRAN) injection 4 mg 4 [...] 6 hours PRN, nausea, vomiting, Starting on 4/24/23 at 1749, Indications: Nausea and VomitingIndications:Nausea and [...] Given 01/20/2023 9:01 PM CDT 5 mg documented in this encounter Discontinued Medications Medication [...] Pre-Emptive Analgesia 0815 (Given - Provider: Lola Marquez RN) calcitRIOL (ROCALTROL) capsule 0.25 mcg 0.25 mcg, [...] at 2200, Phase I & Post-op Floor 210 (Given - Provider: Sandrita Tolentino RN) 0530 (Given - Provider: Sandrita Tolentino [...] Pre-Emptive Pain 0816 (Given - Provider: Lola Marquez RN) enoxaparin (LOVENOX) syringe 30 mg 30 mg (0.606 mg/kg), subcutaneous, Daily (for enoxaparin), First dose on Fri01/20/23 at 2100, Indications: Deep Vein Thrombosis Prevention 2100 (Given - Provider: Sandrita Tolentino RN) ibuprofen (ADVIL,MOTRIN) tablet 600 mg 600 mg (12.1 mg/kg), oral, Every 6 hours scheduled, First dose on Fri01/20/23 at 1830 1807 (Given - Provider: Jennifer Demarco)2240 (Given - Provider: Sandrita Tolentino RN) 0530 (Given - Provider: Sandrita Tolentino RN)1239 (Given - Provider: Karlene Chiu RN) Continuous [...] (DILAUDID) injection 0.2 mg (CANCELED) 0.2 mg (0.83917 mg/kg), intravenous, Administer over 2 Minutes, Every 10 min PRN, 1st line for pain, Starting on Fri01/20/23 at 1300, Phase I, Notify Anesthesiologist if total PACU dose reaches 2 mg and pain score 5/10 or more., Indications: Pain 1411 (Given - Provider: Tigist Lee RN)1446 (Given - Provider: Tigist Lee RN)1601 (Given - Provider: Tigist Lee RN)1703 (Given - Provider: Tigist Lee RN)1718 (Given - Provider: Tigist Lee RN) lidocaine-EPINEPHrine (XYLOCAINE with EPI) 1 %-1:100,000 injection (CANCELED) As needed, Starting on Fri01/20/23 at 1004, Intra-Op, Indications: Administration of Local Anesthesia 1004 (Given - Provider: Jacob Reyna MD) ondansetron (ZOFRAN) injection 4 mg (COMPLETED) 4 mg (0.0808 mg/kg), intravenous, Administer over 2 Minutes, Once as needed, nausea, vomiting, Starting on Fri01/20/23 at 1300, For 1 dose, Phase I 1721 (Given - Provider: Tigist Lee RN) ondansetron [...] uncontrolled or increasing pain. , Indications: Pain 2100 (Given - Provider: Sandrita Tolentino RN) 0532 [...] (ROCALTROL) capsule 0.25 mcg 1 0 01/21/2023 bacitracin 500 unit/gram ointment packet 1 01/20/2023 bacitracin-polymyxin B (POLY SPORIN) 500-10,000 unit/gram ointment tube 1 01/20/2023 ceFAZolin (ANCEF) 1 gram/10 mL in sterile water (premix) - ADS Override Pull 1 01/20/2023 ceFAZolin (ANCEF) 1 gram/10 mL in sterile water (premix) 2,000 mg 1 01/20/2023 Lactated Ringer's (LR) infusion 1 3 Lactated Ringer's (LR) infus ion - ADS Override Pull 1 01/20/2023 lidocaine-EPINEPHrine (XYLOC SUKH with EPI) 1 %-1:100,000 injection 1 01/20/2023 naloxone (NARCAN) 0.4 mg/mL injection 0.04-0.4 mg 1 01/20/2023 ondansetron (ZOFRAN) injection 4 mg 1 01/20 ondansetron ODT (ZOFRAN-ODT) disintegrating tablet 4 mg 1 01/20/2023 sodium chloride 0.9% flush 0.5-20 mL 2 12/29 sodium chloride 0.9% irrigation 1 3 Admission Count Last Ordered Date First Orde red Date INITIATE OUTPATIENT IN A BED 1 01/21/2023 ADMIT TO INPATIENT 1 01/20/2023 Discharge Count Last Ordered Date First Orde red Date DISCHARGE PATIENT 1 01/21/2023 documented in this encounter Care Teams Conservation Worker Relationship Specialty Start Date End Date John Paul Domínguez MD [facility] [place] [address] PCP - General Family Medicine 10/16/22 documented as of this encounter
--- OUTSIDE RECORDS SUMMARY | 2024-09-16 12:11 | XMS_ITS | Encounter Summary ---
Author Organization [facility] Healthcare Address [address] [place] [address] Care Team Providers Care Deicer Element Winder Machine Name Role Phone John Paul Domínguez MD Primary Care Provider [phone] Reason for Visit * Auth/Cert (Routine) Specialty Diagnoses / Procedures Referred By Garcia carrillo Referred To Contact Diagnoses Thyroid nodule Thyroid nodule [E04.1] Procedures [place] THYROIDECTOMY TOTAL/COMPLETE THYROIDECTOMY/ 150 min Referral ID Status Reason Start Date Expiration Date Visits Re quested Visits Authorized [id number] 1 1 Encounter Details Date Type Department Care Team (Late st Contact Info) Description 01/20/2023 9:49 AM CDT Anesthesia Event [facility] Operating Room [address] [place] [address] [place] [id number] [facility] [place] [address] Gilles Tyler MD [address] [facility] [id number] [place] [id number] Anesthesia Record Procedure Summary Procedure Name Responsible Anesthesiologist Anesthesia Start Time Anesthesia Stop Time TOTAL THYROIDECTOMY WITH CONTINUOUS LARYNGEAL NERVE MONITORING (Neck) Dirk Larry MD 01/20/23 0949 01/20/23 1252 Events Date Time Event Comment 01/20/2023 0850 0949 In Room 0949 An Start 0949 An Start Data 0954 An Induction The patient was reevaluated immediately before moderate or deep sedation use and before anesthesia induction. 0958 An Intubation 1004 Anesthesia Ready 1006 Local injected by surgeon 1016 Proc Start 1242 Proc Fin 1245 An Extubation 1248 an stop data 1248 Out of Room 1252 Handoff to RN I completed my handoff to the receiving nurse during which we: 1. Patient identified 2. Responsible provider identified 3. Pertinent medical history reviewed 4. Procedure type and surgical course discussed 5. Intraoperative anesthetic management and any significant issues discussed 6. Expectations and concerns for postop period discussed 7. Questions solicited from receiving nurse 8. Patient disposition at the time of handoff: PACU 1252 An Stop Meds Name Total midazolam 2 mg fentaNYL 225 mcg lidocaine (CARDIAC) syringe 2 % 40 mg propofol 140 mg succinylcholine 60 mg ondansetron 4 mg ceFAZolin (ANCEF) 1 gram/10 mL in steril e water (premix) 2,000 mg 2,000 mg dexAMETHasone 4 mg/mL 10 mg diphenhydrAMINE 12.5 mg Lactated Ringer's (LR) infusion 1,600 mL * Agents Name O2 N2O Air Sevoflurane Inspired Sevoflurane * Blood No blood administrations on file. Lines, Drains, and Airways Type Details Placement Removal Peripheral IV Placement Date: 01/20/23; Placement Time: 822; Catheter Size: 20 G; Orientation: Posterior, Right; Location: Forearm; Removal Date: 01/21/23; Removal Time: 161; Removal Reason: Discharge 01/20/23 08 by Danae Vidales RN 01/21/23 161 by Karlene Chiu RN ETT Placement Date: 01/20/23; Placement Time: 101 (created via procedure documentation); Mask Ventilation: 1; Technique: Video laryngoscopy; Type: NIM tube; Single Lumen Tube Size: 6 mm; Cuffed: Yes; Laryngoscope: Ramonita; Blade Size: 3; Location: Oral; Grade View: Grade I; Insertion Attempts: 1; Placement Verification: Auscultation, Capnometry; Airway Comment: Video scope utilized for surgeon visualization of NIMs tube insertion. 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 Gender Identity Not on file Sexual Orientation Not on file documented as of this encounter OR Notes * Anesthesia Postprocedure Evaluation - Abrahan Khalil MD - 01/20/2023 3:12 PM CDT Patient: Rubi Baca Procedure Summary Date: 01/20/23 Room / Location: OPERATING ROOM 1 / OPERATING ROOM Anesthesia Start: 948 Anesthesia Stop: 1251 Procedure: TOTAL THYROIDECTOMY WITH CONTINUOUS LARYNGEAL NERVE MONITORING (Neck) Diagnosis: Thyroid nodule (Thyroid nodule [E04.1]) Providers: Jacob Reyna MD Responsible Provider: Dirk Larry MD Anesthesia Type: general ASA Status: 2 Anesthesia Type: general Last vitals BP 132/82 Pulse 112 Temp 36.5 ??C (97.7 ??F) (Oral) Resp 23 SpO2 94% Anesthesia Post Evaluation Patient location during evaluation: PACU Patient participation: complete - patient participated 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 * Anesthesia Procedure Notes - Sagrario Tiwari CRNA - 01/20/2023 10:10 AM CDTAssociated Order(s): Airway Airway Patient location: OR Indications for airway management: anesthesia Difficult airway: no Staff: Supervising provider: Dirk Larry MD Placed by: TELEPHONE SURVEYOR: Sagrario Tiwari CRNA Emergent airway documentation: Risks and benefits discussed: yes Consent obtained: yes Consent given by: patient Airway prep: Preoxygenated: yes Patient position: sniffing Mask difficulty assessment: 1 - vent by mask Spontaneous ventilation during airway: absent Sedation level during airway: GA Final airway details: Final airway type: endotracheal airway Tube type: NIM tube ETT size: 6.0 mm Cuffed: yes Technique used for successful ETT placement: video laryngoscopy Insertion site: oral Blade type: Ramonita Video blade type: Craig Blade size: 3 Cormack-Lehane (direct): grade I - full view of glottis Cormack-Lehane (video): grade I - full view of glottis Cuff volume: 8 mL Cuff inflated with: air ETT to lips: 21 cm Placement verified by: auscultation and CO2 detection Airway secured with: silk tape Number of attempts: 1 Additional comments: Video scope utilized for surgeon visualization of NIMs tube insertion. * Anesthesia Preprocedure Evaluation - Gilles Tyler MD - 01/16/2023 2:21 PM CDT Images from the original note were not included. Anesthesia Evaluation Rubi Baca is a 17 y.o. female Procedure(s): THYROIDECTOMY/ 150 min Pre-Op Diagnosis Codes: * Thyroid nodule [E04.1] HISTORY Past Medical History Information obtained from: patient and chart. Neurological Neuro/Psych system: negative Cardiovascular Cardiac system: negative Respiratory Pertinent negatives: non-smoker Respiratory system: negative Hepatic / Heme + History of anemia - iron deficiency Gastrointestinal GI system: negative Renal / Renal/ system: negative Musculoskeletal/Pain Musculoskeletal/Pain system: negative Endocrine / Other + Thyroid disease - hypothyroidism Functional Capacity Functional capacity: 6-10 METs Patient Active Problem List Diagnosis ??? Cough ??? B12 deficiency anemia ??? Iron deficiency anemia due to chronic blood loss ??? Thyroid nodule ??? Mulugeta's thyroiditis Past Medical History: Diagnosis Date ??? Anemia ??? Hypothyroidism ??? Iron deficiency anemia ??? Vitamin B12 deficiency Past Surgical History: Procedure Laterality Date ??? APPENDECTOMY 01/10/2023 OB History No obstetric history on file. No Known Allergies Med List Status: Nurse Complete Set By: Soniya Mcelroy, RN at 01/09/2023 12:23 PM Taking? Last Dose Start Date End Date Provider cyanocobalamin (Vitamin B-12) 1,000 mcg tablet -- 11/15/22 02/13/23 Oswaldo Melendez MD folic acid (FOLVITE) 1 mg tablet -- 11/08/22 -- Oswaldo Melendez MD levothyroxine (SYNTHROID) 50 mcg tablet -- 11/28/22 -- Joseph Freeman MD Take 7 tablets all together once a week, on the same day of the week, 1 hour apart from food or anyother medications No current facility-administered medications for this encounter. Current Outpatient Medications: ??? cyanocobalamin (Vitamin B-12) 1,000 mcg tablet ??? folic acid (FOLVITE) 1 mg tablet ??? levothyroxine (SYNTHROID) 50 mcg tablet Social History Tobacco Use Smoking Status Never Smokeless Tobacco Never Vaping Use Vaping Status Never Used Alcohol Use: Unknown (11/26/2022) AUDIT-C ??? Frequency of Alcohol Consumption: Not on file ??? Average Number of Drinks: Patient does not drink ??? Frequency of Binge Drinking: Not on file Substance and Sexual Activity Drug Use Not Currently Family History Problem Relation Age of Onset ??? Vitamin D deficiency Mother ??? Iron deficiency Mother There were no vitals filed for this visit. PT: No results found for requested labs within last 30 days. INR: No results found for requested labs within last 30 days. APTT: No results found for requested labs within last 30 days. Hgb A1C: No results found for requested labs within last 30 days. CBC RBC: No results found for requested labs within last 30 days. RDW: No results found for requested labs within last 30 days. MCHC: No results found for requested labs within last 30 days. MCH: No results found for requested labs within last 30 days. MCV: No results found for requested labs within last 30 days. Hct: No results found for requested labs within last 30 days. Hgb: No results found for requested labs within last 30 days. WBC: No results found for requested labs within last 30 days. MPV: No results found for requested labs within last 30 days. Platelets: No results found for requested labs within last 30 days. RDW CV: No results found for requested labs within last 30 days. RDW Sd: No results found for requested labs within last 30 days. BMP Glucose: No results found for requested labs within last 30 days. Calcium: No results found for requested labs within last 30 days. Sodium: No results found for requested labs within last 30 days. Potassium: No results found for requested labs within last 30 days. CO2: No results found for requested labs within last 30 days. Chloride: No results found for requested labs within last 30 days. BUN: No results found for requested labs within last 30 days. Creatinine: No results found for requested labs within last 30 days. DOS Physical Exam Medical history, medications, and allergies reviewed. Attestation: I endorse the findings of the anesthesia pre-evaluation assessment dated: 01/20/2023. Airway Exam: Mallampati: II Cervical ROM: FROM TM distance: >4 Cardiovascular Exam: Rate: regular Rhythm: regular Pulmonary Exam: LCTA, bilat EENT Exam: trachea midline Dental Exam: Appears intact Current state: Patient's current state is cooperative. Anesthesia Plan ASA 2 Planned anesthesia: General Team communication plan: oral ET tube Induction: Induction: intravenous. Postoperative Plan: Postoperative administration opioids intended. No postoperative mechanical ventilation intended. Patient's planned disposition post procedure is 23 hour admit. No trial extubation planned. Informed Consent: Discussed plan with attending and TELEPHONE SURVEYOR. Anesthesia plan and risks discussed with patient and mother. Consent and Attending signature: I and/or my designee have discussed the anesthesia plan, benefits, possible alternatives, parental presence at time of induction (if indicated), and clinically relevant risks that may include dental injury, unintentional awareness, and/or other complications. The patient and/or parent/legal guardian understand, and agree to proceed. All questions answered. documented in this encounter Plan of Treatment Not on file documented as of this encounter Procedures Procedure Name Priority Date/Time Associated Diagnosis Comments WV AN ELECTIVE ENDOTRACHEAL AIRWAY Routine 01/20/2023 10:10 AM CDT documented in this encounter Results * WV AN ELECTIVE ENDOTRACHEAL AIRWAY (01/20/2023 10:10 AM CDT) Narrative Sagrario Tiwari CRNA - 01/20/2023 10:10 AM CDT Sagrario Tiwari CRNA ? 01/20/2023 10:11 AM Airway Patient location: OR Indications for airway management: anesthesia Difficult airway: no Staff: Supervising provider: Dirk Larry MD Placed by: TELEPHONE SURVEYOR: Sagrario Tiwari CRNA Emergent airway documentation: Risks and benefits discussed: yes Consent obtained: yes Consent given by: patient Airway prep: Preoxygenated: yes Patient position: sniffing Mask difficulty assessment: 1 - vent by mask Spontaneous ventilation during airway: absent Sedation level during airway: GA Final airway details: Final airway type: endotracheal airway Tube type: NIM tube ETT size: 6.0 mm Cuffed: yes Technique used for successful ETT placement: video laryngoscopy Insertion site: oral Blade type: Ramonita Video blade type: Craig Blade size: 3 Cormack-Lehane (direct): grade I - full view of glottis Cormack-Lehane (video): grade I - full view of glottis Cuff volume: 8 mL Cuff inflated with: air ETT to lips: 21 cm Placement verified by: auscultation and CO2 detection Airway secured with: silk tape Number of attempts: 1 Additional comments: Video scope utilized for surgeon visualization of NIMs tube insertion. Dirk Larry MD ANESTHESIA ORDERABLES Final R esult documented in this encounter Visit Diagnoses Not on filedocumented in this encounter Administered Medications Inactive Administered Medications - up to 3 most recent administrations Medication Order MAR Action Action Date Dose Rate Site ceFAZolin (ANCEF) 1 gram/10 mL in sterile water (premix) 2,000 mg 2,000 mg (40.4 mg/kg), intravenous, at 400 mL/hr, Administer over 3 Minutes, Once, On Fri01/20/23 at 1030, For 1 dose, Pre-Op, Indications: Prophylaxis, SurgicalIndications:Prophylaxis , Surgical Given 01/20/2023 10:04 AM CDT 2,000 mg dexAMETHasone (DECADRON) 4 mg/mL injection intravenous, Administer over 2 Minutes, As needed, Starting on Fri01/20/23 at 1016, Anesthesia Intra-op Given 01/20/2023 10:16 AM CDT 10 mg diphenhydrAMINE (BENADRYL) injection intravenous, Administer over 2 Minutes, As needed, Starting on Fri01/20/23 at 1018, Anesthesia Intra-op Given 01/20/2023 10:18 AM CDT 12.5 mg fentaNYL (SUBLIMAZE) preservative free injection intravenous, As needed, Starting on Fri01/20/23 at 1006, Anesthesia Intra-op Given 01/20/2023 11:53 AM CDT 25 mcg Given 01/20/2023 11:07 AM CDT 25 mcg Given 01/20/2023 10:24 AM CDT 25 mcg Lactated Ringer's (LR) infusion 30 mL/hr, intravenous, Continuous, Starting on Fri01/20/23 at 0830, Pre-Op New Bag 01/20/2023 10:56 AM CDT New Bag 01/20/2023 9:49 AM CDT lidocaine (cardiac) (XYLOCAINE) preservative free injection intravenous, As needed, Starting on Fri01/20/23 at 0954, Anesthesia Intra-op, Indications: Ventricular ArrhythmiasIndications:Ventricular Arrhythmias Given 01/20/2023 9:54 AM CDT 40 mg midazolam (VERSED) 1 mg/mL preservative free injection intravenous, Administer over 2 Minutes, As needed, Starting on Fri01/20/23 at 0949, Anesthesia Intra-op Given 01/20/2023 9:51 AM CDT 1 mg Given 01/20/2023 9:49 AM CDT 1 mg ondansetron (ZOFRAN) injection intravenous, Administer over 2 Minutes, As needed, Starting on Fri01/20/23 at 1207, Anesthesia Intra-op Given 01/20/2023 12:07 PM CDT 4 mg propofoL (DIPRIVAN) 10 mg/mL IV intravenous, As needed, Starting on Fri01/20/23 at 0954, Anesthesia Intra-op Given 01/20/2023 9:54 AM CDT 140 mg succinylcholine syringe intravenous, As needed, Starting on Fri01/20/23 at 0955, Anesthesia Intra-op Given 01/20/2023 9:55 AM CDT 60 mg documented in this encounter Care Teams Deicer Element Winder Machine Relationship Specialty Start Date End Date John Paul Domínguez MD [address] [place] [address] PCP - General Family Medicine 10/16/22 documented as of this encounter
--- OUTSIDE RECORDS SUMMARY | 2024-09-16 12:11 | XMS_ITS | Encounter Summary ---
Author Organization [facility] Address [address] [place] [address] Phone Care Team Providers Care Welder 2Nd Shift Name Role Phone John Paul Domínguez MD Primary Care Provider [phone] Encounter Details Date Type Department Care Team (Late st Contact Info) Description 01/20/2023 Orders Only [facility]) [facility] ENT [address] [facility] Office [address] [place] [address] Jacob Reyna MD Thyroid cancer (HCC) (Primary Dx) Social History [...] on file 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 Gender Identity Not on file Sexual Orientation Not on file documented as of this encounter Plan of Treatment Not on file documented as of this encounter Results * (ABNORMAL) PTH (01/31/2023 3:26 AM CDT) PTH 10(L) 15 - 65 pg/mL [facility] Blood 01/31/2023 3:26 AM CDT 01/31/2023 11:29 AM CDT us Jacob Reyna MD LAB BLOOD ORDERABLES Final Resu lt CHRIS NELSON [address] [address] [place] [address] documented in this encounter Visit Diagnoses Diagnosis Thyroid cancer (HCC)- Primary Malignant neoplasm of thyroid gland documented in this encounter Care Teams Welder 2Nd Shift Relationship Specialty Start Date End Date John Paul Domínguez MD [address] [place] [address] PCP - General Family Medicine 10/16/22 documented as of this encounter
--- OUTSIDE RECORDS SUMMARY | 2024-09-16 12:14 | XMS_ITS | Continuity of Care Document ---
Author Organization [facility] Address [address] [place] [address] Phone Care Team Providers Care Speech Therapy Director Name Role Phone John Paul Domínguez MD Unavailable Unavailable Allergies, Adverse Reactions, Alerts Substance Reaction Status Criticality ADHESIVE BANDAGE Active No Informat ion Medications Medication Instructions Dosage Effective Dates (start - stop) Status Comments Vitamin D2 1,250 mcg (50,000 unit) capsule take one capsule orally once per week - Active Synthroid 88 mcg tablet take 1 tablet by oral route every day 88 MCG - Active Procedures Procedure Date OFFICE/OUTPATIENT VISIT, EST OFFICE/OUTPATIENT VISIT, EST OFFICE/OUTPATIENT VISIT, EST OFFICE/OUTPATIENT VISIT, EST OFFICE/OUTPATIENT VISIT, EST OFFICE/OUTPATIENT VISIT, EST PREV VISIT, EST, AGE 18-39 OFFICE/OUTPATIENT VISIT, EST OFFICE/OUTPATIENT VISIT, EST OFFICE/OUTPATIENT VISIT, EST OFFICE/OUTPATIENT VISIT, EST OFFICE/OUTPATIENT VISIT, EST PREV VISIT, NEW, AGE 12-17 Advance Directives Directive Yes / No Effective Date File Name No Information Encounters Encounter Description Practice Location Reason(s) For Visit Diagnoses Date Provider Providers Copied on Encounter OFFICE/OUTPA TIENT VISIT, EST [facility], [address] [place], [place] [address], [address], [place] tel:[phone] [facility] Medicine orthostasis 1 (chief complaint)E DS (chief complaint)b ack pain1 (chief complaint) Orthostatic hypotensionHypermo bility syndromeCervicalgi aHashimoto's thyroiditis 4 Sang Coker. [address], [address], [place], [address]. tel:[phone] OFFICE/OUTPA TIENT VISIT, [facility], [address], [place], [address], [place] tel:[phone] [facility] back pain1 (chief complaint) LumbagoCervicalgia 4 Domínguez John Paul. [address], [address], [place], [address]. tel:[phone] OFFICE/OUTPA TIENT VISIT, [facility], [address], [place], [address], [place] tel:[phone] [facility] orthostasis 1 (chief complaint)j oint pain1 (chief complaint)b ack pain1 (chief complaint) Orthostatic hypotensionPain in jointHypermobility syndromeLumbago 4 Domínguez John Paul. [address], [address], [place], [address]. tel:[phone] OFFICE/OUTPA TIENT VISIT, [facility], [address], [place], [address], [place] tel:[phone] [facility] joint pain1 (chief complaint)E DS (chief complaint) Pain in jointOrthostatic hypotensionHypermo bility syndrome 4 Sang Coker. [address], [address], [place], [address]. tel:[phone] OFFICE/OUTPA TIENT VISIT, [facility], [address] [place], [address], [place] tel:[phone] [facility] iron (chief complaint)c alcium1 (chief complaint)j oint pain1 (chief complaint)h ashimoto1 (chief complaint) Raised antibody titerIron deficiencyHypocalc emiaHashimoto's thyroiditisNeuropa thy 4 Sang Coker. [address], [address], [place], [address]. tel:[phone] OFFICE/OUTPA TIENT VISIT, EST [facility], [address], [place], [address], [place] tel:[phone] [facility] joint pain1 (chief complaint)a nemia1 (chief complaint)h ypothyroidi sm1 (chief complaint) Aime's thyroiditisIron deficiency anemiaPain in jointFatigue Nov- 4 Sang Coker. [address], [address], [place], [address]. tel:[phone] PREV VISIT, EST, AGE 18-39 [facility], [address], [place], [address], [place] tel:[phone] [facility] physical (chief complaint) Encounter for general adult medical examination without abnormal findings 3 Sang Coker. [address], [address], [place], [address]. tel:[phone] OFFICE/OUTPA TIENT VISIT, EST [facility], [address], [place], [address], [place] tel:[phone] [facility] abd pain1 (chief complaint)h ashimoto1 (chief complaint) Aime's thyroiditisLower abdominal pain Dec- 3 Sang Coker. [address], [place], [address]. tel:[phone] OFFICE/OUTPA TIENT VISIT, EST [facility], [address], [place], [address], [place] tel:[phone] [facility] Hashimoto1 (chief complaint)i rajesh deficiency1 (chief complaint)w eight gain1 (chief complaint)T MJ1 (chief complaint) Thyroid noduleHashimoto's thyroiditisIron deficiency anemiaAbnormal weight gainAtypical facial pain Aug- 2 Sang Coker. [address], [place], [address]. tel:[phone] OFFICE/OUTPA TIENT VISIT, [facility], [address], [place], [address], tel:[phone] [facility] thyroid1 (chief complaint)i rajesh deficiency anemia1 (chief complaint)a lopecia1 (chief complaint) Thyroid noduleHashimoto's thyroiditisIron deficiency anemiaAlopecia 2 Domínguez John Paul. [address], [place], [address]. [phone] OFFICE/OUTPA TIENT VISIT, [facility], [address], [place], [address], tel:[phone] [facility] thyroid1 (chief complaint)i rajesh deficiency anemia1 (chief complaint) Aime's thyroiditisIron deficiency anemia May- 2 Domínguez John Paul. [address], [place], [address]. [phone] OFFICE/OUTPA TIENT VISIT, [facility], [address], [place], [address], [place] tel:[phone] [facility] fatigue1 (chief complaint)t hyroid1 (chief complaint) Iron deficiency anemiaCeliac diseaseFolate deficiencyHypothyr oidism 2 Sang John Paul. [address], [place], [address]. tel:[phone] PREV VISIT, NEW, AGE 12-17 [facility], [address], [place], [address], [place] tel:[phone] [facility] physical (chief complaint) Encounter for routine child health examination without abnormal findings 2 Domínguez John Paul. [address], [place], [address]. tel:[phone] Family History Family Member Type Diagnosis Age At Onset Father Problem CAD 47 Mother Problem Alive and well Sister Problem Alive and well Father Problem of brain aneurysm age o f 47 Payers Payer name Insurance type Covered republican ID Authoriza tion(s) No Information Social History Type Description Quantity Date Captured Comments Alcohol Use Details No Caffeine Use Details Unknown Tobacco Use Status Current non-smoker Smoking Status Never smoker Sex Female Vital Signs Date / Time: Height Weight BMI Pulse Rate Blood Pressure Temperature Respiratory Rate Body Surface Area Head Circumference BMI percentile Pulse Ox Inhaled Ox 3:40 PM 60.00 in 140.40 lbs 27.4 2 kg/m eter (2) 92 /min 110/78 mm[Hg] 97.3 F 16 /min Chief Complaint And Reason For Visit From encounter dated '08/30/2024 15:37'. orthostasis1 (chief complaint). Description: pt has some orthostasis. Pt saw cardiology and she hadnegative echo and she was told to wear compression stocking. EDS (chief complaint). Description: Pt has ? EDS with positive Steve. Pt saw rheumatology at [facility] and she was referred to cardiology for POTS. Pt also was told that she has orville with slip bridge operator in several years but she was told that most likely she has POTS.. pt was told that she does not have lupus. back pain1 (chief complaint). Description: Pt has back and neck pain due to large breast Pt is doing PT and she will see plastic surgeon for breast reduction surgery soon Plan Of Treatment Date Type Action Status Referral Ordered: Physical Therapy (related to Lumbago) ordered Referral Referred To: Physical Therapy Ordered: Referrals: Physical Therapy. Evaluate and treat ordered Referral Ordered: Plastic Surgery (related to Lumbago) ordered Referral Ordered: LUMBAR XRAY AP AND LAT ONLY ordered Referral Ordered: Referrals: Plastic Surgery. Evaluate and treat ordered Referral Ordered: Internal Medicine (related to Orthostatic hypotension) ordered Referral Ordered: Cardiology (related to Orthostatic hypotension) ordered Referral Ordered: Referrals: Internal Medicine. Evaluate and treat ordered Referral Ordered: Referrals: Cardiology. Evaluate and treat ordered Referral Ordered: Rheumatology (related to Raised antibody titer) ordered Referral Ordered: Referrals: Rheumatology. Evaluate and treat ordered Referral Ordered: Madalyn Bailey -[facility] : Plastic Surgery (related to Encounter for general adult medical examination without abnormal findings) ordered Referral Referred To: Madalyn Bailey [address], [place], [id number] [phone] Ordered: Referrals: [facility] : Plastic Surgery. Madalyn Bailey. Evaluate and treat ordered Referral Ordered: José Miguel Recinos -[facility] : Internal Medicine : Endocrinology, Diabetes & Metabolism (related to Thyroid nodule) ordered Referral Referred To: José Miguel Recinos [address] [place], [place] [id number] Ordered: Referrals: [facility] : Internal Medicine : Endocrinology, Diabetes & Metabolism. José Miguel Recinos. Evaluate and treat ordered Referral Ordered: US GUIDANCE ordered Referral Ordered: US THYROID ordered Referral Ordered: Hematology (related to Iron deficiency anemia) ordered Referral Ordered: Hematology (related to Iron deficiency anemia) ordered Referral Ordered: Referrals: Hematology. Evaluate and treat ordered Referral Ordered: OPERATIVE UPPER GI ENDOSCOPY ordered Referral Ordered: UPPER GI W/ KUB ordered History Of Present Illness Encounter Date Complaint History Of Prese nt Illness orthostasis1 pt has some orth ostasis. Pt saw cardiology and she had negative echo and she was told to wear compression stocking. back pain1 Pt has back and neck pain due to large breast Pt is doing PT and she will see plastic surgeon for breast reduction surgery soon EDS Pt has ? EDS wit h positive Steve. Pt saw rheumatology at [facility] and she was referred to cardiology for POTS. Pt also was told that she has orville with slip bridge operator in several years but she was told that most likely she has POTS.. pt was told that she does not have lupus. back pain1 pt has chronic n aurora and mid back pain .Pt attributes to her large breast. Pt has triple D or F Pt is interested in breast reduction surgery. pt has neck and mid back pain Pt had x ray done which showed cervicothoracic levocurvature. Pt received a call from plastic surgeon office and was told that she appears to qualify for breast augmentation surgery except for physical therapy at this point. joint pain1 Pt has joint judith n and positive STEVE. Pt has hypermobility syndrome as well. pt saw rheumatology and she is being tested for EDS. She was told that STEVE elevation is not of concern orthostasis1 Pt has orthostas is hypotension with positional tachycardia and she may have POTS. Pt saw cardiology last week and she had EKG and orthostasis and she will have cardiac echo done Pt was told by cardiology that she may have POTS. back pain1 pt has chronic n aurora and mid back pain .Pt attributes to her large breast. Pt has triple D or F Pt is interested in breast reduction surgery joint pain1 Pt has diffuse j oint pain Pt has positive STEVE. Pt was referred to rheumatology last month but she has not heard from rheumatology yet EDS Pt has hypermobi lity of all joint and she feels lightheadedness all the time. her sister has EDS and POTS and she feels that she has above as well Pt wants to see slip bridge operator for above diagnosis Pt denies any chest pain, Pt states that her heart beat faster when she stands up and she feels dizzy as well. iron Pt has low iron Pt has heavy period Pt denies any GI issue or bleeding. calcium1 Pt has low calci um. Her PTH is normal. Her vitamin D is low joint pain1 Pt has diffuse j oint pain with lower extremity neuropathy symptoms. Pt has positive STEVE. hashimoto1 Pt has aime with thyroid CA s/p total thyroidectomy. She is on synthroid. She also saw her endo recently who recommended higher dose of synthroid due to her fatigue but she deferred . joint pain1 Pt has diffuse j oint pain around knee and ankle and elbows for long time Pt also has bilateral shoulder pain Pt states that the pain sometimes is worse lately Pt also has some bilateral leg numbness and tingling as well. Pt states that she has severe hypermobility all her joint and she has strong family history of mikayla danlos syndrome and she wants to be evaluated for above anemia1 Pt has history o f iron deficiency anemia due to heavy period Pt still has heavy period Pt has not seen her CLINICAL TRIAL SPECIALIST for several years. Pt did undergo iron infusion last year. pt denies any dizziness, sob or chest pain hypothyroidism1 Pt has hypothyro idism s/p total thyroidectomy due to thyroid CA. Pt is on 88 mcg synthroid but she wants to change to different medicine for low thyroid since she still feels tired. Pt has not seen endo for a while. physical Pt needs annual physical pt c/o chronic mid back pain for years Pt thinks that it is due to large breast size. pt feels that her breast is so big that she has difficulty breathing when she tries to sleep on her chest area at night. Pt states that the bra strap is causing indent around both shoulder and discomfit as well. Pt has DD or F size breast. Pt denies any back injury. Pt also notices some neck pain as well. Pt ia s/p appendectomy and total thyroidectomy. Pt c/o burning pain randomly on left anterior forearm and right upper anterior thigh area lasting several days each episode since the thyroid surgery 3 months ago. Pt states that the burning pain occurs randomly without any trigger factor Pt denies any numbness and tingling. Pt states that she feels pain several times per month Pt also has history of severe iron deficiency anemia, Pt had benign EGD and colonoscopy Pt did receive iron infusion from hematology. abd pain1 Pt c/o acute sha rp right lower quadrant pain since two night ago. Pt feels nauseated with vomiting yesterday but the resolved today. Pt denies any diarrhea or constipation Pt denies any blood in stool Pt denies any fever. Pt states that her appetite was poor yesterday but is ok today and she is able to eat and drink without any issue. Pt denies any urinary symptoms. Pt currently has 8/10 sharp pain. Pt denies any flank pain. Pt denies any vaginal bleeding. pt currently is out of town visiting her sister in [place] and wont be back until 10 days from now hashimoto1 Pt has aime with thyroid nodule with atypia. Pt is on 50 mcg synthroid. pt saw endo who diagnosed her with thyroid CA and she will undergo total thyroidectomy in two weeks. Pt denies any dysphagia or neck pain Hashimoto1 Pt has aime . Pt denies any dysphagia or neck pain. Pt had thyroid nodule biopsy done recently which showed atypia or undetermined significance. Pt is on synthroid but is under replaced but level is improving Pt overall feel more energy. Pt denies any sob or dizziness iron deficiency1 Pt has iron def iciency anemia and she is seeing hematology for regular iron infusion and also b12 shot. Pt feels more energy. Pt denies any heavy period or GI bleeding weight gain1 Pt has gained so me weight. Pt feels that her appetite is better. Pt denies any abd pain TMJ1 Pt c/o bilateral jaw pain when she chew food for several years Pt denies any jaw pain without chewing food Pt denies any ear pain. Pt denies any toothache thyroid1 Pt has aime thyroid disease and also thyroid nodule. Pt denies any dysphagia or neck pain. Pt is on synthroid 25 mcg daily She has not done lab yet. Pt feels sightly more energy iron deficiency anemia1 Pt has i rajesh deficiency anemia. Pt received iron infusion and she is being monitored by hematology. Pt had CBC and iron done two weeks ago and she had lab done last week by hematology and CBC and iron were ok per patient. She feels more energy and appears more color on her skin. alopecia1 Pt notices mild alopecia. Pt has hard time growing her hair. Pt does have low thyroid thyroid1 Pt has Aime thyroid disease Pt denies any dysphagia or neck pain. pt feels very fatigue iron deficiency anemia1 Pt has i rajesh deficiency anemia. pt has regular period but not heavy per patient. Pt has nexplanon for control purposes. Pt denies any GI bleeding Pt had negative EGD and colonoscopy. Pt does NOT have celiac disease on EGD fatigue1 Pt c/o chronic f atigue, dizziness, without sob for long time. Pt feels cold all the time. Pt went to ER recently and was found to be severely anemic. Pt denies any GI bleeding Pt denies any blood in urine Pt denies any heavy period. Pt does have period monthly. Pt denies any pelvic pain. Pt has nexplanon. Pt denies any headache. Pt denies any teresa GERD Pt denies any chest pain or sob. Pt has intermittent non-bloody diarrhea with diary products and bread makes her bloated. Pt denies any nausea, vomiting, abd pain change of bowel. Pt had normal upper GI study. Pt does have severely iron deficiency anemia and low folate. thyroid1 Pt has low thyro id Pt denies any dysphagia or neck pain. Pt has low folate. Pt feels cold all the time. Pt feels fatigue. Pt denies any dizziness . physical Pt needs annual physical. Pt c/o chronic fatigue, dizziness, without sob for long time. Pt feels cold all the time. Pt went to ER recently and was found to be severely anemic. Pt denies any GI bleeding Pt denies any blood in urine Pt denies any heavy period. Pt does have period monthly. Pt denies any pelvic pain. Pt has nexplanon. Pt denies any headache. Pt denies any teresa GERD Pt denies any chest pain or sob. Pt has intermittent non-bloody diarrhea with diary products and bread makes her bloated. Pt denies any nausea, vomiting, abd pain change of bowel Instructions Date Instruction Additional Infor flowerion No Information Assessments Type Assessment Date assessment Orthostatic hypotension assessment Hypermobility syndrome assessment Cervicalgia assessment Aime's thyroiditis Mental Status Date Cognitive Assessment Orientation - [place]seur ed to time, place, person, situation.
--- OUTSIDE RECORDS SUMMARY | 2024-09-16 12:57 | XMS_ITS | Encounter Summary ---
Author Organization [facility] Address [address] [place] [address]. [place] [address] [place] [address] Care Team Providers Care Wool Washer Feeder Name Role Phone John Paul Domínguez MD Primary Care Provider [phone] Encounter Details Date Type Department Care Team [...] Description 01/31/2025 12:45 PM CDT Office Visit [facility] [address] [place] [address] Ramesh Dowling MD [facility], [address] [place] [address] documented as of this encounter Visit Diagnoses Not on filedocumented in this encounter Care Teams Wool Washer Feeder Relationship Specialty Start Date End Date John Paul Domínguez MD [address] [place] [id number] PCP - General FAMILY PRACTICE 03/08/24 documented as of this encounter
--- OUTSIDE RECORDS SUMMARY | 2024-09-16 12:57 | XMS_ITS | Clinical Summary ---
Author Organization [facility] Address [facility] [facility] [place] [place] [address] [place] [address] Care Team Providers Care Skein Mercerizing Machine Operator Name Role Phone John Paul Domínguez MD Primary Care Provider [phone] Allergies Active Allergy Reactions Criticality Noted Date [...] uncontrolled, contributing to the hypocalcemia Restart vitamin-D 21086 IU use weekly 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 Overview [...] go ahead and started Papillary thyroid carcinoma ([facility]) Overview (05/24/2024): Last Assessment & Plan: Continue monitoring TG level The patient is scheduled for whole-body thyroid scan with radio oncology in March Iron deficiency anemia due to chronic blood loss 07/18/2022 Encounters Date Type Department Care Team Description 08/02/2024 1:15 PM INVESTIGATOR Office Visit [facility] [address] [place] [address] Ramesh Dowling MD Hypotension (2mo) 08/02/2024 Travel 06/21/2024 Telephone [facility], [place] [address] [place] [address] Marisabel Myles FNP Results 06/17/2024 12:30 PM CDT - 06/17/2024 11:59 PM CDT Hospital Encounter [facility] [place] [address] Ramesh Dowling MD Discharge Disposition: Home or [...] Comments Blood Pressure 110/82 08/02/2024 1:34 PM INVESTIGATOR Pulse 114 08/02/2024 1:34 PM INVESTIGATOR Temperature - - Respiratory Rate - - Oxygen Saturation 97% 08/02/2024 1:34 PM INVESTIGATOR Inhaled Oxygen Concentration - - Weight 63 kg (139 lb) 08/02/2024 1:34 PM INVESTIGATOR Height 154.9 cm (5' 1 ) 08/02/2024 1:34 PM INVESTIGATOR Body Mass Index 26.26 08/02/2024 1:34 PM INVESTIGATOR Plan of Treatment Upcoming Encounters Date Type Department Care Team (Late st Contact Info) Description 01/31/2025 12:45 PM CDT Office Visit [facility] [address] [place] [address] Ramesh Dowling MD [facility] [address] [place] [address] Health Maintenance Due Date Last Done Comments [...] ?Echocardiography Report Pat.Name: ??JULIA BACA ? Pat.ID: ?[id number] ? St.Date: ?? 06/17/2024 ? Refer.MD: ??[id number] [facility] O ? EWDPROV ?EWDPROV Exam [...] ? Right Ventricle ?26 mm ?? Major [place]on ?55.5 mm ?MMODE TA ?? Tricuspid Annul ?22 mm ? <Electronic Signature> 06/19/2024 09:05 AM Ramesh Dowling M.D. Procedure Note Ramesh Dowling MD - 06/19/2024 Echocardiography Report Pat.Name: JULIA BACA Pat.ID: [id number] .Date: 06/17/2024 Refer.: [id number] ROSARIO Son EWDPROV EWDPROV Exam Time: 1:00:00 [...] 29.2 mm Right Ventricle 26 mm Major [place]on 55.5 mm MMODE TA Tricuspid Annul 22 mm <Electronic Signature> 06/19/2024 09:05 AM Ramesh Dowling M.D. us Ramesh Dowling MD ECHO Final Res ult from Last [address] [place] [address] [address] Care Teams Skein Mercerizing Machine Operator Relationship Specialty Start Date End Date John Paul Domínguez MD [address] [place] [phone] PCP - General FAMILY PRACTICE 03/08/24
--- OUTSIDE RECORDS SUMMARY | 2024-09-16 12:58 | XMS_ITS | Encounter Summary ---
Author Organization [facility] Address [address] [place] [address]. [place], [place] [address] [place] [address] Care Team Providers Care Office Coordinator Name Role Phone John Paul Domínguez MD Primary Care Provider [phone] Encounter Details Date Type Department Care Team (Late st Contact Info) Description 02/17/2024 Scan [facility], [address] [place] [address] Scanned, Doc Pccl Social History Tobacco Use [...] Description 01/31/2025 12:45 PM CDT Office Visit [facility] [address] [place], [place] [id number] Ramesh Dowling MD [facility] [address] [place] [address] documented as of this encounter Visit Diagnoses Not on filedocumented in this encounter Care Teams Office Coordinator Relationship Specialty Start Date End Date John Paul Domínguez MD [address] [place] [phone] PCP - General FAMILY PRACTICE 03/08/24 documented as of this encounter
--- OUTSIDE RECORDS SUMMARY | 2024-09-16 12:58 | XMS_ITS | Encounter Summary ---
Author Organization [facility] Address [address] [place] [address]. [place] [address] [place] [address] Care Team Providers Care Road Freight Brake Coupler Name Role Phone John Paul Domínguez MD Primary Care Provider [phone] Encounter Details Date Type Department Care Team [...] Description 01/31/2025 12:45 PM CDT Office Visit [place] [facility] [address] [place] [address] Ramesh Dowling MD [facility], [address] [place] [address] documented as of this encounter Visit Diagnoses Not on filedocumented in this encounter Care Teams Road Freight Brake Coupler Relationship Specialty Start Date End Date John Paul Domínguez MD [address] [place] [phone] PCP - General FAMILY PRACTICE 03/08/24 documented as of this encounter
--- OUTSIDE RECORDS SUMMARY | 2024-09-16 12:58 | XMS_ITS | Encounter Summary ---
Author Organization [facility] Address [address] [place] [address]. [place] [address] [place] [address] Care Team Providers Care Woods Superintendent Name Role Phone John Paul Domínguez MD Primary Care Provider [phone] Reason for Visit * Reason Onset Date Comments Results 06/21/2024 Encounter Details Date Type Department Care Team (Late st Contact Info) Description 06/21/2024 Telephone [place] [facility] [address], [address] [place], [place] [id number] Marisabel Myles FNP 3 [facility] [place] [address] [place] [address] Results Social History Tobacco Use [...] Description 01/31/2025 12:45 PM CDT Office Visit [place] [facility] [address] [place], [place] [phone] Ramesh Dowling MD [facility], [address] [place] [address] documented as of this encounter Visit Diagnoses Not on filedocumented in this encounter Care Teams Woods Superintendent Relationship Specialty Start Date End Date John Paul Domínguez MD [address] [place] [phone] PCP - General FAMILY PRACTICE 03/08/24 documented as of this encounter
--- OUTSIDE RECORDS SUMMARY | 2024-09-16 12:58 | XMS_ITS | Encounter Summary ---
Author Organization [facility] Address [facility] [facility] [place] [address] [place] [address] Care Team Providers Care Engineering Writer Name Role Phone John Paul Domínguez MD Primary Care Provider [phone] Reason for Referral * Imaging (Routine) - Closed Specialty Diagnoses / Procedures Referred By Garcia carrillo Referred To Contact RADIOLOGY Diagnoses ORTEGA (dyspnea on exertion) Other Leanne-Danlos syndromes (HHS/HCC) Procedures USE ECHOCARDIOGRAM Ramesh Dowling MD [facility], [address] [place] [address] Phone: tel: fax: Referral ID Status Reason Start Date Expiration Date Visits Re quested Visits Authorized [id number] Closed 06/17/2024 09/15/2024 1 1 Encounter Details Date Type Department Care Team (Late st Contact Info) Description 05/24/2024 Orders Only [facility], [address] [place], [place] [id number] Ramesh Dowling MD [facility], [address] [place] [address] Social History Tobacco Use Types Packs/Day [...] PM CDT Office Visit [place] [facility] [address] [place] [address] Ramesh Dowling MD Three [facility] [address] [place] [address] documented as of this encounter Results * USE ECHOCARDIOGRAM (06/17/2024 1:27 PM CDT) Anatomical Region Laterality Modality Cardiac Echocardiogram 06/17/2024 1:00 PM CDT Narrative 06/19/2024 9:05 AM CDT ?Echocardiography Report Pat.Name: ??JULIA BACA ? Pat.ID: ?[id number] ? St.Date: ?? 06/17/2024 ? Refer.: ??[id number] ROSARIO Son ? EWDPROV ?EWDPROV Exam Time: [...] ? Right Ventricle ?26 mm ?? Major [place] ?55.5 mm ?MMODE TA ?? Tricuspid Annul ?22 mm ? <Electronic Signature> 06/19/2024 09:05 AM Ramesh Dowling M.D. Procedure Note Ramesh Dowling MD - 06/19/2024 Echocardiography Report Pat.Name: JULIA BACA Pat.ID: [id number] St.Date: 06/17/2024 Refer.: [id number] ROSARIO Son EWDPROV EWDPROV Exam Time: 1:00:00 [...] 29.2 mm Right Ventricle 26 mm Major [place] 55.5 mm MMODE TA Tricuspid Annul 22 mm <Electronic Signature> 06/19/2024 09:05 AM Ramesh Dowling M.D. Ramesh Dowling MD ECHO Final Res ult documented in this encounter Visit Diagnoses Diagnosis ORTEGA (dyspnea on exertion)- Primary Other dyspnea and respiratory abnormality Other Leanne-Danlos syndromes (HHS/HCC) ORTEGA (dyspnea on exertion) Other dyspnea and respiratory abnormality Other Leanne-Danlos syndromes (HHS/HCC) documented in this encounter Care Teams Engineering Writer Relationship Specialty Start Date End Date John Paul Domínguez MD [address] [place] [address] PCP - General FAMILY PRACTICE 03/08/24 documented as of this encounter
--- OUTSIDE RECORDS SUMMARY | 2024-09-16 12:58 | XMS_ITS | Encounter Summary ---
Author Organization [facility] Address [facility]. [place], [place] [address] [place] [address] Care Team Providers Care Senior Teradata Developer Name Role Phone John Paul Domínguez MD Primary Care Provider [phone] Reason for Referral * Imaging (Routine) - Closed Specialty Diagnoses / Procedures Referred By Garcia carrillo Referred To Contact RADIOLOGY Diagnoses ORTEGA (dyspnea on exertion) Other Leanne-Danlos syndromes (HHS/HCC) Procedures USE ECHOCARDIOGRAM Ramesh Dowling MD [facility], [address] [place] [address] Phone: tel: fax: Referral ID Status Reason Start Date Expiration Date Visits Re quested Visits Authorized [id number] Closed 06/17/2024 09/15/2024 1 1 Reason for Visit * Imaging (Routine) - Closed Specialty Diagnoses / Procedures Referred By Garcia carrillo Referred To Contact RADIOLOGY Diagnoses ORTEGA (dyspnea on exertion) Other Leanne-Danlos syndromes (HHS/HCC) Procedures USE ECHOCARDIOGRAM Ramesh Dowling MD [facility], [address] [place] [address] Phone: tel: fax: Referral ID Status Reason Start Date Expiration Date Visits Re quested Visits Authorized [id number] Closed 06/17/2024 09/15/2024 1 1 Encounter Details Date Type Department Care Team (Late st Contact Info) Description 06/17/2024 12:30 PM CDT - 06/17/2024 11:59 PM CDT Hospital Encounter [facility] Non Invasive Cardiology [facility] [place] [address] Ramesh Dowling MD Three [facility] [address] [place] [address] Discharge Disposition: Home or Self Care (Routine [...] Description 01/31/2025 12:45 PM CDT Office Visit [place] [facility] [address] [place] [address] Ramesh Dowling MD Three [facility], [address] [place] [address] documented as of this encounter Procedures Procedure Name Priority Date/Time Associated Diagnosis Comments USE ECHOCARDIOGRAM Routine 06/17/2024 1: 27 PM CDT ORTEGA (dyspnea on exertion) Other Leanne-Danlos syndromes (HHS/HCC) documented in this encounter Results * USE ECHOCARDIOGRAM (06/17/2024 1:27 PM CDT) Anatomical Region Laterality Modality Cardiac Echocardiogram 06/17/2024 1:00 PM CDT Narrative 06/19/2024 9:05 AM CDT ?Echocardiography Report Pat.Name: ??JULIA BACA ? Pat.ID: ?[id number] ? St.Date: ?? 06/17/2024 ? Refer.MD: ??[id number] ROSARIO Son ? EWDPROV ?EWDPROV Exam Time: [...] ? Right Ventricle ?26 mm ?? Major [place] ?55.5 mm ?MMODE TA ?? Tricuspid Annul ?22 mm ? <Electronic Signature> 06/19/2024 09:05 AM Ramesh Dowling M.D. Procedure Note Ramesh Dowling MD - 06/19/2024 Echocardiography Report Pat.Name: JULIA BACA Pat.ID: [id number] .Date: 06/17/2024 Refer.MD: [id number] ROSARIO Son EWDPROV EWDPROV Exam Time: 1:00:00 [...] 29.2 mm Right Ventricle 26 mm Major [place] 55.5 mm MMODE TA Tricuspid Annul 22 mm <Electronic Signature> 06/19/2024 09:05 AM Ramesh Dowling M.D. us Ramesh Dowling MD ECHO Final Res ult documented in this encounter Visit Diagnoses Diagnosis ORTEGA (dyspnea on exertion) Other dyspnea and respiratory abnormality Other Leanne-Danlos syndromes (HHS/HCC) documented in this encounter Care Teams Senior Teradata Developer Relationship Specialty Start Date End Date John Paul Domínguez MD [address] [place] [address] PCP - General FAMILY PRACTICE 03/08/24 documented as of this encounter
--- OUTSIDE RECORDS SUMMARY | 2024-09-16 12:58 | XMS_ITS | Encounter Summary ---
Author Organization [facility] Address [address] [place] [address]. [place] [address] [place] [address] Care Team Providers Care Hand Flesher Name Role Phone Emili Charles MD Primary Care Provider [phone] Reason for Visit * Reason Comments Hypotension consult Encounter Details Date Type Department Care Team (Late st Contact Info) Description 05/24/2024 1:00 PM CDT Office Visit [place] [facility] [address] [place] [address] Ramesh Ponce MD [facility], [address] [place], [place] [id number] Hypotension (consult) Social History Tobacco Use Types [...] of Present Illness: Ms. Baca (goes by [employer]) is a 18 year old female with [...] syndrome: She is being seen by a motorcycle racer, being referred for a drum drier. Check an echo. Follow up in 2 [...] asthma, uncomplicated (HHS/HCC) Rheumatoid arthritis, unspecified (CMS/HCC [facility]) Thyroid cancer ([facility]) Past Surgical History: Procedure Laterality Date APPENDECTOMY [...] Description 01/31/2025 12:45 PM CDT Office Visit [place] [facility] [address] [place] [address] Ramesh Ponce MD [facility], [address] [place] [address] documented as of this encounter Procedures Procedure Name Priority Date/Time Associated Diagnosis Comments ELECTROCARDIOGRAM (NON MIDMARK ACQUIRED) Routine 05/24/2024 1:32 PM CDT POTS (postural orthostatic tachycardia syndrome) documented in this encounter Results * ELECTROCARDIOGRAM (05/24/2024 1:32 PM CDT) 05/24/2024 1:32 PM CDT Narrative [facility] - 06/02/2024 5:55 AM CDT ? [facility] ? [place], [place] ? Test Date: ?2024-05-24 Pat Name: ? JULIA BACA ? Department: ?? 150 ? Room: ? Gender: ? F ?English Tutor: ?? AG : ?2005 ? Requested By: RAMESH OCHIENG Order Number: [id number] ?Reading MD: ?? Ramesh Ochieng ? Measurements Intervals ?[place] ? Rate: ? 87 ? P: ?64 DE: ? 126 ?QRS: ?85 QRSD: ? 68 ? T: ?65 QT: ? 343 ? QTc: ?415 ? Interpretive Statements SINUS RHYTHM No prior ECG for comparison Procedure Note Ramesh Ponce MD - 06/02/2024 [facility] [place] Test Date: 2024-05-24 Pat Name: JULIA BACA Department: 150 Room: Gender: F English Tutor: : 2005 Requested By: RAMESH PONCE Order Number: [id number] Reading MD: Ramesh Ponce Measurements Intervals [place] Rate: 87 P: 64 DE: 126 QRS: 85 QRSD: 68 T: 65 QT: 343 QTc: 415 Interpretive Statements SINUS RHYTHM No prior ECG for comparison us Ramesh Ponce MD PROCEDURES-ORDERABLE NO C HARGE Final Result Performing Organization Address City/State/[facility] Co de Phone Number ADA PAIGE documented in this encounter Visit Diagnoses Diagnosis POTS (postural orthostatic tachycardia syndrome)- Primary Tachycardia, unspecified ORTEGA (dyspnea on exertion) Other dyspnea and respiratory abnormality Other Leanne-Danlos syndromes (HHS/HCC) documented in this encounter Care Teams Hand Flesher Relationship Specialty Start Date End Date Emili Charles MD [address] [place] [address] PCP - General FAMILY PRACTICE 03/08/24 documented as of this encounter
--- OUTSIDE RECORDS SUMMARY | 2024-09-16 12:58 | XMS_ITS | Encounter Summary ---
Author Organization [facility] Address [address] [place] [address]. [place] [address] [place] [address] Care Team Providers Care Storekeeper Engineering Name Role Phone John Paul Domínguez MD Primary Care Provider [phone] Encounter Details Date Type Department Care Team [...] Description 01/31/2025 12:45 PM CDT Office Visit [place] [facility] [address] [facility] [address] [place] [address] Ramesh Dowling MD [facility], [address] [place] [address] documented as of this encounter Visit Diagnoses Not on filedocumented in this encounter Care Teams Storekeeper Engineering Relationship Specialty Start Date End Date John Paul Domínguez MD [address] [place] [address] PCP - General FAMILY PRACTICE 03/08/24 documented as of this encounter
--- OUTSIDE RECORDS SUMMARY | 2024-09-16 12:59 | XMS_ITS | Encounter Summary ---
Author Organization [facility] Address [address] [place] [address] Phone Care Team Providers Care Wood Window And Door Craftsman Name Role Phone John Paul Domínguez MD Primary Care Provider [phone] Joseph Freeman MD Unavailable Wade REDDY MD PhD, Deon Vanegas Unavailable Tao Helm MD PhD Unavailable [phone] Reason for Visit * Consultation (Routine) - Authorized Specialty Diagnoses / Procedures Referred By Garcia carrillo Referred To Contact Rheumatology Diagnoses Raised antibody titer John Paul Domínguez MD [address] [place] [address] Phone: tel: fax: [facility] (All Locations) Referral ID Status Reason Start Date Expiration Date Visits Requested Visits Authorized [id number] Authorized Specialty Services Required 12/29/2023 02/19/2025 12 12 Encounter Details Date Type Department Care Team (Late st Contact Info) Description 04/21/2024 3:00 PM CDT Office Visit [facility] Rheumatology 1 [facility] [address] [place] [phone] Jose Mccoy, RN [address] [facility] [address] [place] [address] STEVE positive (Primary Dx); Raised [...] declined 04/21/2024 How often do you attend denominational or orthodox serv ices? 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 ROS per HPI, all other systems [...] no, deformities, swelling, erythema or tenderness. FROM. Freight Dispatcher strength is 5/5. Hips: No deformities, warmth, [...] or family members viewing this note through [employer] inTouch programs: Our clinical notes serve as a [...] 04/21/2024 documented in this encounter Care Teams Wood Window And Door Craftsman Relationship Specialty Start Date End Date John Paul Domínguez MD [address] [place] [address] PCP - General Family Medicine 10/16/22 [place] [address] [address] Consulting Physician Endocrinology Diabetes & Metabolism 03/11/24 Deon Olvera III[place] PhD [address] [address] Radiation Oncologist Radiation Oncology 03/11/24 Tao Helm MD PhD [address] [address] Radiation Oncologist Radiation Oncology 03/11/24 documented as of this encounter
--- OUTSIDE RECORDS SUMMARY | 2024-09-16 12:59 | XMS_ITS | Referral Summary ---
Author Organization [facility] [address] Address [facility] [place] [address] Care Team Providers Care Strip Polisher Name Role Phone John Paul Domínguez MD Primary Care Provider [phone] Joseph Freeman MD Unavailable Wade REDDY MD PhD, Deon Vanegas Unavailable Tao Helm MD PhD Unavailable [phone] Encounters Date Type Department Care Team Description 09/14/2024 Telephone [facility] Specialists of [facility] [address] [place] [address] Joseph Freeman MD 09/14/2024 1:45 PM FINISH MILL OPERATOR Therapy [facility] [address] [place] [address] Samantha Adrian, PT Neck pain (Primary Dx) 09/10/2024 7:45 AM FINISH MILL OPERATOR Therapy [facility] [address] [place] [address] Delores Alcazar, PT Neck pain (Primary Dx); Midline back pain, unspecified back location, unspecified chronicity 09/02/2024 Plan of Care Documentation [facility] [address] [place] [address] 09/02/2024 11:00 AM FINISH MILL OPERATOR Therapy [facility] [address] [place] [address] Delores Alcazar, PT Neck pain (Primary Dx); [...] uncontrolled, contributing to the hypocalcemia Restart vitamin-D 03316 IU use weekly 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 Assessment [...] mg twice a day Also restart vitamin-D 87823 IU use weekly Assessment & Plan (12/25/2023 [...] 02/04/2023 Assessment & Plan (11/26/2022 4:32 PM FINISH MILL OPERATOR): With [employer] genomic sequencing, positive for [...] . 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 Patient declined 04/21/2024 Do you belong to any clubs o r organizations such as adventist groups, unions, fraternal or athletic groups, or [...] Recorded Patient Health Questionnaire-2 Score 4 04/21/2024 [facility] - Occupational [...] on file Legal Sex Female 3:09 AM FINISH MILL OPERATOR Gender Identity Not on file Sexual [...] on file Medical Devices Implanted Type Area Bogger Operator Device Identifier Shelf Expiration Date Model / Serial / Lot [facility] Sls-Clip Ligate Triangular Wire Janae Groove Small [employer] Clip Latex Free [id number] - [id number] Implanted:Qty: 2 on 01/20/2023 by Jacob Reyna MD at [facility] N/A: Neck [employer] [id number] 03/28/2027 [id number] / / [id number] [employer] Sls-Clip Ligate Triangular Wire Janae Groove Small Chevron Clip Latex Free [id number] - [id number] Implanted:Qty: 1 on 01/20/2023 by Jacob Reyna MD at [facility] N/A: Neck [employer] [id number] 03/28/2027 [id number] / [id number] Insurance Member Subscriber Plan / Payer (Ef fective 2019-Present) Name:Rubi Baca [place] Relation to Subscriber:Self Name:Rubi Bacaenix Payer ID:[id number] (NAIC) Type:MEDICAID RISK OTHER Address: [place] [id number] [facility] Advance Directives For more information, please contact: [phone] * Full Code (Latest Code Status on File) Date Activated Date Inactivated Comments 01/20/2023 5:49 PM 01/21/2023 8:14 PM Care Teams Strip Polisher Relationship Specialty Start Date End Date John Paul Domínguez MD [address] [place] [address] PCP - General Family Medicine 10/16/22 [place] [address] [address] Consulting Physician Endocrinology Diabetes & Metabolism 03/11/24 Deon Olvera III, [place] PhD [address] [address] Radiation Oncologist Radiation Oncology 03/11/24 Tao Helm MD PhD [address] [address] Radiation Oncologist Radiation Oncology 03/11/24
--- OUTSIDE RECORDS SUMMARY | 2024-09-16 12:59 | XMS_ITS | Encounter Summary ---
Author Organization [facility] Address [address] [place] [address] Care Team Providers Care Candy Butcher Name Role Phone John Paul Domínguez MD Primary Care Provider [phone] Encounter Details Date Type Department Care Team (Late st Contact Info) Description 01/14/2024 Orders Only [facility] [address] [address] ProviderOswaldo MD [address] [place] [address] Social History Tobacco Use Types Packs/Day Years [...] on file Legal Sex Female 3:09 AM NEWS CAMERAMAN Gender Identity Not on file Sexual Orientation [...] CALCIUM, IONIZED Routine 11/23/2023 10:5 9 AM NEWS CAMERAMAN documented in this encounter Results * Parathyroid [...] 32 mmol/L [facility] SCRIBED eGFR in NonAfrican Belizean 141 >=60 - NA [facility] Blood 12/22/2023 10:5 9 AM CDT Historical Provider MD LAB BLOOD ORDERABLES Edit ed Result - Final [facility] * Magnesium (12/22/2023 10:59 AM CDT) SCRIBED Magnesium 2.1 1.5 - 2.5 mg/dl [facility] Blood 12/22/2023 10:5 9 AM CDT Historical Provider MD LAB BLOOD ORDERABLES Edit ed Result - Final Performing Organization Address City/[facility]/ZIP Co de Phone Number [facility] * TSH+Free T4 (12/22/2023 10:59 AM CDT) Scribed TSH 2.53 0.50 - 4.30 mcU/mL [facility] Blood 12/22/2023 10:5 9 AM CDT Historical Provider MD LAB BLOOD ORDERABLES Edit ed Result - Final Performing Organization Address City/[facility]/ZIP Co de Phone Number [facility] * Vitamin [...] ed Result - Final Performing Organization Address [facility] de Phone Number [facility] * (ABNORMAL) Vitamin D 25 hydroxy (12/22/2023 10:59 AM CDT) SCRIBED 25-OH Vitamin D 18(A) 30 - 100 ng/mL [facility] Blood 12/22/2023 10:5 9 AM CDT Historical Provider MD LAB BLOOD ORDERABLES Edit ed Result - Final Performing Organization Address [facility] de Phone Number [facility] * (ABNORMAL) Calcium, ionized (11/23/2023 10:59 AM NEWS CAMERAMAN) Blood 11/23/2023 10:5 9 AM NEWS CAMERAMAN Impressions [facility] - 12/28/2023 4:29 PM CDT Result: 4.4 (4.7-5.5) Historical Provider MD LAB BLOOD ORDERABLES Edit ed Result - Final Performing Organization Address [facility] de Phone Number [facility] documented in this encounter Visit Diagnoses Not on filedocumented in this encounter Care Teams Candy Butcher Relationship Specialty Start Date End Date John Paul Domínguez MD [address] [place] [address] PCP - General Family Medicine 10/16/22 documented as of this encounter
--- OUTSIDE RECORDS SUMMARY | 2024-09-16 12:59 | XMS_ITS | Encounter Summary ---
Author Organization [facility] Healthcare Address [address] [place] [address] Care Team Providers Care Simulation Specialist Name Role Phone John Paul Domínguez MD Primary Care Provider + [phone] Joseph Freeman MD Unavailable Wade REDDY MD PhD, Deon Vanegas Unavailable Tao Helm MD PhD Unavailable [phone] Reason for Visit * Reason Comments Follow-up Encounter Details Date Type Department Care Team (Late st Contact Info) Description 03/11/2024 1:00 PM CDT Office Visit [facility] Advanced Medicine Radiation Oncology [address] [facility] [place] [address] Renetta Ding PA [address] [facility] [address] [place] [address] Papillary thyroid carcinoma (HCC) (Primary Dx); Radiotherapy [...] on file Legal Sex Female 3:09 AM FRONT END JAVA DEVELOPER Gender Identity Not on file Sexual Orientation [...] ORDERABLES Fi nal Result Performing Organization Address City/State/[facility] Co de Phone Number [facility] Department [place] [address] documented in this encounter Visit Diagnoses Diagnosis Papillary thyroid carcinoma (HCC)- Primary Radiotherapy follow-up examination documented in this encounter Discontinued Medications Medication Sig Discontinue Reason Start Date End Da te ergocalciferol (VITAMIN D) 50,000 unit capsule Take 1 capsule (50,000 Units total) by mouth once a week Therapy completed 02/02/2024 03/11/2024 documented as of this encounter Care Teams Simulation Specialist Relationship Specialty Start Date End Date John Paul Domínguez MD [address] [place] [address] PCP - General Family Medicine 10/16/22 [place] [address] [address] [facility] [address] [place] [address] Consulting Physician Endocrinology Diabetes & Metabolism 03/11/24 Deon Olvera III, [place] PhD [address] [address] [facility] [address] [place] [address] Radiation Oncologist Radiation Oncology 03/11/24 Tao Helm [place] PhD [address] [address] [facility] [address] [place] [address] Radiation Oncologist Radiation Oncology 03/11/24 documented as of this encounter
--- OUTSIDE RECORDS SUMMARY | 2024-09-16 12:59 | XMS_ITS | Encounter Summary ---
Author Organization [facility] Healthcare Address [address] [place] [address] Care Team Providers Care Hydraulics Engineer Name Role Phone John Paul Domínguez MD Primary Care Provider + [phone] Encounter Details Date Type Department Care Team (Latest Contact Info) Description 02/17/2024 3:54 PM CDT - 02/17/2024 11:59 PM CDT Hospital Encounter [address] [address] Thyroid cancer (HCC) Discharge Disposition: Discharge to [...] on file Legal Sex Female 3:09 AM OUTBOUND SUPERVISOR Gender Identity Not on file Sexual [...] ANTONIO TENORIO Final Result Performing Organization Address City/[facility] Co de Phone Number CHRIS NELSON [address] [address] [employer] ( [facility] ) [place] [address] * T4, free (02/17/2024 3:54 PM CDT) Pathologist [facility] Free T4 1.28 0.90 - 1.70 ng/dL Blood 02/17/2024 3:54 PM CDT 02/17/2024 7:10 PM CDT Deon Olvera III, MD PhD LAB BLOOD ANTONIO TENORIO Final Result Performing Organization Address [facility] de Phone Number CHRIS NELSON [address] [address] [facility] [place] [address] * Thyroglobulin antibodies (02/17/2024 3:54 PM CDT) Pathologist [facility] Anti-thyroglobulin <1.8 <4.0 IUnits/mL [facility] Lab Comment: ADDITIONAL INFORMATION PLEASE NOTE: ??The given thyroglobulin antibody (TgAb) reference cutoff of <4.0 IU/mL is for the evaluation of autoimmune thyroiditis. A cutoff of <1.8 IU/mL may be more suitable for the detection of potential thyroglobulin antibody (TgAb) interference in thyroglobulin immunoassays. The thyroglobulin antibody testing method is an immunoenzymatic assay manufactured by [employer] and performed on the [employer] DXI 800. Values obtained from different assay methods or kits may be different and cannot be used interchangeably. The results cannot be interpreted as absolute evidence for the presence or absence of malignant disease. Test Performed by: [address] [address] Crisis Counselor: Ho Mays M.D. Ph.D.; CLIA# [id number] Blood 02/17/2024 3:54 PM CDT 02/17/2024 7:10 PM CDT Deon Olvera III, MD PhD LAB BLOOD NATONIO TENORIOJULIO Final Result CHRIS [address] [address] Department [place] [address] Formerly [facility] * Thyroglobulin, tumor marker, serum (02/17/2024 3:54 PM CDT) Thyroglobulin <0.1 ng/mL [facility] Lab Comment: REFERENCE VALUE Athyrotic <0.1 [...] testing methods are immunoenzymatic assays manufactured by [employer] and performed on the [employer] DXI 800. Values obtained from different assay methods or kits may be different and cannot be used interchangeably. The results cannot be interpreted as absolute evidence for the presence or absence of malignant disease. Test Performed by: [facility] [employer] [facility] [employer] [address] [place] [address] Crisis Counselor: Ho Mays M.D. Ph.D.; CLIA# [id number] Blood 02/17/2024 3:54 PM CDT 02/17/2024 7:10 PM CDT Deon Olvera III, MD PhD LAB BLOOD ORDE RABLES Final Result Performing Organization Address City/[facility]/ZIP Co de Phone Number CHRIS NELSON [address] [place] [address] [place] [facility] * (ABNORMAL) TSH (02/17/2024 3:54 PM CDT) Thyroid Stimulating Hormone 0.11(L) 0.30 - 4.20 mcIUnit/mL Blood 02/17/2024 3:54 PM CDT 02/17/2024 7:10 PM CDT Deon Olvera III, MD PhD LAB BLOOD ORDE RABLES Final Result Performing Organization Address City/[facility] Co de Phone Number CHRIS NELSON [address] [address] [employer] ( [facility] ) [place] [address] documented in this encounter Visit Diagnoses Diagnosis Thyroid cancer (HCC) Malignant neoplasm of thyroid gland documented in this encounter Care Teams Hydraulics Engineer Relationship Specialty Start Date End Date John Paul Domínguez MD [address] [place] [address] PCP - General Family Medicine 10/16/22 documented as of this encounter
--- OUTSIDE RECORDS SUMMARY | 2024-09-16 12:59 | XMS_ITS | Encounter Summary ---
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
--- OUTSIDE RECORDS SUMMARY | 2024-09-16 12:59 | XMS_ITS | Encounter Summary ---
Author Organization [facility] Healthcare Address [address] [place] [address] Care Team Providers Care Tank Farm Gauger Name Role Phone John Paul Domínguez MD Primary Care Provider + [phone] Joseph Freeman MD Unavailable Wade REDDY MD PhD, Deon Vanegas Unavailable Tao Helm MD PhD Unavailable [phone] Encounter Details Date Type Department Care Team (Late st Contact Info) Description 09/02/2024 Plan of Care Documentation [facility] Physical Therapy [address] [place] [address] Social History Tobacco Use Types Packs/Day Years [...] How often do you attend mu-ism or buddhism serv ices? 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 Gender Identity Not on file Sexual Orientation Not on file documented as of this encounter Plan of Treatment Not on file documented as of this encounter Visit Diagnoses Not on filedocumented in this encounter Care Teams Tank Farm Gauger Relationship Specialty Start Date End Date John Paul Domínguez MD [address] [place] [address] PCP - General Family Medicine 10/16/22 [place] [address] [address] [place] [address] Consulting Physician Endocrinology Diabetes & Metabolism 03/11/24 Deon Olver[place] [address] [address] [place] [address] Radiation Oncologist Radiation Oncology 03/11/24 [place] PhD [address] [address] Radiation Oncologist Radiation Oncology 03/11/24 documented as of this encounter
--- OUTSIDE RECORDS SUMMARY | 2024-09-16 12:59 | XMS_ITS | Encounter Summary ---
Author Organization [facility] Healthcare Address [address] [place] [address] Care Team Providers Care Director Dietetics Department Name Role Phone John Paul Domínguez MD Primary Care Provider + [phone] Reason for Visit * Reason Comments Thyroid Problem Encounter Details Date Type Department Care Team (Latest Contact Info) Description 01/15/2024 3:15 PM CDT Office Visit [facility] Medical Group Diabetes and Endocrinology [address] [place] [id number] [place] [address] [facility] [address] [address] Papillary thyroid carcinoma (HCC) (Primary [...] on file Legal 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 Emphasized to the patient the need to take calcium and her vitamin-D I advised her and send a prescription for calcium citrate to take 500 mg twice a day Also restart vitamin-D 56643 IU use weekly * Assessment & Plan [...] 01/15/2024 added in this encounter Care Teams Director Dietetics Department Relationship Specialty Start Date End Date John Paul Domínguez MD [address] [place] [address] PCP - General Family Medicine 10/16/22 documented as of this encounter
--- OUTSIDE RECORDS SUMMARY | 2024-09-16 12:59 | XMS_ITS | Continuity of Care Document ---
Author Organization [facility] Address [address] [facility] [place] [address] Phone Care Team Providers Care Software Applications Developer Name Role Phone John Paul Domínguez [...] Copied on Encounter OFFICE/OUTPA TIENT VISIT, EST [facility], [address] [place], [place] [address]e [place], [address], [place] tel:[phone] [facility] Medicine orthostasis 1 (chief complaint)E DS (chief complaint)b ack pain1 (chief complaint) Orthostatic hypotensionHypermo bility syndromeCervicalgi aHashimoto's thyroiditis 4 Sang Coker. [address], [place], [address]. tel:[phone] OFFICE/OUTPA TIENT VISIT, [facility] [place], [address], [place], [address], [place] tel:[phone] [facility] back pain1 (chief complaint) LumbagoCervicalgia 4 Domínguez John Paul. [address], [address], [place], [address]. tel:[phone] OFFICE/OUTPA TIENT VISIT, [facility] [place], [address], [place], [address], [place] tel:[phone] [facility] orthostasis 1 (chief complaint)j oint pain1 (chief complaint)b ack pain1 (chief complaint) Orthostatic hypotensionPain in jointHypermobility syndromeLumbago 4 Domínguez John Paul. [address], [address], [place], [address]. tel:[phone] OFFICE/OUTPA TIENT VISIT, [facility] [place], [address], [place], [address], [place] tel:[phone] [facility] joint pain1 (chief complaint)E DS (chief complaint) Pain in jointOrthostatic hypotensionHypermo bility syndrome 4 Sang Coker. [address], [address], [place], [address]. tel:[phone] OFFICE/OUTPA TIENT VISIT, [facility] [place], [address] [place], [address], [place] tel:[phone] [facility] iron (chief complaint)c alcium1 (chief complaint)j oint pain1 (chief complaint)h ashimoto1 (chief complaint) Raised antibody titerIron deficiencyHypocalc emiaHashimoto's thyroiditisNeuropa thy 4 Sang Coker. [address], [address], [place], [address]. tel:[phone] OFFICE/OUTPA TIENT VISIT, EST [facility], [address], [place], [address], [place] tel:[phone] [facility] joint pain1 (chief complaint)a nemia1 (chief complaint)h ypothyroidi sm1 (chief complaint) Aime's thyroiditisIron deficiency anemiaPain in jointFatigue Nov- 4 Sang Coker. [address], [address], [place], [address]. tel:[phone] PREV VISIT, EST, AGE 18-39 [facility], [address], [place], [address], [place] tel:[phone] [facility] physical (chief complaint) Encounter for general adult medical examination without abnormal findings 3 Sang Coker. [address], [address], [place], [address]. tel:[phone] OFFICE/OUTPA TIENT VISIT, EST [facility], [address], [place], [address], [place] tel:[phone] [facility] abd pain1 (chief complaint)h ashimoto1 (chief complaint) Aime's thyroiditisLower abdominal pain Dec- 3 Sang Coker. [address], [address], [place], [address]. tel:[phone] OFFICE/OUTPA TIENT VISIT, EST [facility], [address], [place], [address], [place] tel:[phone] [facility] Hashimoto1 (chief complaint)i rajesh deficiency1 (chief complaint)w eight gain1 (chief complaint)T MJ1 (chief complaint) Thyroid noduleHashimoto's thyroiditisIron deficiency anemiaAbnormal weight gainAtypical facial pain Aug- 2 Sang Coker. [address], [place], [address]. tel:[phone] OFFICE/OUTPA TIENT VISIT, [facility] [place], [address], [place], [address], tel:[phone] [facility] thyroid1 (chief complaint)i rajesh deficiency anemia1 (chief complaint)a lopecia1 (chief complaint) Thyroid noduleHashimoto's thyroiditisIron deficiency anemiaAlopecia 2 Domínguez John Paul. [address], [place], [address]. [phone] OFFICE/OUTPA TIENT VISIT, [facility] [place], [address], [place], [address], tel:[phone] [facility] thyroid1 (chief complaint)i rajesh deficiency anemia1 (chief complaint) Aime's thyroiditisIron deficiency anemia May- 2 Domínguez John Paul. [address], [place], [address]. [phone] OFFICE/OUTPA TIENT VISIT, [facility] [place], [address], [place], [address], [place] tel:[phone] [facility] fatigue1 (chief complaint)t hyroid1 (chief complaint) Iron deficiency anemiaCeliac diseaseFolate deficiencyHypothyr oidism 2 Sang John Paul. [address], [place], [address]. tel:[phone] PREV VISIT, NEW, AGE 12-17 [facility], [address], [place], [address], [place] tel:[phone] [facility] physical (chief complaint) Encounter for routine child health examination without abnormal findings 2 Domínguez John Paul. [address], [place], [address]. tel:[phone] Family History Family Member Type Diagnosis Age At Onset Father Problem CAD 47 Mother Problem Alive and well Sister Problem Alive and well Father Problem of brain aneurysm age o f 47 Payers Payer name Insurance type Covered libertarian ID Authoriza tion(s) No Information Social History [...] with positive Steve. Pt saw rheumatology at [facility] and she was referred to cardiology for POTS. Pt also was told that she has orville with bottom turner in several years but she was told [...] Surgery. Evaluate and treat ordered Referral Ordered: Cardiology (related to Orthostatic hypotension) ordered Referral Ordered: Internal Medicine (related to [...] Referral Referred To: Madalyn Bailey [address] [place], [place], [phone] Ordered: Referrals: Allopathic & Osteopathic Physicians : Plastic Surgery. Madalyn Bailey. Evaluate and treat ordered Referral Ordered: José Miguel Recinos -Allopathic & Osteopathic Physicians : Internal Medicine : Endocrinology, Diabetes & Metabolism (related to Thyroid nodule) ordered Referral Referred To: José Miguel Recinos [address] [facility]
[address] [place], [place] [address] Ordered: Referrals: Allopathic & Osteopathic Physicians : [...] h positive Steve. Pt saw rheumatology at [facility] and she was referred to cardiology for POTS. Pt also was told that she has orville with bottom turner in several years but she was told [...] above as well Pt wants to see bottom turner for above diagnosis Pt denies any chest [...] and she has strong family history of mkiayla danlos syndrome and she wants to be evaluated for above anemia1 Pt has history o f iron deficiency anemia due to heavy period Pt still has heavy period Pt has not seen her CYBER SECURITY ARCHITECT for several years. Pt did undergo iron [...] out of town visiting her sister in [place] and wont be back until 10 days [...] Mental Status Date Cognitive Assessment Orientation - [place] ed to time, place, person, situation.
--- OUTSIDE RECORDS SUMMARY | 2024-09-16 12:59 | XMS_ITS | Encounter Summary ---
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 Gender Identity Not on file Sexual [...] LAB BLOOD ORDERABLES Final Resul t CHRIS [address] [address] Department [place] [address] * (ABNORMAL) TSH (03/08/2024 9:41 AM CDT) Thyroid Stimulating Hormone 244.00(H) 0.30 - 4.20 mcIUnit/m L Blood 03/08/2024 9:41 AM CDT 03/08/2024 3:58 PM CDT Narrative CHRIS NELSON - 03/08/2024 4:59 PM CDT To be done in 2 months us Joseph Freeman MD LAB BLOOD ORDERABLES Final [facility]ul t [facility] [address] [address] Department of Laboratories [place] [phone] documented in this encounter Visit Diagnoses Diagnosis Postsurgical hypothyroidism documented in this encounter Care Teams Airplane Mechanic Apprentice Relationship Specialty Start Date End Date John Paul Domínguez MD [address] [place] [address] PCP - General Family Medicine 10/16/22 documented as of this encounter
--- OUTSIDE RECORDS SUMMARY | 2024-09-16 12:59 | XMS_ITS | Encounter Summary ---
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
--- OUTSIDE RECORDS SUMMARY | 2024-09-16 12:59 | XMS_ITS | Encounter Summary ---
Author Organization [facility] Healthcare Address [address] [place] [address] Care Team Providers Care Wash Test Checker Name Role Phone John Paul Domínguez MD Primary Care Provider [phone] Joseph Freeman MD Unavailable Wade REDDY MD PhD, Deon Vanegas Unavailable Tao Helm MD PhD Unavailable [phone] Reason for Visit * Reason Comments PT Initial Eval * Consultation (Routine) - Authorized Specialty Diagnoses / Procedures Referred By Contac t Referred To Contact Physical Therapy Diagnoses Neck pain Midline back pain, unspecified back location, unspecified chronicity John Paul Domínguez MD [address] [place] [address] [place] [address] Phone: tel: fax: [facility] Physical Therapy [address] [place] [address] Phone: tel: fax: Referral ID Status Reason Start Date Expiration Date Visits Requested Visits Authorized [id number] Authorized Evaluate and Treat 08/11/2024 09/10/2025 99 13 Encounter Details Date Type Department Care Team (Late st Contact Info) Description 09/02/2024 11:00 AM LIQUEFIED PETROLEUM GASFITTER Therapy [facility] Physical Therapy [address] [place] [address] Delores Alcazar, PT Neck pain (Primary Dx); [...] declined 04/21/2024 How often do you attend episcopal or synagogue serv ices? Patient declined 04/21/2024 Do you belong to any clubs o r organizations such as episcopal groups, unions, fraternal or athletic groups, or [...] Recorded Patient Health Questionnaire-2 Score 4 04/21/2024 [facility] ional [facility] - [...] on file Legal Sex Female 3:09 AM LIQUEFIED PETROLEUM GASFITTER Gender Identity Not on file Sexual Orientation Not on file documented as of this encounter Progress Notes * Delores Alcazar, PT - 09/02/2024 11:00 AM CST PT Initial Evaluation *PLEASE SIGN AND FAX BACK TO [phone]* Rubi Baca 2005 19 y.o. female John Paul Domínguez MD [address] [place] [address] ICD-10-CM 1. Neck pain M54.2 Ambulatory referral [...] instruction: (latex free orange tband) Access Code: [email or web address] URL: [email or web address] Date: 09/02/2024 - Supine Cervical Retraction with [...] of treatment plan. Our fax number is [phone] I certify that the plan of care as stated in this letter is appropriate and medically necessary Elizabeth Lopezwendy Baca, 2005 Physician Signature: Date: Time: EFIED PETROLEUM GASFITTER documented in this encounter Plan of Treatment Not on file documented as of this encounter Visit Diagnoses Diagnosis Neck pain- Primary Cervicalgia Midline back pain, unspecified back location, unspecified chronicity documented in this encounter Orders Outpatient Referral Count Last Ordered Date Fir st Ordered Date AMB REFERRAL ORDER TO PHYSICAL THERAPY 1 documented in this encounter Care Teams Wash Test Checker Relationship Specialty Start Date End Date John Paul Domínguez MD [address] [place] [address] PCP - General Family Medicine 10/16/22 [place] [address] [place] [address] Consulting Physician Endocrinology Diabetes & Metabolism 03/11/24 Deon Olvera III, [place] PhD [address] [address] Radiation Oncologist Radiation Oncology 03/11/24 Tao Helm MD PhD [address] [address] Radiation Oncologist Radiation Oncology 03/11/24 documented as of this encounter
--- OUTSIDE RECORDS SUMMARY | 2024-09-16 12:59 | XMS_ITS | Encounter Summary ---
Author Organization [facility] Healthcare Address [address] [place] [address] Care Team Providers Care Packing Room Inspector Name Role Phone John Paul Domínguez MD Primary Care Provider + [phone] Joseph Freeman MD Unavailable Wade REDDY MD PhD, Deon Vanegas Unavailable Tao Helm MD PhD Unavailable [phone] Encounter Details Date Type Department Care Team (Late st Contact Info) Description 03/11/2024 2:[address] 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 and performed on the [employer] DXI 800. Values obtained from different assay methods or kits may be different and cannot be used interchangeably. The results cannot be interpreted as absolute evidence for the presence or absence of malignant disease. Test Performed by: [place] [id number] Docking Saw Operator: Amanda Shanks Ph.D.; CLIA# [id number] Blood 03/11/2024 2:32 PM CDT 03/11/2024 4:03 PM CDT Renetta MAXWELL LAB BLOOD ORDERABLES Fi nal Result Performing Organization Address City/[facility] Co de Phone Number [facility] Department [email or web address] [place] [address] [facility] ref [facility] * (ABNORMAL) TSH (03/11/2024 2:32 PM CDT) Thyroid Stimulating Hormone 249.00(H) 0.30 - 4.20 mcIUnit/m L Blood 03/11/2024 2:32 PM CDT 03/11/2024 2:54 PM CDT Renetta MAXWELL LAB BLOOD ORDERABLES Fi nal Result Performing Organization Address [facility] Co de Phone Number [facility] [email or web address] [place] [address] * Thyroglobulin reflex to MS or IA (03/11/2024 2:32 PM CDT) Anti-thyroglobulin <1.8 <1.8 IUnits/mL [facility] Comment: Thyroglobulin Antibody < 1.8 IU/mL. Thyroglobulin performed by Immunoassay to follow. Test Performed by: [address] [address] Docking Saw Operator: Amanda Shanks Ph.D.; CLIA# [id number] Blood 03/11/2024 2:32 PM CDT 03/11/2024 4:03 PM CDT Renetta MAXWELL LAB BLOOD ORDERABLES Fi nal Result [facility] Department [place] [address] [facility] ref [facility] documented in this encounter Visit Diagnoses Diagnosis Papillary thyroid carcinoma (HCC) documented in this encounter Care Teams Packing Room Inspector Relationship Specialty Start Date End Date John Paul Domínguez MD [address] [place] [address] PCP - General Family Medicine 10/16/22 [place] [address] [address] Consulting Physician Endocrinology Diabetes & Metabolism 03/11/24 Deon Olvera III[place] PhD [address] [address] Radiation Oncologist Radiation Oncology 03/11/24 Tao Helm [place] PhD [address] [address] Radiation Oncologist Radiation Oncology 03/11/24 documented as of this encounter
--- OUTSIDE RECORDS SUMMARY | 2024-09-16 12:59 | XMS_ITS | Encounter Summary ---
Author Organization [facility] Healthcare Address [address] [place] [address] Care Team Providers Care Sheather Name Role Phone John Paul Domínguez MD Primary Care Provider + [phone] Joseph Freeman MD Unavailable Wade REDDY MD PhD, Deon Vanegas Unavailable Tao Helm MD PhD Unavailable [phone] Reason for Visit * Reason Onset Date Comments Test Results 03/15/2024 Encounter Details Date Type Department Care Team (Late st Contact Info) Description 03/15/2024 Telephone [facility] Advanced Medicine Radiation Oncology [address] [facility] Advanced [place] [address] Renetta Ding PA [address] [facility] [address] [place] [address] Test Results Social History Tobacco Use Types [...] file 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 She expressed her understanding of the results and plan. She was encouraged to call our office or reach out via [employer] if she has any questions. Latest Reference [...] on filedocumented in this encounter Care Teams Sheather Relationship Specialty Start Date End Date John Paul Domínguez MD [address] [place] [address] PCP - General Family Medicine 10/16/22 [place] [address] [address] Consulting Physician Endocrinology Diabetes & Metabolism 03/11/24 Deon Olvera III[place] PhD [address] [address] Radiation Oncologist Radiation Oncology 03/11/24 Tao Helm [place] PhD [address] [address] Radiation Oncologist Radiation Oncology 03/11/24 documented as of this encounter
--- OUTSIDE RECORDS SUMMARY | 2024-09-16 12:59 | XMS_ITS | Encounter Summary ---
Author Organization [facility] Healthcare Address [address] [place] [address] Care Team Providers Care Warehouse Packaging Supervisor Name Role Phone John Paul Domínguez MD Primary Care Provider + [phone] Encounter Details Date Type Department Care Team (Late st Contact Info) Description 03/08/2024 Orders Only 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
--- OUTSIDE RECORDS SUMMARY | 2024-09-16 12:59 | XMS_ITS | Encounter Summary ---
Author Organization [facility] Healthcare Address [address] [place] [address] Care Team Providers Care Director Communications Name Role Phone John Paul Domínguez MD Primary Care Provider + [phone] Joseph Freeman MD Unavailable Wade REDDY MD PhD, Deon Vanegas Unavailable Tao Helm MD PhD Unavailable [phone] Encounter Details Date Type Department Care Team (Late st Contact Info) Description 03/11/2024 Orders Only [facility] Advanced Medicine Radiation Oncology [address] [facility] [place] [address] Kishore Yanez, RN Papillary thyroid carcinoma (HCC) [...] on file Legal Sex Female 3:09 AM 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 Thyroglobulin performed by Immunoassay to follow. Test Performed by: [facility] [address] [place] [address] Crack Off Person: Amanda Shanks Ph.D.; CLIA# [id number] Blood 03/11/2024 2:32 PM CDT 03/11/2024 4:03 PM CDT us Renetta MAXWELL LAB BLOOD ORDERABLES nal Result [facility] [place] [address] [facility] Lab documented in this encounter Visit Diagnoses Diagnosis Papillary thyroid carcinoma (HCC)- Primary documented in this encounter Care Teams Director Communications Relationship Specialty Start Date End Date John Paul Domínguez MD [address] [place] [address] PCP - General Family Medicine 10/16/22 [place] [address] [address] [place] [address] Consulting Physician Endocrinology Diabetes & Metabolism 03/11/24 Deon Olvera III[place] PhD [address] [address] Radiation Oncologist Radiation Oncology 03/11/24 Tao Helm MD PhD [address] [address] Radiation Oncologist Radiation Oncology 03/11/24 documented as of this encounter
--- OUTSIDE RECORDS SUMMARY | 2024-09-16 12:59 | XMS_ITS | Encounter Summary ---
Author Organization [facility] Healthcare Address [address] [place] [address] Care Team Providers Care Youth Teacher Name Role Phone John Paul Domínguez MD Primary Care Provider [phone] Joseph Freeman MD Unavailable Wade REDDY MD PhD, Deon Vanegas Unavailable Tao Helm MD PhD Unavailable [phone] Reason for Visit * Diagnostic Imaging (Routine) - Closed Specialty Diagnoses / Procedures Referred By Contac t Referred To Contact Diagnoses Thyroid cancer (HCC) Procedures NM Thyroid Cancer [facility] Whole [facility] Imaging Deon Olvera III, MD PhD [address] [place], [place] [address] [place] [address] Phone: tel: fax: [address] [phone] Referral ID Status Reason Start Date Expiration Date Visits Re quested Visits Authorized [id number] Closed 12/11/2023 01/09/2025 2 2 Encounter Details Date Type Department Care Team (Latest Contact Info) Description 03/11/2024 10:00 AM CDT - 03/11/2024 11:59 PM CDT Hospital Encounter [facility] [address] [place] [address] Discharge Disposition: Discharge to home or [...] on file Legal Sex Female 3:09 AM GUIDE TOUR Gender Identity Not on file Sexual Orientation [...] on filedocumented in this encounter Care Teams Youth Teacher Relationship Specialty Start Date End Date John Paul Domínguez MD [address] [place] [address] PCP - General Family Medicine 10/16/22 [place] [address] [id number] Consulting Physician Endocrinology Diabetes & Metabolism 03/11/24 Deon Olvera III[place] PhD [address] [address] Radiation Oncologist Radiation Oncology 03/11/24 Tao Helm MD PhD [address] [id number] Radiation Oncologist Radiation Oncology 03/11/24 documented as of this encounter
--- OUTSIDE RECORDS SUMMARY | 2024-09-16 12:59 | XMS_ITS | Encounter Summary ---
Author Organization [facility] Healthcare Address [address] [place] [address] Care Team Providers Care Explosive Specialist Name Role Phone John Paul Domínguez MD Primary Care Provider + [phone] Encounter Details Date Type Department Care Team (Late st Contact Info) Description 03/08/2024 Orders Only [facility] Advanced Medicine Radiation Oncology [address] 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
--- OUTSIDE RECORDS SUMMARY | 2024-09-16 12:59 | XMS_ITS | Clinical Summary ---
Author Organization [facility] [address] [place] Address [address] [place] [phone] Care Team Providers Care Humanities Instructor Name Role Phone John Paul Domínguez MD Primary Care Provider [phone] Joseph Freeman MD Unavailable Wade REDDY MD [...] uncontrolled, contributing to the hypocalcemia Restart vitamin-D 94696 IU use weekly 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 Assessment [...] mg twice a day Also restart vitamin-D 22319 IU use weekly Assessment & Plan (12/25/2023 [...] 02/04/2023 Assessment & Plan (11/26/2022 4:32 PM PSYCHOLOGY ASSOCIATE): With Afirma genomic sequencing, positive for RET [...] Department Care Team Description 09/14/2024 1:45 PM PSYCHOLOGY ASSOCIATE Therapy [facility] Physical Therapy [address] [place] [address] Samantha Adrian, PT Neck pain (Primary Dx) 09/14/2024 Telephone [facility] [place] [phone] [address] Joseph Freeman MD 09/10/2024 7:45 AM PSYCHOLOGY ASSOCIATE Therapy [facility] Physical Therapy [address] [place] [address] Delores Alcazar, PT Neck pain (Primary Dx); Midline back pain, unspecified back location, unspecified chronicity 09/02/2024 11:00 AM PSYCHOLOGY ASSOCIATE Therapy [facility] Physical Therapy [address] [place] [address] Delores Alcazar, PT Neck pain (Primary Dx); Midline back pain, unspecified back location, unspecified chronicity 09/02/2024 Plan of Care Documentation [facility] Physical Therapy [address] [place] [address] from Last 3 Months Immunizations Name Administration [...] declined 04/21/2024 How often do you attend pentecostal or orthodoxy serv ices? Patient declined 04/21/2024 Do you belong to any clubs o r organizations such as pentecostal groups, unions, fraternal or athletic groups, or [...] Recorded Patient Health Questionnaire-2 Score 4 04/21/2024 [facility] [place] of Occupat ional Health - Occupational Stress [...] on file Legal Sex Female 3:09 AM PSYCHOLOGY ASSOCIATE Gender Identity Not on file Sexual Orientation [...] this topic Medical Devices Implanted Type Area Machine Precision Engraver Device Identifier Shelf Expiration Date Model / Serial / Lot [employer] Sls-Clip Ligate Triangular Wire Janae Groove Small [employer] Clip Latex Free [id number] - [id number] Implanted:Qty: 2 on 01/20/2023 by Jacob Reyna MD at [facility] N/A: Neck [employer] [id number] 03/28/2027 [id number] / / [id number] [employer] Sls-Clip Ligate Triangular Wire Janae Groove Small [employer] Clip Latex Free [id number] - [id number] Implanted:Qty: 1 on 01/20/2023 by Jacob Reyna MD at [facility] N/A: Neck [employer] [id number] 03/28/2027 [id number] / / [id number] Insurance Advance Directives For more information, please contact: [phone] * Full Code (Latest Code Status on File) Date Activated Date Inactivated Comments 01/20/2023 5:49 PM 01/21/2023 8:14 PM Care Teams Humanities Instructor Relationship Specialty Start Date End Date John Paul Domínguez MD [address] [place] [address] PCP - General Family Medicine 10/16/22 [place] [address] [address] Consulting Physician Endocrinology Diabetes & Metabolism 03/11/24 Deon Olvera III, [place] PhD [address] [address] Radiation Oncologist Radiation Oncology 03/11/24 Tao Helm MD PhD [address] [address] Radiation Oncologist Radiation Oncology 03/11/24
--- OUTSIDE RECORDS SUMMARY | 2024-09-16 12:59 | XMS_ITS ---
Author Organization [facility] [address] Address [address] [place] [phone] Care Team Providers Care Assistant Film Editor Name Role Phone John Paul Domínguez MD Primary Care Provider [phone] Joseph Freeman MD Unavailable Wade REDDY MD PhD, Deon Vanegas Unavailable Tao Helm MD PhD Unavailable [phone] Active Problems Problem Noted Date Diagnosed Date Vitamin D deficiency 01/15/2024 Assessment & Plan (01/15/2024 4:43 PM CDT): Chronic, uncontrolled, contributing to the hypocalcemia Restart vitamin-D 74085 IU use weekly 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 Assessment [...] mg twice a day Also restart vitamin-D 79206 IU use weekly Assessment & Plan (12/25/2023 [...] 02/04/2023 Assessment & Plan (11/26/2022 4:32 PM PSYCHIATRY ADULT PHYSICIAN): With Afirma genomic sequencing, positive for RET [...]
--- OUTSIDE RECORDS SUMMARY | 2024-09-16 12:59 | XMS_ITS | Encounter Summary ---
Author Organization [facility] Healthcare Address [address] [place] [address] Care Team Providers Care High School Science Teacher Name Role Phone John Paul Domínguez MD Primary Care Provider + [phone] Reason for Referral * Diagnostic Imaging (Routine) - Closed Specialty Diagnoses / Procedures Referred By Contac t Referred To Contact Diagnoses Thyroid cancer (HCC) Procedures NM Thyroid Cancer [facility] Whole [facility] Imaging Deon Olvera III, MD PhD [address] [address] Phone: tel: fax: [address] [phone] Referral ID Status Reason Start Date Expiration Date Visits Re quested Visits Authorized [id number] Closed 12/11/2023 01/09/2025 2 2 Reason for Visit * Diagnostic Imaging (Routine) - Closed Specialty Diagnoses / Procedures Referred By Contac t Referred To Contact Diagnoses Thyroid cancer (HCC) Procedures NM Thyroid Cancer [facility] Whole Body Imaging Deon Olvera III, MD PhD [address] [address] Phone: tel: fax: [address] [phone] Referral ID Status Reason Start Date Expiration Date Visits Re quested Visits Authorized [id number] Closed 12/11/2023 01/09/2025 2 2 Encounter Details Date Type Department Care Team (Latest Contact Info) Description 03/09/2024 2:20 PM CDT - 03/09/2024 11:59 PM CDT Hospital Encounter [facility] Radiology [address] [place] [address] Thyroid cancer (HCC) Discharge Disposition: Discharge to [...] on file Legal 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
--- OUTSIDE RECORDS SUMMARY | 2024-09-16 12:59 | XMS_ITS | Encounter Summary ---
Author Organization [facility] Healthcare Address [address] [place] [address] Care Team Providers Care Trim Installer Name Role Phone John Paul Domínguez MD Primary Care Provider [phone] Joseph Freeman MD Unavailable Wade REDDY MD PhD, Deon Vanegas Unavailable Tao Helm MD PhD Unavailable [phone] Reason for Visit * Reason Comments PT Treatment * Consultation (Routine) - Authorized Specialty Diagnoses / Procedures Referred By Contac t Referred To Contact Physical Therapy Diagnoses Neck pain Midline back pain, unspecified back location, unspecified chronicity John Paul Domínguez MD [address] [place] [address] [place] [address] Phone: tel: fax: [facility] [address] [place] [address] Phone: tel: fax: Referral ID Status Reason Start Date Expiration Date Visits Requested Visits Authorized [id number] Authorized Evaluate and Treat 08/11/2024 09/10/2025 99 13 Encounter Details Date Type Department Care Team (Late st Contact Info) Description 09/10/2024 7:45 AM MANAGER OF CORPORATE Therapy [facility] [address] [place] [address] Delores Alcazar, PT Neck pain (Primary Dx); [...] declined 04/21/2024 How often do you attend cheondoism or jehovah's witness serv ices? Patient declined 04/21/2024 Do you belong to any clubs o r organizations such as cheondoism groups, unions, fraternal or athletic groups, or [...] Recorded Patient Health Questionnaire-2 Score 4 04/21/2024 [facility] - [...] file Legal Sex Female 3:09 AM MANAGER OF CORPORATE Gender Identity Not on file Sexual Orientation [...] HEP: (latex free orange tband) Access Code: [email or web address] URL: [email or web address] Date: 09/02/2024 - Supine Cervical Retraction with [...] late) End Time: 834 Delores Alcazar PT GER OF CORPORATE documented in this encounter Plan of Treatment Not on file documented as of this encounter Visit Diagnoses Diagnosis Neck pain- Primary Cervicalgia Midline back pain, unspecified back location, unspecified chronicity documented in this encounter Care Teams Trim Installer Relationship Specialty Start Date End Date John Paul Domínguez MD [address] [place] [address] PCP - General Family Medicine 10/16/22 [place] [address] [address] [place] [address] Consulting Physician Endocrinology Diabetes & Metabolism 03/11/24 Deon Olvera III, [place] PhD [address] [facility] [address] [place] [address] Radiation Oncologist Radiation Oncology 03/11/24 Tao Helm [place] PhD [address] [facility] [address] [place] [address] Radiation Oncologist Radiation Oncology 03/11/24 documented as of this encounter
--- OUTSIDE RECORDS SUMMARY | 2024-09-16 12:59 | XMS_ITS | Encounter Summary ---
Author Organization [facility] Healthcare Address [address] [place] [address] Care Team Providers Care Carbon Paper Coating Supervisor Name Role Phone John Paul Domínguez MD Primary Care Provider + [phone] Reason for Visit * Reason Onset Date Comments returned mail 02/25/2024 Encounter Details Date Type Department Care Team (Late st Contact Info) Description 02/25/2024 Telephone [facility] [id number] [place] [address] Joseph Freeman [place] [id number] [place] [address] returned mail Social History Tobacco Use [...] on file Legal Sex Female 3:09 AM 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
--- OUTSIDE RECORDS SUMMARY | 2024-09-16 13:00 | XMS_ITS | Encounter Summary ---
Author Organization [facility] Healthcare Address [address] [place] [address] Care Team Providers Care Acid Conditioning Worker Name Role Phone John Paul Domínguez MD Primary Care Provider [phone] Reason for Referral * Diagnostic Imaging (Routine) - Closed Specialty Diagnoses / Procedures Referred By Contac t Referred To Contact Diagnoses Thyroid cancer (HCC) Procedures [place] Thyroid Cancer Mets Whole Body Imaging Deon Olvera III, MD PhD [address] [facility] [address] [place] [address] Phone: tel: fax: [address] [address] Referral ID Status Reason Start Date Expiration Date Visits Re quested Visits Authorized [id number] Closed 12/11/2023 01/09/2025 2 2 Encounter Details Date Type Department Care Team (Late st Contact Info) Description 12/11/2023 Orders Only [facility] Advanced Medicine Radiation Oncology [address] [facility] [place] [address] Samantha Li, RN Thyroid cancer [...] on file Legal Sex Female 3:09 AM HUMAN RESOURCES TALENT MANAGER Gender Identity Not on file Sexual [...] gland documented in this encounter Care Teams Acid Conditioning Worker Relationship Specialty Start Date End Date John Paul Domínguez MD [address] [place] [address] PCP - General Family Medicine 10/16/22 documented as of this encounter
--- OUTSIDE RECORDS SUMMARY | 2024-09-16 13:00 | XMS_ITS | Encounter Summary ---
Author Organization [facility] Healthcare Address [address] [place] [address] Care Team Providers Care Heavy Equipment Sales Manager Name Role Phone John Paul Domínguez MD Primary Care Provider [phone] Encounter Details Date Type Department Care Team (Late st Contact Info) Description 12/25/2023 4:15 PM CDT Lab [facility] Medical Group Outpatient Lab at [address] [phone] Iron deficiency anemia due to chronic blood [...] on file Legal Sex Female 3:09 AM VERIFIER Gender Identity Not on file Sexual Orientation Not on file documented as of this encounter Plan of Treatment Not on file documented as of this encounter Visit Diagnoses Diagnosis 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
--- OUTSIDE RECORDS SUMMARY | 2024-09-16 13:00 | XMS_ITS | Encounter Summary ---
Author Organization [facility] Medical Group Address [address] [facility] [address] [place] [address] Care Team Providers Care Disability Benefits Specialist Name Role Phone John Paul Domínguez MD Primary Care Provider + [phone] Reason for Visit * Reason Onset Date Comments Test Results 05/02/2023 Labs Encounter Details Date Type Department Care Team (Late st Contact Info) Description 05/02/2023 Telephone [facility] [address] [facility] [address], [place] [address] [place] [address] [facility] [address], [place] [address] Test Results (Labs) Social History [...] on file Legal Sex Female 3:09 AM HEPATOLOGIST Gender Identity Not on file Sexual Orientation [...] on filedocumented in this encounter Care Teams Disability Benefits Specialist Relationship Specialty Start Date End Date John Paul Domínguez MD [address] [place] [address] PCP - General Family Medicine 10/16/22 documented as of this encounter
--- OUTSIDE RECORDS SUMMARY | 2024-09-16 13:00 | XMS_ITS | Encounter Summary ---
Author Organization [facility] Healthcare Address [address] [place] [address] Care Team Providers Care Specification Consultant Name Role Phone John Paul Domínguez MD Primary Care Provider + [phone] Encounter Details Date Type Department Care Team (Late st Contact Info) Description 02/07/2023 2:45 PM CDT Lab [address] [address] Thyroid nodule Social History Tobacco Use Types [...] on file Legal Sex Female 3:09 AM DIESEL MECHANIC Gender Identity Not on file Sexual Orientation [...] BLOOD ORDERABLES Final Resu lt [facility] [address] [place] [address] * (ABNORMAL) PTH (02/07/2023 2:44 PM CDT) PTH 10(L) 15 - 65 pg/mL [facility] Blood 02/07/2023 2:44 PM CDT 02/07/2023 2:50 PM CDT Jacob Reyna MD LAB [place] [address] [address] [place] [address] * Basic metabolic panel (02/07/2023 2:44 PM [...] [place] [address] [address] Department [place] [address] documented in this encounter Visit Diagnoses Diagnosis Thyroid nodule Nontoxic uninodular goiter documented in this encounter Care Teams Specification Consultant Relationship Specialty Start Date End Date John Paul Domínguez MD [address] [place] [address] PCP - General Family Medicine 10/16/22 documented as of this encounter
--- OUTSIDE RECORDS SUMMARY | 2024-09-16 13:00 | XMS_ITS | Encounter Summary ---
Author Organization [facility] Healthcare Address [address] [place] [address] Care Team Providers Care Radiotelegrapher Name Role Phone John Paul Domínguez MD Primary Care Provider + [phone] Reason for Visit * Reason Onset Date Comments Abnormal Labs 01/14/2024 Encounter Details Date Type Department Care Team (Late st Contact Info) Description 01/14/2024 Telephone [facility] [address] [place] [address] Joseph [place] [id number] [place] [address] Abnormal Labs Social History Tobacco Use [...] on file Legal Sex Female 3:09 AM CLERK TELEVISION PRODUCTION Gender Identity Not on file Sexual Orientation [...] was scheduled w/ Dr. Freeman in the [place] office tomorrow, 01/15/24 at 3:15pm. Kala also [...] on filedocumented in this encounter Care Teams Radiotelegrapher Relationship Specialty Start Date End Date John Paul Domínguez MD [address] [place] [address] PCP - General Family Medicine 10/16/22 documented as of this encounter
--- OUTSIDE RECORDS SUMMARY | 2024-09-16 13:00 | XMS_ITS | Encounter Summary ---
Author Organization [facility] Healthcare Address [address] [place] [address] Care Team Providers Care Orthopedic Shoe Maker Name Role Phone John Paul Domínguez MD Primary Care Provider + [phone] Encounter Details Date Type Department Care Team (Latest Contact Info) Description 02/04/2023 4:01 PM CDT - 02/04/2023 11:59 PM CDT Hospital Encounter [address] [address] Postsurgical hypothyroidism; Papillary thyroid carcinoma (HCC); Postsurgical [...] on file Legal Sex Female 3:09 AM PLASTER HELPER Gender Identity Not on file Sexual Orientation [...] Resul t Performing Organization Address [facility] de Phone Number [facility] [address] [address] [place] [address] * (ABNORMAL) PTH (02/04/2023 4:01 PM CDT) PTH 13(L) 15 - 65 pg/mL [facility] Blood 02/04/2023 4:01 PM CDT 02/04/2023 7:01 PM CDT us Joseph Freeman MD LAB BLOOD ORDERABLES Final Resul t Performing Organization Address [facility] de Phone Number [facility] [address] [address] [place] [place] [address] * (ABNORMAL) Basic metabolic panel (02/04/2023 4:01 PM CDT) Sodium 137 135 - 145 mmol/L [facility] Potassium, pl 4.8 3.3 - 4.9 mmol/L [facility] Chloride 99 97 - 110 mmol/L [facility] CO2 28 22 - 32 mmol/L [facility] Anion gap 10 2 - 15 mmol/L [facility] BUN 5(L) 8 - 25 mg/dL [facility] Creatinine 0.63 0.40 - 1.00 mg/dL [facility] Glucose 84 70 - 199 mg/dL [facility] Comment: Interpretive Data Fasting glucose >/= 126 [...] 2022. Calcium 9.2 8.5 - 10.3 mg/dL [facility] Blood 02/04/2023 4:01 PM CDT 02/04/2023 7:01 PM CDT us Joseph Freeman MD LAB BLOOD ORDERABLES Final Resul t [facility] [address] [address] Department [place] [address] * (ABNORMAL) Thyroglobulin, tumor marker, serum (02/04/2023 4:01 PM CDT) Pathologist [facility] Thyroglobulin <0.1 ng/mL [facility] Comment: REFERENCE VALUE Athyrotic <0.1 Intact Thyroid <=33 Anti-thyroglobulin 7.9(H) <1.8 IUnits/m L [facility] Thyroglobulin interp See Footnote [facility] Comment: [...] testing methods are immunoenzymatic assays manufactured by [employer] and performed on the [employer] DXI 800. Values obtained from different assay methods or kits may be different and cannot be used interchangeably. The results cannot be interpreted as absolute evidence for the presence or absence of malignant disease. Test Performed by: [place] [address] Piece Goods Packer: Ho Mays M.D. Ph.D.; IA# [id number] Blood 02/04/2023 4:01 PM CDT 02/04/2023 7:01 PM CDT us Joseph Freeman MD LAB BLOOD ORDERABLES Final Resul t [facility] [address] [address] Department [place] [address] * (ABNORMAL) T4, free (02/04/2023 4:01 PM CDT) Free T4 0.18(L) 0.90 - 1.70 ng/dL [facility] Blood 02/04/2023 4:01 PM CDT 02/04/2023 7:01 PM CDT us Joseph Freeman MD LAB BLOOD ORDERABLES Final Resul t Performing Organization Address City/[facility]/ZIP Co de Phone Number [facility] [address] [address] Department [place] [address] * (ABNORMAL) TSH (02/04/2023 4:01 PM CDT) Thyroid Stimulating Hormone 205.00(H) 0.30 - 4.20 mcIUnit/m L [facility] Blood 02/04/2023 4:01 PM CDT 02/04/2023 7:01 PM CDT us Joseph Freeman MD LAB BLOOD ORDERABLES Final Resul t Performing Organization Address [facility] de Phone Number [facility] [address] [address] [place] [address] documented in this encounter Visit Diagnoses Diagnosis Postsurgical hypothyroidism Papillary thyroid carcinoma (HCC) Postsurgical hypoparathyroidism (HCC) documented in this encounter Care Teams Orthopedic Shoe Maker Relationship Specialty Start Date End Date John Paul Domínguez MD [address] [place] [address] PCP - General Family Medicine 10/16/22 documented as of this encounter
--- OUTSIDE RECORDS SUMMARY | 2024-09-16 13:00 | XMS_ITS | Encounter Summary ---
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
--- OUTSIDE RECORDS SUMMARY | 2024-09-16 13:00 | XMS_ITS | Encounter Summary ---
Author Organization [facility] Medical Group Address [address] [facility] [address] [place] [address] Care Team Providers Care Financial Planning Advisor Name Role Phone John Paul Domínguez MD Primary Care Provider + [phone] Reason for Referral * Consultation (Urgent) - Closed Specialty Diagnoses / Procedures Referred By Contac t Referred To Contact Radiation Oncology Diagnoses Papillary thyroid carcinoma ([place]) [place] [address] [facility] [address] [place] [address] Phone: tel: fax: Brunilda Almanzar MD [facility] [address] [place] [address] Phone: tel: fax: Referral ID Status Reason Start Date Expiration Date V isits Requested Visits Authorized [id number] Closed Specialty Services Required 02/06/2023 03/07/2024 1 1 Question Answer Please select the performing region: [facility] [[id number]] Please select the performing department: [facility] [[id number]] Is this referral for Breast Health Multi-Disciplinary Clinic? No To provider: BRUNILDA ALMANZAR [[id number]] # of visits: 1 Does the patient have a diagnosis of a Head and Neck cancer? 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
--- OUTSIDE RECORDS SUMMARY | 2024-09-16 13:00 | XMS_ITS | Encounter Summary ---
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 Asked for a return call back. RVISOR COMPOSING ROOM documented in this encounter Plan of Treatment Not on file documented as of this encounter Visit Diagnoses Not on filedocumented in this encounter Care Teams Tooling Specialist Relationship Specialty Start Date End Date John Paul Domínguez MD [address] [place] [address] PCP - General Family Medicine 10/16/22 documented as of this encounter
--- OUTSIDE RECORDS SUMMARY | 2024-09-16 13:00 | XMS_ITS | Encounter Summary ---
Author Organization [facility] Address [address] [place] [address] Phone Care Team Providers Care Electrician Office Name Role Phone John Paul Dmoínguez MD Primary Care Provider [phone] Encounter Details Date Type Department Care Team (Late st Contact Info) Description 02/12/2023 Orders Only [facility]) - [facility] E[facility] [address] [facility] Medical Office Building [address] [place] [address] Jacob Reyna MD Papillary thyroid [...] on file 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
--- OUTSIDE RECORDS SUMMARY | 2024-09-16 13:00 | XMS_ITS | Encounter Summary ---
Author Organization [facility] Address [address] [place] [address] Phone Care Team Providers Care Recreation Supervisor Name Role Phone John Paul Domínguez MD Primary Care Provider [phone] Encounter Details Date Type Department Care Team (Late st Contact Info) Description 01/31/2023 Telephone [facility]) - [facility] [address] [facility] Medical Office Building [address] [place] [address] Gene Butler CMA Social History [...] on file 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
--- OUTSIDE RECORDS SUMMARY | 2024-09-16 13:00 | XMS_ITS | Encounter Summary ---
Author Organization [facility] Medical Group Address [address] [facility] [address] [place] [address] Care Team Providers Care Administrative Program Specialist Name Role Phone John Paul Domínguez MD Primary Care Provider + [phone] Reason for Visit * Reason Onset Date Comments Appointment Request 02/03/2023 Encounter Details Date Type Department Care Team (Late st Contact Info) Description 02/03/2023 Telephone [facility] [place] [place] [facility] [address] [place] [address] [place] Freeman [place] [id number] [place] [address] [place], [place] [address] Appointment Request Social History Tobacco [...] on file 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 Casino Beverage Server: Joseph Freeman MD (Physician) Would you please call this pt and schedule her for tomorrow or , ok to overbook with another thyroid pt, CALLED PATIENT LMOM TO RETURN CALL FOR APPOINTMENT documented in this encounter Plan of Treatment Not on file documented as of this encounter Visit Diagnoses Not on filedocumented in this encounter Care Teams Administrative Program Specialist Relationship Specialty Start Date End Date John Paul Domínguez MD [address] [place] [address] PCP - General Family Medicine 10/16/22 documented as of this encounter
--- OUTSIDE RECORDS SUMMARY | 2024-09-16 13:00 | XMS_ITS | Encounter Summary ---
Author Organization [facility] Healthcare Address [address] [place] [address] Care Team Providers Care Reforestation Worker Name Role Phone John Paul Domínguez MD Primary Care Provider + [phone] Reason for Visit * Reason Onset Date Comments PCP Callback Request - Patient 12/25/2023 Encounter Details Date Type Department Care Team (Late st Contact Info) Description 12/25/2023 Telephone [facility] Medical Group Diabetes and Endocrinology [address] [place] [phone] [place] [phone] [address] PCP Callback Request - Patient [...] on file 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 Gender Identity Not on file Sexual [...] months There are no available appts in [place] office till 04/2024 and this would be with DIVORCE LAWYER Patient dose not want to see the DIVORCE LAWYER and dose not want to go to [place] office Your next established patient appt in [place] is 07/20/24 Please advise documented in this encounter Plan of Treatment Not on file documented as of this encounter Visit Diagnoses Not on filedocumented in this encounter Care Teams Reforestation Worker Relationship Specialty Start Date End Date John Paul Domínguez MD [address] [place] [address] PCP - General Family Medicine 10/16/22 documented as of this encounter
--- OUTSIDE RECORDS SUMMARY | 2024-09-16 13:00 | XMS_ITS | Encounter Summary ---
Author Organization [facility] Healthcare Address [address] [place] [address] Care Team Providers Care Reservoir Engineering Advisor Name Role Phone John Paul Domínguez MD Primary Care Provider + [phone] Reason for Referral * Diagnostic Imaging (Routine) - Closed Specialty Diagnoses / Procedures Referred By Contac t Referred To Contact Diagnoses Thyroid cancer (HCC) Procedures NM Thyroid Cancer Mets Whole Body Imaging Mikayla Castellon PA [address] [address] Phone: tel: fax: [address] [phone] Referral ID Status Reason Start Date Expiration Date Visits Re quested Visits Authorized [id number] Closed 02/10/2023 03/11/2024 2 2 Reason for Visit * Diagnostic Imaging (Routine) - Closed Specialty Diagnoses / Procedures Referred By Contac t Referred To Contact Diagnoses Thyroid cancer (HCC) Procedures NM Thyroid Cancer Mets Whole Body Imaging Mikayla Castellon PA [address] [address] Phone: tel: fax: [address] [phone] Referral ID Status Reason Start Date Expiration Date Visits Re quested Visits Authorized [id number] Closed 02/10/2023 03/11/2024 2 2 Encounter Details Date Type Department Care Team (Latest Contact Info) Description 02/18/2023 7:00 AM CDT - 02/18/2023 11:59 PM CDT Hospital Encounter [facility] [address] [place] [address] Thyroid cancer (HCC) Discharge Disposition: Discharge to [...] on file 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
--- OUTSIDE RECORDS SUMMARY | 2024-09-16 13:00 | XMS_ITS | Encounter Summary ---
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 and performed on the PV Nano CellI 800. Values obtained from different assay methods or kits may be different and cannot be used interchangeably. The results cannot be interpreted as absolute evidence for the presence or absence of malignant disease. Test Performed by: [facility] [address] [place] [address] Masseur/Masseuse: Ho Mays M.D. Ph.D.; CLIA# [id number] Blood 04/29/2023 2:45 PM CDT 04/29/2023 5:38 PM CDT us Joseph Freeman MD LAB BLOOD ORDERABLES Final Resul t CHRIS [address] Department [place] [address] * eGFR (04/29/2023 10:39 AM [...] LAB BLOOD ORDERABLES Final Resul t CHRIS [address] [place] [address] * Differential, auto (04/29/2023 10:39 AM CDT) Neutrophil abs 3.9 1.7 - 6.5 K/cumm C[facility]ER Imm gran abs 0.0 0.0 - 0.1 K/cumm [facility] Lymphocyte abs 1.8 0.8 - 3.3 K/cumm [facility] Monocyte abs 0.6 0.2 - 0.8 K/cumm [facility] Eosinophil abs 0.1 0.0 - 0.5 K/cumm [facility] Basophil abs 0.0 0.0 - 0.1 K/cumm [facility] Neutrophil pct 60.9 % [facility] Comment: Interpretive Data Percent cell count reference ranges are not reported, since discordance with absolute values may lead to misinterpretation of CBC data. Current Interpretive Data was last revised on 2018. Imm gran pct 0.2 % [facility] Comment: Interpretive Data Percent cell count reference ranges are not reported, since discordance with absolute values may lead to misinterpretation of CBC data. Current Interpretive Data was last revised on 2018. Lymphocyte pct 29.0 % [facility] Comment: Interpretive Data Percent cell count reference [...] ORDERABLES Final Resul t Performing Organization Address City/[facility] Co de Phone Number ANTONYFADIA [address] [place] [address] * (ABNORMAL) TSH (04/29/2023 10:39 AM CDT) Thyroid Stimulating Hormone 53.80(H) 0.30 - 4.20 mcIUnit/mL [facility] Blood 04/29/2023 10:3 9 AM CDT 04/29/2023 6:50 PM CDT Joseph Freeman MD LAB BLOOD ORDERABLES Final Resul t Performing Organization Address [facility] de Phone Number CHRIS [address] [place] [address] * (ABNORMAL) T4, free (04/29/2023 10:39 AM CDT) Free T4 0.83(L) 0.90 - 1.70 ng/dL [facility] Blood 04/29/2023 10:3 9 AM CDT 04/29/2023 6:50 PM CDT Joseph Freeman MD LAB BLOOD ORDERABLES Final Resul t Performing Organization Address [facility] Co de Phone Number ANTONYFADIA [address] [facility] [place] [address] * Comprehensive metabolic panel (04/29/2023 10:39 AM CDT) Sodium 141 135 - 145 mmol/L [facility] Potassium, pl 4.3 3.3 - 4.9 mmol/L [...] MD LAB BLOOD ORDERABLES Final Resul t [facility] [address] [place] [address] * PTH (04/29/2023 10:39 AM CDT) PTH 24 15 - 65 pg/mL [facility] Blood 04/29/2023 10:3 9 AM CDT 04/29/2023 6:50 PM CDT Joseph Freeman MD LAB BLOOD ORDERABLES Final Resul t Performing Organization Address City/[facility]/ZIP Co de Phone Number CHRIS [address] [place] [address] * (ABNORMAL) CBC with auto [...] ORDERABLES Final Resul t Performing Organization Address City/[facility]/ZIP Co de Phone Number CHRIS NELSON [address] [place] [address] * Vitamin B12 (04/29/2023 10:39 AM CDT) Vitamin B12 731 230 - 1,250 pg/mL [facility] Blood 04/29/2023 10:3 9 AM CDT 04/29/2023 6:50 PM CDT Joseph Freeman MD LAB BLOOD ORDERABLES Final Resul t CHRIS NELSON [address] [place] [address] * Folate (04/29/2023 10:39 AM CDT) Folic acid 18.3 >=5.0 ng/mL [facility] Comment:Hemolysis present. R esults may be affected. Blood 04/29/2023 10:3 9 AM CDT 04/29/2023 6:50 PM CDT Joseph Freeman MD LAB BLOOD ORDERABLES Final Resul t Performing Organization Address [facility] de Phone Number CHRIS NELSON [address] [place] [address] * (ABNORMAL) Iron profile w/ IBC (04/29/2023 10:39 AM CDT) Iron 57 35 - 145 mcg/dl C[facility] TIBC 364 250 - 400 mcg/dL [facility] Transferrin saturation 16(L) 20 - 50 % [facility] Blood 04/29/2023 10:3 9 AM CDT 04/29/2023 6:50 PM CDT us Joseph Freeman MD LAB BLOOD ORDERABLES Final Resul t Performing Organization Address [facility] de Phone Number CHRIS NELSON [address] [place] [address] documented in this encounter Visit Diagnoses Diagnosis Papillary thyroid carcinoma (HCC) Postsurgical hypoparathyroidism (HCC) Postsurgical hypothyroidism documented in this encounter Care Teams Station Installation Supervisor Relationship Specialty Start Date End Date John Paul Domínguez MD [address] [place] [address] PCP - General Family Medicine 10/16/22 documented as of this encounter
--- OUTSIDE RECORDS SUMMARY | 2024-09-16 13:00 | XMS_ITS | Encounter Summary ---
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 Attempted to call patient at [phone] to discuss. Purpose of call: Review how and when patient is taking her levothyroxine and if patient is taking with calcium supplements. Discuss possibility of increasing levothyroxine to 100 mcg oral per day. Remind patient to follow up with search coordinator at April appointment. Unable to leave voice [...] on filedocumented in this encounter Care Teams Rainbow Trout Farm Manager Relationship Specialty Start Date End Date John Paul Domínguez MD [address] [place] [address] PCP - General Family Medicine 10/16/22 documented as of this encounter
--- OUTSIDE RECORDS SUMMARY | 2024-09-16 13:00 | XMS_ITS | Encounter Summary ---
Author Organization [facility] Medical Group Address [address] [facility] [facility] [address] [place] [address] Care Team Providers Care Tdp Displays Analyst Name Role Phone John Paul Domínguez MD Primary Care Provider + [phone] Encounter Details Date Type Department Care Team (Late st Contact Info) Description 02/06/2023 Telephone [facility] Medical Group Diabetes and Endocrinology [address] [place] [phone] [place] [address] 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
--- OUTSIDE RECORDS SUMMARY | 2024-09-16 13:00 | XMS_ITS | Encounter Summary ---
Author Organization [facility] Healthcare Address [address] [place] [address] Care Team Providers Care Roofing Layer Name Role Phone John Paul Domínguez MD Primary Care Provider + [phone] Reason for Visit * Reason Onset Date Comments Med Refill 07/16/2023 Encounter Details Date Type Department Care Team (Late st Contact Info) Description 07/16/2023 Telephone [facility] Specialists [facility] [address] [place] [phone] Joseph Freeman [place] [id number] [place] [address] Med Refill Social History Tobacco Use [...] on file 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 Requestor: Patient [id number] Rx(s): levothyroxine (SYNTHROID) 100 mcg tablet Sig: Take 1 tablet (100 mcg total) by mouth daily Out of Rx(s): yes day rx: Pharmacy/#:[facility] [phone] documented in this encounter Plan of Treatment Not on file documented as of this encounter Visit Diagnoses Not on filedocumented in this encounter Care Teams Roofing Layer Relationship Specialty Start Date End Date John Paul Domínguez MD [address] [place] [address] PCP - General Family Medicine 10/16/22 documented as of this encounter
--- OUTSIDE RECORDS SUMMARY | 2024-09-16 13:00 | XMS_ITS | Encounter Summary ---
Author Organization [facility] Medical Group Address [address] [place] [address] Care Team Providers Care Livestock Nutritionist Name Role Phone John Paul Domínguez MD Primary Care Provider + [phone] Reason for Visit * Reason Comments Thyroid nodule Encounter Details Date Type Department Care Team (Latest Contact Info) Description 02/04/2023 3:00 PM CDT Office Visit [facility] Medical Group Diabetes and Endocrinology [address] [place] [phone] [place] [address] [facility] [address], [place] [address] Papillary thyroid carcinoma (HCC) (Primary [...] on file 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 Gender Identity Not on file Sexual [...] 02/04/2023 3:1 0 PM CDT Growth Chart: [facility] (Girls, 2- 20 Years) documented in this [...] Hormone 205.00(H) 0.30 - 4.20 mcIUnit/m L [facility] Blood 02/04/2023 4:01 PM CDT 02/04/2023 7:01 PM CDT us Joseph Freeman MD LAB BLOOD ORDERABLES Final Resul t [facility] [address] [address] [facility] [place] [address] * (ABNORMAL) T4, free (02/04/2023 4:01 PM CDT) Free T4 0.18(L) 0.90 - 1.70 ng/dL [facility] Blood 02/04/2023 4:01 PM CDT 02/04/2023 7:01 PM CDT us Joseph Freeman MD LAB BLOOD ORDERABLES Final Resul t Performing Organization Address [facility] de Phone Number [facility] [address] [address] [place] [address] * (ABNORMAL) Thyroglobulin, tumor marker, serum (02/04/2023 4:01 PM CDT) Thyroglobulin <0.1 ng/mL [facility] Comment: REFERENCE VALUE Athyrotic <0.1 Intact Thyroid <=33 Anti-thyroglobulin 7.9(H) <1.8 IUnits/m L [facility] Thyroglobulin interp See Footnote [facility] Comment: Quantitation of thyroglobulin may be [...] testing methods are immunoenzymatic assays manufactured by [employer] and performed on the [employer] DXI 800. Values obtained from different assay methods or kits may be different and cannot be used interchangeably. The results cannot be interpreted as absolute evidence for the presence or absence of malignant disease. Test Performed by: [facility] [address] [place] [address] Emergency Nurse: Ho Mays M.D. Ph.D.; CLIA# [id number] Blood 02/04/2023 4:01 PM CDT 02/04/2023 7:01 PM CDT us Joseph Freeman MD LAB BLOOD ORDERABLES Final Resul t [facility] [address] [place] [address] * (ABNORMAL) Basic metabolic panel (02/04/2023 4:01 PM CDT) Sodium 137 135 - 145 mmol/L [facility] Potassium, pl 4.8 3.3 - 4.9 mmol/L [facility] Chloride 99 97 - 110 mmol/L [facility] CO2 28 22 - 32 mmol/L [facility] Anion gap 10 2 - 15 mmol/L [facility] BUN 5(L) 8 - 25 mg/dL [facility] Creatinine 0.63 0.40 - 1.00 mg/dL [facility] Glucose 84 70 - 199 mg/dL [facility] [...] ORDERABLES Final Resul t Performing Organization Address City/[facility]/ZIP Co de Phone Number ANTONYFADIA NELSON [address] [address] [place] [address] * (ABNORMAL) PTH (02/04/2023 4:01 PM CDT) PTH 13(L) 15 - 65 pg/mL [facility] Blood 02/04/2023 4:01 PM CDT 02/04/2023 7:01 PM CDT us Joseph Freeman MD LAB BLOOD ORDERABLES Final Resul t Performing Organization Address [facility] de Phone Number CHRIS NELSON [address] [address] [place] [address] documented in this encounter Visit Diagnoses Diagnosis [...] 04/29/2023 added in this encounter Care Teams Livestock Nutritionist Relationship Specialty Start Date End Date John Paul Domínguez MD [address] [place] [address] PCP - General Family Medicine 10/16/22 documented as of this encounter
--- OUTSIDE RECORDS SUMMARY | 2024-09-16 13:00 | XMS_ITS | Encounter Summary ---
Author Organization [facility] Healthcare Address [address] [place] [address] Care Team Providers Care Mold Swabber Name Role Phone John Paul Domínguez MD Primary Care Provider + [phone] Encounter Details Date Type Department Care Team (Late st Contact Info) Description 12/26/2023 Telephone [facility] Specialists [facility] [address] [facility] [address] [place] [phone] [place] [address] [address] Social History Tobacco Use Types [...] on file Legal Sex Female 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
--- OUTSIDE RECORDS SUMMARY | 2024-09-16 13:00 | XMS_ITS | Encounter Summary ---
Author Organization 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 Gender Identity Not on file Sexual Orientation [...] ORDERABLES Final Resu lt Performing Organization Address City/[facility]/ZIP Co de Phone Number ANTONYFADIA NELSON [address] [address] [place] [address] * (ABNORMAL) PTH (02/07/2023 2:44 PM CDT) PTH 10(L) 15 - 65 pg/mL [facility] Blood 02/07/2023 2:44 PM CDT 02/07/2023 2:50 PM CDT Jacob Reyna MD LAB BLOOD ORDERABLES Final Resu lt Performing Organization Address [facility] Co de Phone Number CHRIS NELSON [address] [address] [facility] [place] [address] documented in this encounter Visit Diagnoses Diagnosis Thyroid nodule- Primary Nontoxic uninodular goiter documented in this encounter Care Teams Commercial Plumber Relationship Specialty Start Date End Date John Paul Domínguez MD [address] [place] [address] PCP - General Family Medicine 10/16/22 documented as of this encounter
--- OUTSIDE RECORDS SUMMARY | 2024-09-16 13:00 | XMS_ITS | Encounter Summary ---
Author Organization [facility] Healthcare Address [address] [place] [address] Care Team Providers Care Sheet Heater Name Role Phone John Paul Domínguez MD Primary Care Provider + [phone] Reason for Referral * Diagnostic Imaging (Routine) - Closed Specialty Diagnoses / Procedures Referred By Garcia t Referred To Contact Diagnoses Thyroid cancer (HCC) Procedures NM Thyroid Cancer Mets Whole Body Imaging Mikayla Castellon PA [address] [facility] [address] [place] [address] Phone: tel: fax: [address] [phone] Referral ID Status Reason Start Date Expiration Date Visits Re quested Visits Authorized [id number] Closed 02/10/2023 03/11/2024 2 2 Encounter Details Date Type Department Care Team (Late st Contact Info) Description 02/10/2023 Orders Only [facility] Advanced Medicine Radiation Oncology [address] 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 Explained need for TSH>30 and CXR. Current TSH >200. Lab/CXR order faxed to [facility]. Pt to have done tomorrow. Explained 48hr [...] attempt to call pt's mother, Olivia Grimes [phone] after 3pm today as mom works nights. [...] 02/10/2023 documented in this encounter Care Teams Sheet Heater Relationship Specialty Start Date End Date John Paul Domínguez MD [address] [place] [address] PCP - General Family Medicine 10/16/22 documented as of this encounter
--- OUTSIDE RECORDS SUMMARY | 2024-09-16 13:00 | XMS_ITS | Encounter Summary ---
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 Gender Identity Not on file Sexual Orientation [...] ORDERABLES Final Resul t Performing Organization Address City/[facility]/ZIP Co de Phone Number CHRIS NELSON [address] [email or web address] [address] * T4, free (12/25/2023 4:19 PM CDT) Free T4 1.14 0.90 - 1.70 ng/dL Blood 12/25/2023 4:19 PM CDT 12/26/2023 1:53 AM CDT us Joseph Freeman MD LAB BLOOD ORDERABLES Final Resul t Performing Organization Address [facility] Co de Phone Number CHRIS [address] [place] [address] * Thyroglobulin, tumor marker, serum (12/25/2023 4:19 PM CDT) Thyroglobulin <0.1 ng/mL [place] [facility] Lab Comment: REFERENCE VALUE Athyrotic <0.1 [...] testing methods are immunoenzymatic assays manufactured by [employer]. and performed on the [employer] DXI 800. Values obtained from different assay methods or kits may be different and cannot be used interchangeably. The results cannot be interpreted as absolute evidence for the presence or absence of malignant disease. Test Performed by: [place] [address] Gluing Machine Feeder: Ho Mays M.D. Ph.D.; CLIA# [id number] Blood 12/25/2023 4:19 PM CDT 12/26/2023 1:53 AM CDT us Joseph Freeman MD LAB BLOOD ORDERABLES Final Resul t Performing Organization Address [facility] Co de Phone Number CHRIS NELSON [address] [place] [address] [place] [facility] * TSH (12/25/2023 4:19 PM CDT) Thyroid Stimulating Hormone 2.99 0.30 - 4.20 mcIUnit/mL Blood 12/25/2023 4:19 PM CDT 12/26/2023 1:53 AM CDT us Joseph Freeman MD LAB BLOOD ORDERABLES Final Resul t Performing Organization Address [facility] Co de Phone Number CHRIS NELSON [address] [address] [place] [address] * PTH (12/25/2023 4:19 PM CDT) PTH 24 15 - 65 pg/mL [facility] Blood 12/25/2023 4:19 PM CDT 12/26/2023 3:55 AM CDT us Joseph Freeman MD LAB BLOOD ORDERABLES Edited Resu lt - Final CHRIS NELSON [address] [address] [place] [address] * (ABNORMAL) Comprehensive metabolic panel (12/25/2023 4:19 PM CDT) Sodium 138 135 - 145 mmol/L Potassium, pl 4.2 3.3 - 4.9 mmol/L [facility] Chloride 101 97 - 110 mmol/L [facility] CO2 24 22 - 32 mmol/L [facility] Anion gap 13 2 - 15 mmol/L [facility] BUN 9 6 - 25 mg/dL [facility] Creatinine 0.55(L) 0.60 - 1.10 mg/dL [...] LAB [place]LO[place] [address] [address] Department [place] [address] documented in this encounter Visit Diagnoses Diagnosis Postsurgical hypoparathyroidism (HCC) Postsurgical hypothyroidism documented in this encounter Care Teams Internist Medical Doctor Md Relationship Specialty Start Date End Date John Paul Domínguez MD [address] [place] [address] PCP - General Family Medicine 10/16/22 documented as of this encounter
--- OUTSIDE RECORDS SUMMARY | 2024-09-16 13:00 | XMS_ITS | Encounter Summary ---
Author Organization 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 Co de Phone Number EXTERNAL LAB * Ferritin (03/13/2023 10:30 AM CDT) SCRIBED Ferritin 24 15 - 77 ng/mL EXTERNAL LAB Blood 03/13/2023 10:3 0 AM CDT us Historical Provider MD LAB BLOOD ORDERABLES Edit ed Result - Final Performing Organization Address City/[facility]/ZIP Co de Phone Number EXTERNAL LAB * [...] Units/L EXTERNAL LAB SCRIBED eGFR in NonAfrican Tuvaluan 133 >60 - NA EXTERNAL LAB Blood [...] on filedocumented in this encounter Care Teams Deicer Repairer Pneumatic Relationship Specialty Start Date End Date John Paul Domínguez MD [facility] [place] [address] PCP - General Family Medicine 10/16/22 documented as of this encounter
--- OUTSIDE RECORDS SUMMARY | 2024-09-16 13:00 | XMS_ITS | Encounter Summary ---
Author Organization [facility] Healthcare Address [address] [place] [address] Care Team Providers Care Catalyst Recovery Operator Name Role Phone John Paul Domínguez MD Primary Care Provider + [phone] Reason for Visit * Radiation Therapy (Routine) - Closed Specialty Diagnoses / Procedures Referred By Garcia t Referred To Contact Radiation Oncology Diagnoses Papillary thyroid carcinoma (HCC) Beverly Hdez MD [address] [facility] [place] [address] Phone: tel: fax: [facility] Advanced Medicine Radiation Oncology [address] [place] [address] Phone: tel: fax: Referral ID Status Reason Start Date Expiration Date Visits Re quested Visits Authorized [id number] Closed 02/12/2023 03/13/2024 99 99 Encounter Details Date Type Department Care Team (Late st Contact Info) Description 02/13/2023 12:30 PM CDT Treatment [facility] Advanced Medicine Radiation Oncology [facility] [place] [address] Beverly Hdez MD [address] [facility] [place] [address] Social History Tobacco Use Types [...] on file 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
--- OUTSIDE RECORDS SUMMARY | 2024-09-16 13:00 | XMS_ITS | Encounter Summary ---
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
--- OUTSIDE RECORDS SUMMARY | 2024-09-16 13:00 | XMS_ITS | Encounter Summary ---
Author Organization [facility] Healthcare Address [address] [place] [address] Care Team Providers Care Network Security Consultant Name Role Phone John Paul Domínguez MD Primary Care Provider + [phone] Reason for Visit * Reason Comments Consult * Consultation (Urgent) - Closed Specialty Diagnoses / Procedures Referred By Contac t Referred To Contact Radiation Oncology Diagnoses Papillary thyroid carcinoma ([place] [address] [facility] [address] [place] [address] Phone: tel: fax: Brunilda Peters MD [address] [facility] [address] [place] [address] Phone: tel: fax: Referral ID Status Reason Start Date Expiration Date V isits Requested Visits Authorized [id number] Closed Specialty Services Required 02/06/2023 03/07/2024 1 1 Encounter Details Date Type Department Care Team (Late st Contact Info) Description 02/13/2023 11:00 AM CDT Consult [facility] Radiation Oncology [address] [facility] [place] [address] Beverly Hdez MD [address] [facility] [place] [address] Papillary thyroid carcinoma (HCC) Social History Tobacco [...] on file Legal Sex Female 3:09 AM PRICER Gender Identity Not on file Sexual Orientation [...] 61.53% 02/13 11:34 AM CDT Growth Chart: [facility] (Girls, 2- 20 Years) documented in this [...] 2022 documented in this encounter Care Teams Network Security Consultant Relationship Specialty Start Date End Date John Paul Domínguez MD [address] [place] [address] PCP - General Family Medicine 10/16/22 documented as of this encounter
--- OUTSIDE RECORDS SUMMARY | 2024-09-16 13:00 | XMS_ITS | Encounter Summary ---
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 Results from different manufacturers or methods may not be comparable. ??Serial testing should be performed using the same method. Interpretive Data was last revised on 2023 Blood 02/17/2024 7:10 PM CDT 02/17/2024 9:38 PM CDT Deon Olvera III, MD PhD LAB BLOOD ANTONIO TENORIO Final Result Performing Organization Address [facility] Co de Phone Number CHRIS LESLIE [address] [place] [address] * (ABNORMAL) TSH (02/17/2024 3:54 PM CDT) Pathologist [facility] Thyroid Stimulating Hormone 0.11(L) 0.30 - 4.20 mcIUnit/mL Blood 02/17/2024 3:54 PM CDT 02/17/2024 7:10 PM CDT Deon Olvera III, MD PhD LAB BLOOD ANTONIO TENORIO Final Result Performing Organization Address City/[facility] [place] [address] [address] Department [place] [address] * Thyroglobulin, tumor marker, serum (02/17/2024 3:54 PM CDT) Pathologist [facility] Thyroglobulin <0.1 ng/mL [facility] Lab Comment: REFERENCE VALUE Athyrotic <0.1 [...] testing methods are immunoenzymatic assays manufactured by [employer] and performed on the [employer] DXI 800. Values obtained from different assay methods or kits may be different and cannot be used interchangeably. The results cannot be interpreted as absolute evidence for the presence or absence of malignant disease. Test Performed by: [facility] [place] [facility] [address] [place] [address] Pattern Attendant: Ho Mays M.D. Ph.D.; CLIA# [id number] Blood 02/17/2024 3:54 PM CDT 02/17/2024 7:10 PM CDT Deon Olvera III, MD PhD LAB BLOOD [place]TON[place] [address] [address] Department [place] [address] [facility] ref [facility] * Thyroglobulin antibodies (02/17/2024 3:54 PM CDT) Anti-thyroglobulin <1.8 <4.0 IUnits/mL [facility] Lab Comment: ADDITIONAL INFORMATION PLEASE NOTE: ??The given thyroglobulin antibody (TgAb) reference cutoff of <4.0 IU/mL is for the evaluation of autoimmune thyroiditis. A cutoff of <1.8 IU/mL may be more suitable for the detection of potential thyroglobulin antibody (TgAb) interference in thyroglobulin immunoassays. The thyroglobulin antibody testing method is an immunoenzymatic assay manufactured by [employer] and performed on the [employer] DXI 800. Values obtained from different assay methods or kits may be different and cannot be used interchangeably. The results cannot be interpreted as absolute evidence for the presence or absence of malignant disease. Test Performed by: [place] [address] Pattern Attendant: Ho Mays M.D. Ph.D.; CLIA# [id number] Blood 02/17/2024 3:54 PM CDT 02/17/2024 7:10 PM CDT Deon Olvera III, MD PhD LAB BLOOD [place] [address] [address] Department [place] [address] [facility] * T4, free (02/17/2024 3:54 PM CDT) Free T4 1.28 0.90 - 1.70 ng/dL Blood 02/17/2024 3:54 PM CDT 02/17/2024 7:10 PM CDT us Deon Olvera III, MD PhD LAB BLOOD ANTONIO TENORIO Final Result CHRIS [address] [address] Department [place] [address] documented in this encounter Visit Diagnoses Diagnosis Thyroid cancer (HCC)- Primary Malignant neoplasm of thyroid gland documented in this encounter Care Teams Dewaterer Operator Relationship Specialty Start Date End Date John Paul Domínguez MD [facility] [place] [address] PCP - General Family Medicine 10/16/22 documented as of this encounter
--- OUTSIDE RECORDS SUMMARY | 2024-09-16 13:00 | XMS_ITS | Encounter Summary ---
Author Organization [facility] Healthcare Address [address] [place] [address] Care Team Providers Care It Consulting Manager Name Role Phone John Paul Domínguez MD Primary Care Provider + [phone] Reason for Visit * Reason Comments Thyroid Problem Encounter Details Date Type Department Care Team (Latest Contact Info) Description 12/25/2023 3:15 PM CDT Office Visit [facility] Medical Group Diabetes and Endocrinology [address] [place] [phone] [place] [address] [facility] [address], [place] [address] Postsurgical hypoparathyroidism (HCC) (Primary Dx); [...] on file 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 and performed on the [employer] StudioI 800. Values obtained from different assay methods or kits may be different and cannot be used interchangeably. The results cannot be interpreted as absolute evidence for the presence or absence of malignant disease. Test Performed by: [place] [address] Tool Grinding Machine Operator: Ho Mays M.D. Ph.D.; CLIA# [id number] Blood 12/25/2023 4:19 PM CDT 12/26/2023 1:53 AM CDT us Joseph Freeman MD LAB BLOOD ORDERABLES Final Resul t Performing Organization Address [facility] [place] [address] [place] [place] [address] [place] ref [facility] * TSH (12/25/2023 4:19 PM CDT) Thyroid Stimulating Hormone 2.99 0.30 - 4.20 mcIUnit/mL Blood 12/25/2023 4:19 PM CDT 12/26/2023 1:53 AM CDT us Joseph Freeman MD LAB BLOOD ORDERABLES Final Resul t Performing Organization Address [facility] [place] Number [place] [address] [address] [place] [address] * PTH (12/25/2023 4:19 PM CDT) PTH 24 15 - 65 pg/mL [facility] Blood 12/25/2023 4:19 PM CDT 12/26/2023 3:55 AM CDT us Joseph Freeman MD LAB BLOOD ORDERABLES Edited Resu lt - [facility] [address] [address] Department [place] [address] * (ABNORMAL) Comprehensive metabolic panel (12/25/2023 4:19 [...] LAB BLOOD ORDERABLES Final Resul t CHRIS [address] [address] Department [place] [address] documented in this encounter Visit Diagnoses Diagnosis [...] documented as of this encounter Care Teams It Consulting Manager Relationship Specialty Start Date End Date John Paul Domínguez MD [address] [place] [address] PCP - General Family Medicine 10/16/22 documented as of this encounter
--- OUTSIDE RECORDS SUMMARY | 2024-09-16 13:00 | XMS_ITS | Encounter Summary ---
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
--- OUTSIDE RECORDS SUMMARY | 2024-09-16 13:00 | XMS_ITS | Encounter Summary ---
Author Organization [facility] Medical [facility] Address [address] [place] [address] Care Team Providers Care Senior Net Software Engineer Name Role Phone John Paul Domínguez MD Primary Care Provider + [phone] Reason for Visit * Reason Comments Hypothyroidism Encounter Details Date Type Department Care Team (Latest Contact Info) Description 04/29/2023 12:30 PM CDT Office Visit [facility] Diabetes and Endocrinology [address] [place] [phone] [place] [address] [facility] [address] [place], [place] [id number] Postsurgical hypothyroidism (Primary Dx); Papillary thyroid carcinoma [...] on file 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 [...] minutes. Hx of anemia, following up with finish photographer. Review of Systems Constitutional: Negative for activity [...] testing methods are immunoenzymatic assays manufactured by [employer]. and performed on the [employer] DXI 800. Values obtained from different assay methods or kits may be different and cannot be used interchangeably. The results cannot be interpreted as absolute evidence for the presence or absence of malignant disease. Test Performed by: [place] [id number] Citrus Peeler: Ho Mays M.D. Ph.D.; CLIA# [id number] Blood 04/29/2023 2:45 PM CDT 04/29/2023 5:38 PM CDT us Joseph Freeman MD LAB BLOOD ORDERABLES Final Resul t Performing Organization Address City/[facility] Co de Phone Number CHRIS LESLIE [address] [place] [address] * (ABNORMAL) Iron profile w/ IBC (04/29/2023 10:39 AM CDT) Iron 57 35 - 145 mcg/dl [facility] TIBC 364 250 - 400 mcg/dL [facility] Transferrin saturation 16(L) 20 - 50 % [facility] Blood 04/29/2023 10:3 9 AM CDT 04/29/2023 6:50 PM CDT us Joseph Freeman MD LAB BLOOD ORDERABLES Final Resul t Performing Organization Address City/[facility]/ZIP Co de Phone Number CHRIS LESLIE [address] [place], [place] [id number] * Folate (04/29/2023 10:39 AM CDT) Pathologist [facility] Folic acid 18.3 >=5.0 ng/mL [facility] Comment:Hemolysis present. R esults may be affected. Blood 04/29/2023 10:3 9 AM CDT 04/29/2023 6:50 PM CDT Joseph Freeman MD LAB BLOOD ORDERABLES Final Resul t Performing Organization Address City/[facility] Co de Phone Number CHRIS [address] [address] [place] [address] * Vitamin B12 (04/29/2023 10:39 AM CDT) Pathologist [facility] Vitamin B12 731 230 - 1,250 pg/mL [facility] Blood 04/29/2023 10:3 9 AM CDT 04/29/2023 6:50 PM CDT Joseph Freeman MD LAB BLOOD ORDERABLES Final Resul t Performing Organization Address [facility] de Phone Number CHRIS NELSON [address] [address] Department [place] [address] * (ABNORMAL) CBC with auto differential (04/29/2023 10:39 AM CDT) [facility] WBC 6.4 3.8 - 9.9 K/cumm [facility] Hgb 13.4 11.9 - 15.5 g/dL [facility] Hct 42.7 35.6 - 45.5 % [facility] Plt 191 150 - 400 K/cumm [facility] MPV 12.1 9.1 - 12.3 fL [facility] RBC 4.72 3.90 - 5.20 M/cumm [facility] MCV 90.5 81.3 - 96.4 fL [facility] MCH 28.4 27.1 - 33.3 pg [facility] MCHC 31.4(L) 32.3 - 35.7 g/dL [facility] RDW CV 13.2 11.1 - 14.9 % [facility] RDW SD 43.5 35.7 - 48.1 fL [facility] NRBC abs 0.00 0.00 - 0.01 K/cumm [facility] Blood 04/29/2023 10:3 9 AM CDT 04/29/2023 6:50 PM CDT us Joseph Freeman MD LAB BLOOD ORDERABLES Final Resul t Performing Organization Address [facility] de Phone Number [facility] [address] [address] [facility] [place] [address] * PTH (04/29/2023 10:39 AM CDT) PTH 24 15 - 65 pg/mL [facility] Blood 04/29/2023 10:3 9 AM CDT 04/29/2023 6:50 PM CDT us Joseph Freeman MD LAB BLOOD ORDERABLES Final Resul t Performing Organization Address [facility] Phone Number [facility] [address] [address] [facility] [place] [address] * Comprehensive metabolic panel (04/29/2023 10:39 AM CDT) Sodium 141 135 - 145 mmol/L [facility] Potassium, pl 4.3 3.3 - 4.9 mmol/L [facility] Chloride 103 97 - 110 mmol/L [facility] CO2 24 22 - 32 mmol/L [facility] Anion gap 14 2 - 15 mmol/L [facility] BUN 12 6 - 25 mg/dL [facility] Creatinine 0.54 0.40 - 1.00 mg/dL [facility] Glucose 83 70 - 199 mg/dL [facility] Comment: Interpretive Data Fasting glucose >/= [...] ORDERABLES Final Resul t Performing Organization Address [facility] Co de Phone Number CHRIS LESLIE [address] [address] Department [place] [address] * (ABNORMAL) T4, free (04/29/2023 10:39 AM CDT) Free T4 0.83(L) 0.90 - 1.70 ng/dL [facility] Blood 04/29/2023 10:3 9 AM CDT 04/29/2023 6:50 PM CDT us Joseph Freeman MD LAB BLOOD ORDERABLES Final Resul t Performing Organization Address [facility] de Phone Number CHRIS LESLIE [address] [address] Department [place] [address] * (ABNORMAL) TSH (04/29/2023 10:39 AM CDT) Thyroid Stimulating Hormone 53.80(H) 0.30 - 4.20 mcIUnit/mL [facility] Blood 04/29/2023 10:3 9 AM CDT 04/29/2023 6:50 PM CDT us Joseph Freeman MD LAB BLOOD ORDERABLES Final Resul t Performing Organization Address [facility] Co de Phone Number CHRIS [address] [address] Department [place] [address] documented in this encounter Visit Diagnoses Diagnosis [...] documented as of this encounter Care Teams Senior Net Software Engineer Relationship Specialty Start Date End Date John Paul Doímnguez MD [address] [place] [address] PCP - General Family Medicine 10/16/22 documented as of this encounter
--- OUTSIDE RECORDS SUMMARY | 2024-09-16 13:00 | XMS_ITS | Encounter Summary ---
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
--- OUTSIDE RECORDS SUMMARY | 2024-09-16 13:00 | XMS_ITS | Encounter Summary ---
Author Organization [facility] Address [address] [place] [address] Care Team Providers Care Learning And Development Consultant Name Role Phone John Paul Domínguez MD Primary Care Provider + [phone] Encounter Details Date Type Department Care Team (Late st Contact Info) Description 02/21/2023 Telephone [facility] Advanced Medicine Radiation Oncology [address] [place] [address] Mane Plasencia MD PhD [address] 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
--- OUTSIDE RECORDS SUMMARY | 2024-09-16 13:00 | XMS_ITS | Encounter Summary ---
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 Gender Identity Not on file Sexual Orientation [...] Free T4 0.88(L) 0.90 - 1.70 ng/dL [facility] Blood 03/28/2023 2:30 PM CDT 03/28/2023 2:57 PM CDT Brunilda Peters MD LAB BLOOD ORDERABLES Gifty l Result [facility] Department [place] [address] * (ABNORMAL) TSH (03/28/2023 2:30 PM CDT) Thyroid Stimulating Hormone 70.30(H) 0.30 - 4.20 mcIUnit/mL [facility] Blood 03/28/2023 2:30 PM CDT 03/28/2023 2:57 PM CDT Brunilda Peters MD LAB BLOOD ORDERABLES Gifty l Result [facility] Department [place] [address] documented in this encounter Visit Diagnoses Not on filedocumented in this encounter Care Teams Special Order Jeweler Relationship Specialty Start Date End Date John Paul Domínguez MD [address] [place] [address] PCP - General Family Medicine 10/16/22 documented as of this encounter
--- OUTSIDE RECORDS SUMMARY | 2024-09-16 13:00 | XMS_ITS | Encounter Summary ---
Author Organization [facility] Healthcare Address [address] [place] [address] Care Team Providers Care Stitching Machine Setter Name Role Phone John Paul Domínguez MD Primary Care Provider + [phone] Reason for Visit * Reason Onset Date Comments Appointment 12/09/2023 12/16/23 Encounter Details Date Type Department Care Team (Late st Contact Info) Description 12/09/2023 Telephone [facility] Diabetes and Endocrinology [address] [place] [phone] Cynthia Schilling, TUB PULLER [address] [address] Appointment (12/16/23) Social History Tobacco [...] on file 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
--- OUTSIDE RECORDS SUMMARY | 2024-09-16 13:01 | XMS_ITS | Encounter Summary ---
Author Organization [facility] Address [address] [place] [address] Phone Care Team Providers Care Computer Repair Instructor Name Role Phone John Paul Domínguez MD Primary Care Provider [phone] Encounter Details Date Type Department Care Team (Late st Contact Info) Description 01/23/2023 Orders Only [facility]) - [facility] ENT [address] [facility] Medical Office Building [address] [place] [address] Jaocb Reyna MD Thyroid nodule (Primary Dx) Social [...] on file 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 [place], [place] [id number] * (ABNORMAL) PTH (01/27/2023 12:42 PM CDT) PTH 9(L) 15 - 65 pg/mL [facility] Blood 01/27/2023 12:4 2 PM CDT 01/27/2023 5:23 PM CDT Jacob Reyna MD LAB BLOOD ORDERABLES Final Resu lt Performing Organization Address [facility]/RUST Co de Phone Number CHRIS NELSON [address] [facility] [place] [address] documented in this encounter Visit Diagnoses Diagnosis Thyroid nodule- Primary Nontoxic uninodular goiter documented in this encounter Care Teams Computer Repair Instructor Relationship Specialty Start Date End Date John Paul Domínguez MD [address] [place] [address] PCP - General Family Medicine 10/16/22 documented as of this encounter
--- OUTSIDE RECORDS SUMMARY | 2024-09-16 13:01 | XMS_ITS | Encounter Summary ---
Author Organization [facility] Address [address] [place] [address] Phone Care Team Providers Care Special Librarian Name Role Phone John Paul Domínguez MD Primary Care Provider [phone] Encounter Details Date Type Department Care Team (Late st Contact Info) Description 01/23/2023 Orders Only [facility]) - [facility] [place] [address] 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 Gender Identity Not on file Sexual Orientation [...] BLOOD ORDERABLES Final Resu lt CHRIS NELSON [address] [place] [address] * (ABNORMAL) PTH (01/24/2023 2:29 PM CDT) PTH 9(L) 15 - 65 pg/mL [facility] Blood 01/24/2023 2:29 PM CDT 01/24/2023 4:38 PM CDT us Jacob Reyna MD LAB BLOOD ORDERABLES Final Resu lt Performing Organization Address [facility] Co de Phone Number CHRIS NELSON [address] [place] [address] documented in this encounter Visit Diagnoses Diagnosis Thyroid nodule- Primary Nontoxic uninodular goiter documented in this encounter Care Teams Special Librarian Relationship Specialty Start Date End Date John Paul Domínguez MD [facility] [place] [address] PCP - General Family Medicine 10/16/22 documented as of this encounter
--- OUTSIDE RECORDS SUMMARY | 2024-09-16 13:01 | XMS_ITS | Encounter Summary ---
Author Organization [facility] Address [address] [place] [address] Phone Care Team Providers Care Tools Developer Name Role Phone John Paul Domínguez MD Primary Care Provider [phone] Reason for Visit * Reason Comments Post-op * Consultation (Routine) - Closed Specialty Diagnoses / Procedures Referred By Garcia carrillo Referred To Contact Otolaryngology Diagnoses Thyroid nod[place] [id number] [place] [address], [place] [address] Phone: tel: fax: Jacob Reyna MD Referral ID Status Reason Start Date Expiration Date V isits Requested Visits Authorized [id number] Closed Specialty Services Required 11/26/2022 12/26/2023 12 12 Encounter Details Date Type Department Care Team (Late st Contact Info) Description 01/31/2023 11:00 AM CDT Office Visit [facility]) - [facility] ENT [address] [facility] Medical Office Building [address] [place] [address] Jacob Reyna MD Papillary thyroid [...] on file 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 [email or web address] Reyna M.D. Unemployment Examiner Department of Otolaryngology-Head and Neck Surgery [facility] phone: E-mail: [email or web address] 01/31/2023 * Joseph Freeman MD - 01/31/2023 11:00 AM CDT Would you please call this pt and schedule her for tomorrow or , ok to overbook with another thyroid pt, documented in this encounter Plan of Treatment Not on file documented as of this encounter Visit Diagnoses Diagnosis Papillary thyroid carcinoma (HCC)- Primary documented in this encounter Care Teams Tools Developer Relationship Specialty Start Date End Date John Paul Domínguez MD [address] [place] [address] PCP - General Family Medicine 10/16/22 documented as of this encounter
--- OUTSIDE RECORDS SUMMARY | 2024-09-16 13:01 | XMS_ITS | Encounter Summary ---
Author Organization 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 Gender Identity Not on file Sexual [...] BLOOD ORDERABLES Final Resu lt CHRIS NELSON [address] [place] [address] * (ABNORMAL) Renal function panel (01/31/2023 11:25 [...] MD LAB BLOOD ORDERABLES Final Resu lt [facility] [address] [address] [place] [address] * (ABNORMAL) PTH (01/31/2023 3:26 AM CDT) PTH 10(L) 15 - 65 pg/mL [facility] Blood 01/31/2023 3:26 AM CDT 01/31/2023 11:29 AM CDT us Jacob Reyna MD LAB BLOOD ORDERABLES Final Resu lt [facility]IS NELSON [address] Department [place] [address] documented in this encounter Visit Diagnoses Diagnosis Papillary thyroid carcinoma (HCC) Thyroid cancer (HCC) Malignant neoplasm of thyroid gland documented in this encounter Care Teams Privacy Compliance Manager Relationship Specialty Start Date End Date John Paul Domínguez MD [address] [place] [address] PCP - General Family Medicine 10/16/22 documented as of this encounter
--- OUTSIDE RECORDS SUMMARY | 2024-09-16 13:01 | XMS_ITS | Encounter Summary ---
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 Gender Identity Not on file Sexual [...] BLOOD ORDERABLES Final Resu lt CHRIS NELSON [address] Department [place] [address] * (ABNORMAL) PTH (01/24/2023 2:29 PM CDT) PTH 9(L) 15 - 65 pg/mL [facility] Blood 01/24/2023 2:29 PM CDT 01/24/2023 4:38 PM CDT Jacob Reyna MD LAB BLOOD ORDERABLES Final Resu lt [facility] [address] [address] [place] [address] * Basic metabolic panel (01/24/2023 2:29 PM CDT) Sodium 138 135 - 145 mmol/L [facility] Potassium, pl 4.1 3.3 - 4.9 mmol/L [facility] Chloride 99 97 - 110 mmol/L [facility] CO2 27 22 - 32 mmol/L [facility] Anion gap 12 2 - 15 mmol/L [facility] BUN 11 8 - 25 mg/dL [facility] Creatinine 0.54 0.40 - 1.00 mg/dL [facility] Glucose 95 70 - 199 mg/dL [facility] [...] 2022. Calcium 9.0 8.5 - 10.3 mg/dL [facility] Blood 01/24/2023 2:29 PM CDT 01/24/2023 4:38 PM CDT us Jacob Reyna MD LAB BLOOD ORDERABLES Final Resu lt [facility] [address] [address] [place] [address] documented in this encounter Visit Diagnoses Diagnosis Thyroid nodule Nontoxic uninodular goiter documented in this encounter Care Teams President Ceo & Founder Relationship Specialty Start Date End Date John Paul Domínguez MD [address] [place] [address] PCP - General Family Medicine 10/16/22 documented as of this encounter
--- OUTSIDE RECORDS SUMMARY | 2024-09-16 13:01 | XMS_ITS | Encounter Summary ---
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 73 m2 CHRIS NELSON [...] BLOOD ORDERABLES Final Resu lt [facility]IS LESLIE [address] [address] Department [place] [address] * (ABNORMAL) PTH (01/27/2023 12:42 PM CDT) PTH 9(L) 15 - 65 pg/mL [facility] Blood 01/27/2023 12:4 2 PM CDT 01/27/2023 5:23 PM CDT Jacob Reyna MD LAB BLOOD ORDERABLES Final Resu lt [facility] [address] [address] [place] [address] * Basic metabolic panel (01/27/2023 12:42 PM CDT) Sodium 137 135 - 145 mmol/L [facility] Potassium, pl 4.1 3.3 - 4.9 mmol/L [facility] Chloride 98 97 - 110 mmol/L [facility] CO2 25 22 - 32 mmol/L [facility] Anion gap 14 2 - 15 mmol/L [facility] BUN 15 8 - 25 mg/dL [facility] Creatinine 0.63 0.40 - 1.00 mg/dL [facility] Glucose 105 70 - 199 mg/dL [facility] Comment: Interpretive Data Fasting glucose >/= 126 [...] 2022. Calcium 9.2 8.5 - 10.3 mg/dL [facility] Blood 01/27/2023 12:4 2 PM CDT 01/27/2023 5:23 PM CDT Jacob Reyna MD LAB BLOOD ORDERABLES Final Resu lt [facility] [address] [address] [place] [address] documented in this encounter Visit Diagnoses Diagnosis Thyroid nodule Nontoxic uninodular goiter documented in this encounter Care Teams Biofuels Plant Manager Relationship Specialty Start Date End Date John Paul Domínguez MD [address] [place] [address] PCP - General Family Medicine 10/16/22 documented as of this encounter
--- OUTSIDE RECORDS SUMMARY | 2024-09-16 13:02 | XMS_ITS | Encounter Summary ---
Author Organization [facility] Address [address] [facility] [address] [place] [address] Care Team Providers Care Lard Tub Washer Name Role Phone John Paul Domínguez MD Primary Care Provider [phone] Encounter Details Date Type Department Care Team (Late st Contact Info) Description 12/26/2022 Orders Only [facility] Diabetes and Endocrinology [address] [place] [address] [place] [address] [facility] [address] [place] [address] Social History Tobacco Use Types Packs/Day Years [...] on file 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
--- OUTSIDE RECORDS SUMMARY | 2024-09-16 13:02 | XMS_ITS | Encounter Summary ---
Author Organization [facility] Address [address] [facility] [address] [place] [address] Care Team Providers Care Immigration Guard Name Role Phone John Paul Domínguez MD Primary Care Provider + [phone] Reason for Visit * Reason Onset Date Comments New Patient Packet Mailed 10/17/2022 Encounter Details Date Type Department Care Team (Late st Contact Info) Description 10/17/2022 Telephone [facility] [address] [facility] [address], [place] [address] Joseph [place] [id number] [place] [address] [address], [place] [address] New Patient Packet Mailed Social History Tobacco Use Types Packs/Day Years Used Date Smoking Tobacco: Never Assessed Comments Unknown Sex and Gender Information Value Date Recorded Sex Assigned at Not on file 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
--- OUTSIDE RECORDS SUMMARY | 2024-09-16 13:02 | XMS_ITS | Encounter Summary ---
Author Organization [facility] Healthcare Address [address] [place] [address] Care Team Providers Care Resin Painter Name Role Phone John Paul Domínguez MD Primary Care Provider [phone] Encounter Details Date Type Department Care Team (Latest Contact Info) Description 11/26/2022 2:47 PM WOOD TYPE CUTTER - 11/26/2022 11:59 PM WOOD TYPE CUTTER Hospital Encounter [address] [address] Mulugeta's thyroiditis Discharge Disposition: Discharge to home [...] on file Legal Sex Female 3:09 AM WOOD TYPE CUTTER Gender Identity Not on file Sexual Orientation [...] THYROID PEROXIDASE ANTIBODY Routine 11/26/2022 2:47 PM WOOD TYPE CUTTER Mulugeta's thyroiditis TSH Routine 11/26/2022 2:47 PM WOOD TYPE CUTTER Mulugeta's thyroiditis T4, FREE Routine 11/26/2022 2:47 PM WOOD TYPE CUTTER Mulugeta's thyroiditis documented in this encounter Results * T4, free (11/26/2022 2:47 PM WOOD TYPE CUTTER) Free T4 1.00 0.90 - 1.70 ng/dL [facility] Blood 11/26/2022 2:47 PM WOOD TYPE CUTTER 11/26/2022 6:06 PM WOOD TYPE CUTTER us Joseph Freeman MD LAB BLOOD ORDERABLES Final Resul t [facility] NELSON [address] Department of Laboratories [place], [place] [id number] * (ABNORMAL) Thyroid peroxidase antibody (TPO) (11/26/2022 2:47 PM WOOD TYPE CUTTER) Anti Thyroid Peroxidase 196(H) <=34 units/mL [facility] N[facility] Comment: ATPO Interpretive Data Results may be up to 28% higher in patients receiving Itraconazole. Current interpretive data was last revised 2020. Testing performed by: [facility], [address] [facility], [place]., [address] Blood 11/26/2022 2:47 PM WOOD TYPE CUTTER 11/27/2022 9:58 AM WOOD TYPE CUTTER us Joseph Freeman MD LAB BLOOD ORDERABLES Final Resul t Performing Organization Address City/[facility]/ZIP Co de Phone Number CHRIS NELSON [address] [employer] [place], [place] [id number] * (ABNORMAL) TSH (11/26/2022 2:47 PM WOOD TYPE CUTTER) Thyroid Stimulating Hormone 24.00(H) 0.30 - 4.20 mcIUnit/mL [facility] NELSON Blood 11/26/2022 2:47 PM WOOD TYPE CUTTER 11/26/2022 6:06 PM WOOD TYPE CUTTER Joseph Freeman MD LAB BLOOD ORDERABLES Final Resul t Performing Organization Address [facility] Co de Phone Number CHRIS NELSON [address] [address] [place] [address] documented in this encounter Visit Diagnoses Diagnosis Mulugeta's thyroiditis Chronic lymphocytic thyroiditis documented in this encounter Care Teams Resin Painter Relationship Specialty Start Date End Date John Paul Domínguez MD [address] [place] [address] PCP - General Family Medicine 10/16/22 documented as of this encounter
--- OUTSIDE RECORDS SUMMARY | 2024-09-16 13:02 | XMS_ITS | Encounter Summary ---
Author Organization [facility] Healthcare Address [address] [place] [address] Care Team Providers Care Energy Project Engineer Name Role Phone John Paul Domínguez MD Primary Care Provider + [phone] Reason for Visit * Auth/Cert (Routine) Specialty Diagnoses / Procedures Referred By Garcia t Referred To Contact Diagnoses Thyroid nodule Thyroid nodule [E04.1] Procedures CT THYROIDECTOMY TOTAL/COMPLETE THYROIDECTOMY/ 150 min Referral ID Status Reason Start Date Expiration Date Visits Re quested Visits Authorized [id number] 1 1 Encounter Details Date Type Department Care Team (Late st Contact Info) Description 01/20/2023 9:30 AM CDT - 01/20/2023 12:00 PM CDT Surgery [facility] Operating Room [address] [place] [address] Jacob Reyna MD TOTAL THYROIDECTOMY WITH CONTINUOUS [...] file Legal Sex Female 3:09 AM HAT AND CAP PARTS CUTTER HAND Gender Identity Not on file Sexual [...] visit. - Stool Softener: Take stool softener (Sztl-onp-zqjhvue or prescription) while taking narcotic medication to prevent constipation. Laxatives not recommended. Follow up Labs: If you were given prescriptions for labs please get them either the morning of yourappointment or the day before so your doctor has them at the time of your appointment. YOU CAN GET YOUR LABS DRAWN AT ANY [facility] OR AT ANY OTHER LAB USING [...] or contact the main office line at [phone]. Follow up: You should follow up in Jacob Rea MD's clinic as scheduled below. Future Appointments Date Time Provider Department Center 01/31/2023 11:00 AM Jacob Reyna MD [facility] Phone numbers Office Number: Urgent Concerns After hours or Weekends: Call and ask for the ENT resident mineral economist. Questions: If you have any concerns or [...] home this afternoon with mother at bedside. [facility] brought patient's prescriptions to bedside. [...] WITH CONTINUOUS LARYNGEAL NERVE MONITORING Patient location: [facility] Surgical Floor Last vitals: Vitals: 01/21/23 [...] Implant Name Type Inv. Item Serial No. Linen Room Custodian Lot No. LRB No. Used Action [employer] SLS-CLIP LIGATE TRIANGULAR WIRE JANAE GROOVE SMALL CHEVRON CLIP LATEX FREE [id number] - [id number] [employer] Sls-clip Ligate Triangular Wire Janae Groove Small Chevron Clip Latex Free [id number] [employer] [id number] N/A 3 Implanted Complications: None; patient tolerated the procedure well. Disposition: PACU - hemodynamically stable. Condition: stable Attending Attestation: I was present and scrubbed for the entire procedure. Jacob Reyna MD * Pre-Procedure Instructions - Soniya Mcelroy, DORIS - 01/09/2023 12:25 PM CDT We are pleased that you and your doctor have chosen [facility] for your surgery. We hope that the following information will help make your visit a pleasant one. Surgery Date: 01/20/2023 arrive at 0730am [facility] (look for sign reading ???EMERGENCY - SURGERY CENTER?? ) [address] [place] [address] Before your surgery: Notify your doctor of [...] at the desk that you came to pickling tank operator your soap for your surgery. Or you [...] is not recommended by your physician). Fish Oil/[place] 3, Co Q 10, Cod Liver Oil, [...] insurance cards, and medication list (including all zqbf-hwy-irxitoq medications) with you. Prescriptions can be filled [...] 2022. Calcium 9.0 8.5 - 10.3 mg/dL [facility] Phosphorus, pl 4.6(H) 2.3 - 4.5 mg/dL [facility] Albumin 4.2 3.5 - 5.0 g/dL [facility] Blood (Blood, Venous) 01/31/2023 11:25 AM CDT 01/31/2023 12:05 PM CDT Jacob Reyna MD LAB BLOOD ORDERABLES Final Resu lt Performing Organization Address City/[facility]/ZIP Co de Phone Number [facility] [address] Department [place] [address] * ECG 12 lead (01/21/2023 7:19 AM CDT) 01/21/2023 7:19 AM CDT Narrative [facility] - 01/21/2023 8:04 AM CDT Vent Rate: 71 bpm RR Interval: [address] Interval: 124 msec QRS Duration: 78 msec QT Interval: 369 msec QTC Interval: 392 msec P-R-T Leonard: 68 - 86 - 69 degrees SINUS RHYTHM WITH SINUS ARRHYTHMIA NORMAL ECG Electronically Signed By: Milo Glover MD Jacob Reyna MD ECG ORDERABLES Final Result Performing Organization Address [facility]/ZIP Co de Phone Number [facility] Memolane [facility] * eGFR (01/21/2023 5:50 AM CDT) [...] MD LAB BLOOD ORDERABLES Final Resu lt [facility] [address] Department [place] [address] * (ABNORMAL) Basic metabolic panel [...] LAB BLOOD ORDERABLES Final Resu lt CHR[facility] [address] Department [place] [address] * Surgical pathology (01/20/2023 3:13 PM CDT) Tissue (Thyroid, Resection, Partial/Total) 01/20/2023 11:20 AM CDT Tissue (Parathyroid Gland) 01/20/2023 11:48 AM CDT Tissue (Thyroid, Resection, Partial/Total) 01/20/2023 12:03 PM CDT Narrative PATHOLOGY [facility] - 01/22/2023 4:14 PM CDT EPIC results best viewed via link to PDF [facility] Department of Pathology [address] [place] [address] Note to Patients: This report may [...] Report Patient Name: ??RUBI BACA Address: ??[address], ??[place], [place] [address] Gender: ??F : ??2005 (Age: 17) Service: ??Surgery [facility] #: ??[id number] Patient Type: ??CH EP OP in bed Accession # ?[id number] Taken: ??01/20/2023 Received: ??01/20/2023 Accessioned: ??01/20/2023 Reported: [...] determined by the Surgical Pathology Department at [facility] as part of an ongoing air quality engineer program and in compliance with federally [...] characteristics determined by the Surgical Pathology Department [facility]. ??It has not been cleared or approved by the U. S. Food and Drug Administration. Note for decalcified specimens: This assay has not been validated on decalcified tissues. Results should be interpreted with caution given the possibility of false negativity on decalcified specimens us Jacob Reyna MD LAB PATHOLOGY ORDERABLES Final Result PATHOLOGY [address] [place] [address] * eGFR (01/20/2023 1:07 PM CDT) eGFR [...] ORDERABLES Final Resu lt Performing Organization Address [facility] Co de Phone Number CHRIS [address] [place] [address] * (ABNORMAL) PTH (01/20/2023 1:07 PM CDT) PTH 8(L) 15 - 65 pg/mL [facility] Blood 01/20/2023 1:07 PM CDT 01/20/2023 1:20 PM CDT Jacob Reyna MD LAB BLOOD ORDERABLES Final Resu lt Performing Organization Address [facility] de Phone Number CHRIS [address] [address] [place] [address] * Renal function panel (01/20/2023 1:07 PM CDT) Sodium 137 135 - 145 mmol/L [facility] Potassium, pl 3.4 3.3 - 4.9 mmol/L [facility] Chloride 102 97 - 110 mmol/L [facility] CO2 24 22 - 32 mmol/L [facility] Anion gap 11 2 - 15 mmol/L [facility] BUN 10 8 - 25 mg/dL [facility] Creatinine 0.49 0.40 - 1.00 mg/dL [facility] Glucose 109 70 - 199 mg/dL [facility] Comment: Interpretive Data Fasting glucose >/= [...] BLOOD ORDERABLES Final Resu lt [facility] [address] Department [place] [address] * POCT hCG, urine (01/20/2023 8:20 AM [...] HYDROmorphone (DILAUDID) injection 0.2 mg 0.2 mg (0.20239 mg/kg), intravenous, Administer over 2 Minutes, Every [...] Indications: Pain 1807 (Given - Provider: Jennifer Dmearco)2240 (Given - Provider: Sandrita Tolentino, DORIS) 0530 [...] Post-op Floor 2101 (Given - Provider: Sandrita Tolentino RN) 0530 [...] Fri01/20/23 at 1830 1807 (Given - Provider: Jennifre Demarco)2240 (Given - Provider: Sandrita Tolentino, DORIS) [...] (DILAUDID) injection 0.2 mg (CANCELED) 0.2 mg (0.91418 mg/kg), intravenous, Administer over 2 Minutes, Every [...] 01/21/2023 documented in this encounter Care Teams Energy Project Engineer Relationship Specialty Start Date End Date John Paul Domínguez MD [address] [address] PCP - General Family Medicine 10/16/22 documented as of this encounter
--- OUTSIDE RECORDS SUMMARY | 2024-09-16 13:02 | XMS_ITS | Encounter Summary ---
Author Organization [facility] Address [address] [facility] [facility] [address] [place] [address] Care Team Providers Care Rn Access Name Role Phone John Paul Domínguez MD Primary Care Provider [phone] Encounter Details Date Type Department Care Team (Late st Contact Info) Description 11/26/2022 4:45 PM MOTOR VEHICLE OR CARAVAN SALESPERSON Lab [facility] Outpatient Lab at [address] [address] Mulugeta's thyroiditis Social History Tobacco Use Types [...] on file Legal Sex Female 3:09 AM MOTOR VEHICLE OR CARAVAN SALESPERSON Gender Identity Not on file Sexual Orientation Not on file documented as of this encounter Plan of Treatment Not on file documented as of this encounter Visit Diagnoses Diagnosis Mulugeta's thyroiditis Chronic lymphocytic thyroiditis documented in this encounter Care Teams Rn Access Relationship Specialty Start Date End Date John Paul Domínguez MD [address] [place] [address] PCP - General Family Medicine 10/16/22 documented as of this encounter
--- OUTSIDE RECORDS SUMMARY | 2024-09-16 13:02 | XMS_ITS | Encounter Summary ---
Author Organization [facility] Address [address] [place] [address] Phone Care Team Providers Care Homicide Investigator Name Role Phone John Paul Domínguez MD Primary Care Provider Joseph Freeman MD Unavailable Wade REDDY MD PhD, Deon Vanegas Unavailable Tao Helm MD PhD Unavailable [phone] Encounter Details Date Type Department Care Team (Late st Contact Info) Description 01/10/2023 Telephone [facility]) - [facility] ENT [address] [facility] [address]th [place] [address] [place] [address] Bianca Ayala CMA Social History [...] on file Legal Sex Female 3:09 AM QUALITY ASSURANCE MONITOR CHASSIS Gender Identity Not on file Sexual Orientation Not on file documented as of this encounter Plan of Treatment Not on file documented as of this encounter Visit Diagnoses Not on filedocumented in this encounter Care Teams Homicide Investigator Relationship Specialty Start Date End Date John Paul Domínguez MD [address] [facility] [place] [address] PCP - General Family Medicine 10/16/22 [place] [address] [id number] Consulting Physician Endocrinology Diabetes & Metabolism 03/11/24 Deon Olver[place] III[place] PhD [address] [id number] Radiation Oncologist Radiation Oncology 03/11/24 Tao Helm [place] PhD [address] [id number] Radiation Oncologist Radiation Oncology 03/11/24 documented as of this encounter
--- OUTSIDE RECORDS SUMMARY | 2024-09-16 13:02 | XMS_ITS | Encounter Summary ---
Author Organization [facility] Address [address] [facility] [address] [place] [address] Care Team Providers Care Hand Tire Trimmer Name Role Phone John Paul Domínguez MD Primary Care Provider + [phone] Reason for Visit * Reason Onset Date Comments Follow-up 12/30/2022 Encounter Details Date Type Department Care Team (Late st Contact Info) Description 12/30/2022 Telephone [facility] [address] [facility] [address], [place] [address] [place] [address] [facility] [address], [place] [address] Follow-up Social History Tobacco Use [...] on file Legal Sex Female 3:09 AM TOUR SALES REPRESENTATIVE Gender Identity Not on file Sexual Orientation Not on file documented as of this encounter Miscellaneous Notes * Telephone Encounter - Deepak Steward - 12/30/2022 10:08 AM CDT Incoming [...] filedocumented in this encounter Care Teams Hand Tire Trimmer Relationship Specialty Start Date End Date John Paul Domínguez MD [address] [place] [address] PCP - General Family Medicine 10/16/22 documented as of this encounter
--- OUTSIDE RECORDS SUMMARY | 2024-09-16 13:02 | XMS_ITS | Encounter Summary ---
Author Organization [facility] Healthcare Address [address] [place] [address] Care Team Providers Care Track Inspector Name Role Phone John Paul Domínguez MD Primary Care Provider + [phone] Encounter Details Date Type Department Care Team (Late st Contact Info) Description 01/22/2023 Telephone [facility] Surgeon [address] [place] [address] Sourav Coley MD [phone] [facility] [address] [place] [address] Social History Tobacco Use Types Packs/Day Years [...] file Legal Sex Female 3:09 AM WOOD GRINDER OPERATOR Gender Identity Not on file Sexual [...] consume extra calcium PO and return to [facility] ED. documented in this encounter Plan of Treatment Not on file documented as of this encounter Visit Diagnoses Not on filedocumented in this encounter Care Teams Track Inspector Relationship Specialty Start Date End Date John Paul Domínguez MD [address] [place] [address] PCP - General Family Medicine 10/16/22 documented as of this encounter
--- OUTSIDE RECORDS SUMMARY | 2024-09-16 13:02 | XMS_ITS | Encounter Summary ---
Author Organization [facility] Address [address] [place] [address] Phone Care Team Providers Care Roll Panner Name Role Phone John Paul Domínguez MD Primary Care Provider [phone] Encounter Details Date Type Department Care Team (Late st Contact Info) Description 01/20/2023 Orders Only [facility]) - [facility] ENT [address] [facility] Medical Office Building [address] [place] [address] Jacob Reyna MD Thyroid cancer [...] on file Legal Sex Female 3:09 AM CARRIAGE RIDER Gender Identity Not on file Sexual Orientation Not on file documented as of this encounter Plan of Treatment Not on file documented as of this encounter Results * (ABNORMAL) PTH (01/31/2023 3:26 AM CDT) PTH 10(L) 15 - 65 pg/mL [facility] Blood 01/31/2023 3:26 AM CDT 01/31/2023 11:29 AM CDT us Jacob Reyna MD LAB BLOOD ORDERABLES Final Resu lt [facility] NELSON [address] [place] [address] documented in this encounter Visit Diagnoses Diagnosis Thyroid cancer (HCC)- Primary Malignant neoplasm of thyroid gland documented in this encounter Care Teams Roll Panner Relationship Specialty Start Date End Date John Paul Domínguez MD [address] [place] [address] PCP - General Family Medicine 10/16/22 documented as of this encounter
--- OUTSIDE RECORDS SUMMARY | 2024-09-16 13:02 | XMS_ITS | Encounter Summary ---
Author Organization [facility] Address [address] [place] [address] Phone Care Team Providers Care Pipe Washer Name Role Phone John Paul Domínguez MD Primary Care Provider [phone] Reason for Referral * Diagnostic Imaging (Routine) - Closed Specialty Diagnoses / Procedures Referred By Garcia carrillo Referred To Contact Diagnoses Thyroid cancer (HCC) Procedures US Thyroid Jacob Reyna MD [address] [address] Referral ID Status Reason Start Date Expiration Date Visits Re quested Visits Authorized [id number] Closed 12/11/2022 01/10/2024 1 1 Reason for Visit * Reason Comments Thyroid Cancer * Consultation (Routine) - Closed Specialty Diagnoses / Procedures Referred By Garcia carrillo Referred To Contact Otolaryngology Diagnoses Thyroid nodule [place] rFeeman MD [id number] [place] [address] [address] [place] [address] Phone: tel: fax: Jacob Reyna MD Referral ID Status Reason Start Date Expiration Date V isits Requested Visits Authorized [id number] Closed Specialty Services Required 11/26/2022 12/26/2023 12 12 Encounter Details Date Type Department Care Team (Late st Contact Info) Description 12/11/2022 10:00 AM CDT Office Visit [facility]) - [facility] ENT [address] [facility] Medical Office Building [address] [place] [address] Jacob Reyna MD Thyroid cancer [...] on file Legal Sex Female 3:09 AM CENTRAL OFFICE INSPECTOR Gender Identity Not on file Sexual [...] 12/11/2022 9:5 8 AM CDT Growth Chart: [facility] (Girls, 2- 20 Years) documented in [...] recorded by my staff. Jacob Reyna M.D. Refrigeration Repair Supervisor Department of Otolaryngology-Head and Neck Surgery [facility] phone: E-mail: [email or web address] 12/11/2022 documented in this encounter Plan of [...] Mujica II, D.O. us Jacob Reyna MD [facility] US PROCEDURES Final Result documented in this encounter Visit Diagnoses Diagnosis Thyroid cancer (HCC)- Primary Malignant neoplasm of thyroid gland Thyroid nodule Nontoxic uninodular goiter Thyroid cancer (HCC) Malignant neoplasm of thyroid gland documented in this encounter Orders Outpatient Referral Count Last Ordered Date Fir st Ordered Date AMB REFERRAL TO ENT 1 12/11/2022 documented in this encounter Care Teams Pipe Washer Relationship Specialty Start Date End Date John Paul Domínguez MD [address] [place] [address] PCP - General Family Medicine 10/16/22 documented as of this encounter
--- OUTSIDE RECORDS SUMMARY | 2024-09-16 13:02 | XMS_ITS | Encounter Summary ---
Author Organization [facility] Healthcare Address [address] [place] [address] Care Team Providers Care Mine Safety Director Name Role Phone John Paul Domínguez MD Primary Care Provider + [phone] Reason for Referral * Diagnostic Imaging (Routine) - Closed Specialty Diagnoses / Procedures Referred By Contac t Referred To Contact Diagnoses Thyroid cancer (HCC) Procedures Thyroid Jacob Reyna MD [address] [address] Referral ID Status Reason Start Date Expiration Date Visits Re quested Visits Authorized [id number] Closed 12/11/2022 01/10/2024 1 1 Reason for Visit * Diagnostic Imaging (Routine) - Closed Specialty Diagnoses / Procedures Referred By Contac t Referred To Contact Diagnoses Thyroid cancer (HCC) Procedures Thyroid Jacob Reyna MD [address] [address] Referral ID Status Reason Start Date Expiration Date Visits Re quested Visits Authorized [id number] Closed 12/11/2022 01/10/2024 1 1 Encounter Details Date Type Department Care Team (Latest Contact Info) Description 12/23/2022 10:00 AM CDT - 12/23/2022 11:59 PM CDT Hospital Encounter [address] [address] Thyroid cancer (CMS/HCC) (HCC) Discharge [...] on file Legal Sex Female 3:09 AM AR MANAGER Gender Identity Not on file Sexual [...] gland documented in this encounter Care Teams Mine Safety Director Relationship Specialty Start Date End Date John Paul Domínguez MD [address] [facility] [place] [address] PCP - General Family Medicine 10/16/22 documented as of this encounter
--- OUTSIDE RECORDS SUMMARY | 2024-09-16 13:02 | XMS_ITS | Encounter Summary ---
Author Organization [facility] Healthcare Address [address] [place] [address] Care Team Providers Care Milieu Manager Name Role Phone John Paul Domínguze MD Primary Care Provider + [phone] Reason for Visit * Auth/Cert (Routine) Specialty Diagnoses / Procedures Referred By Garcia carrillo Referred To Contact Diagnoses Thyroid nodule Thyroid nodule [E04.1] Procedures WA THYROIDECTOMY TOTAL/COMPLETE THYROIDECTOMY/ 150 min Referral ID Status Reason Start Date Expiration Date Visits Re quested Visits Authorized [id number] 1 1 Encounter Details Date Type Department Care Team (Late st Contact Info) Description 01/20/2023 9:49 AM CDT Anesthesia Event [facility] Operating Room [address] [place] [address] [place] [address] [facility] [place] [address] Gilles Tyler MD [address] [facility] [id number] [place] [id number] Anesthesia Record Procedure Summary Procedure Name Responsible [...] Ne ck; 12/03/24 (Retired LDA, Removed/Completed by [facility] with LDA Utility); 1213 (Retired LDA, Removed/Completed by [facility] with LDA Utility) 01/20/23 1026 by Madalyn [...] file Legal Sex Female 3:09 AM SENIOR BUSINESS DEVELOPMENT ANALYST Gender Identity Not on file Sexual [...] - patient participated Level of consciousness: arouses chief information officer Pain score: 0 Pain management: adequate Airway [...] Supervising provider: Dirk Larry MD Placed by: STEAM DISTRIBUTION SUPERVISOR: Sagrario Tiwari CRNA Emergent airway documentation: Risks [...] Informed Consent: Discussed plan with attending and STEAM DISTRIBUTION SUPERVISOR. Anesthesia plan and risks discussed with patient [...] Procedure Name Priority Date/Time Associated Diagnosis Comments WA AN ELECTIVE ENDOTRACHEAL AIRWAY Routine 01/20/2023 10:10 AM CDT documented in this encounter Results * WA AN ELECTIVE ENDOTRACHEAL AIRWAY (01/20/2023 10:10 AM CDT) Narrative Sagrario Tiwari CRNA - 01/20/2023 10:10 AM CDT Sagrario Tiwari CRNA ? 01/20/2023 10:11 AM Airway Patient location: OR Indications for airway management: anesthesia Difficult airway: no Staff: Supervising provider: Dirk Larry MD Placed by: STEAM DISTRIBUTION SUPERVISOR: Sagrario Tiwari CRNA Emergent airway documentation: Risks [...] mg documented in this encounter Care Teams Milieu Manager Relationship Specialty Start Date End Date John Paul Domínguez MD [address] [place] [address] PCP - General Family Medicine 10/16/22 documented as of this encounter
--- OUTSIDE RECORDS SUMMARY | 2024-09-16 13:02 | XMS_ITS | Encounter Summary ---
Author Organization [facility] Healthcare Address [address] [place] [address] Care Team Providers Care Kiln Feeder Name Role Phone John Paul Domínguez MD Primary Care Provider + [phone] Reason for Visit * Auth/Cert (Routine) Specialty Diagnoses / Procedures Referred By Garcia t Referred To Contact Diagnoses Thyroid nodule Thyroid nodule [E04.1] Procedures ID THYROIDECTOMY TOTAL/COMPLETE THYROIDECTOMY/ 150 min Referral ID Status Reason Start Date Expiration Date Visits Re quested Visits Authorized [id number] 1 1 Encounter Details Date Type Department Care Team (Latest Contact Info) Description 01/20/2023 7:46 AM CDT - 01/21/2023 4:10 PM CDT Hospital Encounter [facility] [id number] [place] [address] Jacob Reyna MD Papillary thyroid carcinoma (CMS/HCC) [...] file Legal Sex Female 3: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 (Girls, 2- 20 Years) documented in [...] visit. - Stool Softener: Take stool softener (Atid-ala-tgmwuur or prescription) while taking narcotic medication to prevent constipation. Laxatives not recommended. Follow up Labs: If you were given prescriptions for labs please get them either the morning of yourappointment or the day before so your doctor has them at the time of your appointment. YOU CAN GET YOUR LABS DRAWN AT ANY [facility] FACILITY OR AT ANY OTHER LAB [...] or contact the main office line at [phone]. Follow up: You should follow up in Jacob Rea MD's clinic as scheduled below. Future Appointments Date Time Provider Department Center 01/31/2023 11:00 AM Jacob Reyna MD CLN [facility] OY Phone numbers Office Number: Urgent Concerns After hours or Weekends: Call and ask for the ENT resident information assurance. Questions: If you have any concerns or [...] home this afternoon with mother at bedside. [facility] brought patient's prescriptions to bedside. [...] WITH CONTINUOUS LARYNGEAL NERVE MONITORING Patient location: [facility] Surgical Floor Last vitals: Vitals: [...] Thyroid Carcinoma Post-op Diagnosis: Same Surgeon: Jacob eRyna MD Assistants: Osiris Álvarez MD Anesthesia: General [...] Implant Name Type Inv. Item Serial No. Auditor/Quality Lot No. LRB No. Used Action [employer] SLS-CLIP LIGATE TRIANGULAR WIRE JANAE GROOVE SMALL CHEVRON CLIP LATEX FREE [id number] - [id number] [employer] Sls-clip Ligate Triangular Wire Janae Groove Small Chevron Clip Latex Free [id number] [employer] [id number] N/A 3 Implanted Complications: None; patient tolerated the procedure well. Disposition: PACU - hemodynamically stable. Condition: stable Attending Attestation: I was present and scrubbed for the entire procedure. Jacob Reyna MD * Pre-Procedure Instructions - Soniya Mcelroy RN - 01/09/2023 12:25 PM CDT We are pleased that you and your doctor have chosen [facility] for your surgery. We hope that the following information will help make your visit a pleasant one. Surgery Date: 01/20/2023 arrive at 0730am [facility] Surgery [facility] (look for sign reading ???EMERGENCY - SURGERY CENTER?? ) [address] [place] [address] Before your surgery: Notify your doctor of [...] at the desk that you came to miner pick your soap for your surgery. Or you [...] is not recommended by your physician). Fish Oil/[place] 3, Co Q 10, Cod Liver Oil, [...] insurance cards, and medication list (including all ziln-luq-uallqqr medications) with you. Prescriptions can be filled [...] 2022. Calcium 9.0 8.5 - 10.3 mg/dL [facility] Phosphorus, pl 4.6(H) 2.3 - 4.5 mg/dL [facility] Albumin 4.2 3.5 - 5.0 g/dL [facility] Blood (Blood, Venous) 01/31/2023 11:25 AM CDT 01/31/2023 12:05 PM CDT Jacob Reyna MD LAB BLOOD ORDERABLES Final Resu lt Performing Organization Address [facility] de Phone Number [facility] [address] Department [place] [address] * ECG 12 lead (01/21/2023 7:19 AM CDT) 01/21/2023 7:19 AM CDT Narrative [facility] - 01/21/2023 8:04 AM CDT Vent Rate: 71 bpm RR Interval: 835 msec ID Interval: 124 msec QRS Duration: 78 msec QT Interval: 369 msec QTC Interval: 392 msec P-R-T [place]: 68 - 86 - 69 degrees SINUS RHYTHM WITH SINUS ARRHYTHMIA NORMAL ECG Electronically Signed By: Milo Glover MD Jacob Reyna MD ECG ORDERABLES Final Result Performing Organization Address [facility] de Phone Number [facility] * eGFR (01/21/2023 5:50 AM CDT) eGFR [...] MD LAB BLOOD ORDERABLES Final Resu lt [facility] [address] Department [place] [address] * (ABNORMAL) Basic metabolic panel [...] LAB BLOOD ORDERABLES Final Resu lt [facility] [id number] [place] [address] Department [place] [address] * Surgical pathology (01/20/2023 3:13 PM CDT) Tissue (Thyroid, Resection, Partial/Total) 01/20/2023 11:20 AM CDT Tissue (Parathyroid Gland) 01/20/2023 11:48 AM CDT Tissue (Thyroid, Resection, Partial/Total) 01/20/2023 12:03 PM CDT Narrative PATHOLOGY CH - 01/22/2023 4:14 PM CDT EPIC results best viewed via link to PDF [facility] Department of Pathology [address] [place] [address] Note to Patients: This report may [...] ??RUBI BACA Address: ??[address], ??[place], [place] [address] Gender: ??F : ??2005 (Age: 17) Service: ??Surgery Location: ?? 6th Hospital #: ??[id number] Patient Type: ??CH EP OP in bed Accession # ?[id number] Taken: ??01/20/2023 Received: ??01/20/2023 Accessioned: ??01/20/2023 Reported: [...] determined by the Surgical Pathology Department at [facility] as part of an ongoing plant quality manager program and in compliance with federally mandated [...] characteristics determined by the Surgical Pathology Department [facility]. ??It has not been cleared or approved by the U. S. Food and Drug Administration. Note for decalcified specimens: This assay has not been validated on decalcified tissues. Results should be interpreted with caution given the possibility of false negativity on decalcified specimens us Jacob Reyna MD LAB PATHOLOGY ORDERABLES Final Result PATHOLOGY [address] [place] [address] * eGFR (01/20/2023 1:07 PM CDT) eGFR [...] ORDERABLES Final Resu lt Performing Organization Address City/[facility]/ZIP Co de Phone Number [facility] [address] Department [place] [address] * (ABNORMAL) PTH (01/20/2023 1:07 PM CDT) PTH 8(L) 15 - 65 pg/mL [facility] Blood 01/20/2023 1:07 PM CDT 01/20/2023 1:20 PM CDT Jacob Reyna MD LAB BLOOD ORDERABLES Final Resu lt Performing Organization Address [facility] Co de Phone Number [facility] [address] Department [place] [address] * Renal function panel (01/20/2023 [...] 2022. Calcium 8.6 8.5 - 10.3 mg/dL [facility] Phosphorus, pl 2.9 2.3 - 4.5 mg/dL [facility] Albumin 3.9 3.5 - 5.0 g/dL [facility] Blood 01/20/2023 1:07 PM CDT 01/20/2023 1:20 PM CDT Jacob Reyna MD LAB BLOOD ORDERABLES Final Resu lt [facility] [address] Department [place] [address] * POCT hCG, urine (01/20/2023 8:20 AM [...] HYDROmorphone (DILAUDID) injection 0.2 mg 0.2 mg (0.02205 mg/kg), intravenous, Administer over 2 Minutes, Every [...] (DILAUDID) injection 0.2 mg (CANCELED) 0.2 mg (0.69748 mg/kg), intravenous, Administer over 2 Minutes, Every [...] 01/21/2023 documented in this encounter Care Teams Kiln Feeder Relationship Specialty Start Date End Date John Paul Domínguez MD [facility] [place] [address] PCP - General Family Medicine 10/16/22 documented as of this encounter
--- OUTSIDE RECORDS SUMMARY | 2024-09-16 13:02 | XMS_ITS | Encounter Summary ---
Author Organization [facility] Address [address] [place] [address] Care Team Providers Care Public Address Servicer Name Role Phone John Paul Domínguez MD Primary Care Provider + [phone] Reason for Referral * Consultation (Routine) - Closed Specialty Diagnoses / Procedures Referred By Conteliezer t Referred To Contact Otolaryngology Diagnoses [place] [address] [address] [facility] [address] [place] [address] Phone: tel: fax: Gurjit Reyna MD Referral ID Status Reason Start Date Expiration Date V isits Requested Visits Authorized [id number] Closed Specialty Services Required 11/26/2022 12/26/2023 12 12 Question Answer Please select the performing region: [facility] (All Locations) [167] To provider: GURJIT REYNA [[id number]] # of visits: 1 Comments Patient with left lower lobe nodule with Afirma molecular sequencing positive for RET / PTC IFIED ORTHOTIC FITTER Reason for Visit * Reason Comments Thyroid nodule Encounter Details Date Type Department Care Team (Late st Contact Info) Description 11/26/2022 1:30 PM CERTIFIED ORTHOTIC FITTER Office Visit [facility] Diabetes and Endocrinology [address] [place] [id number] [place] [address] [address] [place] [address] Thyroid nodule (Primary Dx); Mulugeta's [...] on file Legal Sex Female 3:09 AM CERTIFIED ORTHOTIC FITTER Gender Identity Not on file Sexual Orientation Not on file documented as of this encounter Last Filed Vital Signs Vital Sign Reading Time Taken Comments Blood Pressure 108/72 11/26/2022 1:38 PM CERTIFIED ORTHOTIC FITTER Pulse 90 11/26/2022 1:38 PM CERTIFIED ORTHOTIC FITTER Temperature - - Respiratory Rate - - Oxygen Saturation - - Inhaled Oxygen Concentration - - Weight 50.8 kg (112 lb) 11/26/2022 1:38 PM CERTIFIED ORTHOTIC FITTER Height 152.4 cm (5') 11/26/2022 1:38 PM CERTIFIED ORTHOTIC FITTER Body Mass Index 21.87 11/26/2022 1:38 PM CERTIFIED ORTHOTIC FITTER Body Mass Index Percentile 55.99% 11/26/2022 1:3 8 PM CERTIFIED ORTHOTIC FITTER Growth Chart: CDC (Girls, 2- 20 Years) [...] in the lower lobe was read as Weston 4, very likely Weston 5. Molecular analysis done with Afirma was [...] time spent in any separately reportable services. IFIED ORTHOTIC FITTER documented in this encounter Miscellaneous Notes * [...] . They seem to understand and agreed IFIED ORTHOTIC FITTER documented in this encounter Plan of Treatment Scheduled Referrals Name Type Priority Associated Diagnoses Order Schedule Ambulatory referral to ENT Outpatient Referral Routine Thyroid nodule Expected: 12/10/2022 (Approximate), Expires: 11/26/2023 documented as of this encounter Results * (ABNORMAL) TSH (11/26/2022 2:47 PM CERTIFIED ORTHOTIC FITTER) Thyroid Stimulating Hormone 24.00(H) 0.30 - 4.20 mcIUnit/mL [facility] Blood 11/26/2022 2:47 PM CERTIFIED ORTHOTIC FITTER 11/26/2022 6:06 PM CERTIFIED ORTHOTIC FITTER Result [facility] Joseph Freeman MD LAB BLOOD ORDERABLES Final Resul t Performing Organization Address City/[facility]/ZIP Co de Phone Number [facility] [address] [address] [place] [address] * (ABNORMAL) Thyroid peroxidase antibody (TPO) (11/26/2022 2:47 PM CERTIFIED ORTHOTIC FITTER) Anti Thyroid Peroxidase 196(H) <=34 units/mL [facility] Comment: ATPO Interpretive Data Results may be up to 28% higher in patients receiving Itraconazole. Current interpretive data was last revised 2020. Testing performed by: [facility], [address] [facility] [address] [facility], [place]., [address] Blood 11/26/2022 2:47 PM CERTIFIED ORTHOTIC FITTER 11/27/2022 9:58 AM CERTIFIED ORTHOTIC FITTER Result [facility] Joseph Freeman MD LAB BLOOD ORDERABLES Final Resul t [facility] [address] [address] Department [place] [address] * T4, free (11/26/2022 2:47 PM CERTIFIED ORTHOTIC FITTER) Free T4 1.00 0.90 - 1.70 ng/dL [facility] Blood 11/26/2022 2:47 PM CERTIFIED ORTHOTIC FITTER 11/26/2022 6:06 PM CERTIFIED ORTHOTIC FITTER Result [facility] Joseph Freeman MD LAB BLOOD ORDERABLES Final Resul t [facility] [place] [address] Department of Laboratories [place] [phone] documented in this encounter Visit Diagnoses Diagnosis [...] 4 added in this encounter Care Teams Public Address Servicer Relationship Specialty Start Date End Date John Paul Domínguez MD [address] [place] [address] PCP - General Family Medicine 10/16/22 documented as of this encounter
== END 2024-09-12 05:30 | disposition home or self-care (01) ==
PROVIDERS: Emergency Provider Student in an Organized Health Care Education/Training Program; PCP Emergency Medicine
DX: E83.51 Hypocalcemia (principal); R25.1 Tremor, unspecified; F41.8 Other specified anxiety disorders; Z85.850 Personal history of malignant neoplasm of thyroid; E89.0 Postprocedural hypothyroidism
CPT/HCPCS: 36415; 70496; 70498; 71045; 80053; 80143; 80179; 80307; 81001; 81025; 82077; 82948; 83605; 84443; 84484; 85025; 85610; 85730; 93005; 96365; 96375; 99284; J0613; J0650; J7030; Q9967

== ENCOUNTER 2025-02-25 22:18 | Emergency (ER) | payer OTHER, SELFPAY ==
--- OUTSIDE RECORDS SUMMARY | 2025-02-25 22:21 | XMS_ITS ---
Author Organization [facility] [address] Address [facility] [place] [address] Care Team Providers Care Fluid Designer Name Role Phone John Paul Domínguez MD Primary Care Provider + [phone] Joseph Freeman MD Unavailable Wade REDDY MD PhD, Deon Vanegas Unavailable Tao Helm MD PhD Unavailable [phone] Active Problems Problem Noted Date Diagnosed Date Vitamin D deficiency 01/15/2024 Assessment & Plan (09/16/2024 3:37 PM CERTIFIED PROFESSIONAL CODER): Chronic problem, restart 50k weekly, she has rx now. 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 She had been off thyroid medication due to issue at the pharmacy, has now restarted. I did recommend that although it's ok to take her LT4 7 pills once a week, she should take the cytomel daily since it has a shorter half life. This may help with some of her symptoms. We also discussed that ideally we would get her thyroid levels normalized for a more extended period of time to determine if this helps with her symptoms. I placed lab orders to recheck in 4 weeks between visits. 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 She has not been taking calcium or vitamin. She now has vitamin D and will restart this. We discussed cheaper forms of chewable calcium she can get for now to take BID, at least 3-4 hours from her thyroid medicine. Update BMP. Assessment & Plan (01/15/2024 4:43 PM CDT): Relatively mild, asymptomatic. Emphasized to the patient the need to take calcium and her vitamin-D I advised her and send a prescription for calcium citrate to take 500 mg twice a day Also restart vitamin-D 63025 IU use weekly Assessment & Plan (12/25/2023 [...] 54 years) - Unsigned Assessment & Plan (09/16/2024 3:39 PM CERTIFIED PROFESSIONAL CODER): Chronic stable problem, with undetectable TG and TSH of 249 in 03/22. [facility] planning to repeat scan in summer 2024. Assessment & Plan (01/15/2024 4:44 PM CDT): [...] chronic blood loss 07/18/2022 Cough 09/05/2011 Current Treatment and Therapy Plans No current plan information found. Past Treatment and Therapy Plans No past plan information found. Radiation Treatments * Course Thyroid 1 02/13/2023 - 02/13/2023 Treatment Period Energy Fraction Dose Fractions Total Dose Plans Planned Thyroid 1 02/13/2023 - 02/13/2023 30 Reference Points Delivered Thyroid 1 02/13/2023 - 02/13/2023 Resolved Problems Problem Noted Date Diagnosed Date Resolved Date Thyroid nodule 11/26/2022 02/04/2023 Assessment & Plan (11/26/2022 4:32 PM CERTIFIED PROFESSIONAL CODER): With Afirma genomic sequencing, positive for RET [...]
--- OUTSIDE RECORDS SUMMARY | 2025-02-25 22:21 | XMS_ITS | Encounter Summary ---
Author Organization [facility] Address [address] [place] [address] Phone Care Team Providers Care [employer] Registrar Name Role Phone John Paul Domínguez MD Primary Care Provider [phone] Joseph Freeman MD Unavailable Wade REDDY MD PhD, Deon Vanegas Unavailable Tao Helm MD PhD Unavailable [phone] Encounter Details Date Type Department Care Team (Late st Contact Info) Description 01/10/2023 Telephone [facility] ([facility]) - [facility] ENT [address] Advanced Medicine [address]th [place] [address] [place] [address] Bianca Ayala CMA Social History [...] on file Legal Sex Female 3: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 Gender Identity Not on file Sexual Orientation Not on file documented as of this encounter Plan of Treatment Not on file documented as of this encounter Visit Diagnoses Not on filedocumented in this encounter Care Teams [employer] Registrar Relationship Specialty Start Date End Date John Paul Domínguez MD [address] [place] [address] PCP - General Family Medicine 10/16/22 [place] [address] [address] Consulting Physician Endocrinology Diabetes & Metabolism 03/11/24 Deon Olvera III[place] PhD [address] [address] Radiation Oncologist Radiation Oncology 03/11/24 [place] Helm [place] PhD [address] [address] Radiation Oncologist Radiation Oncology 03/11/24 documented as of this encounter
--- OUTSIDE RECORDS SUMMARY | 2025-02-25 22:21 | XMS_ITS | Clinical Summary ---
Author Organization [facility] [address] Address [facility] [place] [address] Care Team Providers Care Records Management Technician Name Role Phone John Paul Domínguez MD Primary Care Provider + [phone] Joseph Freeman MD Unavailable Wade REDDY MD PhD, Deon Vanegas Unavailable Tao Helm MD PhD Unavailable Allergies Active Allergy Reactions Criticality Noted Date Comments Adhesive Unknown 03/11/2024 Latex Hives Medium 09/02/2024 Medications liothyronine (CYTOMEL) 25 mcg tablet Take 1 tablet (25 mcg total) by mouth daily 30 tablet 3 4 Active calcium citrate-vitamin D3 500 mg-12.5 mcg (500 unit) tablet,chewable Take 1 tab twice a day with meals. 180 tablet 2 4 Active ergocalciferol (VITAMIN D) 50,000 unit capsule Take 1 capsule (50,000 Units total) by mouth once a week 12 capsule 2 4 Active levothyroxine (SYNTHROID) 100 mcg tabletIndications:P ostsurgical hypothyroidism TAKE 1 TABLET(100 MCG) BY MOUTH DAILY 90 tablet 2 5 Active Active Problems Problem Noted Date Diagnosed Date Vitamin D deficiency 01/15/2024 Assessment & Plan (09/16/2024 3:37 PM RESERVOIR CARETAKER): Chronic problem, restart 50k weekly, she has rx now. 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 She had [...] 02/04/2023 Assessment & Plan (09/16/2024 3:38 PM RESERVOIR CARETAKER): Chronic problem, reportedly not at goal. She [...] mg twice a day Also restart vitamin-D 28586 IU use weekly Assessment & Plan (12/25/2023 [...] Unsigned Assessment & Plan (09/16/2024 3:39 PM RESERVOIR CARETAKER): Chronic stable problem, with undetectable TG and TSH of 249 in 03/22. 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 Patient declined 04/21/2024 Do you belong to any clubs o r organizations such as restorationist groups, unions, fraternal or athletic groups, or [...] Somewhat hard 04/21/2024 PHQ-2 Answer Date Recorded PHQ-2 Total Score (If total score is 3 or more points, staff should administer the PHQ-9) 2 09/16/2024 [facility] [place] [facility] Occupat ional [facility] - Occupational Stress [...] on file Legal Sex Female 3:09 AM RESERVOIR CARETAKER Gender Identity Not on file Sexual Orientation Not on file Obstetrics History Last Filed Vital Signs Vital Sign Reading Time Taken Comments Blood Pressure 109/62 09/16/2024 1:44 PM RESERVOIR CARETAKER Pulse 81 09/16/2024 1:44 PM RESERVOIR CARETAKER Temperature 36.9 C (98.4 F) 04/21/2024 3:17 PM CDT Respiratory Rate 16 12/25/2023 3:31 PM CDT Oxygen Saturation 98% 04/21/2024 3:17 PM CDT Inhaled Oxygen Concentration - - Weight 61.9 kg (136 lb 6.4 oz) 09/16/2024 1:44 P M RESERVOIR CARETAKER Height 152.4 cm (5') 09/16/2024 1:44 PM RESERVOIR CARETAKER Body Mass Index 26.64 09/16/2024 1:44 PM RESERVOIR CARETAKER Plan of Treatment Health Maintenance Due Date Last Done Comments Hepatitis C Screening 2004 HPV Vaccines (2 - 2-dose series) 12/17/2016 06/19/2016 Meningococcal B Vaccine (1 of 2 - Standard) 2020 Regular Well Visit/Exam 18-64 2022 Influenza Vaccine (Season Ended) 2025 06/19/2016, 05/27/2011 Depression Screening 09/16/2025 09/16/2024, 04/21/20 24 DTaP/Tdap/Td Vaccine (7 - Td or Tdap) 05/06/2026 05/06/2016, 05/25/2010, 05/22/2006, Additional history exists Hepatitis B Screening Completed 05/22/2006 , 2004, 2004, Additional history exists Pneumococcal vaccine <65 Completed 006, 02/12/2005, 2004, Additional history exists Varicella Vaccines Completed 03/16/2009, 02/18/2006 Meningococcal Vaccine Aged Out 05/06/2016 No vikram elías eligible based on patient's age to complete this topic Medical Devices Implanted Type Area Blasting Machine Operator Device Identifier Shelf Expiration Date Model / Serial / Lot [employer] Sls-Clip Ligate Triangular Wire Janae Groove Small Chevron Clip Latex Free [id number] - [id number] Implanted:Qty: 2 on 01/20/2023 by Jacob Reyna MD at [facility] N/A: Neck [employer] [id number] 03/28/2027 [id number] / / [id number] [employer] Sls-Clip Ligate Triangular Wire Janae Groove Small Chevron Clip Latex Free [id number] - [id number] Implanted:Qty: 1 on 01/20/2023 by Jacob Reyna MD at [facility] N/A: Neck [facility] [id number] 03/28/2027 [id number] / / [id number] Insurance [address] Advance Directives For more information, please contact: [phone] * Full Code (Latest Code Status on File) Date Activated Date Inactivated Comments 01/20/2023 5:49 PM 01/21/2023 8:14 PM Care Teams Records Management Technician Relationship Specialty Start Date End Date John Paul Domínguez MD [address] [place] [address] PCP - General Family Medicine 10/16/22 [place] [address] [address] Consulting Physician Endocrinology Diabetes & Metabolism 03/11/24 Deon Olver[place] PhD [address] [address] Radiation Oncologist Radiation Oncology 03/11/24 Tao Helm [place] PhD [address] [address] Radiation Oncologist Radiation Oncology 03/11/24
--- OUTSIDE RECORDS SUMMARY | 2025-02-25 22:21 | XMS_ITS | Continuity of Care Document ---
Author Organization [facility] Address [address] [facility] [place] [address] Phone Care Team Providers Care Weld Engineer Name Role Phone John Paul Domínguez [...] Copied on Encounter OFFICE/OUTPA TIENT VISIT, EST [facility], [address] [place] [address], [id number], [place] tel:[phone] [facility] Medicine orthostasis 1 (chief complaint)E DS (chief complaint)b ack pain1 (chief complaint) Orthostatic hypotensionHypermo bility syndromeCervicalgi aHashimoto's thyroiditis 4 Sang Coker. [address], [place], [place], [id number] , [place]. tel:[phone] OFFICE/OUTPA TIENT VISIT, [facility], [place], [address], [place], [place], [id number], [place] tel:[phone] [facility] back pain1 (chief complaint) LumbagoCervicalgia May- 4 Sang Coker. [address], [place], [place], [address] , [place]. tel:[phone] OFFICE/OUTPA TIENT VISIT, [facility], [place], [address], [place], [place], [id number], [place] tel:[phone] [facility] orthostasis 1 (chief complaint)j oint pain1 (chief complaint)b ack pain1 (chief complaint) Orthostatic hypotensionPain in jointHypermobility syndromeLumbago 4 Sang Coker. [address], [place], [place], [address] , [place]. tel: [phone] OFFICE/OUTPA TIENT VISIT, [facility], [place], [address], [place], [place], [id number], [place] tel:[phone] [facility] joint pain1 (chief complaint)E DS (chief complaint) Pain in jointOrthostatic hypotensionHypermo bility syndrome 4 Sang Coker. [address], [place], [place], [address] , [place]. tel:[phone] OFFICE/OUTPA TIENT VISIT, [facility], [place], [address], [place], [place], [address], [place] tel:[phone] [facility] iron (chief complaint)c alcium1 (chief complaint)j oint pain1 (chief complaint)h ashimoto1 (chief complaint) Raised antibody titerIron deficiencyHypocalc emiaHashimoto's thyroiditisNeuropa thy Dec- 4 Sang Coker. [address], [place], [place], [address] , [place]. tel:[phone] OFFICE/OUTPA TIENT VISIT, EST [facility], [address], [place], [place], [address], [place] tel:[phone] [facility] joint pain1 (chief complaint)a nemia1 (chief complaint)h ypothyroidi sm1 (chief complaint) Aime's thyroiditisIron deficiency anemiaPain in jointFatigue 4 Sang Coker. [address], [place], [place], [address] , [place]. tel:[phone] PREV VISIT, EST, AGE 18-39 [facility], [address], [place], [place], [id number], [place] tel:[phone] [facility] physical (chief complaint) Encounter for general adult medical examination without abnormal findings 3 Sang Coker. [address], [place], [place], [id number] , [place]. tel:[phone] OFFICE/OUTPA TIENT VISIT, EST [facility], [address], [place], [place], [address], [place] tel:[phone] [facility] abd pain1 (chief complaint)h ashimoto1 (chief complaint) Aime's thyroiditisLower abdominal pain 3 Sang Coker. [address], [place], [place], [address] , [place]. tel:[phone] OFFICE/OUTPA TIENT VISIT, EST [facility], [address] [place], [id number], [place] tel:[phone] [facility] Hashimoto1 (chief complaint)i rajesh deficiency1 (chief complaint)w eight gain1 (chief complaint)T MJ1 (chief complaint) Thyroid noduleHashimoto's thyroiditisIron deficiency anemiaAbnormal weight gainAtypical facial pain 2 Domínguez John Paul. [address], [place], [place], [address] , [place]. tel:[phone] OFFICE/OUTPA TIENT VISIT, [facility], [place], [address], [place], [place], [address], [place] tel:[phone] [facility] thyroid1 (chief complaint)i rajesh deficiency anemia1 (chief complaint)a lopecia1 (chief complaint) Thyroid noduleHashimoto's thyroiditisIron deficiency anemiaAlopecia 2 Domínguez John Paul. [address], [place], [place], [address] , [place]. tel:[phone] OFFICE/OUTPA TIENT VISIT, [facility], [place], [address], [place], [place], [address], [place] tel:[phone] [facility] thyroid1 (chief complaint)i rajesh deficiency anemia1 (chief complaint) Aime's thyroiditisIron deficiency anemia 2 Sang John Paul. [address], [place], [place], [address] , [place]. tel:[phone] OFFICE/OUTPA TIENT VISIT, [facility], [place], [address], [place], [place], [address], [place] tel:[phone] [facility] fatigue1 (chief complaint)t hyroid1 (chief complaint) Iron deficiency anemiaCeliac diseaseFolate deficiencyHypothyr oidism 2 Sang John Paul. [address], [place], [place], [address] , [place]. tel:[phone] PREV VISIT, NEW, AGE 12-17 [facility], [address], [place], [place], [address], [place] tel:[phone] [facility] physical (chief complaint) Encounter for routine child health examination without abnormal findings 2 Sang Coker. [address], [place], [place], [address] , [place]. tel:[phone] Family History Family Member Type Diagnosis Age At Onset Father Problem CAD 47 Mother Problem Alive and well Sister Problem Alive and well Father Problem of brain aneurysm age o f 47 Payers Payer name Insurance type Covered libertarian ID Authormonaa tipaul(s) No Information Social History Type Description Quantity [...] with positive Steve. Pt saw rheumatology at [facility] and she was referred to cardiology for POTS. Pt also was told that she has orville with broach grinder in several years but she was told [...] ordered Referral Referred To: Madalyn Bailey [address], [place], [phone] Ordered: Referrals: Allopathic & Osteopathic Physicians : Plastic Surgery. Madalyn Bailey. Evaluate and treat ordered Referral Ordered: José Miguel Recinos -Allopathic & Osteopathic Physicians : Internal Medicine : Endocrinology, Diabetes & Metabolism (related to Thyroid nodule) ordered Referral Referred To: José Miguel Recinos [id number] [facility]
[address] [place], [place] [id number] Ordered: Referrals: Allopathic & Osteopathic Physicians : [...] h positive Steve. Pt saw rheumatology at [facility] and she was referred to cardiology for POTS. Pt also was told that she has orville with broach grinder in several years but she was told [...] except for physical therapy at this point. orthostasis1 Pt has orthostas is hypotension with [...] breast reduction surgery joint pain1 Pt has joint judith n and positive STEVE. Pt has hypermobility syndrome as well. pt saw rheumatology and she is being tested for EDS. She was told that STEVE elevation is not of concern joint pain1 Pt has diffuse j oint pain Pt has positive STEVE. Pt was referred to rheumatology last month but she has not heard from rheumatology yet EDS Pt has hypermobi lity of all joint and she feels lightheadedness all the time. her sister has EDS and POTS and she feels that she has above as well Pt wants to see broach grinder for above diagnosis Pt denies any chest pain, Pt states that her heart beat faster when she stands up and she feels dizzy as well. hashimoto1 Pt has aime with thyroid CA s/p total thyroidectomy. She is on synthroid. She also saw her endo recently who recommended higher dose of synthroid due to her fatigue but she deferred . joint pain1 Pt has diffuse j oint pain with lower extremity neuropathy symptoms. Pt has positive STEVE. calcium1 Pt has low calci um. Her PTH is normal. Her vitamin D is low iron Pt has low iron Pt has heavy period Pt denies any GI issue or bleeding. hypothyroidism1 Pt has hypothyro idism s/p total thyroidectomy due to thyroid CA. Pt is on 88 mcg synthroid but she wants to change to different medicine for low thyroid since she still feels tired. Pt has not seen endo for a while. anemia1 Pt has history o f iron deficiency anemia due to heavy period Pt still has heavy period Pt has not seen her WELL TESTER for several years. Pt did undergo iron infusion last year. pt denies any dizziness, sob or chest pain joint pain1 Pt has diffuse j oint [...] she wants to be evaluated for above physical Pt needs annual physical pt c/o [...] Pt did receive iron infusion from hematology. hashimoto1 Pt has aime with thyroid nodule with atypia. Pt is on 50 mcg synthroid. pt saw endo who diagnosed her with thyroid CA and she will undergo total thyroidectomy in two weeks. Pt denies any dysphagia or neck pain abd pain1 Pt c/o acute sha rp [...] out of town visiting her sister in [place] and wont be back until 10 days from now TMJ1 Pt c/o bilateral jaw pain when she chew food for several years Pt denies any jaw pain without chewing food Pt denies any ear pain. Pt denies any toothache weight gain1 Pt has gained so me weight. Pt feels that her appetite is better. Pt denies any abd pain iron deficiency1 Pt has iron def iciency anemia and she is seeing hematology for regular iron infusion and also b12 shot. Pt feels more energy. Pt denies any heavy period or GI bleeding Hashimoto1 Pt has aime . Pt denies any dysphagia or neck pain. Pt had thyroid nodule biopsy done recently which showed atypia or undetermined significance. Pt is on synthroid but is under replaced but level is improving Pt overall feel more energy. Pt denies any sob or dizziness thyroid1 Pt has aime thyroid disease and [...] her hair. Pt does have low thyroid iron deficiency anemia1 Pt has i rajesh deficiency anemia. pt has regular period but not heavy per patient. Pt has nexplanon for control purposes. Pt denies any GI bleeding Pt had negative EGD and colonoscopy. Pt does NOT have celiac disease on EGD thyroid1 Pt has Aime thyroid disease Pt denies any dysphagia or neck pain. pt feels very fatigue thyroid1 Pt has low thyro id Pt denies any dysphagia or neck pain. Pt has low folate. Pt feels cold all the time. Pt feels fatigue. Pt denies any dizziness . fatigue1 Pt c/o chronic f atigue, dizziness, [...] severely iron deficiency anemia and low folate. physical Pt needs annual physical. Pt c/o [...] of bowel Instructions Date Instruction Additional Infor mation No Information Assessments Type Assessment Date assessment Orthostatic hypotension assessment Hypermobility syndrome assessment Cervicalgia assessment Aime's thyroiditis Mental Status Date Cognitive Assessment Orientation - Sedan ed to time, place, person, situation.
--- OUTSIDE RECORDS SUMMARY | 2025-02-25 22:21 | XMS_ITS | Referral Summary ---
Author Organization [facility] [address] [facility] [place] [address] Care Team Providers Care Photo Offset Printer Name Role Phone John Paul Domínguez MD Primary Care Provider [phone] Joseph Freeman MD Unavailable Wade REDDY MD [...] 01/15/2024 Assessment & Plan (09/16/2024 3:37 PM CAN RUNNER): Chronic problem, restart 50k weekly, she has rx now. Assessment & Plan (01/15/2024 4:43 PM CDT): Chronic, uncontrolled, contributing to the hypocalcemia Restart vitamin-D 04409 IU use weekly 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 Assessment & Plan (09/16/2024 3:42 PM CAN RUNNER): Chronic problem, not at goal. She had [...] 02/04/2023 Assessment & Plan (09/16/2024 3:38 PM CAN RUNNER): Chronic problem, reportedly not at goal. She [...] mg twice a day Also restart vitamin-D 99503 IU use weekly Assessment & Plan (12/25/2023 [...] Unsigned Assessment & Plan (09/16/2024 3:39 PM CAN RUNNER): Chronic stable problem, with undetectable TG and TSH of 249 in 03/22. [facility] planning to repeat scan in [...] 02/04/2023 Assessment & Plan (11/26/2022 4:32 PM CAN RUNNER): With Afirma genomic sequencing, positive for RET [...] declined 04/21/2024 How often do you attend anabaptist or confucianist serv ices? Patient declined 04/21/2024 Do you belong to any clubs o r organizations such as anabaptist groups, unions, fraternal or athletic groups, or [...] staff should administer the PHQ-9) 2 09/16/2024 [facility] - [...] on file Legal Sex Female 3:09 AM CAN RUNNER Gender Identity Not on file Sexual Orientation Not on file Last Filed Vital Signs Vital Sign Reading Time Taken Comments Blood Pressure 109/62 09/16/2024 1:44 PM CAN RUNNER Pulse 81 09/16/2024 1:44 PM CAN RUNNER Temperature 36.9 C (98.4 F) 04/21/2024 3:17 PM CDT Respiratory Rate 16 12/25/2023 3:31 PM CDT Oxygen Saturation 98% 04/21/2024 3:17 PM CDT Inhaled Oxygen Concentration - - Weight 61.9 kg (136 lb 6.4 oz) 09/16/2024 1:44 P M CAN RUNNER Height 152.4 cm (5') 09/16/2024 1:44 PM CAN RUNNER Body Mass Index 26.64 09/16/2024 1:44 PM CAN RUNNER Plan of Treatment Not on file Medical Devices Implanted Type Area Optical Glass Inspector Device Identifier Shelf Expiration Date Model / Serial / Lot [employer] Sls-Clip Ligate Triangular Wire Janae Groove Small [employer] Clip Latex Free P0111-8 - [id number] Implanted:Qty: 2 on 01/20/2023 by Jacob Reyna MD at [facility] N/A: Neck [employer] [id number] 03/28/2027 [id number] / / [id number] [employer] Sls-Clip Ligate Triangular Wire Janae Groove Small [employer] Clip Latex Free [id number] - [id number] Implanted:Qty: 1 on 01/20/2023 by Jacob Reyna MD at [facility] N/A: Neck [employer] [id number] 03/28/2027 [id number] / [id number] Insurance [address] [place] [id number] [facility] Advance Directives For more information, please contact: [phone] * Full Code (Latest Code Status on File) Date Activated Date Inactivated Comments 01/20/2023 5:49 PM 01/21/2023 8:14 PM Care Teams Photo Offset Printer Relationship Specialty Start Date End Date John Paul Domínguez MD [address] [place] [address] PCP - General Family Medicine 10/16/22 [place] [address] [address] Consulting Physician Endocrinology Diabetes & Metabolism 03/11/24 De[place] Olver[place] [address], [place] [id number] Radiation Oncologist Radiation Oncology 03/11/24 [place] [address] [place] [address] Radiation Oncologist Radiation Oncology 03/11/24
[2025-02-25 22:36] VITALS: BP 112/66; PULSE 100; RESP 20; TEMP 36.2; O2SAT 100
[2025-02-25 23:40] VITALS: O2SAT 96
--- NOTE | 2025-02-26 00:22 | ED.GENADULT ---
HPI - General Adult General Chief complaint: Upper Respiratory Infection Stated complaint: fever + eye glue shut, uri Time Seen by Provider: 02/25/25 23:31 Source: patient Mode of arrival: ambulatory Limitations: no limitations History of Present Illness HPI narrative: Patient is a 19-year-old female who presents the ED with report of bilateral eye drainage. Patient reports she woke up this morning with drainage and matting of her left eye. States throughout the day, it has continued to worsen and spread to her right eye. Patient reports slight blurry vision related to the drainage. She denies vision loss. Reports eye discomfort, denies deep eye pain. Patient does not wear contacts or glasses currently. She does note that she went to a concert 2 days ago and the band is known for throwing fake blood into the crowd. Patient report she got the fake blood into both of her eyes at the concert and was wearing heavy eye makeup at that time. Related Data Home Medications ?Medication ?Instructions ?Recorded ?Confirmed ?Last Taken ?Type levothyroxine 100 mcg tablet 100 mcg PO 01/20/24 01/20/24 Unknown History liothyronine 25 mcg tablet 25 mcg PO 01/20/24 01/20/24 Unknown History Allergies Allergy/AdvReac Type Severity Reaction Status Date / Time latex Allergy Intermediate Hives Verified 02/25/25 22:38 adhesive AdvReac Intermediate Unknown Verified 02/25/25 22:38 Review of Systems Review of Systems: All systems reviewed & are unremarkable except as noted in HPI. All systems reviewed & are unremarkable except as noted in HPI and below PMFSH Past Medical History Medical History Anxiety Depression Encounter for surveillance of implantable subdermal contraceptive Thyroid cancer Iron deficiency anemia Bloating Anemia Surgical History Surgical History History of appendectomy H/O thyroidectomy Family History Family History Grandparent COPD (chronic obstructive pulmonary disease) Social History Social History Smoking status: Never smoker Alcohol intake: never Substance use: current Substance use type: marijuana Do You Feel Safe in your Home?: Yes Lack of Transportation: No Lack of Food: Never True Current Housing: I Have Housing Concerned About Future Housing: No Difficulty Paying Gas/Electric Bills: No Difficulty Paying for Meds: Decline to Answer Currently Unemployed: YES Education: Decline to Answer Difficulty w/ Childcare or Family Care: No Living arrangements: with family Occupation/Education: unemployed Gender identity (if verbalized by the patient): Female Spiritual care concerns: No Exam Narrative: GENERAL: Well appearing, well-nourished, non-toxic, in no acute distress. HEAD: Normocephalic, atraumatic. EYES: PERRL/EOMI. David conjunctiva are slightly injected. Large amount of yellow/green purulent drainage in david eyes, matting into eyelashes. No obvious FB. No chemosis or proptosis. RESPIRATORY: Airway patent, respirations nonlabored. CARDIOVASCULAR: Regular rate and rhythm MUSCULOSKELETAL: Moves all extremities. No gross deformities. SKIN: Warm, dry, normal color. NEURO: A&O X3. Speech clear. PSYCHIATRIC: Appropriate mood and affect. Normal interaction. Course Vital Signs Vital signs: Vital Signs Temperature 97.2 F L 02/25/25 22:36 Pulse Rate 100 02/25/25 22:36 Respiratory Rate 20 02/25/25 22:36 Blood Pressure 112/66 02/25/25 22:36 Pulse Oximetry 100 02/25/25 22:36 Oxygen Delivery Room Air 02/25/25 22:36 Temperature 97.2 F L 02/25/25 22:36 Pulse Rate 91 02/26/25 01:18 Respiratory Rate 17 02/26/25 01:18 Blood Pressure 115/69 02/26/25 01:18 Pulse Oximetry 100 02/26/25 01:18 Oxygen Delivery Room Air 02/25/25 23:40 Medical Decision Making MDM Narrative Medical decision making narrative: Exam consistent with bilateral bacterial conjunctivitis. Patient will be started on ofloxacin eyedrops. Advised to avoid touching eyes, wash hands frequently. Recommended follow-up with Ophthalmology for further evaluation needed. Given return precautions. Fluorescein staining with Wood's lamp examination was performed bilaterally, no conjunctival or corneal abrasions identified. Intra-ocular pressures were evaluated, 19 bilaterally. Medical Records Medical records reviewed: Yes I reviewed the external patient's medical records. Vital Signs Vital Signs: Vital Signs Temperature 97.2 F L 02/25/25 22:36 Pulse Rate 100 02/25/25 22:36 Respiratory Rate 20 02/25/25 22:36 Blood Pressure 112/66 02/25/25 22:36 Pulse Oximetry 100 02/25/25 22:36 Oxygen Delivery Room Air 02/25/25 22:36 Temperature 97.2 F L 02/25/25 22:36 Pulse Rate 91 02/26/25 01:18 Respiratory Rate 17 02/26/25 01:18 Blood Pressure 115/69 02/26/25 01:18 Pulse Oximetry 100 02/26/25 01:18 Oxygen Delivery Room Air 02/25/25 23:40 Discharge Plan Discharge Clinical Impression: Conjunctivitis Qualifiers: Conjunctivitis type: acute Acute conjunctivitis type: bacterial Laterality: bilateral Qualified Code(s): H10.33 - Unspecified acute conjunctivitis, bilateral Patient Disposition: Home Condition: Stable Instructions: Antibiotic Form, Conjunctivitis (ED) Additional Instructions: Utilize antibiotic eyedrops as prescribed. Avoid touching eyes. Wash hands frequently. This can be contagious. Recommend discarding all eye makeup and washing sheets. Avoid contact use while on antibiotics. Follow-up with Ophthalmology for further evaluation if needed. Return to the ED for new or worsening concerns. Patient Language: Wolof Prescriptions: New ofloxacin 0.3 % drops 2 drp EACH EYE QID 5 Days Qty: 5 0RF No Action levothyroxine 100 mcg tablet 100 mcg PO liothyronine 25 mcg tablet 25 mcg PO Follow-up/Referrals: Eleanor Ochoa [Outside] Eleanor Girard [Outside] John Paul Domínguez MD [Primary Care Provider] - Stand Alone Forms: Work/School Release IP Time of Disposition: 00:24
--- OUTSIDE RECORDS SUMMARY | 2025-02-26 00:25 | XMS_ITS | Clinical Summary ---
Author Organization [facility] Address [address] [place] [address] Phone Care Team Providers Care Machine Pack Assembler Name Role Phone John Paul Domínguez Primary Care Provider [phone] Jesus Lockwood MD Unavailable [phone] Joseph Freeman MD Unavailable Allergies Active Allergy Reactions Criticality Noted Date Comments Other-Environmental Allergen (Not Found In Search) Rash 03/14/2022 Medications folic acid (FOLVITE) 1 MG Tablet Take 1 Tablet by mouth daily. 30 Tablet 5 07/18/2022 Active calcium carbonate (OS-MATTHEW) 1250 (500 Ca) MG Tablet Take 1,250 mg by mouth. 01/21/2023 Active cyanocobalamin 1000 MCG Tablet Take 1,000 mcg by mouth daily. 02/19/2023 Active levothyroxine (SYNTHROID) 88 MCG Tablet 02/13/2023 Active Active Problems Problem Noted Date Diagnosed Date Vitamin D deficiency 03/13/2023 B12 deficiency anemia 07/19/2022 Iron deficiency anemia due to chronic blood loss 07/18/2022 Family History Medical History Relation Name Comments Aneurysm Father Heart Attack Father Anemia Mother Osteoporosis Mother Thyroid Disease Mother Relation Name Status Comments Father Mother Social History Tobacco Use Types Packs/Day Years Used Date Smoking Tobacco: Never Smokeless Tobacco: Never Alcohol Use Standard Drinks/Week Comments Never 0 (1 standard drink = 0.6 oz pur e alcohol) Comments Unknown Sex and Gender Information Value Date Recorded Sex Assigned at Not on file Legal Sex Female 9:14 AM CDT Gender Identity Not on file Sexual Orientation Not on file Last Filed Vital Signs Vital Sign Reading Time Taken Comments Blood Pressure 108/74 03/13/2023 10:41 AM CDT Pulse 107 03/13/2023 10:41 AM CDT Temperature 36.9 C (98.4 F) 03/13/2023 10:41 AM CDT Respiratory Rate 18 03/13/2023 10:4 1 AM CDT Oxygen Saturation 97% 03/13/2023 10: 41 AM CDT Inhaled Oxygen Concentration - - Weight 52.5 kg (115 lb 12.8 oz) 023 10:41 AM CDT Height 152.4 cm (5') 03/13/2023 10:41 AM CDT Body Mass Index 22.62 03/13/2023 10:41 AM CDT Plan of Treatment Health Maintenance Due Date Last Done Comments Hepatitis C Virus (HCV) Screening 2004 Human Papillomavirus (HPV) Immunization (2 - 2-dose series) 12/17/2016 06/19/2016 Meningococcal B Immunization (1 of 2 - Standard) 2020 Influenza Immunization (#1) 2024 06/19/2016, 0 05/27/2011 SARS-COV-2 Immunization ( - 2023- season) 2024 Respiratory Syncytial Virus (RSV) Immunization (Adult) (1 - 1-dose 75+ series) 2079 Hepatitis B Immunization Completed 006, 2004, 2004, Additional history exists Pneumococcal Immunization Combined Aged Out 05/22/2006, 02/12/2005, 2004, Additional history exists No longer eligible based on patient's age to complete this topic Hepatitis A Immunization Discontinued 03/16/2009, 01/28 Measles Mumps Rubella (MMR) Immunization Discontinued 03/16/2009, 02/18/2006 Varicella Immunization Discontinued 03/16/2009, 2005 Polio (IPV) Immunization Discontinued 010, 02/12/2005, 2004, Additional history exists DTaP/Tdap/Td Immunization Discontinued 2015, 05/25/2010, 05/22/2006, Additional history exists Meningococcal Immunization (ACWY) Aged Out 05/06/2016 No longer eligible based on patient's age to complete this topic TdaP Immunization Completed 05/06/2016 Rotavirus Immunization Aged Out No lo nger eligible based on patient's age to complete this topic Insurance MEDICAID [place] Care Teams Machine Pack Assembler Relationship Specialty Start Date End Date John Paul Domínguez [address] [place] [address] PCP - General Family Medicine 06/24/22 Jesus Lockwood MD [address] [place] [id number] Consulting Physician Oncology 06/24/22 [place] [address] [place] [address] Internal Medicine 03/14/23
--- OUTSIDE RECORDS SUMMARY | 2025-02-26 00:25 | XMS_ITS ---
Author Organization [facility] [place] [address] Address [facility] [place] [address] Care Team Providers Care Wardsperson Name Role Phone John Paul Domínguez MD Primary Care Provider + [phone] Joseph Freeman MD Unavailable Wade REDDY MD PhD, Deon Vanegas Unavailable Tao Helm MD PhD Unavailable [phone] Active Problems Problem Noted Date Diagnosed Date Vitamin D deficiency 01/15/2024 Assessment & Plan (09/16/2024 3:37 PM PULP MILL OPERATOR): Chronic problem, restart 50k weekly, she has rx now. Assessment & Plan (01/15/2024 4:43 PM CDT): Chronic, uncontrolled, contributing to the hypocalcemia Restart vitamin-D 91474 IU use weekly 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 Assessment & Plan (09/16/2024 3:42 PM PULP MILL OPERATOR): Chronic problem, not at goal. She had [...] 02/04/2023 Assessment & Plan (09/16/2024 3:38 PM PULP MILL OPERATOR): Chronic problem, reportedly not at goal. She [...] mg twice a day Also restart vitamin-D 15913 IU use weekly Assessment & Plan (12/25/2023 [...] Unsigned Assessment & Plan (09/16/2024 3:39 PM PULP MILL OPERATOR): Chronic stable problem, with undetectable TG and TSH of 249 in 03/22. [facility] planning to repeat scan in summer 2024. [...] 02/04/2023 Assessment & Plan (11/26/2022 4:32 PM PULP MILL OPERATOR): With Afirma genomic sequencing, positive [...]
--- OUTSIDE RECORDS SUMMARY | 2025-02-26 00:25 | XMS_ITS | Encounter Summary ---
Author Organization [facility] Address [address] [place] [address] Phone Care Team Providers Care Community Placement Worker Name Role Phone John Paul Domínguez MD Primary Care Provider [phone] Joseph Freeman MD Unavailable Wade REDDY MD PhD, Deon Vanegas Unavailable Tao Helm MD PhD Unavailable [phone] Encounter Details Date Type Department Care Team (Late st Contact Info) Description 01/10/2023 [facility]phone [facility] - [facility] ENT [address] 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 Gender Identity Not on file Sexual Orientation Not on file documented as of this encounter Plan of Treatment Not on file documented as of this encounter Visit Diagnoses Not on filedocumented in this encounter Care Teams Community Placement Worker Relationship Specialty Start Date End Date John Paul Domínguez MD [address] [place] [address] PCP - General Family Medicine 10/16/22 [place] [address] [address] Consulting Physician Endocrinology Diabetes & Metabolism 03/11/24 Deon Olver[place] [address] [address] Radiation Oncologist Radiation Oncology 03/11/24 [place] Helm [place] PhD [address] [address] Radiation Oncologist Radiation Oncology 03/11/24 documented as of this encounter
--- OUTSIDE RECORDS SUMMARY | 2025-02-26 00:26 | XMS_ITS | Continuity of Care Document ---
Author Organization [facility] Address [address] [facility] [address] Phone Care Team Providers Care Quarantine Officer Name Role Phone John Paul Domínguez [...] Copied on Encounter OFFICE/OUTPA TIENT VISIT, EST [facility], [address] [place] [address], [id number], [place] tel:[phone] [facility] Medicine orthostasis 1 (chief complaint)E DS (chief complaint)b ack pain1 (chief complaint) Orthostatic hypotensionHypermo bility syndromeCervicalgi aHashimoto's thyroiditis 4 Sang [address]. [address], [place], [place], [address] , [place]. tel:[phone] OFFICE/OUTPA TIENT VISIT, [facility], [address], [place], [place], [id number], [place] tel:[phone] [facility] back pain1 (chief complaint) LumbagoCervicalgia May- 4 Sang [address]. [address], [address], [place], [place], [address] , [place]. tel:[phone] OFFICE/OUTPA TIENT VISIT, [facility], [address], [place], [place], [address], [place] tel:[phone] [facility] orthostasis 1 (chief complaint)j oint pain1 (chief complaint)b ack pain1 (chief complaint) Orthostatic hypotensionPain in jointHypermobility syndromeLumbago 4 Sang [address]. [address], [place], [place], [id number] , [place]. tel: [phone] OFFICE/OUTPA TIENT VISIT, [facility], [address], [place], [place], [address], [place] tel:[phone] [facility] joint pain1 (chief complaint)E DS (chief complaint) Pain in jointOrthostatic hypotensionHypermo bility syndrome 4 Sang [address]. [address], [place], [place], [address] , [place]. tel:[phone] OFFICE/OUTPA TIENT VISIT, [facility], [address], [place], [place], [address], [place] tel:[phone] [facility] iron (chief complaint)c alcium1 (chief complaint)j oint pain1 (chief complaint)h ashimoto1 (chief complaint) Raised antibody titerIron deficiencyHypocalc emiaHashimoto's thyroiditisNeuropa thy Dec- 4 Sang [address]. [address], [place], [place], [address] , [place]. tel:[phone] OFFICE/OUTPA TIENT VISIT, EST [facility], [address], [place], [place], [address], [place] tel:[phone] [facility] joint pain1 (chief complaint)a nemia1 (chief complaint)h ypothyroidi sm1 (chief complaint) Aime's thyroiditisIron deficiency anemiaPain in jointFatigue 4 Sang [address]. [address], [place], [place], [address] , [place]. tel:[phone] PREV VISIT, EST, AGE 18-39 [facility], [address], [place], [place], [address], [place] tel:[phone] [facility] physical (chief complaint) Encounter for general adult medical examination without abnormal findings 3 Sang [address]. [address], [place], [place], [address] , [place]. tel:[phone] OFFICE/OUTPA TIENT VISIT, EST [facility], [address], [place], [place], [address], [place] tel:[phone] [facility] abd pain1 (chief complaint)h ashimoto1 (chief complaint) Aime's thyroiditisLower abdominal pain 3 [address]. [address], [place], [place], [address] , [place]. tel:[phone] OFFICE/OUTPA TIENT VISIT, EST [facility], [address] [place], [address], [place] tel:[phone] [facility] Hashimoto1 (chief complaint)i rajesh deficiency1 (chief complaint)w eight gain1 (chief complaint)T MJ1 (chief complaint) Thyroid noduleHashimoto's thyroiditisIron deficiency anemiaAbnormal weight gainAtypical facial pain 2 Domínguez John Paul. [address], [address], [place], [place], [address] , [place]. tel:[phone] OFFICE/OUTPA TIENT VISIT, [facility], [address], [place], [place], [address], [place] tel:[phone] [facility] thyroid1 (chief complaint)i rajesh deficiency anemia1 (chief complaint)a lopecia1 (chief complaint) Thyroid noduleHashimoto's thyroiditisIron deficiency anemiaAlopecia 2 Odmínguez John Paul. [address], [place], [place], [address] , [place]. tel:[phone] OFFICE/OUTPA TIENT VISIT, [facility], [address], [place], [place], [address], [place] tel:[phone] [facility] thyroid1 (chief complaint)i rajesh deficiency anemia1 (chief complaint) Aime's thyroiditisIron deficiency anemia 2 Sang John Paul. [address], [place], [place], [address] , [place]. tel:[phone] OFFICE/OUTPA TIENT VISIT, [facility], [address], [place], [place], [address], [place] tel:[phone] [facility] fatigue1 (chief complaint)t hyroid1 (chief complaint) Iron deficiency anemiaCeliac diseaseFolate deficiencyHypothyr oidism 2 Sang John Paul. [address], [place], [place], [address] , [place]. tel:[phone] PREV VISIT, NEW, AGE 12-17 [facility], [address], [place], [place], [address], [place] tel:[phone] [facility] physical (chief complaint) Encounter for routine child health examination without abnormal findings 2 Sang [address]. [address], [place], [place], [address] , [place]. tel:[phone] Family History Family Member Type Diagnosis Age At Onset Father Problem CAD 47 Mother Problem Alive and well Sister Problem Alive and well Father Problem of brain aneurysm age o f 47 Payers Payer name Insurance type Covered constitution party ID Authormonaa tipaul(s) No Information Social History [...] with positive Steve. Pt saw rheumatology at [facility] and she was referred to cardiology for POTS. Pt also was told that she has orville with nursery rn in several years but she was told [...] Evaluate and treat ordered Referral Ordered: Madalyn Baiely -Allopathic & Osteopathic Physicians : Plastic Surgery (related to Encounter for general adult medical examination without abnormal findings) ordered Referral Referred To: Madalyn Bailey [address], [place], [phone] Ordered: Referrals: Allopathic & Osteopathic Physicians : Plastic Surgery. Madalyn Bailey. Evaluate and treat ordered Referral Ordered: José Miguel Recinos -Allopathic & Osteopathic Physicians : Internal Medicine : Endocrinology, Diabetes & Metabolism (related to Thyroid nodule) ordered Referral Referred To: José Miguel Recinos [address] [facility]
[address] [place], [place] [id number] Ordered: Referrals: Allopathic & Osteopathic Physicians : [...] Date Complaint History Of Prese nt Illness EDS Pt has ? EDS wit h positive Steve. Pt saw rheumatology at [facility] and she was referred to cardiology for POTS. Pt also was told that she has orville with nursery rn in several years but she was told that most likely she has POTS.. pt was told that she does not have lupus. back pain1 Pt has back and neck pain due to large breast Pt is doing PT and she will see plastic surgeon for breast reduction surgery soon orthostasis1 pt has some orth ostasis. Pt saw cardiology and she had negative echo and she was told to wear compression stocking. back pain1 pt has chronic n aurora [...] that STEVE elevation is not of concern orthostasis Pt has orthostas is hypotension with positional [...] above as well Pt wants to see nursery rn for above diagnosis Pt denies any chest [...] heavy period Pt has not seen her [facility] for several years. Pt did undergo iron [...] out of town visiting her sister in [place] and wont be back until 10 days [...] Mental Status Date Cognitive Assessment Orientation - Stacy ed to time, place, person, situation.
--- OUTSIDE RECORDS SUMMARY | 2025-02-26 00:26 | XMS_ITS | Clinical Summary ---
Author Organization [facility] [address] [facility] [place] [address] Care Team Providers Care Weaving Teacher Name Role Phone John Paul Domínguez MD Primary Care Provider [phone] Joseph Freeman MD Unavailable Wade REDDY MD PhD, Deon Vanegas Unavailable Tao Helm MD PhD Unavailable [phone] Allergies Active Allergy Reactions Criticality Noted Date [...] 01/15/2024 Assessment & Plan (09/16/2024 3:37 PM CHEMICAL PROCESS OPERATOR): Chronic problem, restart 50k weekly, she has rx now. Assessment & Plan (01/15/2024 4:43 PM CDT): Chronic, uncontrolled, contributing to the hypocalcemia Restart vitamin-D 60831 IU use weekly 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 Assessment & Plan (09/16/2024 3:42 PM CHEMICAL PROCESS OPERATOR): Chronic problem, not at goal. She [...] 02/04/2023 Assessment & Plan (09/16/2024 3:38 PM CHEMICAL PROCESS OPERATOR): Chronic problem, reportedly not at goal. [...] mg twice a day Also restart vitamin-D 42403 IU use weekly Assessment & Plan (12/25/2023 [...] Unsigned Assessment & Plan (09/16/2024 3:39 PM CHEMICAL PROCESS OPERATOR): Chronic stable problem, with undetectable TG and TSH of 249 in 03/22. [facility] planning to repeat scan in [...] 02/04/2023 Assessment & Plan (11/26/2022 4:32 PM CHEMICAL PROCESS OPERATOR): With Afirma genomic sequencing, positive for [...] declined 04/21/2024 How often do you attend baptist or yazidism serv ices? Patient declined 04/21/2024 Do you belong to any clubs o r organizations such as baptist groups, unions, fraternal or athletic groups, or [...] staff should administer the PHQ-9) 2 09/16/2024 [facility] [place] [facility] Occupat ional Health - Occupational Stress [...] on file Legal Sex Female 3:09 AM CHEMICAL PROCESS OPERATOR Gender Identity Not on file Sexual Orientation Not on file Obstetrics History Last Filed Vital Signs Vital Sign Reading Time Taken Comments Blood Pressure 109/62 09/16/2024 1:44 PM CHEMICAL PROCESS OPERATOR Pulse 81 09/16/2024 1:44 PM CHEMICAL PROCESS OPERATOR Temperature 36.9 C (98.4 F) 04/21/2024 3:17 PM CDT Respiratory Rate 16 12/25/2023 3:31 PM CDT Oxygen Saturation 98% 04/21/2024 3:17 PM CDT Inhaled Oxygen Concentration - - Weight 61.9 kg (136 lb 6.4 oz) 09/16/2024 1:44 P M CHEMICAL PROCESS OPERATOR Height 152.4 cm (5') 09/16/2024 1:44 PM CHEMICAL PROCESS OPERATOR Body Mass Index 26.64 09/16/2024 1:44 PM CHEMICAL PROCESS OPERATOR Plan of Treatment Health Maintenance Due Date [...] this topic Medical Devices Implanted Type Area Ski Patrol Device Identifier Shelf Expiration Date Model / Serial / Lot [employer] Sls-Clip Ligate Triangular Wire Janae Groove Small Chevron Clip Latex Free S2758-8 - [id number] Implanted:Qty: 2 on 01/20/2023 by Jacob Reyna MD at [facility] N/A: Neck [employer] [id number] 03/28/2027 U0260-2 / / [id number] [employer] Sls-Clip Ligate Triangular Wire Janae Groove Small Chevron Clip Latex Free V0986-2 - [id number] Implanted:Qty: 1 on 01/20/2023 by Jacob Reyna MD at [facility] N/A: Neck [facility] [id number] 03/28/2027 U0334-3 / / [id number] Insurance [address] Advance Directives For more information, please contact: [phone] * Full Code (Latest Code Status on File) Date Activated Date Inactivated Comments 01/20/2023 5:49 PM 01/21/2023 8:14 PM Care Teams Weaving Teacher Relationship Specialty Start Date End Date John Paul Domínguez MD [address] [place] [address] PCP - General Family Medicine 10/16/22 [place] [address] [address] Consulting Physician Endocrinology Diabetes & Metabolism 03/11/24 Deon Olvera III[place] PhD [address] [address] Radiation Oncologist Radiation Oncology 03/11/24 Tao Helm [place] PhD [address] [address] Radiation Oncologist Radiation Oncology 03/11/24
--- OUTSIDE RECORDS SUMMARY | 2025-02-26 00:26 | XMS_ITS | Referral Summary ---
Author Organization [facility] [place] [address] Address [facility] [place] [address] Care Team Providers Care Asphalt Mixing Machine Operator Name Role Phone John Paul Domínguez MD Primary Care Provider + [phone] Joseph Freeman MD Unavailable Wade REDDY MD [...] 01/15/2024 Assessment & Plan (09/16/2024 3:37 PM INTRAOPERATIVE NEURO TECH): Chronic problem, restart 50k weekly, she has rx now. Assessment & Plan (01/15/2024 4:43 PM CDT): Chronic, uncontrolled, contributing to the hypocalcemia Restart vitamin-D 65741 IU use weekly 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 Assessment & Plan (09/16/2024 3:42 PM INTRAOPERATIVE NEURO TECH): Chronic problem, not at goal. She had [...] 02/04/2023 Assessment & Plan (09/16/2024 3:38 PM INTRAOPERATIVE NEURO TECH): Chronic problem, reportedly not at goal. She [...] mg twice a day Also restart vitamin-D 84986 IU use weekly Assessment & Plan (12/25/2023 [...] Unsigned Assessment & Plan (09/16/2024 3:39 PM INTRAOPERATIVE NEURO TECH): Chronic stable problem, with undetectable TG and TSH of 249 in 03/22. [facility] planning to repeat scan in summer [...] 02/04/2023 Assessment & Plan (11/26/2022 4:32 PM INTRAOPERATIVE NEURO TECH): With Afirma genomic sequencing, positive for RET [...] How often do you attend hoahaoism or hinduism serv ices? Patient declined 04/21/2024 Do you [...] staff should administer the PHQ-9) 2 09/16/2024 [facility] Occupat ional Health - [...] on file Legal Sex Female 3:09 AM INTRAOPERATIVE NEURO TECH Gender Identity Not on file Sexual Orientation Not on file Last Filed Vital Signs Vital Sign Reading Time Taken Comments Blood Pressure 109/62 09/16/2024 1:44 PM INTRAOPERATIVE NEURO TECH Pulse 81 09/16/2024 1:44 PM INTRAOPERATIVE NEURO TECH Temperature 36.9 C (98.4 F) 04/21/2024 3:17 PM CDT Respiratory Rate 16 12/25/2023 3:31 PM CDT Oxygen Saturation 98% 04/21/2024 3:17 PM CDT Inhaled Oxygen Concentration - - Weight 61.9 kg (136 lb 6.4 oz) 09/16/2024 1:44 P M INTRAOPERATIVE NEURO TECH Height 152.4 cm (5') 09/16/2024 1:44 PM INTRAOPERATIVE NEURO TECH Body Mass Index 26.64 09/16/2024 1:44 PM INTRAOPERATIVE NEURO TECH Plan of Treatment Not on file Medical Devices Implanted Type Area Computing Machine Operator Device Identifier Shelf Expiration Date Model / Serial / Lot [employer] Sls-Clip Ligate Triangular Wire Janae Groove Small [employer] Clip Latex Free M9179-3 - [id number] Implanted:Qty: 2 on 01/20/2023 by Jacob Reyna MD at [facility] N/A: Neck [employer] [id number] 03/28/2027 X1937-9 / / [id number] [employer] Sls-Clip Ligate Triangular Wire Janae Groove Small [employer]ron Clip Latex Free M3719-0 - [id number] Implanted:Qty: 1 on 01/20/2023 by Jacob Reyna MD at [facility] N/A: Neck [employer] [id number] 03/28/2027 [id number] / [id number] Insurance [address] [place] [id number] [facility] Advance Directives For more information, please contact: [phone] * Full Code (Latest Code Status on File) Date Activated Date Inactivated Comments 01/20/2023 5:49 PM 01/21/2023 8:14 PM Care Teams Asphalt Mixing Machine Operator Relationship Specialty Start Date End Date John Paul Domínguez MD [address] [place] [address] PCP - General Family Medicine 10/16/22 [place] [address] [address] Consulting Physician Endocrinology Diabetes & Metabolism 03/11/24 Deon Olver[place] III[place] PhD [address], [place] [id number] Radiation Oncologist Radiation Oncology 03/11/24 [place] Hel[place] PhD [address] [place] [address] Radiation Oncologist Radiation Oncology 03/11/24
[2025-02-26 01:00] VITALS: BP 115/69; PULSE 91; RESP 17; O2SAT 100
[2025-02-26] MEDS: OFLOXACIN 0.3% OPHTH SOLN 5 ML BTL 2 DROP EACH EYE (01:10)
[2025-02-26 01:18] VITALS: BP 115/69; PULSE 91; RESP 17; O2SAT 100
== END 2025-02-26 01:22 | disposition home or self-care (01) ==
LOC: ANHED 02-26 00:22
PROVIDERS: Emergency Provider Physician Assistant; PCP Emergency Medicine
DX: H10.33 Unspecified acute conjunctivitis, bilateral (principal); F41.8 Other specified anxiety disorders; Z85.850 Personal history of malignant neoplasm of thyroid
CPT/HCPCS: 99283; A9270

== ENCOUNTER 2025-04-22 13:50 | Emergency (ER) | payer OTHER, SELFPAY ==
[2025-04-22 13:58] VITALS: BP 122/74; PULSE 83; RESP 16; TEMP 36.8; O2SAT 100
--- NOTE | 2025-04-22 14:09 | ED_ITS ---
HPI - URI/Sore Throat General Chief Complaint: Upper Respiratory Infection Stated Complaint: Sore Throat Time Seen by Provider: 04/22/25 14:17 Source: patient and RN notes reviewed Mode of arrival: ambulatory Limitations: no limitations History of Present Illness HPI Narrative: 19-year-old female presents with concern for sore throat. She reports sore throat started yesterday. She reports she noticed tonsil stones on her right tonsil. She denies runny nose stuffy drainage aches, chills, sweats. She has taken ibuprofen. MD elicited complaint: sore throat Related Data Home Medications ?Medication ?Instructions ?Recorded ?Confirmed ?Last Taken ?Type levothyroxine 100 mcg tablet 100 mcg PO 01/20/24 01/20/24 Unknown History liothyronine 25 mcg tablet 25 mcg PO 01/20/24 01/20/24 Unknown History Allergies Allergy/AdvReac Type Severity Reaction Status Date / Time latex Allergy Intermediate Hives Verified 04/22/25 14:06 adhesive AdvReac Intermediate Unknown Verified 04/22/25 14:06 Review of Systems Review of Systems: CONSTITUTIONAL: Denies malaise, chills, sweats, or fever. EYES: Denies visual changes, redness, or discharge. ENT: Denies rhinorrhea, congestion, sinus pain, otalgia. Reports sore throat. CARDIOVASCULAR: Denies chest pain, palpitations, or edema. RESPIRATORY: Denies cough. Denies dyspnea. GASTROINTESTINAL: Denies abdominal pain, nausea, vomiting, diarrhea SKIN: Denies rash or itching. MUSCULOSKELETAL: Denies myalgia. NEUROLOGIC: Denies headache. All systems reviewed & are unremarkable except as noted in HPI and below PMFSH Past Medical History Medical History Anxiety Depression Encounter for surveillance of implantable subdermal contraceptive Thyroid cancer Iron deficiency anemia Bloating Anemia Surgical History Surgical History History of appendectomy H/O thyroidectomy Family History Family History Grandparent COPD (chronic obstructive pulmonary disease) Social History Social History Smoking status: Never smoker Alcohol intake: never Substance use: current Substance use type: marijuana Do You Feel Safe in your Home?: Yes Lack of Transportation: No Lack of Food: Never True Current Housing: I Have Housing Concerned About Future Housing: No Difficulty Paying Gas/Electric Bills: No Difficulty Paying for Meds: Decline to Answer Currently Unemployed: YES Education: Decline to Answer Difficulty w/ Childcare or Family Care: No Living arrangements: with family Occupation/Education: unemployed Gender identity (if verbalized by the patient): Female Spiritual care concerns: No Comments At time of signature, agree with nursing past medical, surgical, social and family history. There is no relevant family history pertinent to the presenting complaint Exam Narrative: GENERAL: Well-appearing, well-nourished, and in no acute distress. HEAD: Normocephalic EYES: PERRLA, conjunctivae clear ENT: Nares clear. Mucous membranes moist. TM pearly dasilva with dull light reflex bilaterally; no tragal tenderness. Oropharynx not erythematous without lesions. Tonsils not enlarged and without exudate, no drooling, no hoarseness, no trismus, uvula midline. NECK: Supple. No lymphadenopathy CHEST: Clear to auscultation, breath sounds equal. No wheezing, rhonchi, rales, or stridor. No respiratory distress, speaks in full sentences. HEART: Regular rate and rhythm. No murmur heard. SKIN: Warm, dry, no rash. NEURO: Alert and oriented x3. PSYCH: Normal mood and affect Course Course Emergency Course: Patient is aware of diagnosis, understands and agrees to treatment plan. Anticipatory guidance given. Patient agrees to follow-up as directed and is aware of reasons to seek care at the emergency department. Portions of this record may have been created with voice recognition software Level of Care: Express Care Visit Vital Signs Vital signs: Vital Signs Temperature 98.2 F 04/22/25 13:58 Pulse Rate 83 04/22/25 13:58 Respiratory Rate 16 04/22/25 13:58 Blood Pressure 122/74 04/22/25 13:58 Pulse Oximetry 100 04/22/25 13:58 Temperature 98.2 F 04/22/25 13:58 Pulse Rate 83 04/22/25 13:58 Respiratory Rate 16 07/25/25 13:58 Blood Pressure 122/74 07/25/25 13:58 Pulse Oximetry 100 04/22/25 13:58 Reviewed. MDM - URI/Sore Throat MDM Narrative Medical decision making narrative: Differential diagnosis considered: Hfuf virus, strep pharyngitis, allergic rhinitis, upper respiratory tract infection, sinusitis, rhinosinusitis, nasopharyngitis. viral pharyngitis, otitis media, otitis externa, pneumonia, bronchitis, viral cough syndrome, viral syndrome, and influenza. Exam findings show no acute concerns or changes; patient is non-toxic appearing and is in no distress. Patient is appropriate for outpatient treatment and follow-up. Lab Data Attestation: I reviewed the patient's lab results. Critical Care Time Critical Care Time Critical Care Time: No Discharge Plan Discharge Clinical Impression: Pharyngitis Patient Disposition: Home Condition: Stable Instructions: Pharyngitis (ED) Additional Instructions: Your rapid strep swab was negative today at [facility]. A throat culture will be sent to the laboratory for further testing. If the test is positive, you will receive a phone call within 48 hours and an appropriate antibiotic will be initiated at that time. Your symptoms are likely due to a viral illness, which is not treated with antibiotics. Viral symptoms can be present for up to a few weeks. -Alternate Tylenol and Motrin per package directions for fever or pain. -Antihistamine medication such as Benadryl at night and Zyrtec during the day can help improve symptoms. -Eat and drink things that are easy to swallow, like tea or soup, or popsicles t o suck on. -Oral rinses such as: Salt water gargles and/or may use topical anesthetic (eg. Chloraseptic spray) or lozenges to relieve dryness or throat pain). -Frequent hand washing or hand sql database administrator is one of the best ways to prevent spread of infection. -Follow up with primary care provider in 2-3 days if condition is not improving; or seek ER visit if you have trouble breathing, cannot drink enough fluids, have muffled voice, difficulty opening your mouth, or severe swelling. Patient Language: Azerbaijani Prescriptions: No Action levothyroxine 100 mcg tablet 100 mcg PO liothyronine 25 mcg tablet 25 mcg PO Follow-up/Referrals: PHYSICIAN,BEAD FORMING MACHINE OPERATOR [Primary Care Provider] - Stand Alone Forms: Work/School Release IP Time of Disposition: 14:25
[2025-04-22 14:20] LABS: EDSTREPNEGPOS1 Negative (Negative)
== END 2025-04-22 14:32 | disposition home or self-care (01) ==
PROVIDERS: Emergency Provider Nurse Practitioner
DX: J02.9 Acute pharyngitis, unspecified (principal); F12.90 Cannabis use, unspecified, uncomplicated; E89.0 Postprocedural hypothyroidism; Z85.850 Personal history of malignant neoplasm of thyroid
CPT/HCPCS: 87081; 87880; 99213; G0463

== ENCOUNTER 2025-06-02 06:30 | Day surgery (SDC) | payer OTHER, SELFPAY ==
--- OUTSIDE RECORDS SUMMARY | 2025-04-11 07:40 | XMS_ITS | Continuity of Care Document ---
Author Organization [facility] Address [address] [facility] [place] [address] Phone Care Team Providers Care Medical Laboratory Technical Officer Name Role Phone John Paul Domínguez [...] Copied on Encounter OFFICE/OUTPA TIENT VISIT, EST [facility], [address] [place] [address], [id number], [place] tel:[phone] [facility] physical (chief complaint)t hyroid1 (chief complaint)P OTS (chief complaint)i rajesh (chief complaint) Muscle spasm of backHypermobility syndromeOrthostati c hypotensionIron deficiencyHashimot o's thyroiditisHypocal cemia 5 Sang Coker. [address], [place], [place], [address] , [place]. tel:[phone] OFFICE/OUTPA TIENT VISIT, [facility], [address], [place], [place], [address], [place] tel:[phone] [facility] orthostasis 1 (chief complaint)E DS (chief complaint)b ack pain1 (chief complaint) Orthostatic hypotensionHypermo bility syndromeCervicalgi aHashimoto's thyroiditis 4 Sang Coker. [address], [place], [place], [address] , [place]. tel:[phone] OFFICE/OUTPA TIENT VISIT, [facility], [address], [place], [place], [address], [place] tel:[phone] [facility] back pain1 (chief complaint) LumbagoCervicalgia 4 Sang Coker. [address], [place], [place], [address] , [place]. tel:[phone] OFFICE/OUTPA TIENT VISIT, [facility], [address], [place], [place], [id number], [place] tel:[phone] [facility] orthostasis 1 (chief complaint)j oint pain1 (chief complaint)b ack pain1 (chief complaint) Orthostatic hypotensionPain in jointHypermobility syndromeLumbago 4 Sang Coker. [address], [place], [place], [address] , [place]. tel:[phone] OFFICE/OUTPA TIENT VISIT, [facility], [address], [place], [place], [address], [place] tel:[phone] [facility] joint pain1 (chief complaint)E DS (chief complaint) Pain in jointOrthostatic hypotensionHypermo bility syndrome 4 Sang Coker. [address], [place], [place], [address] , [place]. [phone] OFFICE/OUTPA TIENT VISIT, EST [facility], [address] [place], [address], [place] tel:[phone] [facility] iron (chief complaint)c alcium1 (chief complaint)j oint pain1 (chief complaint)h ashimoto1 (chief complaint) Raised antibody titerIron deficiencyHypocalc emiaHashimoto's thyroiditisNeuropa thy 4 Sang Blanc [address], [place], [place], [address] , [place]. tel:[phone] OFFICE/OUTPA TIENT VISIT, EST [facility], [address] [place], [address], [place] tel:[phone] [facility] joint pain1 (chief complaint)a nemia1 (chief complaint)h ypothyroidi sm1 (chief complaint) Aime's thyroiditisIron deficiency anemiaPain in jointFatigue 4 Sang [place] [address], [place], [place], [address] , [place]. [phone] PREV VISIT, EST, AGE 18-39 [facility], [address] [place], [address], [place] tel:[phone] [facility] physical (chief complaint) Encounter for general adult medical examination without abnormal findings 3 Sang Coker. [address], [place], [place], [address] , [place]. [phone] OFFICE/OUTPA TIENT VISIT, EST [facility], [address] [place], [address], [place] tel:[phone] [facility] abd pain1 (chief complaint)h ashimoto1 (chief complaint) Aime's thyroiditisLower abdominal pain Dec- 3 Sang Coker. [address], [place], [place], [address] , [place]. tel:[phone] OFFICE/OUTPA TIENT VISIT, [facility], [address], [place], [place], [address], [place] tel:[phone] [facility] Hashimoto1 (chief complaint)i rajesh deficiency1 (chief complaint)w eight gain1 (chief complaint)T MJ1 (chief complaint) Thyroid noduleHashimoto's thyroiditisIron deficiency anemiaAbnormal weight gainAtypical facial pain Aug- 2 Sang Coker. [address], [place], [place], [address] , [place]. [phone] OFFICE/OUTPA TIENT VISIT, [facility], [address] [place], [address], [place] tel:[phone] [facility] thyroid1 (chief complaint)i rajesh deficiency anemia1 (chief complaint)a lopecia1 (chief complaint) Thyroid noduleHashimoto's thyroiditisIron deficiency anemiaAlopecia 2 Sang Coker. [address], [place], [place], [address] , [place]. tel:[phone] OFFICE/OUTPA TIENT VISIT, [facility], [address] [place], [address], [place] tel:[phone] [facility] thyroid1 (chief complaint)i rajesh deficiency anemia1 (chief complaint) Aime's thyroiditisIron deficiency anemia May- 2 Sang Coker. [address] [place], [address] , [place]. tel:[phone] OFFICE/OUTPA TIENT VISIT, [facility], [address] [place], [address], [place] tel:[phone] [facility] fatigue1 (chief complaint)t hyroid1 (chief complaint) Iron deficiency anemiaCeliac diseaseFolate deficiencyHypothyr oidism 2 Sang John Apul. [address], [place], [place], [address] , [place]. tel:[phone] PREV VISIT, NEW, AGE 12-17 [facility], [address], [place], [place], [address], [place] tel:[phone] [facility] physical (chief complaint) Encounter for routine child health examination without abnormal findings 2 Sang Coker. [address], [place], [place], [address] , [place]. tel:[phone] Family History Family Member Type Diagnosis Age At Onset Father Problem CAD 47 Mother Problem Alive and well Sister Problem Alive and well Father Problem of brain aneurysm age o f 47 Payers Payer name Insurance type Covered constitution [id number] Social History Type Description Quantity Date Captured Comments Alcohol Use Details No Caffeine Use Details Unknown Tobacco Use Status Current non-smoker Smoking Status Never smoker Sex Female Vital Signs Date / Time: Height Weight BMI Pulse Rate Blood Pressure Temperature Respiratory Rate Body Surface Area Head Circumference BMI percentile Pulse Ox Inhaled Ox 12:40 PM 60.00 in 140.40 lbs 27.4 2 kg/m eter (2) 83 /min 120/60 mm[Hg] 97.2 F 16 /min Chief Complaint And Reason For Visit From encounter dated '04/11/2025 12:40'. physical (chief complaint). Description: pt has chronic neck and midback pain due to large breast. Pt did PT which did help and she wants to do more PT. Pt has not seen plastic surgeon yet thyroid1 (chief complaint). Description: Pt has low thyroid due to thyroid removal due to thyroid CA Pt is on synthroid. Pt sees endo POTS (chief complaint). Description: Pt has diagnosis of POTs .Pt is seeing cardiology and she was told to keep well hydrated. Pt denies any dizziness iron (chief complaint). Description: Pt has history of low iron due to period. Pt has not seen hematology for a while. Plan Of Treatment Date Type Action Status Referral Ordered: Physical Therapy (related to Muscle spasm of back) ordered Referral Ordered: Rashida Zuñiga -[facility] Phys[facility] : Plastic Surgery (related to Muscle spasm of back) ordered Referral Referred To: Rashida Zuñiga [address] [place] [address], [phone] Ordered: Referrals: [facility]opathic [facility] Osteopathic Physicians : Plastic Surgery. Rashida Zuñiga. Evaluate and treat ordered Referral Ordered: Physical Therapy (related to Lumbago) [...] findings) ordered Referral Referred To: Madalyn Bailey [facility] [place], [place], [phone] Ordered: Referrals: [facility]opathic [facility] Osteopathic Physicians : Plastic Surgery. Madalyn Bailey. Evaluate and treat ordered Referral Ordered: José Miguel Recinos -[facility]opathic Physicians : Internal Medicine : Endocrinology, Diabetes & Metabolism (related to Thyroid nodule) ordered Referral Referred To: José Miguel Recinos [id number] [facility]
[address], [place] [id number] Ordered: Referrals: Allopathic & Osteopathic Physicians : [...] Date Complaint History Of Prese nt Illness thyroid1 Pt has low thyro id due to thyroid removal due to thyroid CA Pt is on synthroid. Pt sees endo POTS Pt has diagnosis of POTs .Pt is seeing cardiology and she was told to keep well hydrated. Pt denies any dizziness iron Pt has history o f low iron due to period. Pt has not seen hematology for a while. physical pt has chronic n aurora and midback pain due to large breast. Pt did PT which did help and she wants to do more PT. Pt has not seen plastic surgeon yet back pain1 Pt has back and neck pain due to large breast Pt is doing PT and she will see plastic surgeon for breast reduction surgery soon orthostasis1 pt has some orth ostasis. Pt saw cardiology and she had negative echo and she was told to wear compression stocking. EDS Pt has ? EDS wit h positive Steve. Pt saw rheumatology at [facility] and she was referred to cardiology for POTS. 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 joint pain1 Pt has joint judith n and positive STEVE. Pt has hypermobility syndrome as well. pt saw rheumatology and she is being tested for EDS. She was told that STEVE elevation is not of concern back pain1 pt has chronic n aurora and mid back pain .Pt attributes to her large breast. Pt has triple D or F Pt is interested in breast reduction surgery EDS Pt has hypermobi lity of all joint and she feels lightheadedness all the time. her sister has EDS and POTS and she feels that she has above as well Pt wants to see [employer] for above diagnosis Pt denies any chest pain, Pt states that her heart beat faster when she stands up and she feels dizzy as well. joint pain1 Pt has diffuse j oint pain Pt has positive STEVE. Pt was referred to rheumatology last month but she has not heard from rheumatology yet hashimoto1 Pt has aime with thyroid CA [...] Pt denies any GI issue or bleeding. 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 Pt did undergo iron [...] out of town visiting her sister in [place] and wont be back until 10 days [...] Pt denies any sob or dizziness iron deficiency anemia1 Pt has i rajesh deficiency anemia. Pt received iron infusion and she is being monitored by hematology. Pt had CBC and iron done two weeks ago and she had lab done last week by hematology and CBC and iron were ok per patient. She feels more energy and appears more color on her skin. thyroid1 Pt has aime thyroid disease and also thyroid nodule. Pt denies any dysphagia or neck pain. Pt is on synthroid 25 mcg daily She has not done lab yet. Pt feels sightly more energy alopecia1 Pt notices mild alopecia. Pt has [...] of bowel Instructions Date Instruction Additional Infor tonya No Information Assessments Type Assessment Date assessment Muscle spasm of back assessment Hypermobility syndrome 25 assessment Orthostatic hypotension assessment Iron deficiency assessment Aime's thyroiditis assessment Hypocalcemia Mental Status Date Cognitive Assessment Orientation - [place] ed to time, place, person, situation.
[2025-05-18 09:16] VITALS: BMI 25.8
--- OUTSIDE RECORDS SUMMARY | 2025-06-02 06:33 | XMS_ITS | Clinical Summary ---
Author Organization [facility] [address] Address [address] [place] [address] Care Team Providers Care Bioprocessing Manufacturing Technician Name Role Phone John Paul Domínguez MD Primary Care Provider [phone] Joseph Freeman MD Unavailable Wade REDDY MD PhD, Deon Vanegas Unavailable Tao Helm MD PhD Unavailable Allergies Active Allergy Reactions Criticality Noted Date Comments Adhesive Unknown 03/11/2024 Latex Hives Medium 09/02/2024 Medications liothyronine (CYTOMEL) 25 mcg tablet Take 1 tablet (25 mcg total) by mouth daily 30 tablet 3 01/15/20 24 Active calcium citrate-vitamin D3 500 mg-12.5 mcg (500 unit) tablet,chewable Take 1 tab twice a day with meals. 180 tablet 2 01/15/20 24 Active Additional Information Patient not taking.Reported on 03/01/2025 ergocalciferol (VITAMIN D) 50,000 unit capsule Take 1 capsule (50,000 Units total) by mouth once a week 12 capsule 2 03/11/20 24 Active Additional Information Patient not taking.Reported on 03/01/2025 levothyroxine (SYNTHROID) 100 mcg tabletIndications: Postsurgical hypothyroidism TAKE 1 TABLET(100 MCG) BY MOUTH DAILY 90 tablet 2 11/23/19 25 Active lidocaine viscous (XYLOCAINE) 2 % solutionIndication s:Strep pharyngitis Apply 10 mL to the mouth or throat every 6 (six) hours as needed (sore throat) May mix with 30 ml of Mylanta 100 mL 04/24/20 25 Active amoxicillin (AMOXIL) 875 mg tabletIndications: Strep pharyngitis Take 1 tablet (875 mg total) by mouth 2 (two) times a day for 10 days 20 tablet 04/24/20 25 025 Active Problems Problem Noted Date Diagnosed Date Bloating 05/24/2025 Conjunctivitis 05/24/2025 Anemia 05/24/2025 Iron deficiency anemia 05/24/2025 POTS (postural orthostatic tachycardia syndrome) 05/24/2024 Vitamin D deficiency 01/15/2024 Assessment & Plan (09/16/2024 3:37 PM SET PAINTER): Chronic problem, restart 50k weekly, she has rx now. Assessment & Plan (01/15/2024 4:43 PM CDT): Chronic, uncontrolled, contributing to the hypocalcemia Restart vitamin-D 53068 IU use weekly 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 Assessment & Plan (09/16/2024 3:42 PM SET PAINTER): Chronic problem, not at goal. She had [...] 02/04/2023 Assessment & Plan (09/16/2024 3:38 PM SET PAINTER): Chronic problem, reportedly not at goal. She [...] mg twice a day Also restart vitamin-D 52520 IU use weekly Assessment & Plan (12/25/2023 [...] Unsigned Assessment & Plan (09/16/2024 3:39 PM SET PAINTER): Chronic stable problem, with undetectable TG and TSH of 249 in 03/22. [facility] planning to repeat scan [...] 02/04/2023 Assessment & Plan (11/26/2022 4:32 PM SET PAINTER): With Afirma genomic sequencing, positive for RET [...] Encounters Date Type Department Care Team Description 05/25/2025 Results Follow-Up [facility] at [address] [address] Kavita Holley, BENITO Throat culture Throat 05/24/2025 5:05 PM CDT - 05/24/2025 11:59 PM CDT Hospital Encounter [address] [address] Acute tonsillitis, unspecified etiology Discharge Disposition: Discharge to home or self care 05/24/2025 5:00 PM CDT Office Visit [facility] at [address] [phone] Pamela Saunders NP Acute tonsillitis, unspecified etiology (Primary Dx) 04/25/2025 1:00 PM CDT Office Visit [facility] Medicine Rheumatology [address] [place] [address] [address] [place] [address] Rayna Andrews MD STEVE positive (Primary Dx); Polyarthralgia; EDS (Leanne-Danlos syndrome) 04/24/2025 12:30 PM CDT Office Visit [facility] at [address] [address] Kavita Holley, BENITO Strep pharyngitis (Primary Dx) 03/31/2025 Telephone [facility] Pediatric Genetics [facility] [address] [place] [id number] Kierra Barker [facility] Test Results 03/30/2025 Orders Only [facility] Pediatric Genetics [facility] 2[address] [place] [address] [place] [phone] Chloe Flynn MD from Last 3 Months Immunizations Immunization Administration Dates Next Due DTaP [...] Tobacco: Never Tobacco Cessation:Counseling Given: Not Answered [facility] Utilities Answer Date Recorded In the past 12 months has th e electric, gas, oil, or water [employer] threatened to shut off services in your home? Patient declined 04/25/2025 Social Connection and Isolation Panel Answer Date Recorded In a typical week, how many times do you talk on the phone with family, friends, or neighbors? Patient declined 04/25/2025 How often do you get togethe r with friends or relatives? Patient declined 04/25/2025 How often do you attend jain or roman catholic serv ices? Patient declined 04/25/2025 Do you belong to any clubs o r organizations such as jain groups, unions, fraternal or athletic groups, or school groups? Patient declined 04/25/2025 How often do you attend meet ings of the clubs or organizations you belong to? Not asked 04/25/2025 Are you , , di vorced, , never , or living with a partner? Never 04/25/2025 AUDIT-C Answer Date Recorded Q1: How often [...] like food, housing, medical care, and heating? Patient declined 04/25/2025 PHQ-2 Answer Date Recorded Patient Health Questionnaire-2 Score 0 04/25/2025 [facility] Occupat ional [facility] - Occupational Stress Questionnaire Answer Date Recorded Do you feel stress - tense, restless, nervous, or anxious, or unable to sleep at night because your mind is troubled all the time - these days? Patient declined 04/25/2025 Exercise Vital Sign Answer Date Recorde d On average, how many days pe r week do you engage in moderate to strenuous exercise (like a brisk walk)? 4 days 04/25/2025 On average, how many minutes do you engage in exercise at this level? 20 min 04/25/2025 Hunger Vital Sign Answer Date Recorded Within [...] appointments or from getting medications? Patient declined 04/25/2025 In the past 12 months, has l ack of transportation kept you from meetings, work, or from getting things needed for daily living? Patient declined 04/25/2025 Housing Stability Vital Sign Answer Sukh e Recorded In the last 12 months, was t here a time when you were not able to pay the mortgage or rent on time? Patient refused 04/25/20 25 Number of Times Moved in the Last Year Not on fi le 04/25/2025 At any time in the past 12 m [facility], were you homeless or living in a group home (including now)? Patient refused 04/25/2025 Personal Safety Answer Date Recorded Have you ever been in or are you currently in a harmful physical or emotional relationship or is someone making you feel afraid or unsafe? Denies 01/20/2023 Comments No Sex and Gender Information Value Date Recorded Sex Assigned at Not on file Legal Sex Female 3:09 AM SET PAINTER Gender Identity Not on file Sexual Orientation Not on file Obstetrics History Last Filed Vital Signs Vital Sign Reading Time Taken Comments Blood Pressure 134/86 05/24/2025 4:46 PM CDT Pulse 108 05/24/2025 4:46 PM CDT Temperature 37.1 C (98.7 F) 05/24/2025 4:46 PM CDT Respiratory Rate 20 05/24/2025 4:46 PM CDT Oxygen Saturation 98% 05/24/2025 4:46 PM CDT Inhaled Oxygen Concentration - - Weight 62.1 kg (137 lb) 05/24/2025 4:46 PM CDT Height 152.4 cm (5') 04/24/2025 11:05 AM CDT Body Mass Index 26.76 04/24/2025 11:05 AM CDT Plan of Treatment Health Maintenance Due Date Last Done Comments Hepatitis C Screening 2004 HPV Vaccines (2 - 2-dose series) 12/17/2016 06/19/2016 Meningococcal B Vaccine (1 of 2 - Standard) 2020 Regular Well Visit/Exam 18-64 2022 Influenza Vaccine (#1) 2025 06/19/2016, 2010 Depression Screening 04/25/2026 04/25/2025, 09/16/2024, 04/21/2024 DTaP/Tdap/Td Vaccine (7 - Td or Tdap) 05/06/2026 05/06/2016, 05/25/2010, 05/22/2006, Additional history exists Hepatitis B Screening Completed 05/22/2006 , 2004, 2004, Additional history exists Pneumococcal vaccine <65 Completed 006, 02/12/2005, 2004, Additional history exists Varicella Vaccines Completed 03/16/2009, 02/18/2006 Meningococcal Vaccine Aged Out 05/06/2016 No vikram elías eligible based on patient's age to complete this topic Medical Devices Implanted Type Area Welding Machine Setter Device Identifier Shelf Expiration Date Model / Serial / Lot [employer] Sls-Clip Ligate Triangular Wire Janae Groove Small Chevron Clip Latex Free [id number] - [id number] Implanted:Qty: 2 on 01/20/2023 by Jacob Reyna MD at [facility] N/A: Neck [employer] [id number] 03/28/2027 [id number] / / [id number] [employer] Sls-Clip Ligate Triangular Wire Janae Groove Small Chevron Clip Latex Free [id number] - [id number] Implanted:Qty: 1 on 01/20/2023 by Jacob Reyna MD at [facility] N/A: Neck [employer] [id number] 03/28/2027 [id number] / [id number] Procedures Procedure Name Priority Date/Time Associated Diagnosis Comments THROAT CULTURE Routine 05/24/2025 5:05 PM CDT Acute tonsillitis, unspecified etiology POCT RAPID STREP Routine 05/24/2025 4:58 PM CDT Acute tonsillitis, unspecified etiology POCT RAPID STREP Routine 04/24/2025 11:1 2 AM CDT Strep pharyngitis MISCELLANEOUS GENETICS LAB Routine 03/30/2025 3:58 PM CDT from Last 3 Months Results * Throat culture Throat (05/24/2025 5:05 PM CDT) Report Final Report: No growth of pathogens. Comment:Testing performed by : [facility], [address] [facility], [place]., [address] Throat 05/24/2025 5:05 PM CDT 05/24/2025 9:56 PM CDT Narrative CERNER - 05/25/2025 5:03 PM CDT Testing performed by [facility] ([phone]). Pamela Saunders NP LAB MICROBIOLOGY - GENERAL ORDE RABLES Final Result [facility] [address] Department [place] [address] * POCT rapid strep A (05/24/2025 4:58 PM CDT) Rapid Strep A, POC Negative Negative Swab 05/24/2025 4:58 PM CDT Pamela Saunders EMERGENCY MEDICINE PHYSICIAN ASSISTANT POINT OF CARE TEST ORDERABLES F inal Result * (ABNORMAL) POCT rapid strep A (04/24/2025 11:12 AM CDT) Rapid Strep A, POC Positive(A ) Negative Swab 04/24/2025 11:1 2 AM CDT Kavita Holley NP POINT OF CARE TEST ORDERAB LES Final Result * - Miscellaneous Test (03/30/2025 3:58 PM CDT) Miscellaneous Chloe Flynn MD LAB GENETIC TESTING Fi nal Result EXTERNAL LAB from Last 3 Months Insurance [facility] Advance Directives For more information, please contact: [phone] * Full Code (Latest Code Status on File) Date Activated Date Inactivated Comments 01/20/2023 5:49 PM 01/21/2023 8:14 PM Care Teams Bioprocessing Manufacturing Technician Relationship Specialty Start Date End Date John Paul Domínguez MD [address] [place] [address] PCP - General Family Medicine 10/16/22 [place] [address] [address] Consulting Physician Endocrinology Diabetes & Metabolism 03/11/24 De[place] Olver[place] [address] [address] Radiation Oncologist Radiation Oncology 03/11/24 Tao Helm MD PhD [address] [address] Radiation Oncologist Radiation Oncology 03/11/24
--- OUTSIDE RECORDS SUMMARY | 2025-06-02 06:33 | XMS_ITS | Clinical Summary ---
Author Organization [facility] Address [address] [place] [address] Care Team Providers Care Counter Roller Name Role Phone John Paul Domínguez MD Primary Care Provider [phone] Allergies Active Allergy Reactions Criticality Noted Date Comments Latex Hives Medium 09/02/2024 Tape Unknown 03/11/2024 Medications vitamin D2, ergocalciferol, (DRISDOL) 1.25 mg capsule Take 1 capsule (1.25 mg total) by mouth once a week. Active liothyronine (CYTOMEL) 25 MCG tablet 01/12/2025 Active levothyroxine (SYNTHROID) 100 MCG tablet Take 1 tablet (100 mcg total) by mouth daily. 11/23/2024 Active Active Problems Problem Noted Date Diagnosed Date POTS (postural orthostatic tachycardia syndrome) 05/24/2024 Vitamin D deficiency 01/15/2024 Overview (05/24/2024): Last Assessment & Plan: Chronic, uncontrolled, contributing to the hypocalcemia Restart vitamin-D 13288 IU use weekly 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 Overview [...] go ahead and started Papillary thyroid carcinoma ([facility]) Overview (05/24/2024): Last Assessment & Plan: Continue monitoring TG level The patient is scheduled for whole-body thyroid scan with radio oncology in March Iron deficiency anemia due to chronic blood loss 07/18/2022 Family History Medical History Relation Comments Leanne-Danlos [...] Sign Reading Time Taken Comments Blood Pressure 84/58 01/31/2025 1:07 PM CDT Pulse 78 01/31/2025 1:07 PM CDT Temperature - - Respiratory Rate - - Oxygen Saturation 98% 01/31/2025 1:07 PM CDT Inhaled Oxygen Concentration - - Weight 66.3 kg (146 lb 3.2 oz) 01/31/2025 1:07 P M CDT Height 154.9 cm (5' 1) 01/31/2025 1:07 PM CDT Body Mass Index 27.62 01/31/2025 1:07 PM CDT Plan of Treatment Upcoming Encounters Date Type Department Care Team (Late st Contact Info) Description 08/15/2025 10:15 AM WAFER SLICER Office Visit [facility] [address] [place] [address] Ramesh Dowling MD [facility], [address] [place], [place] [id number] Health Maintenance Due Date Last Done Comments Annual Physical 2007 HPV Vaccines (2 - 2-dose series) 12/17/2016 06/19/2016 Meningococcal B Vaccine (1 of 2 - Standard) 2020 Hepatitis C 2022 Pneumococcal Vaccine: Pediatrics (0 to 5 Years) and At-Risk Patients (6 to 49 Years) (1 of 2 - PCV) 2023 05/22/2006, 02/12/2005, 2004, Additional history exists COVID-19 Vaccine (1 - season) 2024 DTaP, Tdap and Td Vaccines (7 - Td or Tdap) 05/06/2026 05/06/2016, 05/25/2010, 05/22/2006, Additional history exists Hepatitis B Vaccines Completed 05/22/2006, 2004, 2004, Additional history exists Meningococcal Vaccine Aged Out 05/06/2016 No vikram elías eligible based on patient's age to complete this topic RSV Immunizations Under 20 Months Aged Out No longer eligible based on patient's age to complete this topic Insurance [facility] Care Teams Counter Roller Relationship Specialty Start Date End Date John Paul Domínguez MD [address] [place] [address] PCP - General FAMILY PRACTICE 03/08/24
--- OUTSIDE RECORDS SUMMARY | 2025-06-02 06:33 | XMS_ITS | Encounter Summary ---
Author Organization [facility] Address [address] [place] [address] Care Team Providers Care Director Data Processing Name Role Phone John Paul Domínguez MD Primary Care Provider [phone] Joseph Freeman MD Unavailable Wade REDDY MD PhD, Deon Vanegas Unavailable Tao Helm MD PhD Unavailable [phone] Encounter Details Date Type Department Care Team (Late st Contact Info) Description 05/25/2025 Results Follow-Up [facility] at [address] [address] Kavita Holley, PRODUCT LISTER [address] [place] [address] [address] [place] [address] Throat culture Throat Social History Tobacco Use Types Packs/Day Years Used Date Smoking Tobacco: Never Passive Smoke Exposure: Never Smokeless Tobacco: Never [facility] Utilities Answer Date Recorded In the past 12 months has [employer] electric, gas, oil, or water company threatened to shut off services in your home? Patient declined 04/25/2025 Social Connection and Isolation Panel Answer Date Recorded In a typical week, how many times do you talk on the phone with family, friends, or neighbors? Patient declined 04/25/2025 How often do you get togethe r with friends or relatives? Patient declined 04/25/2025 How often do you attend advent or islam serv ices? Patient declined 04/25/2025 Do you belong to any clubs o r organizations such as advent groups, unions, fraternal or athletic groups, or [...] Recorded Patient Health Questionnaire-2 Score 0 04/25/2025 [facility] of Occupat ional [facility] - Occupational Stress Questionnaire Answer Date Recorded [...] any time in the past 12 m [facility], were you homeless or living in a fdc (including now)? Patient refused 04/25/2025 Personal Safety Answer Date Recorded Have you ever been in or are you currently in a harmful physical or emotional relationship or is someone making you feel afraid or unsafe? Denies 01/20/2023 Comments No Sex and Gender Information Value Date Recorded Sex Assigned at Not on file Legal Sex Female 3:09 AM PROVIDER ENROLLMENT SPECIALIST Gender Identity Not on file Sexual Orientation Not on file documented as of this encounter Miscellaneous Notes * Result Encounter Note - Phil Perez MA - 05/25/2025 7:20 PM CDT Pt notified documented in this encounter Plan of Treatment Not on file documented as of this encounter Visit Diagnoses Not on filedocumented in this encounter Care Teams Director Data Processing Relationship Specialty Start Date End Date John Paul Domínguez MD [address] [place] [address] PCP - General Family Medicine 10/16/22 [place] [address] [address] Consulting Physician Endocrinology Diabetes & Metabolism 03/11/24 Deon Olvera III[place] PhD [address] [address] Radiation Oncologist Radiation Oncology 03/11/24 [place] [address] [address] [facility] [address] [place] [address] Radiation Oncologist Radiation Oncology 03/11/24 documented as of this encounter
--- OUTSIDE RECORDS SUMMARY | 2025-06-02 06:33 | XMS_ITS ---
Author Organization [facility] [address] [place] Address [address] [place] [address] Care Team Providers Care Corporate Accounting Manager Name Role Phone John Paul Domínguez MD Primary Care Provider [phone] Joseph Freeman MD Unavailable Wade REDDY MD PhD, Deon Vanegas Unavailable Tao Helm MD PhD Unavailable Active Problems Problem Noted Date Diagnosed Date Bloating 05/24/2025 Conjunctivitis 05/24/2025 Anemia 05/24/2025 Iron deficiency anemia 05/24/2025 POTS (postural orthostatic tachycardia syndrome) 05/24/2024 Vitamin D deficiency 01/15/2024 Assessment & Plan (09/16/2024 3:37 PM SKILLED HELPER): Chronic problem, restart 50k weekly, she has rx now. Assessment & Plan (01/15/2024 4:43 PM CDT): Chronic, uncontrolled, contributing to the hypocalcemia Restart vitamin-D 59122 IU use weekly 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 Assessment & Plan (09/16/2024 3:42 PM SKILLED HELPER): Chronic problem, not at goal. She had [...] 02/04/2023 Assessment & Plan (09/16/2024 3:38 PM SKILLED HELPER): Chronic problem, reportedly not at goal. She [...] mg twice a day Also restart vitamin-D 24429 IU use weekly Assessment & Plan (12/25/2023 [...] Unsigned Assessment & Plan (09/16/2024 3:39 PM SKILLED HELPER): Chronic stable problem, with undetectable TG and TSH of 249 in 03/22. [facility] planning to repeat scan in summer [...] Points Delivered Thyroid 1 02/13/2023 - 02/13/2023 30 Resolved Problems Problem Noted Date Diagnosed Date Resolved Date Thyroid nodule 11/26/2022 02/04/2023 Assessment & Plan (11/26/2022 4:32 PM SKILLED HELPER): With Afirma genomic sequencing, positive for RET [...]
--- NOTE | 2025-06-02 06:50 | WPDHPUPDATE1 ---
History and Physical Update Update Date/Time: 06/02/25 06:50 Patient seen and examined in pre-operative holding area. No interval change in medical history or symptoms other than pt notes recent eval for sore throat with reportedly negative strep and covid tests and notes some mild post nasal drip that started since smoking cessation and pt denies fever, nightstweats or difficulty breathing. Patient remembers previous discussion of benefits and alternatives to procedure. Continues to desire to proceed with bilateral breast reduction. I reviewed the risks including but not limited to bleeding ,infection, asymmetry, undesireable cosmetic appearance, partial/total skin/nipple loss, no change or worsening of symptoms, change in sensation. I discussed the possible use of assistants and their level of participation in the case. Patient stated understanding and signed the consent form wishing to proceed
--- NOTE | 2025-06-02 06:50 | W.PM.PROC2 ---
Procedure Note - Detailed Date of Procedure 06/02/25 Pre-op Diagnosis Hypertrophy of Breasts Post-op Diagnosis Same Procedure Performed b/l breast reduction aborted after induction of anesthesia due to anesthesia concerns Surgeon Rashida Zuñiga MD Cubing Machine Tender chan schneider pa-c Anesthesia General Description of Procedure Patient was taken back to the operating room and placed on the table in the supine position. Timeout was performed with anesthesia, surgeon and staff agreeing on patient's name, site and surgery to be performed. SCDs were placed on the lower extremities and inflated. Antibiotics were given IV. After anesthesiologist began inducation patient had violent laryngospasm, convulsive coughing and some clear liquid regurgitation. Anesthesia felt it was unsafe to proceed with elective procedure given risks of possible airway compromise to which I agreed. It was also revealed that there was some differing reports from pre-op patient's statements regarding water consumption this morning and had said it was a few sips of water to possible half a cup. The patient was awaken from anesthesia and transferred to the recovery room in stable condition. [facility] Billing Surgery - Charge Forward: Surgery Billing (,LT ,RT,59 same for chan adding )
[2025-06-02 07:03] VITALS: BP 120/84; PULSE 104; RESP 20; TEMP 37.2; O2SAT 100; BMI 26.4
--- NOTE | 2025-06-02 07:04 | P.PNAN_ITS ---
Anes - Initial Pre Proc Eval Procedure: Operation Date: 06/02/25 07:30 Proposed Procedures p Bilateral Breast Reduction Mammoplasty - Rashida Zuñiga MD Date/Time: 06/02/25 07:04 Surgeon: Rashida Zuñiga MD Pre Op Diagnosis: Hypertrophy of Breasts Patient Data Age: 19 Gender: F Height: 1.55 m Weight: 62 kg Allergies Allergy/AdvReac Type Severity Reaction Status Date / Time latex Allergy Intermediate Hives Verified 06/02/25 06:51 adhesive AdvReac Intermediate Unknown Verified 06/02/25 06:51 Home Medications ?Medication ?Instructions ?Recorded ?Confirmed ?Type levothyroxine 100 mcg tablet 100 mcg PO DAILY 01/20/24 06/02/25 History liothyronine 25 mcg tablet 25 mcg PO DAILY 01/20/24 History Patient hx anesthesia problems: none Family hx anesthesia problems: none Results Review: All pre-operative results and documents have been reviewed as part of the pre- operative evaluation. FORMERLY [facility], [facility] Past Medical History Medical History Anxiety Depression Encounter for surveillance of implantable subdermal contraceptive Thyroid cancer Iron deficiency anemia Bloating Anemia Surgical History Surgical History History of appendectomy H/O thyroidectomy Family History Family History Grandparent COPD (chronic obstructive pulmonary disease) Social History Social History Smoking status: Never smoker Second hand tobacco smoke exposure: Yes Alcohol intake: never Substance use: former Substance use type: marijuana Do You Feel Safe in your Home?: Yes Lack of Transportation: No Lack of Food: Never True Current Housing: I Have Housing Concerned About Future Housing: No Difficulty Paying Gas/Electric Bills: No Difficulty Paying for Meds: Decline to Answer Currently Unemployed: YES Education: Decline to Answer Difficulty w/ Childcare or Family Care: No Living arrangements: with family Occupation/Education: unemployed Gender identity (if verbalized by the patient): Female Spiritual care concerns: No Anes - Eval Final PreProcedure Day of Procedure 06/02/25 07:04 Heart: regular rate and rhythm Lungs: clear to auscultation Airway: Mallampati scale class 1 Neurological: alert and oriented Last oral intake: >/= 8 hours ASA classification: II Anesthetic plan: proceed Anesthesia type and monitoring: general Results Review: All pre-operative results and documents have been reviewed as part of the pre- operative evaluation. Informed Consent: The patient's anesthetic plan and its attendant risks and benefits were discussed with the patient/family/POA. Questions were solicited and answers provided to the satisfaction of the patient/family/POA.
[2025-06-02] MEDS: ACETAMINOPHEN 500 MG TABLET 1000 MG PO (07:23)
[2025-06-02] MEDS: LACTATED RINGERS 1,000 ML 30 ML IV CONT (07:30)
--- NOTE | 2025-06-02 07:31 | SUR.PREOP ---
PT ARRIVE 40 MIN LATE FOR SURGERY. PT HAD MANY QUESTIONS FOR ANESTHESIA AND SURGEON. ALL WERE ANSWERED PER PT SATISFACTION,.
--- NOTE | 2025-06-02 07:40 | SUR.PREOP ---
LATE NOTE, 5223; DR HOOKS MARKED PT WITH PT'S SIG OTHER AT BEDSIDE
[2025-06-02 08:00] VITALS: BP 94/46; PULSE 92; RESP 12; TEMP 36.3; O2SAT 100
--- NOTE | 2025-06-02 08:09 | SUR.PHASEI ---
0800; SURGERY CANCELLED AFTER INDUCTION. DR HOOKS CALLED SIG OTHER TO UPDATE
--- NOTE | 2025-06-02 08:14 | SUR.OPER ---
case canceled on induction
[2025-06-02 08:15] VITALS: BP 107/66; PULSE 90; RESP 20; O2SAT 100
[2025-06-02 08:24] VITALS: BP 107/69; PULSE 94; RESP 20; O2SAT 100
[2025-06-02 08:30] VITALS: BP 107/62; PULSE 96; RESP 18; O2SAT 100
[2025-06-02 08:48] VITALS: BP 105/66; PULSE 92; RESP 18; O2SAT 100
--- NOTE | 2025-06-02 08:48 | SUR.PHASEII ---
DR WELSH SPOKE WITH PT POST OP AND DR BAKER SPOKE WITH PT AND SIG OTHER POST OP
== END 2025-06-02 09:02 | disposition home or self-care (01) ==
LOC: ASC 06:31
PROVIDERS: PCP Emergency Medicine; Visit Provider Plastic Surgery
PROC: 0HBV0ZZ Excision of Bilateral Breast, Open Approach (ICD-10-PCS; CPT 19318; principal; 2025-06-02 07:30)
DX: N62 Hypertrophy of breast (principal)
CPT/HCPCS: 19318